=== PATIENT | male | born 1955 | race American Indian/Alaskan Native ===

== ENCOUNTER 2017-05-30 09:15 | Day surgery (SDC) | payer MEDICARE, OTHER ==
[2017-05-25 13:57] VITALS: BMI 27.4
[2017-05-30] MEDS ORDERED: Lactated Ringer's 1,000 ML IV ONE ×2 (11:50)
[2017-05-30] MEDS ORDERED: Bupivacaine HCl 0.25% PF (10 ml) Inj ONE ×2 (12:13→12:35)
[2017-05-30] MEDS ORDERED: ceFAZolin 1 gm FROZEN Premix 1 GM/50 ML ML IVPB ONE (12:13)
[2017-05-30] MEDS ORDERED: Lidocaine 1% Inj (20ml) ONE (12:13)
[2017-05-30] MEDS ORDERED: Midazolam 2 MG/2 ML VIAL ONE (12:15)
[2017-05-30] MEDS ORDERED: Propofol 10 mg/ml Inj (20 ML) ONE (12:15)
[2017-05-30] MEDS ORDERED: Neostigmine Methylsulfate 3mg/3ml Syringe IV ONE (12:51)
[2017-05-30] MEDS ORDERED: HYDROmorphone 0.5 mg/0.5 ml ISec IVP PRN (13:06)
[2017-05-30] MEDS ORDERED: Oxycodone/Acetaminophen 5/325 mg Tab PO PRN (13:17)
[2017-05-30 13:26] VITALS: O2SAT 100
[2017-05-30 15:12] VITALS: BP 126/80; PULSE 80; RESP 18; TEMP 97.3
--- NOTE | 2017-05-30 21:34 | OP ---
PROCEDURE DATE: 05/30/2017 PREOPERATIVE DIAGNOSIS: Incarcerated right inguinal hernia. POSTOPERATIVE DIAGNOSIS: Incarcerated right inguinal hernia. PROCEDURE PERFORMED: 1. Repair of incarcerated right inguinal hernia (94595). 2. Repair of bleeding testicular artery (92872). 3. Excision of pelvic lipoma 3 cm in size (28575). HISTORY OF PRESENT ILLNESS: This is a 61-year-old male with a painful incarcerated right inguinal hernia. Despite receiving chemotherapy, his stomach cancer was felt to alleviate his symptoms, he should undergo an elective repair. GROSS FINDINGS: There was incarcerated indirect inguinal hernia which contained fat omentum. A ProLoop hernia plug repair was performed. There was also a large cord lipoma associated with the hernia and this was removed and sent as a separate specimen. PROCEDURE: The patient was taken to the operating room, placed in the supine position. General anesthesia was administered and the abdomen was prepped and draped. The standard right inguinal incision was made and the external oblique aponeurosis was opened and a Claude drain was used to loop the spermatic cord. The hernia sac was identified within the spermatic cord and carefully dissected free down to its base with the cord structures being meticulously dissected off the sac. Bleeding was noted from the testicular artery. This was repaired with a 7-0 Prolene and flow by Doppler was confirmed within the artery after the repair was performed. A 3-4 size cord lipoma was also meticulously dissected off the cord, dissected free down to the base and removed and sent as a separate specimen. The hernia sac after being completely dissected free was inverted and reduced and an extra-large *------* into the hernia defect. It was sutured in place with interrupted 2-0 Prolene suture. The wound was irrigated with copious amounts of saline solution. The wound was closed in layers with heavy Monocryl, subcuticular Monocryl, and skin clips. The patient tolerated the procedure well. Returned to recovery room in stable condition. Tyler Campos MD
== END 2017-05-30 15:14 | disposition home or self-care (01) ==
LOC: C.SDS 09:15
PROVIDERS: ATTEND Surgery
DX: K40.30 Unilateral inguinal hernia, with obstruction, without gangrene, not specified as recurrent (principal); D17.6 Benign lipomatous neoplasm of spermatic cord; C16.9 Malignant neoplasm of stomach, unspecified; Z92.21 Personal history of antineoplastic chemotherapy
CPT/HCPCS: 49507; 55520; 88304; C1781; J0690; J1170; J2250; J2704; J2710; J3010; J7120

== ENCOUNTER 2017-12-31 23:15 | Inpatient (IN) | payer MEDICARE, OTHER ==
[2017-12-31 23:15] VITALS: BMI 27.4
[2017-12-31] MEDS ORDERED: Sodium Chloride 0.9% 1,000 ML IV ONE (23:57)
--- NOTE | 2018-01-01 00:02 | C.PDOC ---
History Of Present Illness 62 year old male with PMHx of cholangiocarcinoma under Dr. Kramer presents to the ED c/o sudden onset abdominal pain 1 hour [employer]ELF [employer]. Patient reports he is undergoing chemotherapy until recently. Patient states he has 1 episode of vomiting, and noticed increased swelling in his abdomen and lower extremities. Patient denies fever, chills, nausea, diarrhea, back pain. Chief Complaint (Nursing): Abdominal Pain History Per: Patient History/Exam Limitations: no limitations Onset/Duration Of Symptoms: Days Current Symptoms Are (Timing): Still Present Location Of Pain/Discomfort: Diffuse Radiation Of Pain To:: None Quality Of Discomfort: "Pain" Associated Symptoms: Vomiting Exacerbating Factors: None Alleviating Factors: None Recent travel outside of the [place]: No Additional History Per: Patient Past Medical History Reviewed: Historical Data, Nursing Documentation, Vital Signs Vital Signs: Last Vital Signs Temp 98.6 F 01/01/18 03:45 Pulse 109 H 01/01/18 03:45 Resp 20 01/01/18 03:45 BP 133/94 H 01/01/18 03:45 Pulse Ox 97 01/01/18 03:45 - Medical History PMH: Asthma, COPD, HTN, Hyperlipidemia Denies: Chronic Kidney Disease Surgical History: Endoscopy - [facility] Procedures DILATION OF HEPATIC ARTERY, PERCUTANEOUS APPROACH (05/12/16) DRAINAGE OF COMMON BILE DUCT WITH DRAIN DEV, PERC APPROACH (05/12/16) PLAIN RADIOGRAPHY OF HEPATOBIL SYS, ALL USING OTH CONTRAST (05/12/16) Family History: States: Unknown Family Hx - Social History Hx Alcohol Use: No (HAS HX ETOH ABUSE, CLEAN 25 YRS) Hx Substance Use: No - Immunization History Hx Tetanus Toxoid Vaccination: No Hx Influenza Vaccination: No Hx Pneumococcal Vaccination: No Review Of Systems Constitutional: Negative for: Fever, Chills Cardiovascular: Negative for: Chest Pain Respiratory: Negative for: Shortness of Breath Gastrointestinal: Positive for: Vomiting, Abdominal Pain Genitourinary: Negative for: Dysuria Skin: Negative for: Rash Neurological: Negative for: Weakness, Numbness, Headache Physical Exam - Physical Exam Appears: Non-toxic, Chronically Ill Skin: Normal Color, Warm, Dry Head: Atraumatic, Normacephalic Eye(s): bilateral: Other (icteric pupils ) Nose: No Discharge Oral Mucosa: Moist Neck: Normal ROM, Supple Chest: Symmetrical, Other (right sided port ) Cardiovascular: Rhythm Regular, No Murmur Respiratory: Normal Breath Sounds, No Rales, No Rhonchi, No Wheezing Gastrointestinal/Abdominal: Bowel Sounds (active), Soft, Tenderness (Diffuse), Distention, No Guarding, No Rebound, Ascites, Other (Midline vertical laparotomy scar, RUQ surgical scar below costalmargin ) Male Genital: Scrotal Swelling Extremity: Normal ROM, No Tenderness, Swelling (2/3+ pitting edema on b/l knees) Neurological/Psych: Oriented x3 Gait: Unable To Assess ED Course And Treatment - Laboratory Results Result Diagrams: 01/01/18 00:16 01/01/18 00:16 O2 Sat by Pulse Oximetry: 97 (On RA) Pulse Ox Interpretation: Normal Progress Note: CT shows multiple enteroenteric fistulae,liver mets,ascites Medical Decision Making Medical Decision Making: Impression: metastatic gastric cancer Plan: * Labs * Benadryl 25 mg IVP * Dilaudid 1 mg IVP * IV fluids * Zofran 4 mg IVP * UA Disposition - Disposition Disposition: HOSPITALIZED Disposition Time: 07:01 Condition: GOOD - Clinical Impression Clinical Impression: Abdominal pain, Cholangiocarcinoma - Scribe Statement The provider has reviewed the documentation as recorded by the Scribe Sushant Richard All medical record entries made by the Scribe were at my direction and personally dictated by me. I have reviewed the chart and agree that the record accurately reflects my personal performance of the history, physical exam, medical decision making, and the department course for this patient. I have also personally directed, reviewed, and agree with the discharge instructions and disposition.
[2018-01-01 00:20] LABS: BASO # 0.1 K/uL (0.0-0.2); BASO % 0.5 % (0.0-2.0); EOS # 0.1 K/uL (0.0-0.7); EOS % 0.3 % (0.0-4.0); HEMOGLOBIN 9.2 g/dL (12.0-18.0); LYMPH % 4.7 % (20.0-40.0); MEAN CELL VOLUME 92.4 fL (80.0-94.0); MEAN CORPUSCULAR HEMOGLOBIN 31.1 pg (27.0-31.0); MEAN CORPUSCULAR HGB CONC 33.6 g/dL (33.0-37.0); MEAN PLATELET VOLUME 9.8 fL (7.2-11.7); MONO # 2.4 K/uL (0.0-0.8); MONO % 11.8 % (0.0-10.0); NEUT # 16.9 K/uL (1.8-7.0); NEUT % 82.7 % (50.0-75.0); PLATELET COUNT 126 K/uL (130-400); RBC 2.94 Mil/uL (4.40-5.90); RED CELL DISTRIBUTION WIDTH 19.2 % (11.5-14.5); WHITE BLOOD COUNT 20.4 K/uL (4.8-10.8)
[2018-01-01] MEDS ORDERED: HYDROmorphone 1 mg/ml ISec IVP STA ×2 (00:22→02:29)
[2018-01-01] MEDS ORDERED: DiphenhydrAMINE 50 mg/ml Inj IVP STA (00:22)
[2018-01-01] MEDS ORDERED: HYDROmorphone 1 mg/ml ISec ONE ×2 (00:25→02:31)
[2018-01-01] MEDS ORDERED: Sodium Chloride 0.9% 1,000 ML ONE (00:25)
[2018-01-01] MEDS ORDERED: DiphenhydrAMINE 50 mg/ml Inj ONE (00:35)
[2018-01-01 00:38] LABS: ALB/GLOB RATIO 0.5 (1.0-2.1); ALBUMIN 1.9 g/dL (3.5-5.0); ALT/SGPT 79 U/L (21-72); AST/SGOT 44 U/L (17-59); BLOOD UREA NITROGEN 9 mg/dL (9-20); CALCIUM 6.9 mg/dl (8.6-10.4); GFR AFRICAN-AMERICAN > 60; GFR NON-AFRICAN AMERICAN > 60
[2018-01-01 00:44] LABS: LIPASE < 10 U/L (23-300)
[2018-01-01] MEDS ORDERED: Iodixanol 320 MG/ML 100 ML BOTTLE IV ONE (01:26)
[2018-01-01] MEDS ORDERED: Calcium Gluconate 4.65 MEQ in Dextrose 5% In Water 100 ML IV ONE (01:32)
[2018-01-01 01:38] LABS: BANDS 2 % (0-2); LYMPHOCYTE 7 % (20-40); MONOCYTE 13 % (0-10); NEUTROPHIL 78 % (50-75); PLATELET ESTIMATE SLIGHTLY DECREASED (NORMAL); TOTAL CELLS COUNTED 100
[2018-01-01 01:39] LABS: ANISOCYTOSIS MODERATE; HYPOCHROMIC MODERATE; POIKILOCYTOSIS MODERATE; TARGET CELLS SLIGHT
[2018-01-01] MEDS ORDERED: Calcium Gluconate 4.65 mEq/10 ml Inj ONE (01:43)
[2018-01-01] MEDS ORDERED: Piperacillin/Tazobact 3.375 GM in Sodium Chloride 100 ML IVPB STA (01:47)
[2018-01-01] MEDS ORDERED: Piperacill/Tazo 3.375gm in Dex 3.375 GM/50 ML BAG IVPB STA (02:14)
[2018-01-01] MEDS ORDERED: Albuterol-Ipratrop 3 mg / 0.5 (3 ml) UD INH PRN (02:46)
[2018-01-01] MEDS: Dextrose 5%/0.45% NS 1,000 ML IV SCH ×3 (03:04→21:57)
[2018-01-01] MEDS: HYDROmorphone 1 mg/ml ISec IVP PRN ×2 (04:09→19:59)
[2018-01-01] MEDS: metroNIDAZOLE IV 500 mg/100 ml 500 MG/100 ML BAG IVPB SCH ×3 (05:35→22:50)
--- NOTE | 2018-01-01 07:57 | CP.PCM.CON ---
<La Nena Song - Last Filed: 01/01/18 08:00> History of Present Illness - History of Present Illness History of Present Illness: Surgery Consult: Dr. Keith Pt is a 62M with PMHx significant for cholangiocarcinoma s/p resection [place] [address] Hogan at [facility] and now on chemo who presented to [facility] with complaints of abdominal pain, leg pain and pain in his groin 2/2 generalized edema. Pt states he has pain everywhere and has been getting more and more "swollen." Admits to not having much of an appetite and feeling nauseous. Denies F/C, chest pain or SOB. In the ER, pt had a CT abdomen/pelvis which shows small pockets of air around the stomach concerning for microperf. Surgery called to evaluate. Currently, pt is resting comfortably in bed. Admits to generalized pain everywhere most prominent in his lower extremities. Denies vomiting or diarrhea. Review of Systems - Review of Systems All systems: reviewed and no additional remarkable complaints except (as per HPI ) Past Patient History - Infectious Disease Hx of Infectious Diseases: None - Past Medical History & Family History Past Medical History?: Yes - Past Social History Smoking Status: Former Smoker - CARDIAC Hx Hypertension: Yes - PULMONARY Hx Asthma: Yes Hx Chronic Obstructive Pulmonary Disease (COPD): Yes - NEUROLOGICAL Hx Neurological Disorder: No - HEENT Hx HEENT Problems: No - RENAL Hx Chronic Kidney Disease: No - ENDOCRINE/METABOLIC Hx Endocrine Disorders: No - HEMATOLOGICAL/ONCOLOGICAL Hx Blood Disorders: Yes Hx Cancer: Yes (STOMACH) Hx Chemotherapy: Yes (HAD ITCHING AFTER CHEM-"IN RECESSION"/ALSO RADIATION) - INTEGUMENTARY Hx Dermatological Problems: No - MUSCULOSKELETAL/RHEUMATOLOGICAL Hx Musculoskeletal Disorders: Yes Hx Falls: No Other/Comment: HX: RIGHT INGUINAL HERNIA - GASTROINTESTINAL Hx Gastrointestinal Disorders: Yes Hx Bowel Surgery: Yes Other/Comment: HX: CANCER IN STOMACH-2015 - GENITOURINARY/GYNECOLOGICAL Hx Genitourinary Disorders: No - PSYCHIATRIC Hx Substance Use: No - SURGICAL HISTORY Hx Surgeries: Yes Other/Comment: "STOMACH CANCER TUMOR REMOVAL - ANESTHESIA Hx Anesthesia: Yes Hx Anesthesia Reactions: No Hx Malignant Hyperthermia: No Meds Allergies/Adverse Reactions: Allergies Allergy/AdvReac Type Severity Reaction Status Date / Time CHEMO Allergy Severe URTICARIA Uncoded 12/31/17 23:33 seasonal allergies Allergy Uncoded 12/31/17 23:33 - Medications Medications: Current Medications Acetaminophen (Tylenol 325mg Tab) 650 mg PO Q6 PRN PRN Reason: Fever >100.4 F Albuterol/Ipratropium (Duoneb 3 Mg/0.5 Mg (3 Ml) Ud) 3 ml INH QID PRN PRN Reason: sob/wheezing Enoxaparin Sodium (Lovenox) 40 mg SC DAILY [facility] Hydromorphone HCl (Dilaudid) 1 mg IVP Q4H PRN PRN Reason: pain Last Admin: 01/01/18 04:09 Dose: 1 mg Dextrose/Sodium Chloride (Dextrose 5%/0.45% Ns 1000 Ml) 1,000 mls @ 100 mls/hr IV .Q10H [facility] Last Admin: 01/01/18 03:04 Dose: 100 mls/hr Metronidazole (Flagyl) 500 mg in 100 mls @ 100 mls/hr IVPB Q8 [facility] PRN Reason: Protocol Last Admin: 01/01/18 05:35 Dose: 100 mls/hr Piperacillin Sod/Tazobactam (Sod 3.375 gm/ Sodium Chloride) 100 mls @ 200 mls/ hr IVPB Q6H [facility] PRN Reason: Protocol Potassium Chloride (Potassium Chloride 20 Meq/100 Ml) 20 meq in 100 mls @ 50 mls/hr IVPB Q2 [facility] Stop: 01/01/18 09:59 Last Admin: 01/01/18 06:17 Dose: 50 mls/hr Ondansetron HCl (Zofran Inj) 4 mg IVP Q4 PRN PRN Reason: Nausea/Vomiting Physical Exam - Constitutional Appears: No Acute Distress - Head Exam Head Exam: ATRAUMATIC, NORMOCEPHALIC - Eye Exam Eye Exam: Normal appearance - ENT Exam ENT Exam: Mucous Membranes Moist - Respiratory Exam Respiratory Exam: NORMAL BREATHING PATTERN - Cardiovascular Exam Cardiovascular Exam: Tachycardia - GI/Abdominal Exam GI & Abdominal Exam: Distended (2/2 ascites ), Soft, Tenderness (generalized) - Neurological Exam Neurological exam: Alert, Oriented x3 - Skin Skin Exam: Dry, Warm Results - Vital Signs Recent Vital Signs: Last Vital Signs Temp 98.6 F 01/01/18 03:45 Pulse 109 H 01/01/18 03:45 Resp 20 01/01/18 03:45 BP 133/94 H 01/01/18 03:45 Pulse Ox 97 01/01/18 07:03 - Labs Result Diagrams: 01/01/18 00:16 01/01/18 00:16 Labs: Laboratory Results - last 24 hr 01/01/18 01/01/18 01/01/18 00:16 00:16 00:16 WBC 20.4 H D RBC 2.94 L Hgb 9.2 L Hct 27.2 L MCV 92.4 D MCH 31.1 H MCHC 33.6 RDW 19.2 H Plt Count 126 L D MPV 9.8 Neut % (Auto) 82.7 H Lymph % (Auto) 4.7 L [place] % (Auto) 11.8 H Eos % (Auto) 0.3 Baso % (Auto) 0.5 Neut # (Auto) 16.9 H Lymph # (Auto) 1.0 [place] # (Auto) 2.4 H Eos # (Auto) 0.1 Baso # (Auto) 0.1 Neutrophils % (Manual) 78 H Band Neutrophils % 2 Lymphocytes % (Manual) 7 L Monocytes % (Manual) 13 H Platelet Estimate Slightly decreased L Hypochromasia (manual) Moderate Poikilocytosis (manual Moderate Anisocytosis (manual) Moderate Target Cells Slight Sodium 134 Potassium 2.6 L Chloride 106 Carbon Dioxide 19 L Anion Gap 11 BUN 9 Creatinine 0.8 Est GFR ( Amer) > 60 Est GFR (Non-Af Amer) > 60 Random Glucose 71 L Lactic Acid Calcium 6.9 L Total Bilirubin 2.9 H AST 44 ALT 79 H Alkaline Phosphatase 277 H Ammonia 21 Total Protein 5.6 L Albumin 1.9 L D Globulin 3.8 Albumin/Globulin Ratio 0.5 L Lipase < 10 L 01/01/18 00:16 WBC RBC Hgb Hct MCV MCH MCHC RDW Plt Count MPV Neut % (Auto) Lymph % (Auto) [place] % (Auto) Eos % (Auto) Baso % (Auto) Neut # (Auto) Lymph # (Auto) [place] # (Auto) Eos # (Auto) Baso # (Auto) Neutrophils % (Manual) Band Neutrophils % Lymphocytes % (Manual) Monocytes % (Manual) Platelet Estimate Hypochromasia (manual) Poikilocytosis (manual Anisocytosis (manual) Target Cells Sodium Potassium Chloride Carbon Dioxide Anion Gap BUN Creatinine Est GFR ( Amer) Est GFR (Non-Af Amer) Random Glucose Lactic Acid 1.9 Calcium Total Bilirubin AST ALT Alkaline Phosphatase Ammonia Total Protein Albumin Globulin Albumin/Globulin Ratio Lipase - Imaging and Cardiology CT scan - abdomen Status: Image reviewed by me Assessment & Plan - Assessment and Plan (Free Text) Assessment: 62M with hx of cholangiocarcinoma, admitted for abdominal pain & generalized fluid retention Plan: - cont to monitor - serial abdominal exams - keep NPO for now - f/u GI recs - d/w Dr. Sagar Song, PGY-3 <Mike Keith - Last Filed: 01/02/18 21:42> Meds - Medications Medications: Current Medications Acetaminophen (Tylenol 325mg Tab) 650 mg PO Q6 PRN PRN Reason: Fever >100.4 F Albuterol/Ipratropium (Duoneb 3 Mg/0.5 Mg (3 Ml) Ud) 3 ml INH RQID PRN PRN Reason: sob/wheezing Enoxaparin Sodium (Lovenox) 40 mg SC DAILY [facility] Last Admin: 01/02/18 09:40 Dose: 40 mg Hydromorphone HCl (Dilaudid) 1 mg IVP Q4H PRN PRN Reason: pain Last Admin: 01/02/18 19:14 Dose: 1 mg Dextrose/Sodium Chloride (Dextrose 5%/0.45% Ns 1000 Ml) 1,000 mls @ 100 mls/hr IV .Q10H [facility] Last Admin: 01/02/18 19:00 Dose: 100 mls/hr Vancomycin/Sodium Chloride (Vancomycin 1 Gm/Ns 200 Ml) 1 gm in 200 mls @ 166.6 mls/hr IVPB Q12H [facility] PRN Reason: Protocol Stop: 01/07/18 02:01 Last Admin: 01/02/18 13:58 Dose: 166.6 mls/hr Piperacillin Sod/Tazobactam Sod (Zosyn 3.375 Gm Iv Premix) 3.375 gm in 50 mls @ 100 mls/hr IVPB Q8H [facility] PRN Reason: Protocol Last Admin: 01/02/18 18:00 Dose: 100 mls/hr Metronidazole (Flagyl) 500 mg in 100 mls @ 100 mls/hr IVPB Q12H [facility] PRN Reason: Protocol Last Admin: 01/02/18 18:00 Dose: 100 mls/hr Metoclopramide HCl (Reglan) 10 mg IVP Q8H [facility] Last Admin: 01/02/18 20:00 Dose: 10 mg Ondansetron HCl (Zofran Inj) 4 mg IVP Q4 PRN PRN Reason: Nausea/Vomiting Last Admin: 01/01/18 14:25 Dose: 4 mg Results - Vital Signs Recent Vital Signs: Last Vital Signs Temp 98.2 F 01/02/18 08:00 Pulse 103 H 01/02/18 08:00 Resp 20 01/02/18 08:00 BP 109/72 01/02/18 08:00 Pulse Ox 97 01/02/18 08:00 - Labs Result Diagrams: 01/02/18 14:27 01/02/18 14:27 Labs: Laboratory Results - last 24 hr 01/02/18 01/02/18 01/02/18 14:27 14:27 14:27 WBC 24.1 H RBC 2.56 L Hgb 7.8 L Hct 23.7 L MCV 92.6 MCH 30.6 MCHC 33.1 RDW 18.9 H Plt Count 146 MPV 10.0 PT 20.0 H INR 1.7 Sodium 138 Potassium 3.1 L Chloride 109 H Carbon Dioxide 21 L Anion Gap 12 BUN 11 Creatinine 0.9 Est GFR ( Amer) > 60 Est GFR (Non-Af Amer) > 60 Random Glucose 82 Calcium 6.7 L Total Bilirubin 1.9 H AST 34 ALT 52 Alkaline Phosphatase 206 H D Total Protein 5.0 L Albumin 1.6 L Globulin 3.3 Albumin/Globulin Ratio 0.5 L Urine Color Urine Clarity Urine pH Ur Specific [place] Urine Protein Urine Glucose (UA) Urine Ketones Urine Blood Urine Nitrate Urine Bilirubin Urine Urobilinogen Ur Leukocyte Esterase Urine WBC (Auto) Urine RBC (Auto) Ur Squamous Epith Cells Urine Bacteria Urine Yeast (Budding) 01/02/18 20:20 WBC RBC Hgb Hct MCV MCH MCHC RDW Plt Count MPV PT INR Sodium Potassium Chloride Carbon Dioxide Anion Gap BUN Creatinine Est GFR ( Amer) Est GFR (Non-Af Amer) Random Glucose Calcium Total Bilirubin AST ALT Alkaline Phosphatase Total Protein Albumin Globulin Albumin/Globulin Ratio Urine Color Dilia Urine Clarity Hazy Urine pH 5.0 Ur Specific Virgin 1.038 H Urine Protein Negative Urine Glucose (UA) Normal Urine Ketones Negative Urine Blood Negative Urine Nitrate Negative Urine Bilirubin Negative Urine Urobilinogen Normal Ur Leukocyte Esterase Trace Urine WBC (Auto) 4 Urine RBC (Auto) 1 Ur Squamous Epith Cells 1 Urine Bacteria Rare Urine Yeast (Budding) Few H Attending/Attestation - Attestation I have personally seen and examined this patient.: Yes I have fully participated in the care of the patient.: Yes I have reviewed all pertinent clinical information: Yes Notes (Text): Pt was seen and examined at bedside Agree with above note and assessment Pt with abdominal pain and leucocytosis s/p Chemoradiation for Cholangiocarcinoma Epigastric tenderness Labs and radiology reviewed 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
[2018-01-01] MEDS: Piperacillin/Tazobact 3.375 GM in Sodium Chloride 100 ML IVPB SCH ×3 (09:39→21:58)
[2018-01-01] MEDS: Enoxaparin 40 mg Syringe SC SCH (09:40)
--- NOTE | 2018-01-01 11:14 | CT ---
PROCEDURE: CT Abdomen and Pelvis with contrast HISTORY: pain COMPARISON: 05/23/2016 TECHNIQUE: Contrast dose: 100 mL Visipaque 320 Radiation dose: Total exam DLP = 450.10 mGy-cm. This CT exam was performed using one or more of the following dose reduction techniques: Automated exposure control, adjustment of the mA and/or kV according to patient size, and/or use of iterative reconstruction technique. FINDINGS: LOWER THORAX: Patchy lingular opacity. LIVER: Multiple low-density hepatic masses. Possible metastatic disease. New since prior examination. Differential diagnosis would include multiple abscess ease, possibly fungal in immunocompromised patient. Smooth contour. Normal size. No intrahepatic biliary dilatation. Nonspecific periportal edema is noted. GALLBLADDER AND BILE DUCTS: Status post cholecystectomy. PANCREAS: Unremarkable. No gross lesion or ductal dilatation. SPLEEN: Unremarkable. ADRENALS: Unremarkable. No mass. KIDNEYS AND URETERS: Unremarkable. No hydronephrosis. No solid mass. VASCULATURE: Unremarkable. No aortic aneurysm. BOWEL: Circumferential mural thickening of long segments of colon, consistent with nonspecific colitis. This spares the descending and sigmoid colon and questionably involves the rectum. The rectum is collapsed and evaluation is limited. This also spares the cecum and proximal ascending colon. 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 Fistulous connection seen from the gastric antral region to the mid transverse colon. There is also possible fistula between the small bowel loop and the transverse colon, best demonstrated on series 601, image 17 and series 602, image 67. Surgical sutures are seen about the gastric antrum. The patient is status post partial gastrectomy. There is diffuse mural thickening of the remaining stomach consistent with nonspecific gastritis. There is circumferential mural thickening of multiple loops of small bowel, predominantly ileum, consistent with nonspecific enteritis. No evidence of bowel obstruction. APPENDIX: Normal appendix. PERITONEUM: Extensive ascites. Very small amount of air noted in the upper abdomen in the region of the gastrohepatic ligament common not clearly within a bowel lumen. Possible small amount of free air. Followup CT advised. LYMPH NODES: Unremarkable. No enlarged lymph nodes. BLADDER: Unremarkable. REPRODUCTIVE: Unremarkable. BONES: No acute fracture. OTHER FINDINGS: None. IMPRESSION: Extensive ascites. Questionable very small amount of free intraperitoneal air in the region of the gastrohepatic ligament. Followup CT advised. Nonspecific colitis and enteritis. Nonspecific gastritis. 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 Multiple hepatic masses, nonspecific. Consider metastatic disease. In immunocompromised patient, consider fungal abscesses. Nonspecific periportal edema. Preliminary interpretation of this examination was reported by [facility] at 3:09 a.m. on 01/01/2018.. There is concurrence of this report with the preliminary interpretation.
[2018-01-01 14:12] LABS: MEAN CORPUSCULAR HEMOGLOBIN 30.7 pg (27.0-31.0); MEAN CORPUSCULAR HGB CONC 32.7 g/dL (33.0-37.0); MEAN PLATELET VOLUME 9.6 fL (7.2-11.7); RBC 2.91 Mil/uL (4.40-5.90); RED CELL DISTRIBUTION WIDTH 18.7 % (11.5-14.5); WHITE BLOOD COUNT 26.7 K/uL (4.8-10.8)
--- NOTE | 2018-01-01 19:07 | CARD ---
APPROVED REPORT EKG Measurement Heart [id number] CT 104P [id number] <Conclusion> Sinus tachycardia with short CT Low voltage QRS Nonspecific T wave abnormality Abnormal ECG
[2018-01-02] MEDS: Dextrose 5%/0.45% NS 1,000 ML IV SCH ×2 (00:23→19:00)
--- NOTE | 2018-01-02 00:49 | CP.PCM.HP ---
History of Present Illness - History of Present Illness History of Present Illness: Pt is a 62M with PMHx significant for cholangiocarcinoma s/p resection [place] [address] Hogan at [facility] and now on chemo who presented to [facility] with complaints of abdominal pain, leg pain and pain in his groin 2/2 generalized edema. Pt states he has pain everywhere and has been getting more and more "swollen." Admits to not having much of an appetite and feeling nauseous. Denies F/C, chest pain or SOB. In the ER, pt had a CT abdomen/pelvis which shows small pockets of air around the stomach concerning for microperf. Surgery called to evaluate. Currently, pt is resting comfortably in bed. Admits to generalized pain everywhere most prominent in his lower extremities. Denies vomiting or diarrhea. Present on Admission - Present on Admission Any Indicators Present on Admission: Yes Past Patient History - Infectious Disease Hx of Infectious Diseases: None - Past Medical History & Family History Past Medical History?: Yes - Past Social History Smoking Status: Former Smoker - CARDIAC Hx Hypertension: Yes - PULMONARY Hx Asthma: Yes Hx Chronic Obstructive Pulmonary Disease (COPD): Yes - NEUROLOGICAL Hx Neurological Disorder: No - HEENT Hx HEENT Problems: No - RENAL Hx Chronic Kidney Disease: No - ENDOCRINE/METABOLIC Hx Endocrine Disorders: No - HEMATOLOGICAL/ONCOLOGICAL Hx Blood Disorders: Yes Hx Cancer: Yes (STOMACH) Hx Chemotherapy: Yes (HAD ITCHING AFTER CHEM-"IN RECESSION"/ALSO RADIATION) - INTEGUMENTARY Hx Dermatological Problems: No - MUSCULOSKELETAL/RHEUMATOLOGICAL Hx Musculoskeletal Disorders: Yes Hx Falls: No Other/Comment: HX: RIGHT INGUINAL HERNIA - GASTROINTESTINAL Hx Gastrointestinal Disorders: Yes Hx Bowel Surgery: Yes Other/Comment: HX: CANCER IN STOMACH-2014 - GENITOURINARY/GYNECOLOGICAL Hx Genitourinary Disorders: No - PSYCHIATRIC Hx Substance Use: No - SURGICAL HISTORY Hx Surgeries: Yes Other/Comment: "STOMACH CANCER TUMOR REMOVAL - ANESTHESIA Hx Anesthesia: Yes Hx Anesthesia Reactions: No Hx Malignant Hyperthermia: No Meds Allergies/Adverse Reactions: Allergies Allergy/AdvReac Type Severity Reaction Status Date / Time CHEMO Allergy Severe URTICARIA Uncoded 12/31/17 23:33 seasonal allergies Allergy Uncoded 12/31/17 23:33 Results - Vital Signs Recent Vital Signs: Last Vital Signs Temp 97.7 F 01/01/18 16:00 Pulse 121 H 01/01/18 16:00 Resp 20 01/01/18 16:00 BP 125/87 01/01/18 16:00 Pulse Ox 98 01/01/18 16:00 - Labs Result Diagrams: 01/01/18 14:04 01/01/18 00:16 Labs: Laboratory Results - last 24 hr 01/01/18 01/01/18 01/01/18 00:16 14:04 14:04 WBC RBC Hgb Hct MCV MCH MCHC RDW Plt Count MPV Neutrophils % (Manual) 78 H Band Neutrophils % 2 Lymphocytes % (Manual) 7 L Monocytes % (Manual) 13 H Differential Comment Platelet Estimate Slightly decreased L Hypochromasia (manual) Moderate Poikilocytosis (manual Moderate Anisocytosis (manual) Moderate Target Cells Slight Alpha Fetoprotein 4.9 Carcinoembryonic Ag 18.6 H CA 19-9 Antigen > 5000 H 01/01/18 14:04 WBC 26.7 H RBC 2.91 L Hgb 9.0 L Hct 27.4 L MCV 94.0 MCH 30.7 MCHC 32.7 L RDW 18.7 H Plt Count 132 MPV 9.6 Neutrophils % (Manual) Band Neutrophils % Lymphocytes % (Manual) Monocytes % (Manual) Differential Comment Platelet Estimate Hypochromasia (manual) Poikilocytosis (manual Anisocytosis (manual) Target Cells Alpha Fetoprotein Carcinoembryonic Ag CA 19-9 Antigen Assessment & Plan (1) Abdominal pain Status: Acute (2) Cholangiocarcinoma Status: Chronic Priority: High (3) Dehydration Status: Acute Priority: High (4) Hypertension Status: Acute
[2018-01-02] MEDS ORDERED: Vancomycin 1 gm/NS 200 ml 1 GM/200 ML BAG IVPB STA (01:08)
[2018-01-02] MEDS: HYDROmorphone 1 mg/ml ISec IVP PRN ×5 (01:50→19:14)
[2018-01-02] MEDS: Vancomycin 1 gm/NS 200 ml 1 GM/200 ML BAG IVPB SCH ×2 (02:00→13:58)
[2018-01-02] MEDS: Piperacillin/Tazobact 3.375 GM in Sodium Chloride 100 ML IVPB SCH ×3 (03:08→14:01)
[2018-01-02] MEDS: metroNIDAZOLE IV 500 mg/100 ml 500 MG/100 ML BAG IVPB SCH ×2 (05:30→18:00)
[2018-01-02] MEDS: Enoxaparin 40 mg Syringe SC SCH (09:40)
--- NOTE | 2018-01-02 14:08 | CP.PCM.PN ---
<Andrew Hampton - Last Filed: 01/02/18 16:44> Subjective - Date & Time of Evaluation Date of Evaluation: 01/02/18 Time of Evaluation: 07:00 - Subjective Subjective: Surgery progress note. Dr. Keith. Pt seen and examined at bedside. No acute events overnight. Had 2 episodes of vomiting yesterday. Today, states that abdominal pain is improved mildly. States that he would like to have some assistance to move to and from bedside chair/commode. No new complaints. Objective - Vital Signs/Intake and Output Vital Signs (last 24 hours): Temp Pulse Resp BP Pulse Ox 98.2 F 103 H 20 109/72 97 01/02/18 08:00 01/02/18 08:00 01/02/18 08:00 01/02/18 08:00 01/02/18 08:00 Intake and Output: 01/02/18 01/02/18 06:59 18:59 Intake Total 2049 Balance 2049 - Medications Medications: Current Medications Acetaminophen (Tylenol 325mg Tab) 650 mg PO Q6 PRN PRN Reason: Fever >100.4 F Albuterol/Ipratropium (Duoneb 3 Mg/0.5 Mg (3 Ml) Ud) 3 ml INH RQID PRN PRN Reason: sob/wheezing Enoxaparin Sodium (Lovenox) [address] [facility] Last Admin: 01/02/18 09:40 Dose: 40 mg Hydromorphone HCl (Dilaudid) 1 mg IVP Q4H PRN PRN Reason: pain Last Admin: 01/02/18 10:23 Dose: 1 mg Dextrose/Sodium Chloride (Dextrose 5%/0.45% Ns 1000 Ml) 1,000 mls @ 100 mls/hr IV .Q10H [facility] Last Admin: 01/02/18 00:23 Dose: Not Given Piperacillin Sod/Tazobactam (Sod 3.375 gm/ Sodium Chloride) 100 mls @ 200 mls/ hr IVPB Q6H [facility] PRN Reason: Protocol Last Admin: 01/02/18 14:01 Dose: 200 mls/hr Vancomycin/Sodium Chloride (Vancomycin 1 Gm/Ns 200 Ml) 1 gm in 200 mls @ 166.6 mls/hr IVPB Q12H [facility] PRN Reason: Protocol Stop: 01/07/18 02:01 Last Admin: 01/02/18 13:58 Dose: 166.6 mls/hr Metoclopramide HCl (Reglan) 10 mg IVP Q8H [facility] Last Admin: 01/02/18 12:05 Dose: 10 mg Ondansetron HCl (Zofran Inj) 4 mg IVP Q4 PRN PRN Reason: Nausea/Vomiting Last Admin: 01/01/18 14:25 Dose: 4 mg - Labs Labs: 01/01/18 14:04 01/01/18 00:16 - Constitutional Appears: Non-toxic, No Acute Distress - Head Exam Head Exam: ATRAUMATIC, NORMAL INSPECTION, NORMOCEPHALIC - Eye Exam Eye Exam: EOMI, Normal appearance. absent: Scleral icterus - ENT Exam ENT Exam: Mucous Membranes Moist - Respiratory Exam Respiratory Exam: NORMAL BREATHING PATTERN. absent: Accessory Muscle Use, Respiratory Distress - Cardiovascular Exam Cardiovascular Exam: absent: JVD - GI/Abdominal Exam GI & Abdominal Exam: Distended (mild distention), Soft. absent: Firm, Guarding , Rigid, Tenderness, Rebound - Extremities Exam Additional comments: 3+pitting pretibial edema bilaterally lower extremity - Neurological Exam Neurological Exam: Alert, Awake, Oriented x3 - Skin Skin Exam: Dry, Intact, Normal Color, Warm Assessment and Plan - Assessment and Plan (Free Text) Assessment: 62yo M with abdominal pain. - Hx of Cholangiocarcinoma, s/p cholecystectomy, s/p chemo/radiation - Consider metastatic disease Plan: - Consider Repeat CT Abd/Pelvis with PO and IV contrast if patient's clinical exam worsens - We will continue to monitor - f/u labs pending - continue current medical management Further recs as per Dr. Sagar Hampton PGY1 surgery pager: [phone] <Mike Keith - Last Filed: 01/02/18 21:47> Objective - Vital Signs/Intake and Output Vital Signs (last 24 hours): Temp Pulse Resp BP Pulse Ox 98.2 F 103 H 20 109/72 97 01/02/18 08:00 01/02/18 08:00 01/02/18 08:00 01/02/18 08:00 01/02/18 08:00 Intake and Output: 01/02/18 01/03/18 18:59 06:59 Intake Total 900 950 Balance 900 950 - Medications Medications: Current Medications Acetaminophen (Tylenol 325mg Tab) 650 mg PO Q6 PRN PRN Reason: Fever >100.4 F Albuterol/Ipratropium (Duoneb 3 Mg/0.5 Mg (3 Ml) Ud) 3 ml INH RQID PRN PRN Reason: sob/wheezing Enoxaparin Sodium (Lovenox) [address] [facility] Last Admin: 01/02/18 09:40 Dose: 40 mg Hydromorphone HCl (Dilaudid) 1 mg IVP Q4H PRN PRN Reason: pain Last Admin: 01/02/18 19:14 Dose: 1 mg Dextrose/Sodium Chloride (Dextrose 5%/0.45% Ns 1000 Ml) 1,000 mls @ 100 mls/hr IV .Q10H [facility] Last Admin: 01/02/18 19:00 Dose: 100 mls/hr Vancomycin/Sodium Chloride (Vancomycin 1 Gm/Ns 200 Ml) 1 gm in 200 mls @ 166.6 mls/hr IVPB Q12H [facility] PRN Reason: Protocol Stop: 01/07/18 02:01 Last Admin: 01/02/18 13:58 Dose: 166.6 mls/hr Piperacillin Sod/Tazobactam Sod (Zosyn 3.375 Gm Iv Premix) 3.375 gm in 50 mls @ 100 mls/hr IVPB Q8H [facility] PRN Reason: Protocol Last Admin: 01/02/18 18:00 Dose: 100 mls/hr Metronidazole (Flagyl) 500 mg in 100 mls @ 100 mls/hr IVPB Q12H [facility] PRN Reason: Protocol Last Admin: 01/02/18 18:00 Dose: 100 mls/hr Metoclopramide HCl (Reglan) [address] [facility] Last Admin: 01/02/18 20:00 Dose: 10 mg Ondansetron HCl (Zofran Inj) 4 mg IVP Q4 PRN PRN Reason: Nausea/Vomiting Last Admin: 01/01/18 14:25 Dose: 4 mg - Labs Labs: 01/02/18 14:27 01/02/18 14:27 PT 20.0 SECONDS (9.7-12.2) H 01/02/18 14:27 INR 1.7 01/02/18 14:27 Attending/Attestation - Attestation I have personally seen and examined this patient.: Yes I have fully participated in the care of the patient.: Yes I have reviewed all pertinent clinical information, including history, physical exam and plan: Yes Notes (Text): Pt was seen and examined at bedside Agree with above note and assessment Pt is improving clinically Tolerating liquid diet IV antibiotics Repeat CT scan with Po and IV contrast Plan d.w pt in detail Risk and benefit explained in detail.
[2018-01-02 14:31] LABS: HEMOGLOBIN 7.8 g/dL (12.0-18.0); MEAN CELL VOLUME 92.6 fL (80.0-94.0); MEAN CORPUSCULAR HEMOGLOBIN 30.6 pg (27.0-31.0); MEAN CORPUSCULAR HGB CONC 33.1 g/dL (33.0-37.0); RBC 2.56 Mil/uL (4.40-5.90); RED CELL DISTRIBUTION WIDTH 18.9 % (11.5-14.5); WHITE BLOOD COUNT 24.1 K/uL (4.8-10.8)
--- NOTE | 2018-01-02 14:44 | PN ---
DATE: 01/02/2018. LOCATION: [facility], bed A. SUBJECTIVE: This is a 62 years old male seen initially for GI consultation on 01/01/2018 at the request by the admitting medical staff, reexamined again today without complaint of abdominal pain. The entire chart is reviewed including, but not limited to most recent lab and radiology study results, current and previous medication list, current and previous medical events. Case discussed at length with the staff in the floor. The official report of yesterday CAT scan is seen and is extensive with evidence of metastatic disease as well as extensive ascites for which the patient will need IR staff for ultrasound guided abdominal paracentesis. 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 Today's lab results is still pending; however, yesterday lab showed white blood cells of 26.7, hemoglobin 9, hematocrit 27.4, with normal platelet count with CA level of 18.6, CA 19-9 is over 5000 with low albumin 1.9, total protein 5.6, total bilirubin 2.9. Calcium is very low at 6.9. Amylase, lipase level is still pending. PHYSICAL EXAMINATION: GENERAL: A 62 years old male, afebrile, appeared to awake, alert, complaining of abdominal pain. VITAL SIGNS: Pulse of 100, respiratory rate 20 to 22, blood pressure 120/70. HEENT: Show pale, dry oral mucous membrane with bilateral icteric sclerae. HEART: Positive S1 and S2 with increased rate. LUNGS: Scattered crepitation with decreased air entry at bases. ABDOMEN: [id number] distention. Positive for ascites with diffused tenderness. Bowel sounds are hypoactive. No mass or organomegaly. No rebound tenderness or guarding. EXTREMITIES: With lower extremity edematous changes. No clubbing or cyanosis. NEUROLOGIC: No new reported neurological deficits, sensory or motor. IMPRESSION: 1. Reported history of cholangiocarcinoma with metastatic disease to the liver. 2. Status post partial resection in 2016 by record at [facility]. 3. Questionable perforation with free air by CAT scan. 4. Excessive increase of CEA and CA 19-9 most likely secondary to above. 5. Ascites to rule out malignant ascites with possible peritoneal feeding as well as possible spontaneous bacterial peritonitis. 6. Known history of but not limited to hypertension, hyperlipidemia, . 7. Known history of alcoholism, quit about 25 years ago as per record and the patient's statement. 8. Malnutrition with severe hypoalbuminemia, hypoproteinemia, as well as electrolyte imbalance. 9. Abnormal liver function test secondary to above. SUGGESTIONS: 1. Agree with your plan. 2. Serum lipase level, amylase level. 3. Ultrasound guided abdominal paracentesis by IR. 4. Continue current IV antibiotics. 5. No aggressive GI procedures in the meantime and surgical followup is advised. 6. Hematology, Oncology followup. 7. No aggressive GI workup in the meantime until the patient is more stable clinically. Adina Barillas MD
[2018-01-02 14:45] LABS: INR 1.7
[2018-01-02 14:52] LABS: ALB/GLOB RATIO 0.5 (1.0-2.1); ALBUMIN 1.6 g/dL (3.5-5.0); ALT/SGPT 52 U/L (21-72); AST/SGOT 34 U/L (17-59); BLOOD UREA NITROGEN 11 mg/dL (9-20); CALCIUM 6.7 mg/dl (8.6-10.4); GFR AFRICAN-AMERICAN > 60; GFR NON-AFRICAN AMERICAN > 60
[2018-01-02] MEDS ORDERED: Potassium Chloride 20 mEq/15 ml LIQ UD PO ONE (15:20)
--- NOTE | 2018-01-02 16:29 | CP.PCM.CON ---
History of Present Illness - History of Present Illness History of Present Illness: INFECTIOUS DISEASE CONSULT; HPI; 62M with PMHx significant for cholangiocarcinoma s/p resection in [address] Hogan at [facility] [place] and now on chemo about a week ago who presented to [facility] with complaints of abdominal pain, leg pain and pain in his groin 2/2 generalized edema. Pt states he has pain everywhere and has been getting more and more "swollen." Admits to not having much of an appetite and feeling nauseous. Denies F/C, chest pain or SOB. In the ER, pt had a CT abdomen/pelvis which shows small pockets of air around the stomach concerning for microperf. Surgery was called to evaluate. Currently, pt is resting comfortably in bed. Admits to generalized pain everywhere most prominent in his lower extremities. Denies vomiting or diarrhea. Patient had leukocytosis of 26,700.PATIENT ADMITS TO GETTING CHEMOTHERAPY LAST sunday ABOUT A WEEK AGO. He was empirically started on Zosyn 3.375 every 6 hourly IV vancomycin 1 g every 12 hourly. Infectious disease consultation requested by PMD for leukocytosis and sepsis. Patient also has a Port-A-Cath right chest wall placed in 2016 at the time of diagnosis of cholangiocarcinoma. Patient is following up with Dr. Franco HIS ONCOLOGIST. PMH: Asthma, COPD, HTN, Hyperlipidemia Denies: Chronic Kidney Disease Surgical History: Endoscopy,HISTORY OF RESECTION OF CHOLANGIOCARCINOMA IN 2016 AT [facility] [place]. - [facility] Procedures DILATION OF HEPATIC ARTERY, PERCUTANEOUS APPROACH (05/12/16) DRAINAGE OF COMMON BILE DUCT WITH DRAIN DEV, PERC APPROACH (05/12/16) PLAIN RADIOGRAPHY OF HEPATOBIL SYS, ALL USING OTH CONTRAST (05/12/16) Family History: States: Unknown Family Hx - Social History Hx Alcohol Use: No (HAS HX ETOH ABUSE, CLEAN 25 YRS) Hx Substance Use: No - Immunization History Hx Tetanus Toxoid Vaccination: No Hx Influenza Vaccination: No Hx Pneumococcal Vaccination: No ALLERGY; CHEMO, SEASONAL ALLERGIES. Review of Systems - Constitutional Constitutional: Fatigue. absent: Chills, Fever - EENT Eyes: absent: Floaters, Photophobia Nose/Mouth/Throat: Dry Mouth - Cardiovascular Cardiovascular: Leg Edema. absent: Chest Pain - Respiratory Respiratory: Cough. absent: Hemoptysis - Gastrointestinal Gastrointestinal: Abdominal Pain, Nausea, Vomiting - Genitourinary Genitourinary: absent: Dysuria, Hematuria - Musculoskeletal Musculoskeletal: Arthralgias, Myalgias - Neurological Neurological: absent: Headaches - Hematologic/Lymphatic Hematologic: As Per HPI. absent: Easy Bleeding, Easy Bruising, Lymphadenopathy Past Patient History - Infectious Disease Hx of Infectious Diseases: None - Past Medical History & Family History Past Medical History?: Yes - Past Social History Smoking Status: Former Smoker - CARDIAC Hx Hypertension: Yes - PULMONARY Hx Chronic Obstructive Pulmonary Disease (COPD): Yes - NEUROLOGICAL Hx Neurological Disorder: No - HEENT Hx HEENT Problems: No - RENAL Hx Chronic Kidney Disease: No - ENDOCRINE/METABOLIC Hx Endocrine Disorders: No - HEMATOLOGICAL/ONCOLOGICAL Hx Blood Disorders: Yes Hx Cancer: Yes (STOMACH) Hx Chemotherapy: Yes (HAD ITCHING AFTER CHEM-"IN RECESSION"/ALSO RADIATION) - INTEGUMENTARY Hx Dermatological Problems: No - MUSCULOSKELETAL/RHEUMATOLOGICAL Hx Musculoskeletal Disorders: Yes Hx Falls: No Other/Comment: HX: RIGHT INGUINAL HERNIA - GASTROINTESTINAL Hx Gastrointestinal Disorders: Yes Hx Bowel Surgery: Yes Other/Comment: HX: CANCER IN STOMACH-2015 - GENITOURINARY/GYNECOLOGICAL Hx Genitourinary Disorders: No - PSYCHIATRIC Hx Substance Use: No - SURGICAL HISTORY Hx Surgeries: Yes Other/Comment: "STOMACH CANCER TUMOR REMOVAL - ANESTHESIA Hx Anesthesia: Yes Hx Anesthesia Reactions: No Hx Malignant Hyperthermia: No Meds Allergies/Adverse Reactions: Allergies Allergy/AdvReac Type Severity Reaction Status Date / Time CHEMO Allergy Severe URTICARIA Uncoded 12/31/17 23:33 seasonal allergies Allergy Uncoded 12/31/17 23:33 - Medications Medications: Current Medications Acetaminophen (Tylenol 325mg Tab) 650 mg PO Q6 PRN PRN Reason: Fever >100.4 F Albuterol/Ipratropium (Duoneb 3 Mg/0.5 Mg (3 Ml) Ud) 3 ml INH RQID PRN PRN Reason: sob/wheezing Enoxaparin Sodium (Lovenox) 40 mg SC DAILY [facility] Last Admin: 01/02/18 09:40 Dose: 40 mg Hydromorphone HCl (Dilaudid) 1 mg IVP Q4H PRN PRN Reason: pain Last Admin: 01/02/18 15:09 Dose: 1 mg Dextrose/Sodium Chloride (Dextrose 5%/0.45% Ns 1000 Ml) 1,000 mls @ 100 mls/hr IV .Q10H [facility] Last Admin: 01/02/18 00:23 Dose: Not Given Vancomycin/Sodium Chloride (Vancomycin 1 Gm/Ns 200 Ml) 1 gm in 200 mls @ 166.6 mls/hr IVPB Q12H [facility] PRN Reason: Protocol Stop: 01/07/18 02:01 Last Admin: 01/02/18 13:58 Dose: 166.6 mls/hr Piperacillin Sod/Tazobactam Sod (Zosyn 3.375 Gm Iv Premix) 3.375 gm in 50 mls @ 100 mls/hr IVPB Q8H [facility] PRN Reason: Protocol Metronidazole (Flagyl) 500 mg in 100 mls @ 100 mls/hr IVPB Q12H [facility] PRN Reason: Protocol Metoclopramide HCl (Reglan) 10 mg IVP Q8H [facility] Last Admin: 01/02/18 12:05 Dose: 10 mg Ondansetron HCl (Zofran Inj) 4 mg IVP Q4 PRN PRN Reason: Nausea/Vomiting Last Admin: 01/01/18 14:25 Dose: 4 mg Physical Exam - Constitutional Appears: No Acute Distress - Head Exam Head Exam: NORMAL INSPECTION - Eye Exam Eye Exam: EOMI, PERRL - ENT Exam ENT Exam: Mucous Membranes Dry - Neck Exam Neck exam: Positive for: Normal Inspection - Respiratory Exam Respiratory Exam: Clear to Auscultation Bilateral - Cardiovascular Exam Cardiovascular Exam: REGULAR RHYTHM, +S1, +S2 - GI/Abdominal Exam GI & Abdominal Exam: Normal Bowel Sounds, Tenderness (GENERALIZED.). absent: Guarding (POSITIVE ASCITES.), Rebound - Extremities Exam Extremities exam: Positive for: pedal edema, pedal pulses present. Negative for : calf tenderness - Neurological Exam Neurological exam: Alert, CN II-XII Intact, Oriented x3, Reflexes Normal - Psychiatric Exam Psychiatric exam: Normal Mood - Skin Skin Exam: Normal Color, Warm Results - Vital Signs Recent Vital Signs: Last Vital Signs Temp 98.2 F 01/02/18 08:00 Pulse 103 H 01/02/18 08:00 Resp 20 01/02/18 08:00 BP 109/72 01/02/18 08:00 Pulse Ox 97 01/02/18 08:00 - Labs Result Diagrams: 01/03/18 06:18 01/03/18 06:18 Labs: Laboratory Results - last 24 hr 01/01/18 01/02/18 01/02/18 14:04 14:27 14:27 WBC 24.1 H RBC 2.56 L Hgb 7.8 L Hct 23.7 L MCV 92.6 MCH 30.6 MCHC 33.1 RDW 18.9 H Plt Count 146 MPV 10.0 PT INR Sodium 138 Potassium 3.1 L Chloride 109 H Carbon Dioxide 21 L Anion Gap 12 BUN 11 Creatinine 0.9 Est GFR ( Amer) > 60 Est GFR (Non-Af Amer) > 60 Random Glucose 82 Calcium 6.7 L Total Bilirubin 1.9 H AST 34 ALT 52 Alkaline Phosphatase 206 H D Total Protein 5.0 L Albumin 1.6 L Globulin 3.3 Albumin/Globulin Ratio 0.5 L CA 19-9 Antigen > 5000 H 01/02/18 14:27 WBC RBC Hgb Hct MCV MCH MCHC RDW Plt Count MPV PT 20.0 H INR 1.7 Sodium Potassium Chloride Carbon Dioxide Anion Gap BUN Creatinine Est GFR ( Amer) Est GFR (Non-Af Amer) Random Glucose Calcium Total Bilirubin AST ALT Alkaline Phosphatase Total Protein Albumin Globulin Albumin/Globulin Ratio CA 19-9 Antigen - Imaging and Cardiology CT scan - abdomenand pelvis with IV contrast. Status: Report reviewed by me Assessment & Plan (1) Sepsis Status: Acute (2) Abdominal pain Status: Acute (3) Ascites, malignant Status: Acute (4) Cholangiocarcinoma Status: Chronic Priority: High (5) Hypertension Status: Acute - Assessment and Plan (Free Text) Plan: PLAN; PANCULTURES U/A AND URINE CULTURES. CONTINUE iv ZOSYN DECREASE DOSE TO 3.375 EVERY 8 HOURLY IN VIEW OF ELEVATED LIVER FUNCTION TESTS. 01/02/18. CONTINUE iv VANCOMYCIN 1 G EVERY 12 HOURLY. 01/02/18 FOLLOW-UP vANCO TROUGH PRIOR TO THE FOURTH DOSE AND KEEP IT BETWEEN 10 AND 20. ADD fLAGYL 500 iv PIGGYBACK EVERY 12 HOURLY FOR ANAEROBIC COVERAGE. 01/02/18. FOLLOW-UP LFTS/RENAL FUNCTIONS CLOSELY. FOLLOW-UP cbc WITH DIFFERENTIAL IN A.M. SURGERY ON BOARD.
[2018-01-02] MEDS: Piperacill/Tazo 3.375gm in Dex 3.375 GM/50 ML BAG IVPB SCH (18:00)
[2018-01-02] MEDS ORDERED: Potassium Chloride 20 mEq/15 ml LIQ UD PO STA (20:22)
[2018-01-02 20:42] LABS: SQUAMOUS EPITHIAL 1 /hpf (0-5); URINE BACTERIA RARE (<OCC); URINE BILIRUBIN NEGATIVE (NEGATIVE); URINE BLOOD NEGATIVE (NEGATIVE); URINE CLARITY Hazy (Clear); URINE COLOR Amber (YELLOW); URINE GLUCOSE (UA) NORMAL (Normal); URINE LEUKOCYTE ESTERASE TRACE Leu/uL (Negative); URINE PROTEIN NEGATIVE (NEGATIVE); URINE UROBILINOGEN NORMAL mg/dL (0.2-1.0)
--- NOTE | 2018-01-02 22:39 | CP.PCM.PN ---
Subjective - Date & Time of Evaluation Date of Evaluation: 01/02/18 Time of Evaluation: 18:35 Objective - Vital Signs/Intake and Output Vital Signs (last 24 hours): Temp Pulse Resp BP Pulse Ox 98.1 F 68 20 116/83 97 01/02/18 15:00 01/02/18 15:00 01/02/18 15:00 01/02/18 15:00 01/02/18 15:00 Intake and Output: 01/02/18 01/03/18 18:59 06:59 Intake Total 900 950 Balance 900 950 - Medications Medications: Current Medications Acetaminophen (Tylenol 325mg Tab) 650 mg PO Q6 PRN PRN Reason: Fever >100.4 F Albuterol/Ipratropium (Duoneb 3 Mg/0.5 Mg (3 Ml) Ud) 3 ml INH RQID PRN PRN Reason: sob/wheezing Enoxaparin Sodium (Lovenox) 40 mg SC DAILY [facility] Last Admin: 01/02/18 09:40 Dose: 40 mg Hydromorphone HCl (Dilaudid) 1 mg IVP Q4H PRN PRN Reason: pain Last Admin: 01/02/18 19:14 Dose: 1 mg Dextrose/Sodium Chloride (Dextrose 5%/0.45% Ns 1000 Ml) 1,000 mls @ 100 mls/hr IV .Q10H [facility] Last Admin: 01/02/18 19:00 Dose: 100 mls/hr Vancomycin/Sodium Chloride (Vancomycin 1 Gm/Ns 200 Ml) 1 gm in 200 mls @ 166.6 mls/hr IVPB Q12H [facility] PRN Reason: Protocol Stop: 01/07/18 02:01 Last Admin: 01/02/18 13:58 Dose: 166.6 mls/hr Piperacillin Sod/Tazobactam Sod (Zosyn 3.375 Gm Iv Premix) 3.375 gm in 50 mls @ 100 mls/hr IVPB Q8H [facility] PRN Reason: Protocol Last Admin: 01/02/18 18:00 Dose: 100 mls/hr Metronidazole (Flagyl) 500 mg in 100 mls @ 100 mls/hr IVPB Q12H [facility] PRN Reason: Protocol Last Admin: 01/02/18 18:00 Dose: 100 mls/hr Metoclopramide HCl (Reglan) 10 mg IVP Q8H [facility] Last Admin: 01/02/18 20:00 Dose: 10 mg Ondansetron HCl (Zofran Inj) 4 mg IVP Q4 PRN PRN Reason: Nausea/Vomiting Last Admin: 01/01/18 14:25 Dose: 4 mg - Labs Labs: 01/02/18 14:27 01/02/18 14:27 PT 20.0 SECONDS (9.7-12.2) H 01/02/18 14:27 INR 1.7 01/02/18 14:27 Assessment and Plan (1) Abdominal pain Status: Acute (2) Cholangiocarcinoma Status: Chronic (3) Dehydration Status: Acute (4) Hypertension Status: Acute
[2018-01-03] MEDS: Piperacill/Tazo 3.375gm in Dex 3.375 GM/50 ML BAG IVPB SCH ×3 (01:30→17:58)
[2018-01-03] MEDS: HYDROmorphone 1 mg/ml ISec IVP PRN ×4 (02:10→16:09)
[2018-01-03] MEDS: Vancomycin 1 gm/NS 200 ml 1 GM/200 ML BAG IVPB SCH ×2 (02:15→13:44)
[2018-01-03] MEDS: Dextrose 5%/0.45% NS 1,000 ML IV SCH ×3 (05:00→15:00)
[2018-01-03] MEDS: metroNIDAZOLE IV 500 mg/100 ml 500 MG/100 ML BAG IVPB SCH ×2 (05:14→16:53)
[2018-01-03 06:25] LABS: HEMOGLOBIN 7.6 g/dL (12.0-18.0); MEAN CELL VOLUME 93.2 fL (80.0-94.0); MEAN CORPUSCULAR HEMOGLOBIN 30.9 pg (27.0-31.0); MEAN CORPUSCULAR HGB CONC 33.1 g/dL (33.0-37.0); MEAN PLATELET VOLUME 9.7 fL (7.2-11.7); RBC 2.46 Mil/uL (4.40-5.90); WHITE BLOOD COUNT 21.4 K/uL (4.8-10.8)
[2018-01-03 07:41] LABS: ALB/GLOB RATIO 0.5 (1.0-2.1); ALBUMIN 1.5 g/dL (3.5-5.0); ALT/SGPT 47 U/L (21-72); AST/SGOT 22 U/L (17-59); BLOOD UREA NITROGEN 10 mg/dL (9-20); CALCIUM 6.7 mg/dl (8.6-10.4); GFR AFRICAN-AMERICAN > 60; GFR NON-AFRICAN AMERICAN > 60
--- NOTE | 2018-01-03 07:56 | CON ---
DATE: 01/01/2018. This is from Dr. Barillas to Dr. Bo Kramer. I was called for GI consultation by the admitting medical team. The patient was seen and fully examined on 01/01/2018 as requested by the admitting medical staff, as the patient was seen and fully examined by the staff in the floor on 01/01/2018. The entire chart is reviewed including but not limited to, the most recent lab and radiology study results, current and the previous medication list, current and the previous medical events, as well as all the reported old and new medical data. HISTORY OF PRESENT ILLNESS: This is a 62 years old male apparently with a known history of cholangiocarcinoma was admitted to the hospital through the emergency room due to severe sudden sharp abdominal pain few hours prior to his admission with increased abdominal girth post chemotherapy recently. The patient also has episodes of nausea and vomiting of bile contents, but no reported recent active bleeding, chest tightness, palpitation or significant shortness of breath. The patient also complained of lower extremity edematous changes. PAST MEDICAL HISTORY: 1. Reported cholangiocarcinoma. 2. Hypertension. 3. COPD. 4. Hyperlipidemia. 5. Peptic ulcer disease. FAMILY HISTORY: Unknown. SOCIAL HISTORY: Ex alcohol abuser. No reported substance abuse. CURRENT MEDICATIONS: Post admission medication lists were reviewed. ALLERGIES TO MEDICATION: UNCLEAR. After being admitted to the hospital, the patient was found to have thrombocytopenia of 126, low hemoglobin 9.2, hematocrit 27.2, and leukocytosis of 20.4, potassium 2.6, CO2 content 19 indicative of metabolic acidosis with low glucose 71. Official report of abdomen and pelvic CAT scan is seen indicative of multiple enteric fistula formation as well as large amount of ascites with metastatic lesions in the liver vessels, less likely hepatic abscess formation. It has to be mentioned that the patient's initial surgery done in 2016 with status post partial resection at [facility] after which the patient was placed on chemotherapy. PHYSICAL EXAMINATION: GENERAL: A 62 years old male, awake, alert, complaining of abdominal pain with abdominal distention and increased abdominal girth. VITAL SIGNS: Afebrile with pulse of 102, respiratory rate 20 to 22, blood pressure 130/86. HEENT: Showed pale, dry oral mucous membrane. Nonicteric sclerae. LUNGS: Scattered crepitation. Decreased air entry at bases. HEART: Positive S1 and S2 with increased rate. ABDOMEN: With large amount of ascites and generalized tenderness. No masses or organomegaly. No rebound tenderness or guarding. RECTAL: The patient refused. EXTREMITIES: Lower extremity edematous changes. No clubbing or cyanosis. NEUROLOGIC: No reported new neurological deficits, sensory or motor. No reported new focal deficits. Peripheral pulses are present bilaterally but weak. IMPRESSION: 1. Cholangiocarcinoma with metastatic lesion mainly to the liver with evidence of portal hypertension and ascites to the peritoneal seeding with malignant refractory ascites was raised. 2. Known history of, but not limited to hypertension, chronic obstructive pulmonary disease and hyperlipidemia. 3. Malnutrition with hypoalbuminemia with lower extremities edematous changes. 4. Leukocytosis, again the possibility of spontaneous bacterial peritonitis versus, less likely hepatic abscess formation was raised. 5. Anemia secondary to the above with thrombocytopenia. 6. Electrolyte imbalance with hypokalemia, hypocalcemia, with hypoglycemia, at the time of admission. SUGGESTIONS: 1. Agree with your plan. 2. Ultrasound-guided abdominal paracentesis by the IR staff with completer analysis of the ascetic fluid. 3. Surgical reevaluation. 4. MRCP. 5. Repeat cancer markers including alpha-fetoprotein, CA 19-9 and CEA. 6. Proton pump inhibitors. 7. Aldactone p.o. with Lasix, small dose IV. 8. Oncology/Hematology consult. 9. Further recommendations to follow. It has to be mentioned that it is not clear from the history if the patient has before biliary stent insertion or not; however, if there is increase of the liver function test and/or more jaundice then ERCP with biliary stent placement should be kept in mind that to be discussed with the admitting medical team. Thank you for letting me participate in your patient's case management. Adina Barillas MD
--- NOTE | 2018-01-03 09:35 | CP.PCM.PN ---
<MemoAndrew andino - Last Filed: 01/03/18 09:38> Subjective - Date & Time of Evaluation Date of Evaluation: 01/03/18 Time of Evaluation: 07:05 - Subjective Subjective: Surgery Progress note. Dr. Keith Pt seen and examined at bedside. No acute events overnight. No N/V/D. Still reports mild abdominal discomfort. No new complaints. No F/C. Has not had CT scan as of yet. Discussed with Radiology department and study to be performed today. Objective - Vital Signs/Intake and Output Vital Signs (last 24 hours): Temp Pulse Resp BP Pulse Ox 98 F 107 H 20 124/85 96 01/03/18 08:00 01/03/18 08:00 01/03/18 08:00 01/03/18 08:00 01/03/18 08:00 Intake and Output: 01/03/18 01/03/18 06:59 18:59 Intake Total 2049 Balance 2049 - Medications Medications: Current Medications Acetaminophen (Tylenol 325mg Tab) 650 mg PO Q6 PRN PRN Reason: Fever >100.4 F Albuterol/Ipratropium (Duoneb 3 Mg/0.5 Mg (3 Ml) Ud) 3 ml INH RQID PRN PRN Reason: sob/wheezing Enoxaparin Sodium (Lovenox) 40 mg SC DAILY [facility] Last Admin: 01/02/18 09:40 Dose: 40 mg Hydromorphone HCl (Dilaudid) 1 mg IVP Q4H PRN PRN Reason: pain Last Admin: 01/03/18 07:08 Dose: 1 mg Dextrose/Sodium Chloride (Dextrose 5%/0.45% Ns 1000 Ml) 1,000 mls @ 100 mls/hr IV .Q10H [facility] Last Admin: 01/03/18 09:05 Dose: 100 mls/hr Vancomycin/Sodium Chloride (Vancomycin 1 Gm/Ns 200 Ml) 1 gm in 200 mls @ 166.6 mls/hr IVPB Q12H [facility] PRN Reason: Protocol Stop: 01/07/18 02:01 Last Admin: 01/03/18 02:15 Dose: 166.6 mls/hr Piperacillin Sod/Tazobactam Sod (Zosyn 3.375 Gm Iv Premix) 3.375 gm in 50 mls @ 100 mls/hr IVPB Q8H [facility] PRN Reason: Protocol Last Admin: 01/03/18 08:45 Dose: 100 mls/hr Metronidazole (Flagyl) 500 mg in 100 mls @ 100 mls/hr IVPB Q12H [facility] PRN Reason: Protocol Last Admin: 01/03/18 05:14 Dose: 100 mls/hr Metoclopramide HCl (Reglan) 10 mg IVP Q8H [facility] Last Admin: 01/03/18 02:25 Dose: 10 mg Ondansetron HCl (Zofran Inj) 4 mg IVP Q4 PRN PRN Reason: Nausea/Vomiting Last Admin: 01/01/18 14:25 Dose: 4 mg - Labs Labs: 01/03/18 06:18 01/03/18 06:18 PT 20.0 SECONDS (9.7-12.2) H 01/02/18 14:27 INR 1.7 01/02/18 14:27 - Constitutional Appears: Well, Non-toxic, No Acute Distress - Head Exam Head Exam: ATRAUMATIC, NORMAL INSPECTION, NORMOCEPHALIC - Eye Exam Eye Exam: EOMI, Normal appearance - ENT Exam ENT Exam: Mucous Membranes Moist - Respiratory Exam Respiratory Exam: NORMAL BREATHING PATTERN. absent: Accessory Muscle Use, Respiratory Distress - Cardiovascular Exam Cardiovascular Exam: RRR. absent: JVD - GI/Abdominal Exam GI & Abdominal Exam: Soft. absent: Distended, Firm, Guarding, Rigid Additional comments: mild tenderness to palpation RUQ, Epigastric area - Extremities Exam Extremities Exam: Pedal Edema. absent: Calf Tenderness - Neurological Exam Neurological Exam: Alert, Awake, Oriented x3 - Skin Skin Exam: Dry, Intact, Normal Color, Warm Assessment and Plan - Assessment and Plan (Free Text) Assessment: 62yo M with Abd pain. Hx of Cholangiocarcinoma, s/p chemo/radiation, s/p jose. - Consider due metastatic disease Plan: - Repeat CT Abd/Pelvis w/PO and IV contrast pending - f/u labs - continue current management - We will make further recs pending above study Further recs as per Dr. Sagar Hampton PGY1 surgery pager: [phone] <Mike Keith - Last Filed: 01/06/18 15:54> Objective - Vital Signs/Intake and Output Vital Signs (last 24 hours): Temp Pulse Resp BP Pulse Ox 98.3 F 111 H 20 148/101 H 97 01/06/18 09:47 01/06/18 09:47 01/06/18 09:47 01/06/18 09:47 01/06/18 09:47 Intake and Output: 01/06/18 01/06/18 06:59 18:59 Intake Total 1000 1920 Output Total 600 Balance 400 1920 - Medications Medications: Current Medications Acetaminophen (Tylenol 325mg Tab) 650 mg PO Q6 PRN PRN Reason: Fever >100.4 F Benzocaine/Menthol (Cepacol Sore Throat) 1 rosmery MT Q6H PRN PRN Reason: Sore Throat Diphenhydramine HCl (Benadryl) 25 mg IVP Q4H PRN PRN Reason: Itching / Pruritus Last Admin: 01/06/18 09:58 Dose: 25 mg Enoxaparin Sodium (Lovenox) 40 mg SC DAILY [facility] Last Admin: 01/06/18 09:53 Dose: 40 mg Fentanyl (Duragesic) 1 patch TD Q72H [facility] Last Admin: 01/03/18 21:00 Dose: 1 patch Hydromorphone HCl (Dilaudid) 2 mg IVP Q4H PRN PRN Reason: Pain, moderate (4-7) Last Admin: 01/06/18 15:01 Dose: 2 mg Vancomycin/Sodium Chloride (Vancomycin 1 Gm/Ns 200 Ml) 1 gm in 200 mls @ 166.6 mls/hr IVPB Q12H [facility] PRN Reason: Protocol Stop: 01/07/18 02:01 Last Admin: 01/06/18 14:36 Dose: 166.6 mls/hr Micafungin Sodium 100 mg/ (Sodium Chloride) 100 mls @ 100 mls/hr IV Q24H [facility] PRN Reason: Protocol Last Admin: 01/06/18 00:25 Dose: 100 mls/hr Dextrose/Sodium Chloride (Dextrose 5%/0.45% Ns 1000 Ml) 1,000 mls @ 100 mls/hr IV .Q10H [facility] Last Admin: 01/06/18 10:23 Dose: Not Given Meropenem 500 mg/ Sodium (Chloride) 100 mls @ 100 mls/hr IVPB Q8 [facility] PRN Reason: Protocol Last Admin: 01/06/18 14:40 Dose: 100 mls/hr Metoclopramide HCl (Reglan) 10 mg IVP Q8H [facility] Last Admin: 01/06/18 11:52 Dose: 10 mg Metronidazole (Flagyl) 500 mg PO Q8 [facility] PRN Reason: Protocol Last Admin: 01/06/18 14:36 Dose: 500 mg Nystatin (Nystatin Oral Susp) 5 ml PO QID [facility] Last Admin: 01/06/18 14:36 Dose: 5 ml Ondansetron HCl (Zofran Inj) 4 mg IVP Q4 PRN PRN Reason: Nausea/Vomiting Last Admin: 01/04/18 09:28 Dose: 4 mg Potassium Chloride (K-Dur 20 Meq Er Tab) 40 meq PO ONCE [facility] Last Admin: 01/05/18 09:16 Dose: 40 meq - Labs Labs: 01/06/18 08:17 01/06/18 08:17 PT 20.0 SECONDS (9.7-12.2) H 01/02/18 14:27 INR 1.7 01/02/18 14:27 Attending/Attestation - Attestation I have personally seen and examined this patient.: Yes I have fully participated in the care of the patient.: Yes I have reviewed all pertinent clinical information, including history, physical exam and plan: Yes Notes (Text): Pt was seen and examined at bedside Agree with above note and assessment Pt is improving clinically CT scan of A/P reviewed c.w current mx Plan d.w pt in detail
[2018-01-03] MEDS: Enoxaparin 40 mg Syringe SC SCH ×2 (11:09→11:56)
--- NOTE | 2018-01-03 12:59 | PN ---
DATE: 01/03/2018. LOCATION: [facility], bed A. SUBJECTIVE: This is a 62 years old male seen and examined in rounds with generalized weakness and malaise and mild jaundice without reported active bleeding, but intermittent periods of abdominal pain, seen by the surgical aide on the case. The patient denied any reported vomiting, but mild dyspepsia and occasional nausea. The patient is to be scheduled for CAT scan guided abdominal paracentesis; however, the official report of recently done CAT scan is seen with extensive ascites. Today's lab showed white blood cells of 21.4, hemoglobin 7.6, hematocrit 22.9, PT 20, potassium 3.3, CO2 content 21 indicative of metabolic acidosis, calcium 6.7, total bilirubin 1.6, alkaline phosphatase 192, with very low albumin of 1.5 and low total protein of 4.7. PHYSICAL EXAMINATION: GENERAL: A 62 years old male. VITAL SIGNS: Afebrile with pulse of 100, respiratory rate 20 to 22, with blood pressure of 120/78. HEENT: Showed mildly pale, dry oral mucous membrane. Bilateral icteric sclerae. LUNGS: Few scattered crepitation. Decreased air entry at bases. HEART: Positive S1 and S2 with increased rate. ABDOMEN: With mild to moderate distention, positive for ascites, with generalized mild tenderness. No masses or organomegaly. No rebound tenderness or guarding. EXTREMITIES: With lower extremity edematous changes. NEUROLOGIC: No new reported neurological deficits, sensory or motor. IMPRESSION: 1. Known history of cholangiocarcinoma with metastatic disease to the liver. 2. Question perforation with abnormal CAT scan of the abdomen including free air. 3. Excessive increase of CEA and CA 19-9 most likely secondary to above. 4. Portal hypertension with ascites. 5. Malnutrition with severe hypoalbuminemia. 6. Known history of hyperlipidemia with hypertension as well as alcoholism with alcoholic liver disease. 7. Jaundice with abnormal liver function tests secondary to above. SUGGESTIONS: 1. Continue current management. 2. Oncology, Hematology as well as Surgical followup. 3. Ultrasound or CAT scan guided abdominal paracentesis. Adina Barillas MD
[2018-01-03] MEDS ORDERED: Iohexol 240 (50 ml) PO ONE (13:30)
--- NOTE | 2018-01-03 15:42 | CP.PCM.PN ---
Subjective - Date & Time of Evaluation Date of Evaluation: 01/03/18 Time of Evaluation: 15:37 - Subjective Subjective: pt seen and examined by Dr. kramer today, denies any pain, respiration easy and unlabored. NAD. Objective - Vital Signs/Intake and Output Vital Signs (last 24 hours): Temp Pulse Resp BP Pulse Ox 98 F 107 H 20 124/85 96 01/03/18 08:00 01/03/18 08:00 01/03/18 08:00 01/03/18 08:00 01/03/18 08:00 Intake and Output: 01/03/18 01/03/18 06:59 18:59 Intake Total 2049 2279 Balance 2049 2279 - Medications Medications: Current Medications Acetaminophen (Tylenol 325mg Tab) 650 mg PO Q6 PRN PRN Reason: Fever >100.4 F Albuterol/Ipratropium (Duoneb 3 Mg/0.5 Mg (3 Ml) Ud) 3 ml INH RQID PRN PRN Reason: sob/wheezing Enoxaparin Sodium (Lovenox) 40 mg SC DAILY [facility] Last Admin: 01/03/18 11:56 Dose: 40 mg Hydromorphone HCl (Dilaudid) 1 mg IVP Q4H PRN PRN Reason: pain Last Admin: 01/03/18 11:57 Dose: 1 mg Dextrose/Sodium Chloride (Dextrose 5%/0.45% Ns 1000 Ml) 1,000 mls @ 100 mls/hr IV .Q10H [facility] Last Admin: 01/03/18 09:05 Dose: 100 mls/hr Vancomycin/Sodium Chloride (Vancomycin 1 Gm/Ns 200 Ml) 1 gm in 200 mls @ 166.6 mls/hr IVPB Q12H [facility] PRN Reason: Protocol Stop: 01/07/18 02:01 Last Admin: 01/03/18 13:44 Dose: 166.6 mls/hr Piperacillin Sod/Tazobactam Sod (Zosyn 3.375 Gm Iv Premix) 3.375 gm in 50 mls @ 100 mls/hr IVPB Q8H [facility] PRN Reason: Protocol Last Admin: 01/03/18 08:45 Dose: 100 mls/hr Metronidazole (Flagyl) 500 mg in 100 mls @ 100 mls/hr IVPB Q12H [facility] PRN Reason: Protocol Last Admin: 01/03/18 05:14 Dose: 100 mls/hr Metoclopramide HCl (Reglan) 10 mg IVP Q8H [facility] Last Admin: 01/03/18 11:05 Dose: 10 mg Ondansetron HCl (Zofran Inj) 4 mg IVP Q4 PRN PRN Reason: Nausea/Vomiting Last Admin: 01/01/18 14:25 Dose: 4 mg Potassium Chloride (K-Dur 20 Meq Er Tab) 40 meq PO Q4 [facility] Stop: 01/03/18 20:01 - Labs Labs: 01/03/18 06:18 01/03/18 06:18 PT 20.0 SECONDS (9.7-12.2) H 01/02/18 14:27 INR 1.7 01/02/18 14:27 Assessment and Plan - Assessment and Plan (Free Text) Plan: 62 y/o male admitted for abdominal pain, ascites, Hgb- 7.6, K-3.3 , K-Dur 40 mEq x2, 1 unit blood transfusion ordered as per Dr. Kramer, Pt reports he had a blood transfusion in the past without any reaction, Blood transfusion Risk and Benefits explained to Patient, verbalize understanding, consent received, witnessed by Ekaterina SIBLEY. no further ordered.
[2018-01-03] MEDS ORDERED: Potassium Chloride 20 mEq ER Tab PO SCH (16:00)
[2018-01-03] MEDS ORDERED: Iodixanol 320 MG/ML 100 ML BOTTLE IV ONE (16:08)
--- NOTE | 2018-01-03 18:08 | CP.PCM.PN ---
Subjective - Date & Time of Evaluation Date of Evaluation: 01/03/18 Time of Evaluation: 18:08 - Subjective Subjective: CHIEF COMPLAINTS TODAY : afebrile, Tachycardiac c/o odynophagia/sore throat ?fungal ROS. HEENT : N.+ve THRUSH. Resp : No SOB wheezing, cough Cardio : No CP, PND orthopnea GI : No abd. Pain, n/v GAS MANAGER : No headache , focal deficit. Musculoskel : N Ext. : Pedal pulses intact, no edema or calf pain Derm : N Psych : N. PE. Pt. is alert awake in no distress. V.S As noted in the chart Head ,ear nose,throat and eyes : Normal. Neck : Supple with normal carotids. Lungs: Clear air entry. Heart : S1 & S2 normal . . No murmur. S4 + Abd : Soft non tender with normal bowel sounds. Neuro : Moves all ext. with no localized deficit. Ext : No edema with intact pulses. Neg. calf tenderness Derm : No rashes or decubitus ulcer. Radiology/Labs . REVIEWED Asssessment : SEPSIS/ ? INTRAABDOMINAL ABDOMINAL PAIN ? 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 CHOLANGIOCARCINOMA /ASCITES ?MALIGNANT. ?METASTATIC DISEASE. MULTIPLE HEPATIC MASSES ? ABSCESSES ? FUNGAL ODYNOPHAGIA ? R/O GREGORIO ESOPHAGITES HTN. Objective - Vital Signs/Intake and Output Vital Signs (last 24 hours): Temp Pulse Resp BP Pulse Ox 98 F 107 H 20 124/85 96 01/03/18 08:00 01/03/18 08:00 01/03/18 08:00 01/03/18 08:00 01/03/18 08:00 Intake and Output: 01/03/18 01/03/18 06:59 18:59 Intake Total 2049 2279 Balance 2049 2279 - Medications Medications: Current Medications Acetaminophen (Tylenol 325mg Tab) 650 mg PO Q6 PRN PRN Reason: Fever >100.4 F Albuterol/Ipratropium (Duoneb 3 Mg/0.5 Mg (3 Ml) Ud) 3 ml INH RQID PRN PRN Reason: sob/wheezing Enoxaparin Sodium (Lovenox) 40 mg SC DAILY [facility] Last Admin: 01/03/18 11:56 Dose: 40 mg Dextrose/Sodium Chloride (Dextrose 5%/0.45% Ns 1000 Ml) 1,000 mls @ 100 mls/hr IV .Q10H [facility] Last Admin: 01/03/18 15:00 Dose: Not Given Vancomycin/Sodium Chloride (Vancomycin 1 Gm/Ns 200 Ml) 1 gm in 200 mls @ 166.6 mls/hr IVPB Q12H [facility] PRN Reason: Protocol Stop: 01/07/18 02:01 Last Admin: 01/03/18 13:44 Dose: 166.6 mls/hr Piperacillin Sod/Tazobactam Sod (Zosyn 3.375 Gm Iv Premix) 3.375 gm in 50 mls @ 100 mls/hr IVPB Q8H [facility] PRN Reason: Protocol Last Admin: 01/03/18 17:58 Dose: 100 mls/hr Metronidazole (Flagyl) 500 mg in 100 mls @ 100 mls/hr IVPB Q12H [facility] PRN Reason: Protocol Last Admin: 01/03/18 16:53 Dose: 100 mls/hr Metoclopramide HCl (Reglan) [address] [facility] Last Admin: 01/03/18 11:05 Dose: 10 mg Ondansetron HCl (Zofran Inj) 4 mg IVP Q4 PRN PRN Reason: Nausea/Vomiting Last Admin: 01/03/18 17:15 Dose: 4 mg - Labs Labs: 01/03/18 06:18 01/03/18 06:18 PT 20.0 SECONDS (9.7-12.2) H 01/02/18 14:27 INR 1.7 01/02/18 14:27 Assessment and Plan (1) Sepsis Status: Acute (2) Abdominal pain Status: Acute (3) Ascites, malignant Status: Acute (4) Cholangiocarcinoma Status: Chronic (5) Hypertension Status: Acute - Assessment and Plan (Free Text) Plan: BLOOD CULTURE 2: 2SETS FOR FUNGAL SMEAR /AND CULTURE THROAT CULTURE. SPUTUM CULTURE CONTINUE iv ZOSYN DECREASE DOSE TO 3.375 EVERY 8 HOURLY IN VIEW OF ELEVATED LIVER FUNCTION TESTS. 01/02/18. CONTINUE iv VANCOMYCIN 1 G EVERY 12 HOURLY. 01/02/18 FOLLOW-UP vANCO TROUGH PRIOR TO THE FOURTH DOSE AND KEEP IT BETWEEN 10 AND 20. ADD fLAGYL 500 iv PIGGYBACK EVERY 12 HOURLY FOR ANAEROBIC COVERAGE. 01/02/18. ADD IV MYCAFUNGIN 100MG IVPB Q 12 HRLY. 01/03/18 FOLLOW-UP LFTS/RENAL FUNCTIONS CLOSELY. FOLLOW-UP cbc WITH DIFFERENTIAL IN A.M. F/U REPEAT CT SCAN PER SURGERY. SURGERY ON BOARD.
[2018-01-03] MEDS ORDERED: Benzocaine/Menthol (Cepacol) Lozenge MT PRN (18:10)
--- NOTE | 2018-01-03 19:12 | CT ---
PROCEDURE: CT abdomen and pelvis dated 01/03/2018. HISTORY: Hx of Cholangiocarcinoma. r/o perf. Technologist notation indicates status post paracentesis today. COMPARISON: Comparison made with prior CT scan of the abdomen pelvis 01/01/2018 TECHNIQUE: Radiation dose: Total exam DLP = 902.85 mGy-cm. Contiguous helical/transaxial sections of the abdomen pelvis performed following oral and intravenous injection of approximately 100 cc Visipaque 320 contrast material. Additional 2 dimensional sagittal and coronal reformats provided This CT exam was performed using one or more of the following dose reduction techniques: Automated exposure control, adjustment of the mA and/or kV according to patient size, and/or use of iterative reconstruction technique. FINDINGS: LOWER THORAX: Large bilateral effusions and minor bibasilar atelectasis. LIVER: Multiple low-attenuation foci scattered throughout the hepatic parenchyma likely representing a metastatic disease however the possibility of infectious etiology and there is immunocompromised state not excluded. Clinical correlation recommended. Portal and splenic veins are opacified. Moderate amount of abdominal and pelvic ascites. GALLBLADDER AND BILE DUCTS: Postoperative changes of cholecystectomy again noted. PANCREAS: Pancreas is atrophic and fatty replaced. SPLEEN: Spleen exhibits normal size. ADRENALS: No adrenal lesions are identified KIDNEYS AND URETERS: Kidneys demonstrate symmetric nephrograms. No evidence of nephrolithiasis or hydronephrosis. VASCULATURE: Unremarkable. No aortic or iliac artery aneurysms. Mild partially calcified atherosclerotic plaque seen along the abdominal aorta and iliac arteries. BOWEL: Evaluation of the bowel is limited due to incomplete opacification. The stomach is collapsed on however there appears to be some marked gastric wall edema fluid. There is also circumferential on wall thickening of most of the colon which may be secondary to inflammation/ diffuse colitis however a component of hypoproteinemia and ascites fluid may contribute. . Apparent anastomosis-suture material about the proximal on aspect transverse colon ; clinical correlation with history recommended. Visualized loops of small bowel on also exhibit mild wall thickening possibly due to ascites and hypoproteinemia. Clinical correlation recommended. APPENDIX: Normal-appearing appendix. PERITONEUM: No definitive evidence of free intraperitoneal air. LYMPH NODES: Unremarkable. No enlarged lymph nodes. BLADDER: The urinary bladder is collapsed on which presumably in part accounts for thick-walled appearance. Muscular hypertrophy may contribute however intrinsic/ invasive wall lesion not excluded. REPRODUCTIVE: Prostate gland appears mildly enlarged measuring approximately 4.4 cm in transverse dimension. BONES: There are no acute compression fractures of the visualized lower thoracic or lumbar spine. Small sclerotic foci seen within the L4 and T12 unchanged. These foci may represent bone islands or osteomas however possibility of sclerotic metastasis cannot be excluded. Re- demonstrated is a small rounded focus low attenuation right lateral margin of the T12 segment as well which is of uncertain etiology though could represent a lytic lesion. Recommend followup bone scan or MRI. OTHER FINDINGS: Anasarca. Few small bubbles of air in the subcutaneous tissues left lower anterolateral abdominal wall likely related to prior recent paracentesis. IMPRESSION: Moderately large bilateral effusions and minor bibasilar atelectasis. Multiple low-attenuation lesions scattered throughout the hepatic parenchyma which most likely represent metastatic disease however the possibility of infectious etiology not excluded. Postoperative changes of cholecystectomy. Moderate amount of abdominal and pelvic ascites. No evidence of free intraperitoneal air so far as can be seen. Wall thickening of the large bowel and multiple loops of small bowel as well as presumed edematous changes within the wall of the stomach. Findings may in part be due to a gastroenteritis sign colitis however hyperproteinemia and/or ascites fluid may contribute. Clinical correlation recommended. Anasarca. Few small bubbles of air within the subcutaneous tissues left lower anterolateral abdominal wall likely related to recent paracentesis sequela. Two small sclerotic foci again seen in the L4 and T12 segments possibly representing osteomas though tiny sclerotic metastasis not completely excluded. There is also a rounded small lucency within the right parasagittal T12 segment that could conceivably represent a lytic metastasis. Consider followup bone scan or MRI.
[2018-01-03] MEDS: DiphenhydrAMINE 50 mg/ml Inj IVP PRN (20:04)
[2018-01-03] MEDS ORDERED: Micafungin 100 MG in Sodium Chloride 0.9% 100 ML IV SCH (21:00)
[2018-01-03] MEDS: Nystatin 100,000 Units/ml Oral Susp 5 ml UD PO SCH ×2 (22:00→23:00)
--- NOTE | 2018-01-03 22:30 | CP.PCM.PN ---
Subjective - Date & Time of Evaluation Date of Evaluation: 01/03/18 Time of Evaluation: 19:00 - Subjective Subjective: Pt seen and examined, no fever, wbc gradually coming down, Hb dropped and he will tamiko 1 unit of PRBCS Objective - Vital Signs/Intake and Output Vital Signs (last 24 hours): Temp Pulse Resp BP Pulse Ox 98.4 F 123 H 20 104/76 99 01/03/18 21:24 01/03/18 21:24 01/03/18 21:24 01/03/18 21:24 01/03/18 15:15 Intake and Output: 01/03/18 01/04/18 18:59 06:59 Intake Total 2280 380 Balance 2280 380 - Medications Medications: Current Medications Acetaminophen (Tylenol 325mg Tab) 650 mg PO Q6 PRN PRN Reason: Fever >100.4 F Albuterol/Ipratropium (Duoneb 3 Mg/0.5 Mg (3 Ml) Ud) 3 ml INH RQID PRN PRN Reason: sob/wheezing Benzocaine/Menthol (Cepacol Sore Throat) 1 rosmery MT Q6H PRN PRN Reason: Sore Throat Diphenhydramine HCl (Benadryl) 25 mg IVP Q4H PRN PRN Reason: Itching / Pruritus Last Admin: 01/03/18 20:04 Dose: 25 mg Enoxaparin Sodium (Lovenox) 40 mg SC DAILY [facility] Last Admin: 01/03/18 11:56 Dose: 40 mg Fentanyl (Duragesic) 1 patch TD Q72H [facility] Last Admin: 01/03/18 21:00 Dose: 1 patch Hydromorphone HCl (Dilaudid) 2 mg IVP Q4H PRN PRN Reason: Pain, moderate (4-7) Last Admin: 01/03/18 20:15 Dose: 2 mg Dextrose/Sodium Chloride (Dextrose 5%/0.45% Ns 1000 Ml) 1,000 mls @ 100 mls/hr IV .Q10H [facility] Last Admin: 01/03/18 15:00 Dose: Not Given Vancomycin/Sodium Chloride (Vancomycin 1 Gm/Ns 200 Ml) 1 gm in 200 mls @ 166.6 mls/hr IVPB Q12H [facility] PRN Reason: Protocol Stop: 01/07/18 02:01 Last Admin: 01/03/18 13:44 Dose: 166.6 mls/hr Piperacillin Sod/Tazobactam Sod (Zosyn 3.375 Gm Iv Premix) 3.375 gm in 50 mls @ 100 mls/hr IVPB Q8H [facility] PRN Reason: Protocol Last Admin: 01/03/18 17:58 Dose: 100 mls/hr Metronidazole (Flagyl) 500 mg in 100 mls @ 100 mls/hr IVPB Q12H [facility] PRN Reason: Protocol Last Admin: 01/03/18 16:53 Dose: 100 mls/hr Micafungin Sodium 100 mg/ (Sodium Chloride) 100 mls @ 100 mls/hr IV Q24H [facility] PRN Reason: Protocol Metoclopramide HCl (Reglan) 10 mg IVP Q8H [facility] Last Admin: 01/03/18 19:15 Dose: 10 mg Nystatin (Nystatin Oral Susp) 5 ml PO QID [facility] Ondansetron HCl (Zofran Inj) 4 mg IVP Q4 PRN PRN Reason: Nausea/Vomiting Last Admin: 01/03/18 17:15 Dose: 4 mg - Labs Labs: 01/03/18 06:18 01/03/18 06:18 PT 20.0 SECONDS (9.7-12.2) H 01/02/18 14:27 INR 1.7 01/02/18 14:27 - Constitutional Appears: No Acute Distress - Head Exam Head Exam: ATRAUMATIC, NORMAL INSPECTION, NORMOCEPHALIC - Eye Exam Eye Exam: EOMI, Normal appearance, PERRL Pupil Exam: NORMAL ACCOMODATION, PERRL - Respiratory Exam Respiratory Exam: Clear to Ausculation Bilateral, NORMAL BREATHING PATTERN - Cardiovascular Exam Cardiovascular Exam: REGULAR RHYTHM, +S1, +S2. absent: Murmur - GI/Abdominal Exam GI & Abdominal Exam: Distended Additional comments: positive shifting dullness - Extremities Exam Extremities Exam: Pedal Edema - Neurological Exam Neurological Exam: Alert, Awake, CN II-XII Intact, Normal Gait, Oriented x3 Assessment and Plan (1) Abdominal pain Status: Acute (2) Cholangiocarcinoma Assessment & Plan: recurrent Status: Chronic (3) Dehydration Status: Acute (4) Hypertension Status: Acute (5) Septicemia Status: Acute
[2018-01-04] MEDS: Piperacill/Tazo 3.375gm in Dex 3.375 GM/50 ML BAG IVPB SCH ×3 (00:07→17:23)
[2018-01-04] MEDS: DiphenhydrAMINE 50 mg/ml Inj IVP PRN ×5 (00:17→19:09)
[2018-01-04] MEDS: Micafungin 100 MG in Sodium Chloride 0.9% 100 ML IV SCH (01:30)
[2018-01-04] MEDS: Vancomycin 1 gm/NS 200 ml 1 GM/200 ML BAG IVPB SCH ×2 (02:33→16:10)
[2018-01-04] MEDS: Dextrose 5%/0.45% NS 1,000 ML IV SCH ×3 (02:50→18:15)
[2018-01-04] MEDS: metroNIDAZOLE IV 500 mg/100 ml 500 MG/100 ML BAG IVPB SCH ×2 (05:38→18:15)
[2018-01-04 06:42] LABS: BASO # 0.1 K/uL (0.0-0.2); BASO % 0.2 % (0.0-2.0); HEMOGLOBIN 7.8 g/dL (12.0-18.0); LYMPH # 0.6 K/uL (1.0-4.3); MEAN CELL VOLUME 93.9 fL (80.0-94.0); MEAN CORPUSCULAR HEMOGLOBIN 30.8 pg (27.0-31.0); MEAN CORPUSCULAR HGB CONC 32.8 g/dL (33.0-37.0); MEAN PLATELET VOLUME 9.5 fL (7.2-11.7); MONO # 1.6 K/uL (0.0-0.8); MONO % 5.7 % (0.0-10.0); NEUT # 25.9 K/uL (1.8-7.0); NEUT % 92.1 % (50.0-75.0); NRBC % 0.1 % (0.0-2.0); PLATELET COUNT 175 K/uL (130-400); RBC 2.52 Mil/uL (4.40-5.90); RED CELL DISTRIBUTION WIDTH 17.7 % (11.5-14.5); WHITE BLOOD COUNT 28.1 K/uL (4.8-10.8)
--- NOTE | 2018-01-04 06:43 | CP.PCM.PN ---
Subjective - Date & Time of Evaluation Date of Evaluation: 01/04/18 Time of Evaluation: 06:41 - Subjective Subjective: will dictate Objective - Vital Signs/Intake and Output Vital Signs (last 24 hours): Temp Pulse Resp BP Pulse Ox 98 F 122 H 20 122/86 99 01/04/18 00:00 01/04/18 00:00 01/04/18 00:00 01/04/18 00:00 01/04/18 00:00 Intake and Output: 01/03/18 01/04/18 18:59 06:59 Intake Total 2280 755 Balance 2280 755 - Medications Medications: Current Medications Acetaminophen (Tylenol 325mg Tab) 650 mg PO Q6 PRN PRN Reason: Fever >100.4 F Albuterol/Ipratropium (Duoneb 3 Mg/0.5 Mg (3 Ml) Ud) 3 ml INH RQID PRN PRN Reason: sob/wheezing Benzocaine/Menthol (Cepacol Sore Throat) 1 rosmery MT Q6H PRN PRN Reason: Sore Throat Diphenhydramine HCl (Benadryl) 25 mg IVP Q4H PRN PRN Reason: Itching / Pruritus Last Admin: 01/04/18 04:17 Dose: 25 mg Enoxaparin Sodium (Lovenox) 40 mg SC DAILY [facility] Last Admin: 01/03/18 11:56 Dose: 40 mg Fentanyl (Duragesic) 1 patch TD Q72H [facility] Last Admin: 01/03/18 21:00 Dose: 1 patch Hydromorphone HCl (Dilaudid) 2 mg IVP Q4H PRN PRN Reason: Pain, moderate (4-7) Last Admin: 01/04/18 04:18 Dose: 2 mg Vancomycin/Sodium Chloride (Vancomycin 1 Gm/Ns 200 Ml) 1 gm in 200 mls @ 166.6 mls/hr IVPB Q12H [facility] PRN Reason: Protocol Stop: 01/07/18 02:01 Last Admin: 01/04/18 02:33 Dose: 166.6 mls/hr Piperacillin Sod/Tazobactam Sod (Zosyn 3.375 Gm Iv Premix) 3.375 gm in 50 mls @ 100 mls/hr IVPB Q8H [facility] PRN Reason: Protocol Last Admin: 01/04/18 00:07 Dose: 100 mls/hr Metronidazole (Flagyl) 500 mg in 100 mls @ 100 mls/hr IVPB Q12H [facility] PRN Reason: Protocol Last Admin: 01/04/18 05:38 Dose: 100 mls/hr Micafungin Sodium 100 mg/ (Sodium Chloride) 100 mls @ 100 mls/hr IV Q24H [facility] PRN Reason: Protocol Last Admin: 01/04/18 01:30 Dose: 100 mls/hr Metoclopramide HCl (Reglan) 10 mg IVP Q8H [facility] Last Admin: 01/04/18 02:59 Dose: 10 mg Nystatin (Nystatin Oral Susp) 5 ml PO QID [facility] Last Admin: 01/03/18 22:00 Dose: Not Given Ondansetron HCl (Zofran Inj) 4 mg IVP Q4 PRN PRN Reason: Nausea/Vomiting Last Admin: 01/03/18 17:15 Dose: 4 mg - Labs Labs: 01/03/18 06:18 01/03/18 06:18 PT 20.0 SECONDS (9.7-12.2) H 01/02/18 14:27 INR 1.7 01/02/18 14:27
[2018-01-04 08:06] LABS: ALB/GLOB RATIO 0.5 (1.0-2.1); ALBUMIN 1.5 g/dL (3.5-5.0); ALT/SGPT 43 U/L (21-72); AST/SGOT 23 U/L (17-59); BLOOD UREA NITROGEN 11 mg/dL (9-20); CALCIUM 6.9 mg/dl (8.6-10.4); GFR AFRICAN-AMERICAN > 60; GFR NON-AFRICAN AMERICAN 52
[2018-01-04] MEDS: Albuterol-Ipratrop 3 mg / 0.5 (3 ml) UD INH PRN ×2 (08:14→12:42)
[2018-01-04 08:33] LABS: ANISOCYTOSIS SLIGHT; BURR CELLS SLIGHT; HYPOCHROMIC SLIGHT; LYMPHOCYTE 2 % (20-40); MONOCYTE 5 % (0-10); NEUTROPHIL 93 % (50-75); PLATELET ESTIMATE NORMAL (NORMAL); POIKILOCYTOSIS SLIGHT; TARGET CELLS SLIGHT; TOTAL CELLS COUNTED 100
[2018-01-04 08:34] LABS: MICROCYTOSIS SLIGHT; POLYCHROMIC SLIGHT
[2018-01-04 08:35] LABS: GIANT PLATELETS PRESENT; LARGE PLATELETS PRESENT
--- NOTE | 2018-01-04 08:35 | CP.PCM.PN ---
<La Nena Song - Last Filed: 01/04/18 08:30> Subjective - Date & Time of Evaluation Date of Evaluation: 01/04/18 Time of Evaluation: 08:30 - Subjective Subjective: Surgery: Dr. Keith Pt seen and examined. States he feels better today but pain is mostly well controlled with pain meds. Continues to have anasarca. Denies N/V, F/C. Objective - Vital Signs/Intake and Output Vital Signs (last 24 hours): Temp Pulse Resp BP Pulse Ox 98.7 F 112 H 20 100/70 96 01/04/18 07:20 01/04/18 07:20 01/04/18 07:20 01/04/18 07:20 01/04/18 07:20 Intake and Output: 01/04/18 01/04/18 06:59 18:59 Intake Total 755 Balance 755 - Medications Medications: Current Medications Acetaminophen (Tylenol 325mg Tab) 650 mg PO Q6 PRN PRN Reason: Fever >100.4 F Albuterol/Ipratropium (Duoneb 3 Mg/0.5 Mg (3 Ml) Ud) 3 ml INH RQID PRN PRN Reason: sob/wheezing Last Admin: 01/04/18 08:14 Dose: 3 ml Benzocaine/Menthol (Cepacol Sore Throat) 1 rosmery MT Q6H PRN PRN Reason: Sore Throat Diphenhydramine HCl (Benadryl) 25 mg IVP Q4H PRN PRN Reason: Itching / Pruritus Last Admin: 01/04/18 04:17 Dose: 25 mg Enoxaparin Sodium (Lovenox) 40 mg SC DAILY [facility] Last Admin: 01/03/18 11:56 Dose: 40 mg Fentanyl (Duragesic) 1 patch TD Q72H [facility] Last Admin: 01/03/18 21:00 Dose: 1 patch Hydromorphone HCl (Dilaudid) 2 mg IVP Q4H PRN PRN Reason: Pain, moderate (4-7) Last Admin: 01/04/18 04:18 Dose: 2 mg Vancomycin/Sodium Chloride (Vancomycin 1 Gm/Ns 200 Ml) 1 gm in 200 mls @ 166.6 mls/hr IVPB Q12H [facility] PRN Reason: Protocol Stop: 01/07/18 02:01 Last Admin: 01/04/18 02:33 Dose: 166.6 mls/hr Piperacillin Sod/Tazobactam Sod (Zosyn 3.375 Gm Iv Premix) 3.375 gm in 50 mls @ 100 mls/hr IVPB Q8H [facility] PRN Reason: Protocol Last Admin: 01/04/18 00:07 Dose: 100 mls/hr Metronidazole (Flagyl) 500 mg in 100 mls @ 100 mls/hr IVPB Q12H [facility] PRN Reason: Protocol Last Admin: 01/04/18 05:38 Dose: 100 mls/hr Micafungin Sodium 100 mg/ (Sodium Chloride) 100 mls @ 100 mls/hr IV Q24H [facility] PRN Reason: Protocol Last Admin: 01/04/18 01:30 Dose: 100 mls/hr Metoclopramide HCl (Reglan) 10 mg IVP Q8H [facility] Last Admin: 01/04/18 02:59 Dose: 10 mg Nystatin (Nystatin Oral Susp) 5 ml PO QID [facility] Last Admin: 01/03/18 22:00 Dose: Not Given Ondansetron HCl (Zofran Inj) 4 mg IVP Q4 PRN PRN Reason: Nausea/Vomiting Last Admin: 01/03/18 17:15 Dose: 4 mg - Labs Labs: 01/04/18 06:29 01/04/18 06:29 PT 20.0 SECONDS (9.7-12.2) H 01/02/18 14:27 INR 1.7 01/02/18 14:27 - Constitutional Appears: No Acute Distress - Head Exam Head Exam: ATRAUMATIC, NORMOCEPHALIC - ENT Exam ENT Exam: Mucous Membranes Moist - Respiratory Exam Respiratory Exam: NORMAL BREATHING PATTERN - Cardiovascular Exam Cardiovascular Exam: Tachycardia - GI/Abdominal Exam GI & Abdominal Exam: Distended, Soft. absent: Tenderness - Neurological Exam Neurological Exam: Alert, Awake - Skin Skin Exam: Dry, Warm Assessment and Plan - Assessment and Plan (Free Text) Assessment: 62M with hx of cholangiocarcinoma s/p resection; presenting with ascites; r/o SBP Plan: - pt with continued elevated WBC - needs diagnostic paracentesis to r/o SBP - no surgical intervention at this time - ID and GI on board - d/w Dr. Sagar Song, PGY-3 <Mike Keith B - Last Filed: 01/06/18 16:04> Objective - Vital Signs/Intake and Output Vital Signs (last 24 hours): Temp Pulse Resp BP Pulse Ox 98.3 F 111 H 20 148/101 H 97 01/06/18 09:47 01/06/18 09:47 01/06/18 09:47 01/06/18 09:47 01/06/18 09:47 Intake and Output: 01/06/18 01/06/18 06:59 18:59 Intake Total 1000 1920 Output Total 600 Balance 400 1920 - Medications Medications: Current Medications Acetaminophen (Tylenol 325mg Tab) 650 mg PO Q6 PRN PRN Reason: Fever >100.4 F Benzocaine/Menthol (Cepacol Sore Throat) 1 rosmery MT Q6H PRN PRN Reason: Sore Throat Diphenhydramine HCl (Benadryl) 25 mg IVP Q4H PRN PRN Reason: Itching / Pruritus Last Admin: 01/06/18 09:58 Dose: 25 mg Enoxaparin Sodium (Lovenox) 40 mg SC DAILY [facility] Last Admin: 01/06/18 09:53 Dose: 40 mg Fentanyl (Duragesic) 1 patch TD Q72H [facility] Last Admin: 01/03/18 21:00 Dose: 1 patch Hydromorphone HCl (Dilaudid) 2 mg IVP Q4H PRN PRN Reason: Pain, moderate (4-7) Last Admin: 01/06/18 15:01 Dose: 2 mg Vancomycin/Sodium Chloride (Vancomycin 1 Gm/Ns 200 Ml) 1 gm in 200 mls @ 166.6 mls/hr IVPB Q12H [facility] PRN Reason: Protocol Stop: 01/07/18 02:01 Last Admin: 01/06/18 14:36 Dose: 166.6 mls/hr Micafungin Sodium 100 mg/ (Sodium Chloride) 100 mls @ 100 mls/hr IV Q24H [facility] PRN Reason: Protocol Last Admin: 01/06/18 00:25 Dose: 100 mls/hr Dextrose/Sodium Chloride (Dextrose 5%/0.45% Ns 1000 Ml) 1,000 mls @ 100 mls/hr IV .Q10H [facility] Last Admin: 01/06/18 10:23 Dose: Not Given Meropenem 500 mg/ Sodium (Chloride) 100 mls @ 100 mls/hr IVPB Q8 [facility] PRN Reason: Protocol Last Admin: 01/06/18 14:40 Dose: 100 mls/hr Metoclopramide HCl (Reglan) 10 mg IVP Q8H [facility] Last Admin: 01/06/18 11:52 Dose: 10 mg Metronidazole (Flagyl) 500 mg PO Q8 [facility] PRN Reason: Protocol Last Admin: 01/06/18 14:36 Dose: 500 mg Nystatin (Nystatin Oral Susp) 5 ml PO QID [facility] Last Admin: 01/06/18 14:36 Dose: 5 ml Ondansetron HCl (Zofran Inj) 4 mg IVP Q4 PRN PRN Reason: Nausea/Vomiting Last Admin: 01/04/18 09:28 Dose: 4 mg Potassium Chloride (K-Dur 20 Meq Er Tab) 40 meq PO ONCE [facility] Last Admin: 01/05/18 09:16 Dose: 40 meq - Labs Labs: 01/06/18 08:17 01/06/18 08:17 PT 20.0 SECONDS (9.7-12.2) H 01/02/18 14:27 INR 1.7 01/02/18 14:27 Attending/Attestation - Attestation I have personally seen and examined this patient.: Yes I have fully participated in the care of the patient.: Yes I have reviewed all pertinent clinical information, including history, physical exam and plan: Yes Notes (Text): Pt was seen and examined at bedside Agree with above note and assessment Pt is improving clinically WBC is trending up could be related to chemotherapy or underlying Colitis/ enteritis No surgical intervention required at present c.w current mx Plan d.w pt in detail Risk and benefit explained in detail.
[2018-01-04] MEDS: Nystatin 100,000 Units/ml Oral Susp 5 ml UD PO SCH ×4 (09:28→21:45)
--- NOTE | 2018-01-04 14:43 | PN ---
DATE: 01/04/2018. LOCATION: [facility], bed A. SUBJECTIVE: This is a 62 years old male post blood transfusion seen and examined in rounds with still increased abdominal girth and intermittent period of shortness of breath, but with less abdominal pain. No reported active bleeding, actual chest pain, palpation or shortness of breath. No reported nausea or vomiting. No chills or fever reported. The entire chart is reviewed including, but not limited to the most recent lab and radiology study results, current and the previous medication list, current and previous medical events. Case discussed with the staff at length. Today's lab showed leukocytosis of 28.1, hemoglobin 7.8, hematocrit 23.6 post transfusion with normal platelet count. PT reported to be elevated 20.0 with CO2 content of 21 indicative of metabolic acidosis. Calcium 6.9, total bilirubin 2.1, alkaline phosphatase 162, albumin 1.5, total protein 4.4 with reported excessive increase of CEA and CA 19-9. PHYSICAL EXAMINATION: GENERAL: A 62 years old male. VITAL SIGNS: Afebrile, with pulse of 86, respiratory rate of 20 to 22, blood pressure 110/72. HEENT: Showed pale dry mucosal membrane with bilateral icteric sclerae. LUNGS: Scattered crepitation, decreased air entry at bases. HEART: Positive S1 and S2. ABDOMEN: Soft with mild distention with large amount of ascites. No mass or organomegaly. No rebound tenderness or guarding. Bowel sounds are hypoactive. EXTREMITIES: With lower extremities edematous changes. NEURO: No reported neurological deficits, sensory or motor. IMPRESSION: 1. Cholangiocarcinoma by history. 2. Evidence of portal hypertension with ascites, the patient needs abdominal paracentesis by IR staff. 3. Questionable perforation with abnormal CAT scan of the abdomen. 4. Excessive increase of CEA as well as CA 19-9 with possible metastatic lesion from the cholangiocarcinoma. 5. Malnutrition with severe hypoalbuminemia, high proteinemia. 6. Known history of hypertension, hyperlipidemia, alcoholism with alcoholic liver disease. 7. Abnormal liver function tests with jaundice secondary to above. SUGGESTIONS: 1. Continue current management. 2. Abdominal paracentesis guided by ultrasound when he is more stable clinically. 3. Oncology/Hematology consult. 4. The patient has and poor outcome due to his primary diseases. Adina Barillas MD [facility] # [id number]
--- NOTE | 2018-01-04 23:10 | CP.PCM.PN ---
Subjective - Date & Time of Evaluation Date of Evaluation: 01/04/18 Time of Evaluation: 23:10 - Subjective Subjective: CHIEF COMPLAINTS TODAY : afebrile, Tachycardiac c/o LESS odynophagia ?fungal PT GETTING BLOOD TRAMSFUSION. SEEN BY HIS ONCOLOGIST HEENT : N.+ve THRUSH. Resp : No SOB wheezing, cough Cardio : No CP, PND orthopnea GI : No abd. 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 Musculoskel : N Ext. : Pedal pulses intact, +VE EDEMA, NO calf pain Derm : N Psych : N. PE. Pt. is alert awake in no distress. V.S As noted in the chart Head ,ear nose,throat and eyes : Normal. Neck : Supple with normal carotids. Lungs: Clear air entry. Heart : S1 & S2 normal . . No murmur. S4 + Abd : SOFT, SLIGHTLY DISTENDED, +VE ASCITES, with normal bowel sounds. Neuro : Moves all ext. with no localized deficit. Ext : B/L EDEMA 2+, with intact pulses. Neg. calf tenderness Derm : No rashes or decubitus ulcer. GENITALIA .; SWOLLEN Radiology/Labs . REVIEWED wbc 28.1 H/H 7.8/23.6 PLATELETS 175 cREATININE 1.4/bun 11 LFTS BILI 2.1, TRANSAMINASES NORMAL. ALKALINE PHOSPHATASE 162. CT ABDOMEN AND PELVIS WITH BY MOUTH AND iv CONTRAST 01/02/18 Multiple hepatic low-attenuation lesions ? metastatic diseasevs infectious etiology. Postoperative cholecystectomy Colitis small large bowel. Generalized anasarca. ? Lytic lesion T12. Asssessment : SEPSIS/ ? INTRAABDOMINAL R/O SBP VS MALIGNANT ASCITES ABDOMINAL PAIN ? 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 CHOLANGIOCARCINOMA /ASCITES ?MALIGNANT. ?METASTATIC DISEASE. MULTIPLE HEPATIC MASSES ? ABSCESSES ? FUNGAL ODYNOPHAGIA ? R/O GREGORIO ESOPHAGITES HTN. Objective - Vital Signs/Intake and Output Vital Signs (last 24 hours): Temp Pulse Resp BP Pulse Ox 98.3 F 102 H 16 131/96 H 100 01/04/18 17:29 01/04/18 17:10 01/04/18 17:10 01/04/18 17:10 01/04/18 17:04 Intake and Output: 01/04/18 01/05/18 18:59 06:59 Intake Total 1805 950 Balance 1805 950 - Medications Medications: Current Medications Acetaminophen (Tylenol 325mg Tab) 650 mg PO Q6 PRN PRN Reason: Fever >100.4 F Albuterol/Ipratropium (Duoneb 3 Mg/0.5 Mg (3 Ml) Ud) 3 ml INH RQID PRN PRN Reason: sob/wheezing Last Admin: 01/04/18 12:42 Dose: 3 ml Benzocaine/Menthol (Cepacol Sore Throat) 1 rosmery MT Q6H PRN PRN Reason: Sore Throat Diphenhydramine HCl (Benadryl) 25 mg IVP Q4H PRN PRN Reason: Itching / Pruritus Last Admin: 01/04/18 19:09 Dose: 25 mg Enoxaparin Sodium (Lovenox) 40 mg SC DAILY [facility] Last Admin: 01/03/18 11:56 Dose: 40 mg Fentanyl (Duragesic) 1 patch TD Q72H [facility] Last Admin: 01/03/18 21:00 Dose: 1 patch Hydromorphone HCl (Dilaudid) 2 mg IVP Q4H PRN PRN Reason: Pain, moderate (4-7) Last Admin: 01/04/18 19:10 Dose: 2 mg Vancomycin/Sodium Chloride (Vancomycin 1 Gm/Ns 200 Ml) 1 gm in 200 mls @ 166.6 mls/hr IVPB Q12H [facility] PRN Reason: Protocol Stop: 01/07/18 02:01 Last Admin: 01/04/18 16:10 Dose: 166.6 mls/hr Piperacillin Sod/Tazobactam Sod (Zosyn 3.375 Gm Iv Premix) 3.375 gm in 50 mls @ 100 mls/hr IVPB Q8H [facility] PRN Reason: Protocol Last Admin: 01/04/18 17:23 Dose: 100 mls/hr Micafungin Sodium 100 mg/ (Sodium Chloride) 100 mls @ 100 mls/hr IV Q24H [facility] PRN Reason: Protocol Last Admin: 01/04/18 01:30 Dose: 100 mls/hr Dextrose/Sodium Chloride (Dextrose 5%/0.45% Ns 1000 Ml) 1,000 mls @ 100 mls/hr IV .Q10H [facility] Last Admin: 01/04/18 18:15 Dose: 100 mls/hr Metoclopramide HCl (Reglan) 10 mg IVP Q8H [facility] Last Admin: 01/04/18 20:02 Dose: 10 mg Metronidazole (Flagyl) 500 mg PO Q8 [facility] PRN Reason: Protocol Last Admin: 01/04/18 21:45 Dose: 500 mg Nystatin (Nystatin Oral Susp) 5 ml PO QID [facility] Last Admin: 01/04/18 21:45 Dose: 5 ml Ondansetron HCl (Zofran Inj) 4 mg IVP Q4 PRN PRN Reason: Nausea/Vomiting Last Admin: 01/04/18 09:28 Dose: 4 mg - Labs Labs: 01/04/18 06:29 01/04/18 06:29 PT 20.0 SECONDS (9.7-12.2) H 01/02/18 14:27 INR 1.7 01/02/18 14:27 Assessment and Plan (1) Sepsis Status: Acute (2) Abdominal pain Status: Acute (3) Ascites, malignant Status: Acute (4) Cholangiocarcinoma Status: Chronic (5) Hypertension Status: Acute - Assessment and Plan (Free Text) Plan: CONTINUE iv ZOSYN DECREASE DOSE TO 3.375 EVERY 8 HOURLY IN VIEW OF ELEVATED LIVER FUNCTION TESTS. 01/02/18. CONTINUE iv VANCOMYCIN 1 G EVERY 12 HOURLY. 01/02/18 FOLLOW-UP vANCO TROUGH PRIOR TO THE FOURTH DOSE AND KEEP IT BETWEEN 10 AND 20. CONTINUE fLAGYL 500 iv PIGGYBACK EVERY 12 HOURLY FOR ANAEROBIC COVERAGE. . CONTINUE IV MYCAFUNGIN 100MG IVPB Q 12 [facility]. 01/03/18. Surgery on board ? DIAGNOSTIC PARACENTESIS AND APPROPRIATE CULTURES-BACTERIAL, FUNGAL, AFB, CYTOLOGY. As per CONSULTANTS.
--- NOTE | 2018-01-04 23:30 | CP.PCM.PN ---
Subjective - Date & Time of Evaluation Date of Evaluation: 01/04/18 Time of Evaluation: 18:35 - Subjective Subjective: Pt seen and evaluated today Objective - Vital Signs/Intake and Output Vital Signs (last 24 hours): Temp Pulse Resp BP Pulse Ox 98.3 F 102 H 16 131/96 H 100 01/04/18 17:29 01/04/18 17:10 01/04/18 17:10 01/04/18 17:10 01/04/18 17:04 Intake and Output: 01/04/18 01/05/18 18:59 06:59 Intake Total 1805 950 Balance 1805 950 - Medications Medications: Current Medications Acetaminophen (Tylenol 325mg Tab) 650 mg PO Q6 PRN PRN Reason: Fever >100.4 F Albuterol/Ipratropium (Duoneb 3 Mg/0.5 Mg (3 Ml) Ud) 3 ml INH RQID PRN PRN Reason: sob/wheezing Last Admin: 01/04/18 12:42 Dose: 3 ml Benzocaine/Menthol (Cepacol Sore Throat) 1 rosmery MT Q6H PRN PRN Reason: Sore Throat Diphenhydramine HCl (Benadryl) 25 mg IVP Q4H PRN PRN Reason: Itching / Pruritus Last Admin: 01/04/18 19:09 Dose: 25 mg Enoxaparin Sodium (Lovenox) 40 mg SC DAILY [facility] Last Admin: 01/03/18 11:56 Dose: 40 mg Fentanyl (Duragesic) 1 patch TD Q72H [facility] Last Admin: 01/03/18 21:00 Dose: 1 patch Hydromorphone HCl (Dilaudid) 2 mg IVP Q4H PRN PRN Reason: Pain, moderate (4-7) Last Admin: 01/04/18 19:10 Dose: 2 mg Vancomycin/Sodium Chloride (Vancomycin 1 Gm/Ns 200 Ml) 1 gm in 200 mls @ 166.6 mls/hr IVPB Q12H [facility] PRN Reason: Protocol Stop: 01/07/18 02:01 Last Admin: 01/04/18 16:10 Dose: 166.6 mls/hr Piperacillin Sod/Tazobactam Sod (Zosyn 3.375 Gm Iv Premix) 3.375 gm in 50 mls @ 100 mls/hr IVPB Q8H [facility] PRN Reason: Protocol Last Admin: 01/04/18 17:23 Dose: 100 mls/hr Micafungin Sodium 100 mg/ (Sodium Chloride) 100 mls @ 100 mls/hr IV Q24H [facility] PRN Reason: Protocol Last Admin: 01/04/18 01:30 Dose: 100 mls/hr Dextrose/Sodium Chloride (Dextrose 5%/0.45% Ns 1000 Ml) 1,000 mls @ 100 mls/hr IV .Q10H [facility] Last Admin: 01/04/18 18:15 Dose: 100 mls/hr Metoclopramide HCl (Reglan) 10 mg IVP Q8H [facility] Last Admin: 01/04/18 20:02 Dose: 10 mg Metronidazole (Flagyl) 500 mg PO Q8 [facility] PRN Reason: Protocol Last Admin: 01/04/18 21:45 Dose: 500 mg Nystatin (Nystatin Oral Susp) 5 ml PO QID [facility] Last Admin: 01/04/18 21:45 Dose: 5 ml Ondansetron HCl (Zofran Inj) 4 mg IVP Q4 PRN PRN Reason: Nausea/Vomiting Last Admin: 01/04/18 09:28 Dose: 4 mg - Labs Labs: 01/04/18 06:29 01/04/18 06:29 PT 20.0 SECONDS (9.7-12.2) H 01/02/18 14:27 INR 1.7 01/02/18 14:27 Assessment and Plan (1) Abdominal pain Status: Acute (2) Cholangiocarcinoma Status: Chronic (3) Dehydration Status: Acute (4) Hypertension Status: Acute (5) Septicemia Status: Acute
[2018-01-05] MEDS: DiphenhydrAMINE 50 mg/ml Inj IVP PRN ×5 (00:28→21:44)
[2018-01-05] MEDS: Micafungin 100 MG in Sodium Chloride 0.9% 100 ML IV SCH (00:30)
[2018-01-05] MEDS: Piperacill/Tazo 3.375gm in Dex 3.375 GM/50 ML BAG IVPB SCH ×3 (00:30→17:39)
[2018-01-05] MEDS: Vancomycin 1 gm/NS 200 ml 1 GM/200 ML BAG IVPB SCH ×2 (01:21→13:25)
[2018-01-05] MEDS: Dextrose 5%/0.45% NS 1,000 ML IV SCH ×3 (06:21→21:44)
[2018-01-05 06:56] LABS: HEMOGLOBIN 9.5 g/dL (12.0-18.0); MEAN CELL VOLUME 91.2 fL (80.0-94.0); MEAN CORPUSCULAR HEMOGLOBIN 30.1 pg (27.0-31.0); MEAN PLATELET VOLUME 8.8 fL (7.2-11.7); RBC 3.16 Mil/uL (4.40-5.90); RED CELL DISTRIBUTION WIDTH 18.8 % (11.5-14.5); WHITE BLOOD COUNT 36.9 K/uL (4.8-10.8)
[2018-01-05 07:11] LABS: ALB/GLOB RATIO 0.5 (1.0-2.1); ALBUMIN 1.7 g/dL (3.5-5.0); CALCIUM 7.1 mg/dl (8.6-10.4)
[2018-01-05] MEDS: Nystatin 100,000 Units/ml Oral Susp 5 ml UD PO SCH ×4 (09:16→21:45)
[2018-01-05] MEDS: Enoxaparin 40 mg Syringe SC SCH (09:16)
[2018-01-05] MEDS ORDERED: Potassium Chloride 20 mEq ER Tab PO SCH (10:00)
--- NOTE | 2018-01-05 12:01 | PN ---
DATE: LOCATION: [facility], bed A. SUBJECTIVE: This 62-year-old male seen and examined in rounds post blood transfusion, still complaining of some abdominal pain with abdominal distention, awaiting for abdominal paracentesis by the IR Team. Official report of repeated CAT scan is seen with again large bilateral pleural effusion with abdominal and pelvic ascites, please see the official CAT scan report. No reported hematemesis or active bleeding. The entire chart is reviewed including, but not limited to most recent lab and radiology study results, current and previous medication list, current and previous medical events. Case discussed with the staff at length and the most recent lab results showed white blood cells of 28.1, low hemoglobin 7.8, hematocrit 23.6, but normal platelet count, with increased PT to 20, CO2 content 21 indicative of metabolic acidosis, calcium 6.9, total bilirubin 2.1, with increased alkaline phosphatase, but very low albumin 1.5 and low total protein 4.4. PHYSICAL EXAMINATION: GENERAL: A 62-year-old male complaining of abdominal pain. VITAL SIGNS: Afebrile with heart rate of 112, respiratory rate 20 to 22, blood pressure 124/86. HEENT: Showed pale, dry oral mucous membrane, bilateral icteric sclerae. LUNGS: Few scattered crepitations, decreased air entry at bases. HEART: Positive S1 and S2 with increased rate. ABDOMEN: With moderate amount of ascites and generalized tenderness. No mass or organomegaly. No rebound tenderness or guarding. EXTREMITIES: With lower extremity edematous changes. No clubbing or cyanosis. NEUROLOGIC: No reported new neurological deficits, sensory or motor. No new reported focal deficits. IMPRESSION: 1. Known history of cholangiocarcinoma with metastatic lesion mainly to the liver. 2. Evidence of portal hypertension with ascites. 3. Malnutrition with severe hypoalbuminemia. 4. Abnormal liver function test with jaundice secondary to above. 5. Known history of, but not limited to alcoholism with alcoholic liver disease, hypertension, hyperlipidemia. 6. Anemia secondary to above. 7. Excessive elevation of CA 19-9 and CEA most likely secondary to metastatic lesion to the cholangiocarcinoma and/or possible other primary gastrointestinal carcinoma. SUGGESTIONS: 1. Continue current management. 2. Abdominal paracentesis. 3. Surgical reevaluation. 4. No aggressive GI workup in the meantime. Adina Barilals MD [facility] # [id number]
--- NOTE | 2018-01-05 19:56 | CP.PCM.PN ---
Subjective - Date & Time of Evaluation Date of Evaluation: 01/05/18 Time of Evaluation: 19:52 - Subjective Subjective: CHIEF COMPLAINTS TODAY : afebrile, Tachycardiac, weak. c/o abdominal pain ROS. HEENT : N.+ve THRUSH. Resp : No SOB wheezing, cough Cardio : No CP, PND orthopnea GI : +VE ABDOMINAL PAIN, NO n/v [employer] : No headache , focal deficit. Musculoskel : N Ext. : Pedal pulses intact, +VE EDEMA, NO calf pain Derm : N Psych : N. PE. Pt. is alert awake in no distress. V.S As noted in the chart Head ,ear nose,throat and eyes : Normal. Neck : Supple with normal carotids. Lungs: Clear air entry. Heart : S1 & S2 normal . . No murmur. S4 + Abd : SOFT, SLIGHTLY DISTENDED, +VE ASCITES,+VE GENERALIZED TENDERNESS with normal bowel sounds. Neuro : Moves all ext. with no localized deficit. Ext : B/L EDEMA 2+, with intact pulses. Neg. calf tenderness Derm : No rashes or decubitus ulcer. GENITALIA .; [facility] Radiology/Labs . REVIEWED wbc 36.9 H/H 9.5/28.8 PLATELETS 213 cREATININE 1.9/BUN 16 LFTS BILI 2.7, TRANSAMINASES NORMAL. ALKALINE PHOSPHATASE 177. CT ABDOMEN AND PELVIS WITH BY MOUTH AND iv CONTRAST 01/02/18 Multiple hepatic low-attenuation lesions ? metastatic diseasevs infectious etiology. Postoperative cholecystectomy Colitis small large bowel. Generalized anasarca. ? Lytic lesion T12. Asssessment : SEPSIS/ ? INTRAABDOMINAL R/O SBP VS MALIGNANT ASCITES ABDOMINAL PAIN ? ENTEROCOLIC FISTULAE ?MICROPERFORATION ? PMC CHOLANGIOCARCINOMA /ASCITES ?MALIGNANT. ?METASTATIC DISEASE. MULTIPLE HEPATIC MASSES ? ABSCESSES ? FUNGAL ODYNOPHAGIA ? R/O GREGORIO ESOPHAGITES HTN. Objective - Vital Signs/Intake and Output Vital Signs (last 24 hours): Temp Pulse Resp BP Pulse Ox 98.5 F 106 H 18 122/84 95 01/05/18 15:00 01/05/18 15:00 01/05/18 15:00 01/05/18 15:00 01/05/18 15:00 - Medications Medications: Current Medications Acetaminophen (Tylenol 325mg Tab) 650 mg PO Q6 PRN PRN Reason: Fever >100.4 F Albuterol/Ipratropium (Duoneb 3 Mg/0.5 Mg (3 Ml) Ud) 3 ml INH RQID PRN PRN Reason: sob/wheezing Last Admin: 01/04/18 12:42 Dose: 3 ml Benzocaine/Menthol (Cepacol Sore Throat) 1 rosmery MT Q6H PRN PRN Reason: Sore Throat Diphenhydramine HCl (Benadryl) 25 mg IVP Q4H PRN PRN Reason: Itching / Pruritus Last Admin: 01/05/18 17:43 Dose: 25 mg Enoxaparin Sodium (Lovenox) 40 mg SC DAILY [facility] Last Admin: 01/05/18 09:16 Dose: 40 mg Fentanyl (Duragesic) 1 patch TD Q72H [facility] Last Admin: 01/03/18 21:00 Dose: 1 patch Hydromorphone HCl (Dilaudid) 2 mg IVP Q4H PRN PRN Reason: Pain, moderate (4-7) Last Admin: 01/05/18 17:35 Dose: 2 mg Vancomycin/Sodium Chloride (Vancomycin 1 Gm/Ns 200 Ml) 1 gm in 200 mls @ 166.6 mls/hr IVPB Q12H [facility] PRN Reason: Protocol Stop: 01/07/18 02:01 Last Admin: 01/05/18 13:25 Dose: 166.6 mls/hr Piperacillin Sod/Tazobactam Sod (Zosyn 3.375 Gm Iv Premix) 3.375 gm in 50 mls @ 100 mls/hr IVPB Q8H [facility] PRN Reason: Protocol Last Admin: 01/05/18 17:39 Dose: 100 mls/hr Micafungin Sodium 100 mg/ (Sodium Chloride) 100 mls @ 100 mls/hr IV Q24H [facility] PRN Reason: Protocol Last Admin: 01/05/18 00:30 Dose: 100 mls/hr Dextrose/Sodium Chloride (Dextrose 5%/0.45% Ns 1000 Ml) 1,000 mls @ 100 mls/hr IV .Q10H [facility] Last Admin: 01/05/18 13:22 Dose: Not Given Metoclopramide HCl (Reglan) 10 mg IVP Q8H [facility] Last Admin: 01/05/18 12:15 Dose: 10 mg Metronidazole (Flagyl) 500 mg PO Q8 [facility] PRN Reason: Protocol Last Admin: 01/05/18 13:25 Dose: 500 mg Nystatin (Nystatin Oral Susp) 5 ml PO QID [facility] Last Admin: 01/05/18 17:39 Dose: 5 ml Ondansetron HCl (Zofran Inj) 4 mg IVP Q4 PRN PRN Reason: Nausea/Vomiting Last Admin: 01/04/18 09:28 Dose: 4 mg Potassium Chloride (K-Dur 20 Meq Er Tab) 40 meq PO ONCE [facility] Last Admin: 01/05/18 09:16 Dose: 40 meq - Labs Labs: 01/05/18 06:30 01/05/18 06:30 PT 20.0 SECONDS (9.7-12.2) H 01/02/18 14:27 INR 1.7 01/02/18 14:27 Assessment and Plan (1) Sepsis Status: Acute (2) Abdominal pain Status: Acute (3) Ascites, malignant Status: Acute (4) Cholangiocarcinoma Status: Chronic (5) Hypertension Status: Acute - Assessment and Plan (Free Text) Plan: D/C iv ZOSYN 01/05/18 START IV MERREM 500MG IVPB Q 8HRLY 01/05/18 FOR PRABABLE COVERAGE FOR +VE ESBLKLEBSIELLA PN. VS E.COLI 01/05/18 CONTINUE iv VANCOMYCIN 1 G EVERY 12 HOURLY. 01/02/18 FOLLOW-UP vANCO TROUGH PRIOR TO THE FOURTH DOSE AND KEEP IT BETWEEN 10 AND 20. CONTINUE fLAGYL 500 iv PIGGYBACK EVERY 12 HOURLY FOR ANAEROBIC COVERAGE. . CONTINUE IV MYCAFUNGIN 100MG IVPB Q 24HRLY H[facility]. 01/03/18. Surgery on board ? DIAGNOSTIC PARACENTESIS AND APPROPRIATE CULTURES-BACTERIAL, FUNGAL, AFB, CYTOLOGY. STOOLS FOR C. DIFFICILE TOXIN.
[2018-01-05] MEDS: Meropenem 500 MG in Sodium Chloride 0.9% 100 ML IVPB SCH (22:43)
[2018-01-06] MEDS: Dextrose 5%/0.45% NS 1,000 ML IV SCH ×3 (00:15→20:15)
[2018-01-06] MEDS: Micafungin 100 MG in Sodium Chloride 0.9% 100 ML IV SCH (00:25)
[2018-01-06] MEDS: Vancomycin 1 gm/NS 200 ml 1 GM/200 ML BAG IVPB SCH ×2 (02:00→14:36)
[2018-01-06] MEDS: Meropenem 500 MG in Sodium Chloride 0.9% 100 ML IVPB SCH ×3 (06:20→21:30)
[2018-01-06] MEDS: Albuterol-Ipratrop 3 mg / 0.5 (3 ml) UD INH PRN (08:01)
[2018-01-06 08:47] LABS: BASO % 0.1 % (0.0-2.0); EOS % 0.1 % (0.0-4.0); HEMOGLOBIN 9.1 g/dL (12.0-18.0); LYMPH # 0.4 K/uL (1.0-4.3); LYMPH % 1.1 % (20.0-40.0); MEAN CELL VOLUME 92.7 fL (80.0-94.0); MEAN CORPUSCULAR HEMOGLOBIN 30.3 pg (27.0-31.0); MEAN CORPUSCULAR HGB CONC 32.7 g/dL (33.0-37.0); MEAN PLATELET VOLUME 8.7 fL (7.2-11.7); MONO # 1.6 K/uL (0.0-0.8); MONO % 4.7 % (0.0-10.0); NEUT # 31.8 K/uL (1.8-7.0); NRBC % 0.4 % (0.0-2.0); PLATELET COUNT 206 K/uL (130-400); RED CELL DISTRIBUTION WIDTH 18.7 % (11.5-14.5); WHITE BLOOD COUNT 33.9 K/uL (4.8-10.8)
[2018-01-06 08:51] LABS: ALB/GLOB RATIO 0.5 (1.0-2.1); ALBUMIN 1.6 g/dL (3.5-5.0); CALCIUM 7.1 mg/dl (8.6-10.4)
[2018-01-06] MEDS: Enoxaparin 40 mg Syringe SC SCH (09:53)
[2018-01-06] MEDS: Nystatin 100,000 Units/ml Oral Susp 5 ml UD PO SCH ×4 (09:53→22:13)
[2018-01-06] MEDS: DiphenhydrAMINE 50 mg/ml Inj IVP PRN ×2 (09:58→18:53)
[2018-01-06 10:56] LABS: BANDS 2 % (0-2); EOSINOPHIL 1 % (0-4); LYMPHOCYTE 1 % (20-40); MONOCYTE 4 % (0-10); NEUTROPHIL 91 % (50-75); NUCLEATED RED BLOOD CELL 1 % (0-0); PLATELET ESTIMATE NORMAL (NORMAL); REACTIVE LYMPHOCYTES 1 % (0-0); TOTAL CELLS COUNTED 100
[2018-01-06 10:57] LABS: ANISOCYTOSIS MODERATE; HYPOCHROMIC SLIGHT; POLYCHROMIC SLIGHT
[2018-01-06 10:58] LABS: BURR CELLS SLIGHT; POIKILOCYTOSIS SLIGHT
[2018-01-06 10:59] LABS: TOXIC GRANULATION PRESENT
--- NOTE | 2018-01-06 11:43 | PN ---
DATE: LOCATION: [facility], bed A. SUBJECTIVE: This is a 62-year-old male seen and examined in rounds, without significant clinical changes, most recent blood transfusion, without any reported actual chest pain, palpitation, or active bleeding. Most recent lab results showed leukocytosis of 36, hemoglobin 9.6, hematocrit 28.8 post blood transfusion with normal platelet count. Potassium 3.2, CO2 content 20, calcium 7.1, increased total bilirubin of 2.7 with very low albumin of 1.7. PHYSICAL EXAMINATION: GENERAL: A 62-year-old male. VITAL SIGNS: Afebrile with heart rate of 102, respiratory rate of 20 to 22, blood pressure 136/92. HEENT: Showed pale, dry oral mucous membrane. Bilateral icteric sclerae. LUNGS: Few scattered crepitation. Decreased air entry at bases. HEART: Positive S1 and S2. ABDOMEN: Soft. Bowel sounds are present. No masses or organomegaly. No rebound tenderness or guarding. EXTREMITIES: Without significant clubbing, cyanosis but edematous changes. NEUROLOGIC: No reported new neurological deficits, sensory or motor. It has to be mentioned that the patient still has distended abdomen with ascites. IMPRESSION: 1. Cholangiocarcinoma by history with metastatic lesions most likely in the liver. 2. Evidence of portal hypertension with ascites. 3. Severe malnutrition with hypoalbuminemia. 4. Anemia. 5. Known history of alcoholism with alcoholic liver disease. 6. History of hyperlipidemia, hypertension. 7. Excessive increase of CA 19-9 highly suggestive of pancreatic involvement with possible pancreatic cancer, primary versus secondary. SUGGESTIONS: 1. Continue supportive treatment. 2. Oncology/Hematology workup and evaluation. 3. No aggressive GI workup to be scheduled in the meantime until the patient is more clinically stable. Adina Barillas MD
--- NOTE | 2018-01-06 14:38 | CP.PCM.PN ---
Subjective - Date & Time of Evaluation Date of Evaluation: 01/05/18 Time of Evaluation: 17:40 - Subjective Subjective: PT SEEN AND EXAMINED, appears sick, he wants to be intubated and CPR was done, i discussed with patient and he was sure about it Objective - Vital Signs/Intake and Output Vital Signs (last 24 hours): Temp Pulse Resp BP Pulse Ox 98.3 F 111 H 20 148/101 H 97 01/06/18 09:47 01/06/18 09:47 01/06/18 09:47 01/06/18 09:47 01/06/18 09:47 Intake and Output: 01/06/18 01/06/18 06:59 18:59 Intake Total 1000 920 Output Total 600 Balance 400 920 - Medications Medications: Current Medications Acetaminophen (Tylenol 325mg Tab) 650 mg PO Q6 PRN PRN Reason: Fever >100.4 F Benzocaine/Menthol (Cepacol Sore Throat) 1 rosmery MT Q6H PRN PRN Reason: Sore Throat Diphenhydramine HCl (Benadryl) 25 mg IVP Q4H PRN PRN Reason: Itching / Pruritus Last Admin: 01/06/18 09:58 Dose: 25 mg Enoxaparin Sodium (Lovenox) 40 mg SC DAILY [facility] Last Admin: 01/06/18 09:53 Dose: 40 mg Fentanyl (Duragesic) 1 patch TD Q72H [facility] Last Admin: 01/03/18 21:00 Dose: 1 patch Hydromorphone HCl (Dilaudid) 2 mg IVP Q4H PRN PRN Reason: Pain, moderate (4-7) Last Admin: 01/06/18 10:02 Dose: 2 mg Vancomycin/Sodium Chloride (Vancomycin 1 Gm/Ns 200 Ml) 1 gm in 200 mls @ 166.6 mls/hr IVPB Q12H [facility] PRN Reason: Protocol Stop: 01/07/18 02:01 Last Admin: 01/06/18 14:36 Dose: 166.6 mls/hr Micafungin Sodium 100 mg/ (Sodium Chloride) 100 mls @ 100 mls/hr IV Q24H [facility] PRN Reason: Protocol Last Admin: 01/06/18 00:25 Dose: 100 mls/hr Dextrose/Sodium Chloride (Dextrose 5%/0.45% Ns 1000 Ml) 1,000 mls @ 100 mls/hr IV .Q10H [facility] Last Admin: 01/06/18 10:23 Dose: Not Given Meropenem 500 mg/ Sodium (Chloride) 100 mls @ 100 mls/hr IVPB Q8 [facility] PRN Reason: Protocol Last Admin: 01/06/18 06:20 Dose: 100 mls/hr Metoclopramide HCl (Reglan) 10 mg IVP Q8H [facility] Last Admin: 01/06/18 11:52 Dose: 10 mg Metronidazole (Flagyl) 500 mg PO Q8 [facility] PRN Reason: Protocol Last Admin: 01/06/18 14:36 Dose: 500 mg Nystatin (Nystatin Oral Susp) 5 ml PO QID [facility] Last Admin: 01/06/18 14:36 Dose: 5 ml Ondansetron HCl (Zofran Inj) 4 mg IVP Q4 PRN PRN Reason: Nausea/Vomiting Last Admin: 01/04/18 09:28 Dose: 4 mg Potassium Chloride (K-Dur 20 Meq Er Tab) 40 meq PO ONCE [facility] Last Admin: 01/05/18 09:16 Dose: 40 meq - Labs Labs: 01/06/18 08:17 01/06/18 08:17 PT 20.0 SECONDS (9.7-12.2) H 01/02/18 14:27 INR 1.7 01/02/18 14:27 - Constitutional Appears: No Acute Distress, Chronically Ill - Head Exam Head Exam: ATRAUMATIC, NORMAL INSPECTION, NORMOCEPHALIC - Eye Exam Eye Exam: EOMI, Normal appearance, PERRL Pupil Exam: NORMAL ACCOMODATION, PERRL - Respiratory Exam Respiratory Exam: Decreased Breath Sounds, Rales, Rhonchi - Cardiovascular Exam Cardiovascular Exam: REGULAR RHYTHM, +S1, +S2. absent: Murmur - GI/Abdominal Exam GI & Abdominal Exam: Soft, Normal Bowel Sounds. absent: Tenderness Assessment and Plan (1) Abdominal pain Status: Acute (2) Cholangiocarcinoma Status: Chronic (3) Dehydration Status: Acute (4) Hypertension Status: Acute (5) Septicemia Status: Acute
--- NOTE | 2018-01-06 18:42 | CP.PCM.PN ---
Subjective - Date & Time of Evaluation Date of Evaluation: 01/06/18 Time of Evaluation: 19:30 - Subjective Subjective: Pt was seen and examined today Objective - Vital Signs/Intake and Output Vital Signs (last 24 hours): Temp Pulse Resp BP Pulse Ox 98.2 F 109 H 20 120/87 100 01/06/18 15:00 01/06/18 15:00 01/06/18 15:00 01/06/18 15:00 01/06/18 15:00 Intake and Output: 01/06/18 01/06/18 06:59 18:59 Intake Total 1000 1920 Output Total 600 Balance 400 1920 - Medications Medications: Current Medications Acetaminophen (Tylenol 325mg Tab) 650 mg PO Q6 PRN PRN Reason: Fever >100.4 F Benzocaine/Menthol (Cepacol Sore Throat) 1 rosmery MT Q6H PRN PRN Reason: Sore Throat Diphenhydramine HCl (Benadryl) 25 mg IVP Q4H PRN PRN Reason: Itching / Pruritus Last Admin: 01/06/18 09:58 Dose: 25 mg Enoxaparin Sodium (Lovenox) 40 mg SC DAILY [facility] Last Admin: 01/06/18 09:53 Dose: 40 mg Fentanyl (Duragesic) 1 patch TD Q72H [facility] Last Admin: 01/03/18 21:00 Dose: 1 patch Hydromorphone HCl (Dilaudid) 2 mg IVP Q4H PRN PRN Reason: Pain, moderate (4-7) Last Admin: 01/06/18 15:01 Dose: 2 mg Vancomycin/Sodium Chloride (Vancomycin 1 Gm/Ns 200 Ml) 1 gm in 200 mls @ 166.6 mls/hr IVPB Q12H [facility] PRN Reason: Protocol Stop: 01/07/18 02:01 Last Admin: 01/06/18 14:36 Dose: 166.6 mls/hr Micafungin Sodium 100 mg/ (Sodium Chloride) 100 mls @ 100 mls/hr IV Q24H [facility] PRN Reason: Protocol Last Admin: 01/06/18 00:25 Dose: 100 mls/hr Dextrose/Sodium Chloride (Dextrose 5%/0.45% Ns 1000 Ml) 1,000 mls @ 100 mls/hr IV .Q10H [facility] Last Admin: 01/06/18 10:23 Dose: Not Given Meropenem 500 mg/ Sodium (Chloride) 100 mls @ 100 mls/hr IVPB Q8 [facility] PRN Reason: Protocol Last Admin: 01/06/18 14:40 Dose: 100 mls/hr Potassium Chloride (Potassium Chloride 20 Meq/100 Ml) 20 meq in 100 mls @ 50 mls/hr IVPB Q2 [facility] Stop: 01/07/18 01:59 Last Admin: 01/06/18 17:13 Dose: 50 mls/hr Metoclopramide HCl (Reglan) 10 mg IVP Q8H [facility] Last Admin: 01/06/18 11:52 Dose: 10 mg Metronidazole (Flagyl) 500 mg PO Q8 [facility] PRN Reason: Protocol Last Admin: 01/06/18 14:36 Dose: 500 mg Nystatin (Nystatin Oral Susp) 5 ml PO QID [facility] Last Admin: 01/06/18 14:36 Dose: 5 ml Ondansetron HCl (Zofran Inj) 4 mg IVP Q4 PRN PRN Reason: Nausea/Vomiting Last Admin: 01/04/18 09:28 Dose: 4 mg Potassium Chloride (K-Dur 20 Meq Er Tab) 40 meq PO ONCE [facility] Last Admin: 01/05/18 09:16 Dose: 40 meq - Labs Labs: 01/06/18 08:17 01/06/18 08:17 PT 20.0 SECONDS (9.7-12.2) H 01/02/18 14:27 INR 1.7 01/02/18 14:27 Assessment and Plan (1) Abdominal pain Status: Acute (2) Cholangiocarcinoma Status: Chronic (3) Dehydration Status: Acute (4) Hypertension Status: Acute (5) Septicemia Status: Acute
[2018-01-07] MEDS: Micafungin 100 MG in Sodium Chloride 0.9% 100 ML IV SCH (00:15)
[2018-01-07] MEDS: DiphenhydrAMINE 50 mg/ml Inj IVP PRN ×2 (00:41→18:02)
--- NOTE | 2018-01-07 02:33 | CP.PCM.PN ---
Subjective - Date & Time of Evaluation Date of Evaluation: 01/06/18 Time of Evaluation: 21:00 - Subjective Subjective: Patient complained of shortness of breath. Patient was seen and examined at bedside. Patient was placed on 3L NC with O2 95-96% saturation and patient was then switched to a non-airway breather and O2 was 100%. Blood pressure was not able to be obtained due to patient being edematous on upper and lower extremities. Patient's fluids were placed on hold. X-ray was ordered. Dr. Kramer was notified. Patient stated he was feeling better. Objective - Vital Signs/Intake and Output Vital Signs (last 24 hours): Temp Pulse Resp BP Pulse Ox 98.1 F 109 H 20 120/87 100 01/07/18 00:00 01/06/18 15:00 01/06/18 15:00 01/06/18 15:00 01/06/18 15:00 Intake and Output: 01/06/18 01/07/18 18:59 06:59 Intake Total 1920 500 Balance 1920 500 - Medications Medications: Current Medications Acetaminophen (Tylenol 325mg Tab) 650 mg PO Q6 PRN PRN Reason: Fever >100.4 F Benzocaine/Menthol (Cepacol Sore Throat) 1 rosmery MT Q6H PRN PRN Reason: Sore Throat Diphenhydramine HCl (Benadryl) 25 mg IVP Q4H PRN PRN Reason: Itching / Pruritus Last Admin: 01/07/18 00:41 Dose: 25 mg Enoxaparin Sodium (Lovenox) 40 mg SC DAILY [facility] Last Admin: 01/06/18 09:53 Dose: 40 mg Fentanyl (Duragesic) 1 patch TD Q72H [facility] Last Admin: 01/06/18 20:50 Dose: 1 patch Hydromorphone HCl (Dilaudid) 2 mg IVP Q4H PRN PRN Reason: Pain, moderate (4-7) Last Admin: 01/07/18 00:40 Dose: 2 mg Micafungin Sodium 100 mg/ (Sodium Chloride) 100 mls @ 100 mls/hr IV Q24H [facility] PRN Reason: Protocol Last Admin: 01/07/18 00:15 Dose: 100 mls/hr Dextrose/Sodium Chloride (Dextrose 5%/0.45% Ns 1000 Ml) 1,000 mls @ 100 mls/hr IV .Q10H [facility] Last Admin: 01/06/18 20:15 Dose: Not Given Meropenem 500 mg/ Sodium (Chloride) 100 mls @ 100 mls/hr IVPB Q8 [facility] PRN Reason: Protocol Last Admin: 01/06/18 21:30 Dose: 100 mls/hr Metoclopramide HCl (Reglan) 10 mg IVP Q8H [facility] Last Admin: 01/06/18 18:46 Dose: 10 mg Metronidazole (Flagyl) 500 mg PO Q8 [facility] PRN Reason: Protocol Last Admin: 01/06/18 21:45 Dose: Not Given Nystatin (Nystatin Oral Susp) 5 ml PO QID [facility] Last Admin: 01/06/18 22:13 Dose: Not Given Ondansetron HCl (Zofran Inj) 4 mg IVP Q4 PRN PRN Reason: Nausea/Vomiting Last Admin: 01/04/18 09:28 Dose: 4 mg Potassium Chloride (K-Dur 20 Meq Er Tab) 40 meq PO ONCE [facility] Last Admin: 01/05/18 09:16 Dose: 40 meq - Labs Labs: 01/06/18 08:17 01/06/18 08:17 PT 20.0 SECONDS (9.7-12.2) H 01/02/18 14:27 INR 1.7 01/02/18 14:27 - Head Exam Head Exam: ATRAUMATIC, NORMAL INSPECTION - Eye Exam Eye Exam: EOMI, Normal appearance - Respiratory Exam Respiratory Exam: Rhonchi, NORMAL BREATHING PATTERN. absent: Clear to Ausculation Bilateral (decreased breath sounds on bilateral lower lobes ), Wheezes - Cardiovascular Exam Cardiovascular Exam: REGULAR RHYTHM, +S1, +S2 - Extremities Exam Extremities Exam: Pedal Edema. absent: Tenderness Additional comments: upper and lower extremity swelling - Neurological Exam Neurological Exam: Alert, Awake. absent: Oriented x3 (oriented to person, patient knew he was in a hospital but stated the wrong hospital, patient was not oriented to time) - Psychiatric Exam Psychiatric exam: Normal Affect, Normal Mood
[2018-01-07] MEDS: Meropenem 500 MG in Sodium Chloride 0.9% 100 ML IVPB SCH ×3 (05:00→21:37)
[2018-01-07] MEDS ORDERED: Dextrose 50% SYRINGE Inj (50 ml) ONE ×4 (06:01→18:59)
[2018-01-07] MEDS ORDERED: Naloxone 0.4 mg/ml Inj (Adult) ONE (06:08)
[2018-01-07] MEDS ORDERED: Pantoprazole 80 MG in Sodium Chloride 0.9% 100 ML IVP ONE (06:30)
[2018-01-07] MEDS ORDERED: Pantoprazole 80 MG in Sodium Chloride 0.9% 100 ML IVP SCH (06:30)
[2018-01-07] MEDS ORDERED: Albumin Human 5% (12.5 gm/250 ml) IV ONE (06:42)
--- NOTE | 2018-01-07 07:17 | CP.PCM.CON ---
History of Present Illness - History of Present Illness History of Present Illness: Attending: Bo Kramer MD Surgery: Dr Keith ID: Dr gordillo Heme/Onc: Dr Carson Reason for Consult: Critical care management Chief complaint: s/p Code Blue The patient was seen and examined In the ICU HPI: The Hx was obtained from discussion with the Hospitalist and after review of the medical records. This is a 62 years old male with admitted to the hospital on 01/01/18 with Abdominal pain and generalized edema. 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 This AM the patient had an episode of SOB where he had to be placed on a NRBM where he later felt better. Rapid Response Team was called after he became unresponsive using the Commode. This was changed to Code Blue after pulse was not obtained and the patient appeared not to be breathing. CPR started and patient intubated. Pulse was regained immediately. Blood sugar was 20mg/dl. D50 given, OG tube inserted and drained coffee ground fluid, IV protonix given and Protonix drip started. Patient was transferred to ICU. PMH: Asthma, COPD; HTN; HLD; Pancreatitis; Cholangiocarcinoma, Malignant Ascites , stomach cancer 2014; Right Inguinal hernia PSH: Percutaneous Billary drainage, Bowel surgery SH: Former Smoker; Former ETOH abuser Quit 26 years ago; No illegal drug use FH; No Known Family hx Allergy; Seasonal Allergies allergy to Unknown Chemo Medication Medication: Reviewed Review of Systems - Review of Systems Systems not reviewed;Unavailable: Intubated Review of Systems: Review of system limited because the patient is intubated. Past Patient History - Infectious Disease Hx of Infectious Diseases: None - Past Medical History & Family History Past Medical History?: Yes - Past Social History Smoking Status: Former Smoker Chewing Tobacco Use: No Cigar Use: No Alcohol: Other Drugs: Denies - CARDIAC Hx Hypertension: Yes - PULMONARY Hx Chronic Obstructive Pulmonary Disease (COPD): Yes - NEUROLOGICAL Hx Neurological Disorder: No - HEENT Hx HEENT Problems: No - RENAL Hx Chronic Kidney Disease: No - ENDOCRINE/METABOLIC Hx Endocrine Disorders: No - HEMATOLOGICAL/ONCOLOGICAL Hx Blood Disorders: Yes Hx Cancer: Yes (STOMACH) Hx Chemotherapy: Yes (HAD ITCHING AFTER CHEM-"IN RECESSION"/ALSO RADIATION) - INTEGUMENTARY Hx Dermatological Problems: No - MUSCULOSKELETAL/RHEUMATOLOGICAL Hx Musculoskeletal Disorders: Yes Hx Falls: No Other/Comment: HX: RIGHT INGUINAL HERNIA - GASTROINTESTINAL Hx Gastrointestinal Disorders: Yes Hx Bowel Surgery: Yes Other/Comment: HX: CANCER IN STOMACH-2015 - GENITOURINARY/GYNECOLOGICAL Hx Genitourinary Disorders: No - PSYCHIATRIC Hx Substance Use: No - SURGICAL HISTORY Hx Surgeries: Yes Other/Comment: "STOMACH CANCER TUMOR REMOVAL - ANESTHESIA Hx Anesthesia: Yes Hx Anesthesia Reactions: No Hx Malignant Hyperthermia: No Meds Allergies/Adverse Reactions: Allergies Allergy/AdvReac Type Severity Reaction Status Date / Time CHEMO Allergy Severe URTICARIA Uncoded 12/31/17 23:33 seasonal allergies Allergy Uncoded 12/31/17 23:33 - Medications Medications: Current Medications Acetaminophen (Tylenol 325mg Tab) 650 mg PO Q6 PRN PRN Reason: Fever >100.4 F Albumin Human (Albumin Human 5% (12.5 Gm/250 Ml)) 50 gm IV ONCE ONE Stop: 01/07/18 06:43 Benzocaine/Menthol (Cepacol Sore Throat) 1 rosmery MT Q6H PRN PRN Reason: Sore Throat Diphenhydramine HCl (Benadryl) 25 mg IVP Q4H PRN PRN Reason: Itching / Pruritus Last Admin: 01/07/18 00:41 Dose: 25 mg Enoxaparin Sodium (Lovenox) 40 mg SC DAILY [facility] Last Admin: 01/06/18 09:53 Dose: 40 mg Fentanyl (Duragesic) 1 patch TD Q72H [facility] Last Admin: 01/06/18 20:50 Dose: 1 patch Hydromorphone HCl (Dilaudid) 2 mg IVP Q4H PRN PRN Reason: Pain, moderate (4-7) Last Admin: 01/07/18 00:40 Dose: 2 mg Micafungin Sodium 100 mg/ (Sodium Chloride) 100 mls @ 100 mls/hr IV Q24H [facility] PRN Reason: Protocol Last Admin: 01/07/18 00:15 Dose: 100 mls/hr Dextrose/Sodium Chloride (Dextrose 5%/0.45% Ns 1000 Ml) 1,000 mls @ 100 mls/hr IV .Q10H [facility] Last Admin: 01/06/18 20:15 Dose: Not Given Meropenem 500 mg/ Sodium (Chloride) 100 mls @ 100 mls/hr IVPB Q8 [facility] PRN Reason: Protocol Last Admin: 01/06/18 21:30 Dose: 100 mls/hr Pantoprazole Sodium 80 mg/ (Sodium Chloride) 100 mls @ 10 mls/hr IVP .Q10H [facility] PRN Reason: 8 MG/HR Metoclopramide HCl (Reglan) 10 mg IVP Q8H [facility] Last Admin: 01/06/18 18:46 Dose: 10 mg Metronidazole (Flagyl) 500 mg PO Q8 [facility] PRN Reason: Protocol Last Admin: 01/06/18 21:45 Dose: Not Given Nystatin (Nystatin Oral Susp) 5 ml PO QID [facility] Last Admin: 01/06/18 22:13 Dose: Not Given Ondansetron HCl (Zofran Inj) 4 mg IVP Q4 PRN PRN Reason: Nausea/Vomiting Last Admin: 01/04/18 09:28 Dose: 4 mg Potassium Chloride (K-Dur 20 Meq Er Tab) 40 meq PO ONCE [facility] Last Admin: 01/05/18 09:16 Dose: 40 meq Physical Exam - Constitutional Additional comments: Awake and alert on the mechanical ventilator - Head Exam Head Exam: ATRAUMATIC, NORMAL INSPECTION, NORMOCEPHALIC - Eye Exam Eye Exam: EOMI, Normal appearance Pupil Exam: NORMAL ACCOMODATION, PERRL - ENT Exam ENT Exam: Mucous Membranes Dry, Normal External Ear Exam - Neck Exam Neck exam: Positive for: Full Rom, Normal Inspection. Negative for: Lymphadenopathy, Tenderness - Respiratory Exam Respiratory Exam: Rhonchi. absent: Rales, Wheezes - Cardiovascular Exam Cardiovascular Exam: REGULAR RHYTHM, RRR, +S1, +S2 - GI/Abdominal Exam Additional comments: Full, Firm , liquid thrills. - Rectal Exam Rectal Exam: Deferred - Extremities Exam Additional comments: Both lower extremities with 2+ pitting edema Both upper extremities with 3+ pitting edema Weeping abrasion at the right6 anticube - Back Exam Back exam: NORMAL INSPECTION - Neurological Exam Neurological exam: Alert, CN II-XII Intact, Reflexes Normal Additional comments: Intubated, non-focal neurological findings - Psychiatric Exam Psychiatric exam: Normal Affect, Normal Mood - Skin Skin Exam: Dry, Normal Color, Warm Results - Vital Signs Recent Vital Signs: Last Vital Signs Temp 98.1 F 01/07/18 00:00 Pulse 109 H 01/06/18 15:00 Resp 20 01/06/18 15:00 BP 120/87 01/06/18 15:00 Pulse Ox 100 01/06/18 15:00 - Labs Result Diagrams: 01/07/18 07:13 01/07/18 07:16 Labs: Laboratory Results - last 24 hr 01/06/18 01/06/18 01/06/18 00:55 08:17 08:17 WBC 33.9 H RBC 3.00 L Hgb 9.1 L Hct 27.8 L MCV 92.7 MCH 30.3 MCHC 32.7 L RDW 18.7 H Plt Count 206 MPV 8.7 Neut % (Auto) 94.0 H Lymph % (Auto) 1.1 L Wood % (Auto) 4.7 Eos % (Auto) 0.1 Baso % (Auto) 0.1 Neut # (Auto) 31.8 H Lymph # (Auto) 0.4 L Wood # (Auto) 1.6 H Eos # (Auto) 0.0 Baso # (Auto) 0.0 Neutrophils % (Manual) 91 H Band Neutrophils % 2 Lymphocytes % (Manual) 1 L Reactive Lymphs % 1 H Monocytes % (Manual) 4 Eosinophils % (Manual) 1 Nucleated RBC % 1 H Toxic Granulation Present Platelet Estimate Normal Polychromasia Slight Hypochromasia (manual) Slight Poikilocytosis (manual Slight Anisocytosis (manual) Moderate Macrocytosis (manual) Slight Ethel Cells Slight Sodium 141 Potassium 3.2 L Chloride 111 H Carbon Dioxide 19 L Anion Gap 14 BUN 19 Creatinine 2.1 H Est GFR ( Amer) 39 Est GFR (Non-Af Amer) 32 POC Glucose (mg/dL) Random Glucose 69 L Calcium 7.1 L Total Bilirubin 1.9 H AST 20 ALT 38 Alkaline Phosphatase 185 H Total Protein 4.7 L Albumin 1.6 L Globulin 3.1 Albumin/Globulin Ratio 0.5 L Random Vancomycin C. difficile Ag & Toxin Negative 01/06/18 01/07/18 01/07/18 16:53 05:56 06:15 WBC RBC Hgb Hct MCV MCH MCHC RDW Plt Count MPV Neut % (Auto) Lymph % (Auto) Wood % (Auto) Eos % (Auto) Baso % (Auto) Neut # (Auto) Lymph # (Auto) Wood # (Auto) Eos # (Auto) Baso # (Auto) Neutrophils % (Manual) Band Neutrophils % Lymphocytes % (Manual) Reactive Lymphs % Monocytes % (Manual) Eosinophils % (Manual) Nucleated RBC % Toxic Granulation Platelet Estimate Polychromasia Hypochromasia (manual) Poikilocytosis (manual Anisocytosis (manual) Macrocytosis (manual) Ethel Cells Sodium Potassium Chloride Carbon Dioxide Anion Gap BUN Creatinine Est GFR ( Amer) Est GFR (Non-Af Amer) POC Glucose (mg/dL) 20 L* 42 L Random Glucose Calcium Total Bilirubin AST ALT Alkaline Phosphatase Total Protein Albumin Globulin Albumin/Globulin Ratio Random Vancomycin 58.01 C. difficile Ag & Toxin 01/07/18 07:09 WBC RBC Hgb Hct MCV MCH MCHC RDW Plt Count MPV Neut % (Auto) Lymph % (Auto) Wood % (Auto) Eos % (Auto) Baso % (Auto) Neut # (Auto) Lymph # (Auto) Wood # (Auto) Eos # (Auto) Baso # (Auto) Neutrophils % (Manual) Band Neutrophils % Lymphocytes % (Manual) Reactive Lymphs % Monocytes % (Manual) Eosinophils % (Manual) Nucleated RBC % Toxic Granulation Platelet Estimate Polychromasia Hypochromasia (manual) Poikilocytosis (manual Anisocytosis (manual) Macrocytosis (manual) Chani Cells Sodium Potassium Chloride Carbon Dioxide Anion Gap BUN Creatinine Est GFR ( Amer) Est GFR (Non-Af Amer) POC Glucose (mg/dL) 188 H Random Glucose Calcium Total Bilirubin AST ALT Alkaline Phosphatase Total Protein Albumin Globulin Albumin/Globulin Ratio Random Vancomycin C. difficile Ag & Toxin Assessment & Plan - Assessment and Plan (Free Text) Assessment: #. s/p Code Blue #. Hypoglycemia #. Cholangiocarcenoma #. Sepsis #. Malignant Ascites #. Anemia #. Renal failure Plan: 62 years old male with admitted to the hospital on 01/01/18 with Abdominal pain and anasarca, has hx of COPD and Cholangiocarcinoma on chemotherapy. He is been treated for Sepsis, thrush and abdominal pain. SHIPYARD PAINTER HELPER called and changed to Code Blue after he was found on the commode unresponsive and later without pulse. CPR and Intubation, Blood sugar found to be 20mg/dl, D50 given, patient wakes up and transferred to ICU. #. s/p Code Blue , patient intubated and transferred to ICU - Monitor mechanical Ventilator - Extubate as soon as possible #. Hypoglycemia Probably due to poor intake and Medication that could cause Hypoglycemia - Review Medication causing hypoglycemia - Accuchecks Q 6h #. Cholangiocarcenoma with malignant Ascites - Dr Carson Oncology on Consult #. Sepsis. Blood cultures negative to date - Dr Jhonatan GIBSON on consult - continue meropenem/ Flagyl - Follow Blood Cultures #. Thrush - Mycofungin - Nystatin #. Anasarca with Hypoalbumenia - Patient receiving intermittent Albumin #. Anemia secondary to the malignancy and now to GI bleed with the Coffee Ground gastric fluid - Transfuse PRBC - D/C Anticoagulant - Follow HB #. Renal failure - consult Nephrology - follow Renal labs #. DVT prophylaxis with SCD - No Anticoagulant at present #. Full Code Total Critical care time 50mins Adi Turner MD - Date & Time Date: 01/07/18 Time: 07:17
--- NOTE | 2018-01-07 07:28 | PCM.RRT ---
<Salome Walsh - Last Filed: 01/07/18 07:29> S[employer]IOR [employer] SERVER DBA Nurses Assessment - Situation Date: 01/07/18 Time SENIOR SQL SERVER DBA was called: 05:49 SENIOR SQL SERVER DBA Responder Arrival Time:: 05:52 SENIOR SQL SERVER DBA Location:: Med/Oncology Room Number: 351A [employer]IOR [employer] Reason for Call: Hypotension, Not Responding to Urgent Treatment, Change in Mental Status, Looks Sicker SENIOR SQL SERVER DBA Called By: RN - IV IV Inserted during SENIOR SQL SERVER DBA?: No - Respiratory Received Nebulizer Treatments: No Was the Patient Ventilated with Bag/Mask 100% O2?: Yes Secretions Suctioned?: Yes Was the Patient Intubated?: No Was the Patient Placed on a Ventilator?: No - Ventilator Settings Mode: PRVC Ventilator Respiratory Rate Settin Ventilator Tidal Volume Settin PEEP/CPAP (cm H2O): 5 SAO2 %: 100 FIO2 (% Oxygen): 100 - Medication Medications Administered During SENIOR SQL SERVER DBA: Narcan, x2 D50 - Diagnostic Test Ordered EKG: No Chest X-Ray: No CT Scan: No CPR started during SENIOR SQL SERVER DBA?: Yes - Sepsis Screen Part 1 Sepsis Screen Part 1: Hypotensive - Time SENIOR SQL SERVER DBA Ended Time SENIOR SQL SERVER DBA Ended: 06:22 - Vital Signs at end of SENIOR SQL SERVER DBA Vital Signs at end of SENIOR SQL SERVER DBA: Rapid Response End Vital Sign Blood Pressure 64/49 Pulse Rate 107 O2 Sat by Pulse Oximetry 100 - Constitutional Appears: In Acute Distress - Head Head Exam: ATRAUMATIC, NORMAL INSPECTION - Respiratory Exam Respiratory Exam: Respiratory Distress - Neurological Exam Neurological Exam: Alert, Awake - Extremities Exam Extremities Exam: Pedal Edema Plan - Assessment of Findings&Treatment Plan Rapid Response was called by the nurse because patient was found unresponsive. Rapid response was transferred to a [facility]. Patient was using the commode when he became unresponsive. CPR was started and patient was intubated. Patient's accucheck was less than 40. Patient was given D50 and became alert. Patient was also found to have hematemesis. Patient was transferred to ICU. ABG, CBC with differential, PTT, PT, and chest xray was ordered. Ativan 1mg IV was given because patient was trying to remove the intubation tube. Protonix drip was started. NS bolus was given. Fentanyl patch was removed. Albumin 50gm IV once was ordered. Dr. Kramer was notified. <Manolo Brewster - Last Filed: 01/08/18 06:20> SENIOR SQL SERVER DBA Nurses Assessment - Vital Signs at end of SENIOR SQL SERVER DBA Vital Signs at end of SENIOR SQL SERVER DBA: Rapid Response End Vital Sign Blood Pressure 64/49 Pulse Rate 107 O2 Sat by Pulse Oximetry 100 Attending/Attestation - Attestation I have personally seen and examined this patient.: Yes I have fully participated in the care of the patient.: Yes I have reviewed all pertinent clinical information, including history, physical exam and plan: Yes Notes (Text): 01/08/18 06:19 See procedure note by me on the same day
[2018-01-07 07:30] LABS: BASO # 0.1 K/uL (0.0-0.2); BASO % 0.5 % (0.0-2.0); EOS % 0.1 % (0.0-4.0); HEMOGLOBIN 7.8 g/dL (12.0-18.0); LYMPH # 0.3 K/uL (1.0-4.3); LYMPH % 1.1 % (20.0-40.0); MEAN CORPUSCULAR HEMOGLOBIN 30.4 pg (27.0-31.0); MEAN CORPUSCULAR HGB CONC 31.7 g/dL (33.0-37.0); MEAN PLATELET VOLUME 8.9 fL (7.2-11.7); MONO # 0.9 K/uL (0.0-0.8); MONO % 3.7 % (0.0-10.0); NEUT # 23.3 K/uL (1.8-7.0); NEUT % 94.6 % (50.0-75.0); NRBC % 2.9 % (0.0-2.0); PLATELET COUNT 159 K/uL (130-400); RBC 2.56 Mil/uL (4.40-5.90); RED CELL DISTRIBUTION WIDTH 19.8 % (11.5-14.5); WHITE BLOOD COUNT 24.6 K/uL (4.8-10.8)
[2018-01-07 07:48] LABS: INR 3.9; PROTHROMBIN TIME 46.5 SECONDS (9.7-12.2)
[2018-01-07 07:49] LABS: MEAN CELL VOLUME 95.9 fL (80.0-94.0)
[2018-01-07 07:58] LABS: ALB/GLOB RATIO 0.5 (1.0-2.1); ALBUMIN 1.4 g/dL (3.5-5.0)
--- NOTE | 2018-01-07 08:11 | PCM.PROC ---
Procedures Attestation:: I certify that I have explained the specified Operation(s) or Procedure(s), risks, benefits and reasonable alternatives to the Patient and/or other person responsible. The opportunity was given to ask questions and all questions answered - Intubation Time Out Performed: Yes Sedative: None Laryngoscope: Beronica (3) ET Tube Size: 7.5 ET Tube Uncuffed: No ET Tube Secured at Depth: 23 ET Tube Secured Locarion: Teeth ET Tube Placement Confirmation: Visualized Passing Through Cords, Breath Sounds Equal Bilaterally, No Breath Sounds Over Epigastrum, Confirmation w/Capnometry Patient Tolerated Procedure: Well Additional comments: Patient was seen when AGENCY DIRECTOR called, converted to code blue, as per the information , was on commode and when cp called nurse to help him back to the bed was found unresponsive, when put on bed, no pulse noticed and he was breathing, confirmed by me, while being put on the monitor, intubated by me during code. glucose < 20mg/dl, given 2 amps of d50, patient started to be awake in about 7min post d50 , also notice, shaila black fluid form mouth and per rectal Patient has h/o ?colangiocarcinoma with hepatic mets, anasarca with low albumin. Plan Patient transferred to ICU IV albumin 50g as alb 1.6 Stat Labs PRBC Vent orders PPI bolus and drip CXR PMD informed, sign out given to icu team.
[2018-01-07 08:19] LABS: ANISOCYTOSIS MODERATE; BANDS 3 % (0-2); LYMPHOCYTE 1 % (20-40); MONOCYTE 3 % (0-10); NEUTROPHIL 93 % (50-75); NUCLEATED RED BLOOD CELL 2 % (0-0); PLATELET ESTIMATE NORMAL (NORMAL); TOTAL CELLS COUNTED 100
[2018-01-07 08:22] LABS: HYPOCHROMIC SLIGHT
[2018-01-07 08:23] LABS: POLYCHROMIC SLIGHT
[2018-01-07 09:01] LABS: ARTERIAL BLOOD GAS HCO3 16.3 mmol/L (21-28); ARTERIAL BLOOD GAS O2 SAT 97.7 % (95-98); ARTERIAL BLOOD GAS PCO2 18 mm/Hg (35-45); ARTERIAL BLOOD GAS PO2 432 mm/Hg (80-100); ARTERIAL BLOOD GAS TCO2 11.7 mmol/L (22-28)
--- NOTE | 2018-01-07 09:04 | RAD ---
HISTORY: SOB COMPARISON: 05/25/2017 FINDINGS: LUNGS: Linear scar/ atelectasis at right base. No pulmonary infiltrate. PLEURA: No significant pleural effusion identified, no pneumothorax apparent. CARDIOVASCULAR: Right central venous infusion port. Normal heart size. No congestive change. OSSEOUS STRUCTURES: No significant abnormalities. VISUALIZED UPPER ABDOMEN: Normal. OTHER FINDINGS: None. IMPRESSION: No active disease.
--- NOTE | 2018-01-07 09:52 | RAD ---
HISTORY: post intubation COMPARISON: 01/06/2018 FINDINGS: LUNGS: No active pulmonary disease. PLEURA: Bilateral small pleural effusion. No pneumothorax. CARDIOVASCULAR: Endotracheal tube and nasogastric tube appropriately positioned. These are new since prior examination. Right central venous infusion port unchanged. Normal heart size. No congestive change. OSSEOUS STRUCTURES: No significant abnormalities. VISUALIZED UPPER ABDOMEN: Normal. OTHER FINDINGS: None. IMPRESSION: New ET tube and NG tube appropriately positioned. Right central venous infusion port. Small bilateral pleural effusion.
[2018-01-07] MEDS: Nystatin 100,000 Units/ml Oral Susp 5 ml UD PO SCH ×4 (10:00→21:36)
[2018-01-07] MEDS: Dextrose 5%/0.9% NS 1,000 ML IV SCH ×2 (10:21)
[2018-01-07] MEDS ORDERED: Phytonadione 10 mg/ml Inj (Adult) SC ONE (10:45)
--- NOTE | 2018-01-07 11:14 | CP.PCM.CON ---
History of Present Illness - History of Present Illness History of Present Illness: Palliative consult requested by Chino BEGUM for goals of care discussion due to poor prognosis Patient is a 62yo male admitted for sudden abdominal pain fallowed by vomiting X 1 , distended abdomen and swelling of LEs. The CT abdomen on admission was significant for large ascites and and possible metastatic disease. WBC 33.9 on admission, down to 24.6 today. Hb 9.1, down to 7.8. [employer] was called on 01/07/18 when patient found unresponsive on the tolet. BP 64/49. Intubated and transfered to ICU. At that time patient had some rectal bleeding and bleeding by the mouth.The BP improved in ICU . Palliative care was calld to discuss goals of care for this very sick patient. PMH: Cholangiocarcinoma with resection 2015, on chemo, last chemo 1 week ag, asthma, COPD Soc. Hx: single, unemployed, Lily Sy, significant other, [phone] Fam. Hx: Unobtainable for the patient. Review of Systems - Review of Systems All systems: reviewed and no additional remarkable complaints except Review of Systems: ROS unobtainable for the patient due to condition. Per nursing, patient continues to have upper GI bleed seen when suctioned, but no melena. Past Patient History - Infectious Disease Hx of Infectious Diseases: None - Past Medical History & Family History Past Medical History?: Yes - Past Social History Smoking Status: Former Smoker Chewing Tobacco Use: No Cigar Use: No Alcohol: Other Drugs: Denies - CARDIAC Hx Hypertension: Yes - PULMONARY Hx Chronic Obstructive Pulmonary Disease (COPD): Yes - NEUROLOGICAL Hx Neurological Disorder: No - HEENT Hx HEENT Problems: No - RENAL Hx Chronic Kidney Disease: No - ENDOCRINE/METABOLIC Hx Endocrine Disorders: No - HEMATOLOGICAL/ONCOLOGICAL Hx Blood Disorders: Yes Hx Cancer: Yes (STOMACH) Hx Chemotherapy: Yes (HAD ITCHING AFTER CHEM-"IN RECESSION"/ALSO RADIATION) - INTEGUMENTARY Hx Dermatological Problems: No - MUSCULOSKELETAL/RHEUMATOLOGICAL Hx Musculoskeletal Disorders: Yes Hx Falls: No Other/Comment: HX: RIGHT INGUINAL HERNIA - GASTROINTESTINAL Hx Gastrointestinal Disorders: Yes Hx Bowel Surgery: Yes Other/Comment: HX: CANCER IN STOMACH-2014 - GENITOURINARY/GYNECOLOGICAL Hx Genitourinary Disorders: No - PSYCHIATRIC Hx Substance Use: No - SURGICAL HISTORY Hx Surgeries: Yes Other/Comment: "STOMACH CANCER TUMOR REMOVAL - ANESTHESIA Hx Anesthesia: Yes Hx Anesthesia Reactions: No Hx Malignant Hyperthermia: No Meds Allergies/Adverse Reactions: Allergies Allergy/AdvReac Type Severity Reaction Status Date / Time CHEMO Allergy Severe URTICARIA Uncoded 12/31/17 23:33 seasonal allergies Allergy Uncoded 12/31/17 23:33 - Medications Medications: Current Medications Acetaminophen (Tylenol 325mg Tab) 650 mg PO Q6 PRN PRN Reason: Fever >100.4 F Albumin Human (Albumin Human 5% (12.5 Gm/250 Ml)) 50 gm IV ONCE ONE Stop: 01/07/18 06:43 Benzocaine/Menthol (Cepacol Sore Throat) 1 rosmery MT Q6H PRN PRN Reason: Sore Throat Diphenhydramine HCl (Benadryl) 25 mg IVP Q4H PRN PRN Reason: Itching / Pruritus Last Admin: 01/07/18 00:41 Dose: 25 mg Fentanyl (Duragesic) 1 patch TD Q72H [facility] Last Admin: 01/06/18 20:50 Dose: 1 patch Hydromorphone HCl (Dilaudid) 2 mg IVP Q4H PRN PRN Reason: Pain, moderate (4-7) Last Admin: 01/07/18 00:40 Dose: 2 mg Micafungin Sodium 100 mg/ (Sodium Chloride) 100 mls @ 100 mls/hr IV Q24H [facility] PRN Reason: Protocol Last Admin: 01/07/18 00:15 Dose: 100 mls/hr Dextrose/Sodium Chloride (Dextrose 5%/0.45% Ns 1000 Ml) 1,000 mls @ 100 mls/hr IV .Q10H [facility] Last Admin: 01/06/18 20:15 Dose: Not Given Meropenem 500 mg/ Sodium (Chloride) 100 mls @ 100 mls/hr IVPB Q8 [facility] PRN Reason: Protocol Last Admin: 01/07/18 05:00 Dose: 100 mls/hr Pantoprazole Sodium 80 mg/ (Sodium Chloride) 100 mls @ 10 mls/hr IVP .Q10H [facility] PRN Reason: 8 MG/HR Dextrose/Sodium Chloride (Dextrose 5%/0.9% Ns 1000 Ml) 1,000 mls @ 100 mls/hr IV .Q10H [facility] Metoclopramide HCl (Reglan) 10 mg IVP Q8H [facility] Last Admin: 01/07/18 03:20 Dose: 10 mg Metronidazole (Flagyl) 500 mg PO Q8 [facility] PRN Reason: Protocol Last Admin: 01/07/18 06:00 Dose: Not Given Nystatin (Nystatin Oral Susp) 5 ml PO QID [facility] Last Admin: 01/07/18 10:00 Dose: Not Given Ondansetron HCl (Zofran Inj) 4 mg IVP Q4 PRN PRN Reason: Nausea/Vomiting Last Admin: 01/04/18 09:28 Dose: 4 mg Potassium Chloride (K-Dur 20 Meq Er Tab) 40 meq PO ONCE [facility] Last Admin: 01/05/18 09:16 Dose: 40 meq Physical Exam - Constitutional Appears: In Acute Distress - Head Exam Head Exam: ATRAUMATIC, NORMAL INSPECTION, NORMOCEPHALIC - Eye Exam Eye Exam: EOMI, Normal appearance, PERRL Pupil Exam: NORMAL ACCOMODATION, PERRL - ENT Exam Additional comments: ET tube - Neck Exam Neck exam: Positive for: Normal Inspection - Respiratory Exam Additional comments: On MV support - Cardiovascular Exam Cardiovascular Exam: Tachycardia - GI/Abdominal Exam GI & Abdominal Exam: Diminished Bowel Sounds Additional comments: Upper GI bleed - Rectal Exam Rectal Exam: Deferred - Extremities Exam Additional comments: severe pitting edema to upper and lower extremities - Back Exam Back exam: NORMAL INSPECTION - Neurological Exam Neurological exam: Alert - Psychiatric Exam Psychiatric exam: Flat Affect - Skin Skin Exam: Pallor Results - Vital Signs Recent Vital Signs: Last Vital Signs Temp 98.1 F 01/07/18 00:00 Pulse 109 H 01/06/18 15:00 Resp 20 01/06/18 15:00 BP 120/87 01/06/18 15:00 Pulse Ox 100 01/06/18 15:00 - Labs Result Diagrams: 01/07/18 07:13 01/07/18 07:16 Labs: Laboratory Results - last 24 hr 01/06/18 01/07/18 01/07/18 16:53 05:56 06:15 WBC RBC Hgb Hct MCV MCH MCHC RDW Plt Count MPV Neut % (Auto) Lymph % (Auto) Coffey % (Auto) Eos % (Auto) Baso % (Auto) Neut # (Auto) Lymph # (Auto) Coffey # (Auto) Eos # (Auto) Baso # (Auto) Neutrophils % (Manual) Band Neutrophils % Lymphocytes % (Manual) Monocytes % (Manual) Nucleated RBC % Platelet Estimate Polychromasia Hypochromasia (manual) Anisocytosis (manual) PT INR APTT Puncture Site pCO2 pO2 HCO3 ABG pH ABG Total CO2 ABG O2 Saturation ABG Base Excess Rashid Test ABG Potassium A-a O2 Difference Respiratory Index Glucose Lactate Mechanical Rate FiO2 Tidal Volume PEEP Crit Value Called To Crit Value Called By Crit Value Read Back Blood Gas Notified Time Sodium Potassium Chloride Carbon Dioxide Anion Gap BUN Creatinine Est GFR ( Amer) Est GFR (Non-Af Amer) POC Glucose (mg/dL) 20 L* 42 L Random Glucose Lactic Acid Calcium Phosphorus Magnesium Total Bilirubin AST ALT Alkaline Phosphatase Total Protein Albumin Globulin Albumin/Globulin Ratio Arterial Blood Potassium Random Vancomycin 58.01 01/07/18 01/07/18 01/07/18 07:09 07:13 07:13 WBC 24.6 H RBC 2.56 L Hgb 7.8 L Hct 24.6 L MCV 95.9 H D MCH 30.4 MCHC 31.7 L RDW 19.8 H Plt Count 159 MPV 8.9 Neut % (Auto) 94.6 H Lymph % (Auto) 1.1 L Coffey % (Auto) 3.7 Eos % (Auto) 0.1 Baso % (Auto) 0.5 Neut # (Auto) 23.3 H Lymph # (Auto) 0.3 L Coffey # (Auto) 0.9 H Eos # (Auto) 0.0 Baso # (Auto) 0.1 Neutrophils % (Manual) 93 H Band Neutrophils % 3 H Lymphocytes % (Manual) 1 L Monocytes % (Manual) 3 Nucleated RBC % 2 H Platelet Estimate Normal Polychromasia Slight Hypochromasia (manual) Slight Anisocytosis (manual) Moderate PT 46.5 H* INR 3.9 APTT 41 H Puncture Site pCO2 pO2 HCO3 ABG pH ABG Total CO2 ABG O2 Saturation ABG Base Excess Rashid Test ABG Potassium A-a O2 Difference Respiratory Index Glucose Lactate Mechanical Rate FiO2 Tidal Volume PEEP Crit Value Called To Crit Value Called By Crit Value Read Back Blood Gas Notified Time Sodium Potassium Chloride Carbon Dioxide Anion Gap BUN Creatinine Est GFR ( Amer) Est GFR (Non-Af Amer) POC Glucose (mg/dL) 188 H Random Glucose Lactic Acid Calcium Phosphorus Magnesium Total Bilirubin AST ALT Alkaline Phosphatase Total Protein Albumin Globulin Albumin/Globulin Ratio Arterial Blood Potassium Random Vancomycin 01/07/18 01/07/18 01/07/18 07:13 07:16 08:53 WBC RBC Hgb Hct MCV MCH MCHC RDW Plt Count MPV Neut % (Auto) Lymph % (Auto) Coffey % (Auto) Eos % (Auto) Baso % (Auto) Neut # (Auto) Lymph # (Auto) Coffey # (Auto) Eos # (Auto) Baso # (Auto) Neutrophils % (Manual) Band Neutrophils % Lymphocytes % (Manual) Monocytes % (Manual) Nucleated RBC % Platelet Estimate Polychromasia Hypochromasia (manual) Anisocytosis (manual) PT INR APTT Puncture Site Lf pCO2 18 L* pO2 432 H HCO3 16.3 L ABG pH 7.40 ABG Total CO2 11.7 L ABG O2 Saturation 97.7 ABG Base Excess -11.1 L Rashid Test Na ABG Potassium 4.0 A-a O2 Difference 259.0 Respiratory Index 0.6 Glucose 117 H Lactate 6.9 H* Mechanical Rate 14 FiO2 100.0 Tidal Volume 450 PEEP 5 Crit Value Called To Dr maravilla Crit Value Called By Evans ricci cleaning technician Crit Value Read Back Y Blood Gas Notified Time 900 Sodium 140 138.0 Potassium 4.0 Chloride 113 H 116.0 H Carbon Dioxide 14 L Anion Gap 17 BUN 21 H Creatinine 2.5 H Est GFR ( Amer) 32 Est GFR (Non-Af Amer) 26 POC Glucose (mg/dL) Random Glucose 170 H Lactic Acid 5.6 H* Calcium 7.0 L Phosphorus 4.6 H Magnesium 1.6 Total Bilirubin 2.3 H AST 281 H D ALT 93 H D Alkaline Phosphatase 180 H Total Protein 4.2 L Albumin 1.4 L Globulin 2.8 Albumin/Globulin Ratio 0.5 L Arterial Blood Potassium 4.0 Random Vancomycin 01/07/18 10:29 WBC RBC Hgb Hct MCV MCH MCHC RDW Plt Count MPV Neut % (Auto) Lymph % (Auto) Coffey % (Auto) Eos % (Auto) Baso % (Auto) Neut # (Auto) Lymph # (Auto) Coffey # (Auto) Eos # (Auto) Baso # (Auto) Neutrophils % (Manual) Band Neutrophils % Lymphocytes % (Manual) Monocytes % (Manual) Nucleated RBC % Platelet Estimate Polychromasia Hypochromasia (manual) Anisocytosis (manual) PT INR APTT Puncture Site pCO2 pO2 HCO3 ABG pH ABG Total CO2 ABG O2 Saturation ABG Base Excess Rashid Test ABG Potassium A-a O2 Difference Respiratory Index Glucose Lactate Mechanical Rate FiO2 Tidal Volume PEEP Crit Value Called To Crit Value Called By Crit Value Read Back Blood Gas Notified Time Sodium Potassium Chloride Carbon Dioxide Anion Gap BUN Creatinine Est GFR ( Amer) Est GFR (Non-Af Amer) POC Glucose (mg/dL) 43 L Random Glucose Lactic Acid Calcium Phosphorus Magnesium Total Bilirubin AST ALT Alkaline Phosphatase Total Protein Albumin Globulin Albumin/Globulin Ratio Arterial Blood Potassium Random Vancomycin Assessment & Plan - Assessment and Plan (Free Text) Assessment: Palliative consult Code status Full Code, there is no Advance directive on chart, PPS 10 % I reviewed medical records, all diagnostic studies and examined patient in the bed. Interview was limited due to ET tube and MV support Patient is intubated, no sedated, alert, makes eyes contact and blinks for " yes ' answer. Patient looks severly ill. Significant whipping edema to upper and lower extremities. There is gastric tube in place and to suction, draining maroon color drainage. per nursing, there was no recent melena. Abdomen is softly distended. BP 120/80, hr 126, AFEBRILE. T Kirk elevated at 2.3 and albumin low at 1.4. Albumin IV on board. IV antibiotics on board as well..Hydration via IVF. In presence of Luis Enrique SIBLEY I briefly reviewed patient's condition with patient. he acknowledged understanding. I suggested that his condition was quite severe . I asked how much would he want us to be agressive in supporting his life. Patient blinked " Yes" to all aggressive treatment. Patient further agreed , that Kim, his significant other could be contacted and to advocate for him. I spoke to Kim on the phone and she asked me to call her back at 1 pm today. Impression * Very sick man whose condition at present looks very complex * Severe edema of upper and lower extremities * GI bleed * Anemia, Acute blood loss * Unable to fully advocate for himself; agreed to surrogate decision maker ( Kim, mentioned above) Suggestion * Continue MV support * Monitor Hb; may need blood transfusion * Elevate upper and lower extremities , replace Albumin * Further goals of care to be discussed today with patient's significant other.
[2018-01-07] MEDS ORDERED: Dextrose 50% SYRINGE Inj (50 ml) IV STA ×2 (11:27→18:59)
--- NOTE | 2018-01-07 13:27 | CP.PCM.PN ---
Subjective - Date & Time of Evaluation Date of Evaluation: 01/07/18 Time of Evaluation: 20:00 - Subjective Subjective: Patient is intubated,he is very sick, CPR and MV was done, he understands his condition , he also attempted to pull out his ventilator, no sedated, alert, makes eyes contact and blinks for " yes' answer. Patient looks severly ill. Significant whipping edema to upper and lower extremities. There is gastric tube in place and to suction, draining maroon color drainage. per nursing, there was no recent melena. Abdomen is softly distended. Objective - Vital Signs/Intake and Output Vital Signs (last 24 hours): Temp Pulse Resp BP Pulse Ox 98.1 F 130 H 20 120/87 100 01/07/18 00:00 01/07/18 12:55 01/06/18 15:00 01/06/18 15:00 01/06/18 15:00 Intake and Output: 01/07/18 01/07/18 06:59 18:59 Intake Total 500 450 Output Total 300 0 Balance 200 450 - Medications Medications: Current Medications Acetaminophen (Tylenol 325mg Tab) 650 mg PO Q6 PRN PRN Reason: Fever >100.4 F Benzocaine/Menthol (Cepacol Sore Throat) 1 rosmery MT Q6H PRN PRN Reason: Sore Throat Diphenhydramine HCl (Benadryl) 25 mg IVP Q4H PRN PRN Reason: Itching / Pruritus Last Admin: 01/07/18 00:41 Dose: 25 mg Fentanyl (Duragesic) 1 patch TD Q72H [facility] Last Admin: 01/06/18 20:50 Dose: 1 patch Hydromorphone HCl (Dilaudid) 2 mg IVP Q4H PRN PRN Reason: Pain, moderate (4-7) Last Admin: 01/07/18 00:40 Dose: 2 mg Micafungin Sodium 100 mg/ (Sodium Chloride) 100 mls @ 100 mls/hr IV Q24H [facility] PRN Reason: Protocol Last Admin: 01/07/18 00:15 Dose: 100 mls/hr Dextrose/Sodium Chloride (Dextrose 5%/0.45% Ns 1000 Ml) 1,000 mls @ 100 mls/hr IV .Q10H [facility] Last Admin: 01/06/18 20:15 Dose: Not Given Meropenem 500 mg/ Sodium (Chloride) 100 mls @ 100 mls/hr IVPB Q8 [facility] PRN Reason: Protocol Last Admin: 01/07/18 13:23 Dose: 100 mls/hr Pantoprazole Sodium 80 mg/ (Sodium Chloride) 100 mls @ 10 mls/hr IVP .Q10H [facility] PRN Reason: 8 MG/HR Dextrose/Sodium Chloride (Dextrose 5%/0.9% Ns 1000 Ml) 1,000 mls @ 100 mls/hr IV .Q10H [facility] Last Admin: 01/07/18 10:21 Dose: 100 mls/hr Metoclopramide HCl (Reglan) 10 mg IVP Q8H [facility] Last Admin: 01/07/18 13:00 Dose: 10 mg Metronidazole (Flagyl) 500 mg PO Q8 [facility] PRN Reason: Protocol Last Admin: 01/07/18 06:00 Dose: Not Given Nystatin (Nystatin Oral Susp) 5 ml PO QID [facility] Last Admin: 01/07/18 10:00 Dose: Not Given Ondansetron HCl (Zofran Inj) 4 mg IVP Q4 PRN PRN Reason: Nausea/Vomiting Last Admin: 01/04/18 09:28 Dose: 4 mg Potassium Chloride (K-Dur 20 Meq Er Tab) 40 meq PO ONCE [facility] Last Admin: 01/05/18 09:16 Dose: 40 meq - Labs Labs: 01/07/18 07:13 01/07/18 07:16 PT 46.5 SECONDS (9.7-12.2) H* 01/07/18 07:13 INR 3.9 01/07/18 07:13 APTT 41 SECONDS (21-34) H 01/07/18 07:13 - Constitutional Appears: No Acute Distress, Chronically Ill - Head Exam Head Exam: ATRAUMATIC, NORMAL INSPECTION, NORMOCEPHALIC - Eye Exam Eye Exam: EOMI, Normal appearance, PERRL Pupil Exam: NORMAL ACCOMODATION, PERRL - Respiratory Exam Respiratory Exam: Decreased Breath Sounds, Rales, Rhonchi - Cardiovascular Exam Cardiovascular Exam: REGULAR RHYTHM, +S1, +S2. absent: Murmur - GI/Abdominal Exam GI & Abdominal Exam: Soft, Normal Bowel Sounds. absent: Tenderness - Extremities Exam Extremities Exam: Pedal Edema Assessment and Plan (1) Abdominal pain Status: Acute (2) Cholangiocarcinoma Status: Chronic (3) Dehydration Status: Acute (4) Hypertension Status: Acute (5) Septicemia Status: Acute
[2018-01-07 13:42] LABS: BASO # 0.1 K/uL (0.0-0.2); BASO % 0.3 % (0.0-2.0); EOS % 0.1 % (0.0-4.0); HEMOGLOBIN 7.1 g/dL (12.0-18.0); LYMPH # 0.4 K/uL (1.0-4.3); LYMPH % 1.3 % (20.0-40.0); MEAN CELL VOLUME 95.3 fL (80.0-94.0); MEAN CORPUSCULAR HEMOGLOBIN 30.2 pg (27.0-31.0); MEAN CORPUSCULAR HGB CONC 31.7 g/dL (33.0-37.0); MEAN PLATELET VOLUME 9.2 fL (7.2-11.7); MONO % 3.7 % (0.0-10.0); NEUT # 26.2 K/uL (1.8-7.0); NEUT % 94.6 % (50.0-75.0); NRBC % 2.8 % (0.0-2.0); PLATELET COUNT 153 K/uL (130-400); RBC 2.37 Mil/uL (4.40-5.90); RED CELL DISTRIBUTION WIDTH 19.9 % (11.5-14.5); WHITE BLOOD COUNT 27.7 K/uL (4.8-10.8)
[2018-01-07 13:52] LABS: CALCIUM 6.4 mg/dl (8.6-10.4)
[2018-01-07 14:31] LABS: ANISOCYTOSIS SLIGHT; BANDS 2 % (0-2); LYMPHOCYTE 2 % (20-40); MONOCYTE 2 % (0-10); NEUTROPHIL 94 % (50-75); NUCLEATED RED BLOOD CELL 3 % (0-0); PLATELET ESTIMATE NORMAL (NORMAL); TOTAL CELLS COUNTED 100
[2018-01-07 14:33] LABS: BURR CELLS SLIGHT; HYPOCHROMIC SLIGHT
--- NOTE | 2018-01-07 18:39 | PN ---
DATE: LOCATION: ICU 11. SUBJECTIVE: This is a 62-year-old male seen and examined today after being transferred to the intensive care unit, post intubation, but appears to be somewhat awake and responsive. The entire chart is reviewed including, but not limited to the most recent lab and radiology study results, current and the previous medication list, current and the previous medical records, case discussed with the staff as the patient had rapid response, after which he was transferred to ICU. Most recent lab results show leukocytosis of 24.6, hemoglobin 7.8, hematocrit 24.6, with normal platelet count. PT is 46.5, PTT of 41, with abnormal ABGs, post intubation blood glucose level 149, lactic acid 5.6, calcium 7, phosphorus 4.6, total bilirubin 2.3, AST 281, ALT 93, albumin very low at 1.4, total protein 4.2. PHYSICAL EXAMINATION: GENERAL: A 62-year-old male, intubated, . VITAL SIGNS: Afebrile, with pulse rate of 122, blood pressure of 68/52. HEENT: Showed pale, dry oral mucous membrane. Nonicteric sclerae. LUNGS: Few scattered crepitations. Decreased air entry at bases. HEART: Positive S1 and S2. ABDOMEN: Vaax-og-[id number] distention.. No masses or organomegaly. No rebound tenderness or guarding. EXTREMITIES: With edematous changes. No clubbing, or cyanosis. NEUROLOGIC: No reported new neurological deficits, sensory or motor. IMPRESSION: 1. Change of mental status. 2. Sudden onset of hypotension with leukocytosis, most likely secondary to septic shock. 3. Anemia, the possibility of gastrointestinal blood loss was raised. 4. Electrolyte imbalance. 5. Known history of cholangiocarcinoma with metastatic lesion to the liver. 6. Malnutrition with severe hypoalbuminemia. 7. Known history of alcoholism with alcoholic liver disease with abnormal liver function tests, associated with jaundice. 8. Known history of hypertension, hyperlipidemia. SUGGESTIONS: 1. Continue current management. 2. Only conservative treatment at this point and no aggressive GI workup to be scheduled in the meantime. Adina Barillas MD [facility] # [id number]
[2018-01-07 19:59] LABS: URINE AMORPHOUS SEDIMENT RARE /ul (<OCC); URINE BACTERIA OCC (<OCC); URINE BILIRUBIN 1+ (NEGATIVE); URINE BLOOD 1+ (NEGATIVE); URINE CLARITY Turbid (Clear); URINE COLOR Amber (YELLOW); URINE GLUCOSE (UA) 1+ mg/dL (Normal); URINE LEUKOCYTE ESTERASE NEG Leu/uL (Negative); URINE PROTEIN 2+ mg/dL (NEGATIVE); URINE UROBILINOGEN NORMAL mg/dL (0.2-1.0); WBC CLUMPS FEW /hpf
--- NOTE | 2018-01-07 20:29 | CP.PCM.PN ---
Subjective - Date & Time of Evaluation Date of Evaluation: 01/07/18 Time of Evaluation: 20:29 - Subjective Subjective: CHIEF COMPLAINTS TODAY : EVENTS NOTED. Patient in ICU bed 11 transferred yesterday s/p RR, code blue HYPOTENSIVE patient presently getting blood transfusion Intubated, awake and responsive. s/p UGI-/RECTAL BLEEDING. ROS. HEENT : INTUBATED Resp : No SOB wheezing, cough Cardio : No CP, PND orthopnea GI : +VE ABDOMINAL PAIN, NO n/v MANAGER CRISIS : No headache , focal deficit. Musculoskel : N Ext. : Pedal pulses intact, +VE EDEMA, NO calf pain Derm : N Psych : N. PE. PATIENT INTUBATED Pt. is alert awake in no distress. V.S As noted in the chart Head ,ear nose,throat and eyes : Normal. Neck : Supple with normal carotids. Lungs: BILATERAL RHONCHI/RALES Heart : S1 & S2 normal . . No murmur. S4 + Abd : SOFT, SLIGHTLY DISTENDED, +VE ASCITES,+VE GENERALIZED TENDERNESS with normal bowel sounds. Neuro : Moves all ext. with no localized deficit. Ext : B/L EDEMA 2+, with intact pulses. Neg. calf tenderness Derm : No rashes or decubitus ulcer. GENITALIA .; SWOLLEN Radiology/Labs . REVIEWED wbc 27.7,H/H 7.1/22.6 PLT. 153 cREATININE 2.4/bun 21 S. LACTATE 6.9 PT/PTT PROLONGED RANDOM VANCO 36.2-high ( Vanco DC'd 01/06/[address] ) [address] ABDOMEN AND PELVIS WITH BY MOUTH AND iv CONTRAST 01/02/18 Multiple hepatic low-attenuation lesions ? metastatic diseasevs infectious etiology. Postoperative cholecystectomy Colitis small large bowel. Generalized anasarca. ? Lytic lesion T12. Asssessment : RESPIRATORY FAILURE, ? POSSIBLE ASPIRATION PNEUMONIA. S/P code blue 01/06/18. SEPSIS/ ? INTRAABDOMINAL R/O SBP VS MALIGNANT ASCITES ABDOMINAL PAIN ? ENTEROCOLIC FISTULAE ?MICROPERFORATION ? PMC CHOLANGIOCARCINOMA /ASCITES ?MALIGNANT. ?METASTATIC DISEASE. SHOCK LIVER MULTIPLE HEPATIC MASSES ? ABSCESSES ? FUNGAL ODYNOPHAGIA ? R/O GREGORIO ESOPHAGITES HTN ELLYN -secondary to hypotension. Objective - Vital Signs/Intake and Output Vital Signs (last 24 hours): Temp Pulse Resp BP Pulse Ox 96.7 F L 118 H 16 99/54 L 100 03/26/18 16:12 01/07/18 20:00 01/07/18 20:00 01/07/18 20:10 01/07/18 20:00 Intake and Output: 01/07/18 01/08/18 18:59 06:59 Intake Total 450 435 Output Total 0 10 Balance 450 425 - Medications Medications: Current Medications Acetaminophen (Tylenol 325mg Tab) 650 mg PO Q6 PRN PRN Reason: Fever >100.4 F Benzocaine/Menthol (Cepacol Sore Throat) 1 rosmery MT Q6H PRN PRN Reason: Sore Throat Diphenhydramine HCl (Benadryl) 25 mg IVP Q4H PRN PRN Reason: Itching / Pruritus Last Admin: 01/07/18 18:02 Dose: 25 mg Fentanyl (Duragesic) 1 patch TD Q72H [facility] Last Admin: 01/06/18 20:50 Dose: 1 patch Hydromorphone HCl (Dilaudid) 2 mg IVP Q4H PRN PRN Reason: Pain, moderate (4-7) Last Admin: 01/07/18 18:03 Dose: 2 mg Micafungin Sodium 100 mg/ (Sodium Chloride) 100 mls @ 100 mls/hr IV Q24H [facility] PRN Reason: Protocol Last Admin: 01/07/18 00:15 Dose: 100 mls/hr Dextrose/Sodium Chloride (Dextrose 5%/0.45% Ns 1000 Ml) 1,000 mls @ 100 mls/hr IV .Q10H [facility] Last Admin: 01/06/18 20:15 Dose: Not Given Meropenem 500 mg/ Sodium (Chloride) 100 mls @ 100 mls/hr IVPB Q8 [facility] PRN Reason: Protocol Last Admin: 01/07/18 13:23 Dose: 100 mls/hr Dextrose/Sodium Chloride (Dextrose 5%/0.9% Ns 1000 Ml) 1,000 mls @ 100 mls/hr IV .Q10H [facility] Last Admin: 01/07/18 10:21 Dose: 100 mls/hr Metoclopramide HCl (Reglan) 5 mg IVP Q6H [facility] Last Admin: 01/07/18 15:45 Dose: Not Given Metronidazole (Flagyl) 500 mg PO Q8 [facility] PRN Reason: Protocol Last Admin: 01/07/18 06:00 Dose: Not Given Nystatin (Nystatin Oral Susp) 5 ml PO QID [facility] Last Admin: 01/07/18 18:00 Dose: Not Given Potassium Chloride (K-Dur 20 Meq Er Tab) 40 meq PO ONCE [facility] Last Admin: 01/05/18 09:16 Dose: 40 meq - Labs Labs: 01/07/18 13:33 01/07/18 13:33 PT 46.5 SECONDS (9.7-12.2) H* 01/07/18 07:13 INR 3.9 01/07/18 07:13 APTT 41 SECONDS (21-34) H 01/07/18 07:13 Assessment and Plan (1) Sepsis Status: Acute (2) Abdominal pain Status: Acute (3) Ascites, malignant Status: Acute (4) Cholangiocarcinoma Status: Chronic (5) Hypertension Status: Acute - Assessment and Plan (Free Text) Plan: on IV MERREM 500MG IVPB Q 8HRLY 01/05/18 FOR PRABABLE COVERAGE FOR +VE ESBLKLEBSIELLA PN. VS E.COLI 01/05/18 DC iv VANCOMYCIN 1 G EVERY 12 HOURLY. 01/02/18-01/06/18 CONTINUE fLAGYL 500 iv PIGGYBACK EVERY 12 HOURLY FOR ANAEROBIC COVERAGE. . CONTINUE IV MYCAFUNGIN 100MG IVPB Q 24HRLY HRLY. 01/03/18. Surgery on board ? DIAGNOSTIC PARACENTESIS AND APPROPRIATE CULTURES-BACTERIAL, FUNGAL, AFB, CYTOLOGY. CASE DISCUSSED WITH HEMATOLOGY/ONCOLOGY. PROGNOSIS GUARDED PATIENT WITH METASTATIC DISEASE AND NOT RESPONDING TO CHEMOTHERAPY ANYMORE. CASE DISCUSSED WITH THE STAFF. pATIENT SEEN BY PALLIATIVE CARE AND APPRECIATED.FAMILY DISCUSSIONS IN PROGRESS.
[2018-01-07] MEDS: metroNIDAZOLE IV 250mg/50 ml 250 MG/50 ML BAG IVPB SCH (21:51)
[2018-01-07 22:52] LABS: HEMOGLOBIN 10.8 g/dL (12.0-18.0)
[2018-01-07 23:07] LABS: CALCIUM 7.5 mg/dl (8.6-10.4)
[2018-01-08] MEDS: Micafungin 100 MG in Sodium Chloride 0.9% 100 ML IV SCH (00:17)
[2018-01-08] MEDS: Albumin Human 25% (12.5 gm/50 ml) IV SCH ×4 (01:18→17:34)
[2018-01-08] MEDS: Meropenem 500 MG in Sodium Chloride 0.9% 100 ML IVPB SCH ×3 (05:38→22:06)
[2018-01-08] MEDS: metroNIDAZOLE IV 250mg/50 ml 250 MG/50 ML BAG IVPB SCH ×3 (05:38→22:04)
[2018-01-08] MEDS: Dextrose 5%/0.9% NS 1,000 ML IV SCH ×2 (05:41→18:46)
[2018-01-08 06:24] LABS: BASO # 0.2 K/uL (0.0-0.2); BASO % 0.6 % (0.0-2.0); EOS # 0.1 K/uL (0.0-0.7); EOS % 0.2 % (0.0-4.0); HEMOGLOBIN 10.2 g/dL (12.0-18.0); LYMPH # 0.6 K/uL (1.0-4.3); LYMPH % 2.2 % (20.0-40.0); MEAN CELL VOLUME 90.2 fL (80.0-94.0); MEAN CORPUSCULAR HEMOGLOBIN 31.2 pg (27.0-31.0); MEAN CORPUSCULAR HGB CONC 34.6 g/dL (33.0-37.0); MEAN PLATELET VOLUME 8.7 fL (7.2-11.7); MONO % 3.4 % (0.0-10.0); NEUT # 27.2 K/uL (1.8-7.0); NEUT % 93.6 % (50.0-75.0); NRBC % 1.5 % (0.0-2.0); PLATELET COUNT 115 K/uL (130-400); RBC 3.25 Mil/uL (4.40-5.90); WHITE BLOOD COUNT 29.1 K/uL (4.8-10.8)
[2018-01-08 07:01] LABS: PROTHROMBIN TIME 23.2 SECONDS (9.7-12.2)
[2018-01-08 07:09] LABS: ALB/GLOB RATIO 0.7 (1.0-2.1); ALBUMIN 2.1 g/dL (3.5-5.0); BILIRUBIN,DIRECT 3.7 mg/dL (0.0-0.4); CALCIUM 7.6 mg/dl (8.6-10.4)
[2018-01-08 08:14] LABS: ANISOCYTOSIS SLIGHT; BANDS 3 % (0-2); LYMPHOCYTE 2 % (20-40); MONOCYTE 3 % (0-10); NEUTROPHIL 92 % (50-75); NUCLEATED RED BLOOD CELL 3 % (0-0); PLATELET ESTIMATE SLIGHTLY DECREASED (NORMAL); POIKILOCYTOSIS SLIGHT; TARGET CELLS MODERATE; TOTAL CELLS COUNTED 100
[2018-01-08 08:15] LABS: POLYCHROMIC SLIGHT
[2018-01-08] MEDS ORDERED: Sodium Chloride 0.9% 500 ML IV ONE (09:52)
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
--- NOTE | 2018-01-08 11:04 | CP.CCUPN ---
<Valerie Montemayor - Last Filed: 01/08/18 15:20> CCU Subjective - Physician Review Subjective (Free Text): 01/08/18 11:03 Patient seen and examined at bedside. Patient hypotensive last night and started on levophed drip. BPs currently stable. Complains of mild pain to lower back, upper and lower extremities. Palliative care held a family meeting today, Patient wishes to remain full-code and have all aggressive interventions if needed. CCU Objective - Vital Signs / Intake & Output Vital Signs (Last 4 hours): Vital Signs Temp Pulse Resp BP Pulse Ox 01/08/18 09:00 97 H 12 120/85 01/08/18 08:00 98.1 F 102 H 9 L 100 01/08/18 07:59 100 H 11 L 119/84 100 Intake and Output (Last 8hrs): Intake & Output 01/07/18 01/08/18 01/08/18 22:59 06:59 14:59 Intake Total 2200 1111.5 337.6 Output Total 940 1060 510 Balance 1260 51.5 -172.4 Intake: IV 104 Intake, IV Amount 1865 1007.5 337.6 Right Port-A-Cath 1850 750 300 Right Subclavian 100 right port 15 157.5 37.6 Oral 0 Blood Product 325 Red Blood Cells Cpd As1 325 Lr Unit [id number] Red Blood Cells Cpd As1 0 Lr Unit [id number] Other 10 Red Blood Cells Cpd As1 10 Lr Unit [id number] Output: Gastric Amount 700 1000 500 Stomach 700 1000 500 Urine 240 60 10 Urethral ([place]) 240 60 10 Urine, Voided 0 Stool 0 0 Other: # Voids Urine, Voided 0 # Bowel Movements 0 - Physical Exam Other physical findings (Free Text): - Constitutional Appears: No Acute Distress, Chronically Ill - Head Exam Head Exam: ATRAUMATIC, NORMAL INSPECTION, NORMOCEPHALIC - Eye Exam Eye Exam: EOMI, Normal appearance, PERRL Pupil Exam: NORMAL ACCOMODATION, PERRL - ENT Exam Additional comments: NGT to suction, drainage maroon color - Neck Exam Neck Exam: Full ROM, Normal Inspection - Respiratory Exam Respiratory Exam: Decreased Breath Sounds - Cardiovascular Exam Cardiovascular Exam: Tachycardia - GI/Abdominal Exam GI & Abdominal Exam: Diminished Bowel Sounds - Rectal Exam Rectal Exam: Deferred - Extremities Exam Extremities Exam: Pedal Edema Additional comments: weeping edema to right upper arm. - Neurological Exam Neurological Exam: Alert, Oriented x3 Neuro motor strength exam: Left Upper Extremity: 2/1, Right Upper Extremity: 2/1 , Left Lower Extremity: 2/1, Right Lower Extremity: 2/1 - Psychiatric Exam Psychiatric exam: Normal Affect, Normal Mood - Skin Skin Exam: Mottled, Normal Color - Medications Active Medications: Active Medications Generic Name Dose Route Start Last Admin Trade Name Freq PRN Reason Stop Dose Admin Acetaminophen 650 mg 01/01/18 02:46 Tylenol 325mg Tab PO Q6 PRN Fever >100.4 F Albumin Human 12.5 gm 01/08/18 00:30 01/08/18 05:42 Albumin Human 25% (12.5 Gm/50 Ml) IV 01/10/18 00:30 12.5 gm Q6H HOLLY Administration Benzocaine/Menthol 1 rosmery 01/03/18 18:10 Cepacol Sore Throat MT Q6H PRN Sore Throat Diphenhydramine HCl 25 mg 01/03/18 18:08 01/07/18 18:02 Benadryl IVP 25 mg Q4H PRN Administration Itching / Pruritus Fentanyl 1 patch 01/03/18 20:00 01/06/18 20:50 Duragesic TD 1 patch Q72H HOLLY Administration Hydromorphone HCl 2 mg 01/03/18 18:07 01/08/18 09:03 Dilaudid IVP 2 mg Q4H PRN Administration Pain, moderate (4-7) Dextrose/Sodium Chloride 1,000 mls @ 100 mls/hr 01/04/18 18:15 01/06/18 20:15 Dextrose 5%/0.45% Ns 1000 Ml IV Not Given .Q10H HOLLY Meropenem 500 mg/ Sodium 100 mls @ 100 mls/hr 01/05/18 22:00 01/08/18 05:38 Chloride IVPB 100 mls/hr Q8 HOLLY Administration Protocol Dextrose/Sodium Chloride 1,000 mls @ 100 mls/hr 01/07/18 10:00 01/08/18 05:41 Dextrose 5%/0.9% Ns 1000 Ml IV 100 mls/hr .Q10H HOLLY Administration Metronidazole 250 mg in 50 mls @ 100 mls/hr 01/07/18 22:00 01/08/18 05:38 Flagyl IVPB 01/12/18 22:01 100 mls/hr Q8 HOLLY Administration Protocol Norepinephrine Bitartrate 4 mg 254 mls @ 15.24 mls/hr 01/07/18 21:17 04:00 / Dextrose IV 4 mcg/min .[id number] PRN 15.24 mls/hr TITRATE PER MD ORDER Titration Protocol 4 MCG/MIN Potassium Chloride 20 meq in 100 mls @ 50 mls/hr 01/08/18 09:53 01/08/18 10: 56 Potassium Chloride 20 Meq/100 Ml IVPB 01/08/18 11:52 50 mls/hr ONCE ONE Administration Metoclopramide HCl 5 mg 01/07/18 15:45 01/08/18 09:02 Reglan IVP 5 mg Q6H HOLLY Administration Potassium Chloride 40 meq 01/05/18 10:00 01/05/18 09:16 K-Dur 20 Meq Er Tab PO 40 meq ONCE HOLLY Administration - Patient Studies Lab Studies: Microbiology Studies 01/07/18 09:12 MRSA Culture (Admit) - Final Nose MRSA NOT DETECTED 01/03/18 06:00 Blood Culture - Preliminary Blood-Thru Central Line NO GROWTH AFTER 4 DAYS 01/04/18 06:29 Blood Culture - Preliminary Blood-Thru Central Line NO GROWTH AFTER 4 DAYS 01/02/18 14:00 Blood Culture - Final Blood-Thru Central Line NO GROWTH AFTER 5 DAYS Gram Stain - Final TEST NOT PERFORMED 01/02/18 14:30 Blood Culture - Final Blood-Thru Central Line NO GROWTH AFTER 5 DAYS Lab Studies 01/08/18 01/08/18 01/08/18 Range/Units 06:26 06:21 06:21 WBC (4.8-10.8) K/uL RBC (4.40-5.90) Mil/uL Hgb (12.0-18.0) g/dL Hct (35.0-51.0) % MCV (80.0-94.0) fL MCH (27.0-31.0) pg MCHC (33.0-37.0) g/dL RDW (11.5-14.5) % Plt Count (130-400) K/uL MPV (7.2-11.7) fL Neut % (Auto) (50.0-75.0) % Lymph % (Auto) (20.0-40.0) % [place] % (Auto) (0.0-10.0) % Eos % (Auto) (0.0-4.0) % Baso % (Auto) (0.0-2.0) % Neut # (Auto) (1.8-7.0) K/uL Lymph # (Auto) (1.0-4.3) K/uL [place] # (Auto) (0.0-0.8) K/uL Eos # (Auto) (0.0-0.7) K/uL Baso # (Auto) (0.0-0.2) K/uL Neutrophils % (Manual) (50-75) % Band Neutrophils % (0-2) % Lymphocytes % (Manual) (20-40) % Monocytes % (Manual) (0-10) % Nucleated RBC % (0-0) % Platelet Estimate (NORMAL) Polychromasia Hypochromasia (manual) Poikilocytosis (manual Basophilic Stippling Anisocytosis (manual) Target Cells Chani Cells PT 23.2 H D (9.7-12.2) SECONDS INR 2.0 D APTT 34 D (21-34) SECONDS Sodium (132-148) mmol/L Potassium (3.6-5.2) mmol/L Chloride (98-107) mmol/L Carbon Dioxide (22-30) mmol/L Anion Gap (10-20) BUN (9-20) mg/dL Creatinine (0.8-1.5) mg/dL Est GFR ( Amer) Est GFR (Non-Af Amer) POC Glucose (mg/dL) 96 (65-110) mg/dL Random Glucose (75-110) mg/dL Calcium (8.6-10.4) mg/dl Phosphorus (2.5-4.5) mg/dL Magnesium (1.6-2.3) mg/dL Total Bilirubin (0.2-1.3) mg/dL Direct Bilirubin (0.0-0.4) mg/dL AST (17-59) U/L ALT (21-72) U/L Alkaline Phosphatase (38-126) U/L Total Protein (6.3-8.3) g/dL Albumin (3.5-5.0) g/dL Globulin (2.2-3.9) gm/dL Albumin/Globulin Ratio (1.0-2.1) Urine Color (YELLOW) Urine Clarity (Clear) Urine pH (5.0-8.0) Ur Specific [place] (1.003-1.030) Urine Protein (NEGATIVE) mg/dL Urine Glucose (UA) (Normal) mg/dL Urine Ketones (NEGATIVE) mg/dL Urine Blood (NEGATIVE) Urine Nitrate (NEGATIVE) Urine Bilirubin (NEGATIVE) Urine Urobilinogen (0.2-1.0) mg/dL Ur Leukocyte Esterase (Negative) [place]/uL Urine WBC (Auto) (0-5) /hpf Urine RBC (Auto) (0-3) /hpf Urine WBC Clumps (Auto) (NONE) /hpf Amorphous Sediment (<OCC) /ul Urine Bacteria (<OCC) Random Vancomycin 43.61 ug/mL Blood Type Antibody Screen 01/08/18 01/08/18 01/07/18 Range/Units 06:21 06:21 23:48 WBC 29.1 H (4.8-10.8) K/uL RBC 3.25 L (4.40-5.90) Mil/uL Hgb 10.2 L (12.0-18.0) g/dL Hct 29.4 L (35.0-51.0) % MCV 90.2 D (80.0-94.0) fL MCH 31.2 H (27.0-31.0) pg MCHC 34.6 (33.0-37.0) g/dL RDW 16.0 H (11.5-14.5) % Plt Count 115 L D (130-400) K/uL MPV 8.7 (7.2-11.7) fL Neut % (Auto) 93.6 H (50.0-75.0) % Lymph % (Auto) 2.2 L (20.0-40.0) % [place] % (Auto) 3.4 (0.0-10.0) % Eos % (Auto) 0.2 (0.0-4.0) % Baso % (Auto) 0.6 (0.0-2.0) % Neut # (Auto) 27.2 H (1.8-7.0) K/uL Lymph # (Auto) 0.6 L (1.0-4.3) K/uL [place] # (Auto) 1.0 H (0.0-0.8) K/uL Eos # (Auto) 0.1 (0.0-0.7) K/uL Baso # (Auto) 0.2 (0.0-0.2) K/uL Neutrophils % (Manual) 92 H (50-75) % Band Neutrophils % 3 H (0-2) % Lymphocytes % (Manual) 2 L (20-40) % Monocytes % (Manual) 3 (0-10) % Nucleated RBC % 3 H (0-0) % Platelet Estimate Slightly decreased L (NORMAL) Polychromasia Slight Hypochromasia (manual) Poikilocytosis (manual Slight Basophilic Stippling Anisocytosis (manual) Slight Target Cells Moderate Chani Cells PT (9.7-12.2) SECONDS INR APTT (21-34) SECONDS Sodium 148 (132-148) mmol/L Potassium 3.5 L (3.6-5.2) mmol/L Chloride 111 H (98-107) mmol/L Carbon Dioxide 24 (22-30) mmol/L Anion Gap 17 (10-20) BUN 26 H (9-20) mg/dL Creatinine 2.9 H (0.8-1.5) mg/dL Est GFR ( Amer) 27 Est GFR (Non-Af Amer) 22 POC Glucose (mg/dL) 90 (65-110) mg/dL Random Glucose 103 (75-110) mg/dL Calcium 7.6 L (8.6-10.4) mg/dl Phosphorus 3.7 (2.5-4.5) mg/dL Magnesium 1.7 (1.6-2.3) mg/dL Total Bilirubin 4.8 H (0.2-1.3) mg/dL Direct Bilirubin 3.7 H (0.0-0.4) mg/dL AST 361 H D (17-59) U/L ALT 155 H D (21-72) U/L Alkaline Phosphatase 179 H (38-126) U/L Total Protein 5.1 L (6.3-8.3) g/dL Albumin 2.1 L D (3.5-5.0) g/dL Globulin 3.0 (2.2-3.9) gm/dL Albumin/Globulin Ratio 0.7 L (1.0-2.1) Urine Color (YELLOW) Urine Clarity (Clear) Urine pH (5.0-8.0) Ur Specific [place] (1.003-1.030) Urine Protein (NEGATIVE) mg/dL Urine Glucose (UA) (Normal) mg/dL Urine Ketones (NEGATIVE) mg/dL Urine Blood (NEGATIVE) Urine Nitrate (NEGATIVE) Urine Bilirubin (NEGATIVE) Urine Urobilinogen (0.2-1.0) mg/dL Ur Leukocyte Esterase (Negative) [place]/uL Urine WBC (Auto) (0-5) /hpf Urine RBC (Auto) (0-3) /hpf Urine WBC Clumps (Auto) (NONE) /hpf Amorphous Sediment (<OCC) /ul Urine Bacteria (<OCC) Random Vancomycin ug/mL Blood Type Antibody Screen 01/07/18 01/07/18 01/07/18 Range/Units 22:45 22:45 19:40 WBC (4.8-10.8) K/uL RBC (4.40-5.90) Mil/uL Hgb 10.8 L D (12.0-18.0) g/dL Hct 32.7 L (35.0-51.0) % MCV (80.0-94.0) fL MCH (27.0-31.0) pg MCHC (33.0-37.0) g/dL RDW (11.5-14.5) % Plt Count (130-400) K/uL MPV (7.2-11.7) fL Neut % (Auto) (50.0-75.0) % Lymph % (Auto) (20.0-40.0) % [place] % (Auto) (0.0-10.0) % Eos % (Auto) (0.0-4.0) % Baso % (Auto) (0.0-2.0) % Neut # (Auto) (1.8-7.0) K/uL Lymph # (Auto) (1.0-4.3) K/uL [place] # (Auto) (0.0-0.8) K/uL Eos # (Auto) (0.0-0.7) K/uL Baso # (Auto) (0.0-0.2) K/uL Neutrophils % (Manual) (50-75) % Band Neutrophils % (0-2) % Lymphocytes % (Manual) (20-40) % Monocytes % (Manual) (0-10) % Nucleated RBC % (0-0) % Platelet Estimate (NORMAL) Polychromasia Hypochromasia (manual) Poikilocytosis (manual Basophilic Stippling Anisocytosis (manual) Target Cells Chani Cells PT (9.7-12.2) SECONDS INR APTT (21-34) SECONDS Sodium 143 (132-148) mmol/L Potassium 3.5 L (3.6-5.2) mmol/L Chloride 113 H (98-107) mmol/L Carbon Dioxide 19 L (22-30) mmol/L Anion Gap 15 (10-20) BUN 24 H (9-20) mg/dL Creatinine 2.8 H (0.8-1.5) mg/dL Est GFR ( Amer) 28 Est GFR (Non-Af Amer) 23 POC Glucose (mg/dL) (65-110) mg/dL Random Glucose 104 (75-110) mg/dL Calcium 7.5 L (8.6-10.4) mg/dl Phosphorus (2.5-4.5) mg/dL Magnesium (1.6-2.3) mg/dL Total Bilirubin (0.2-1.3) mg/dL Direct Bilirubin (0.0-0.4) mg/dL AST (17-59) U/L ALT (21-72) U/L Alkaline Phosphatase (38-126) U/L Total Protein (6.3-8.3) g/dL Albumin (3.5-5.0) g/dL Globulin (2.2-3.9) gm/dL Albumin/Globulin Ratio (1.0-2.1) Urine Color [place] (YELLOW) Urine Clarity Turbid (Clear) Urine pH 5.0 (5.0-8.0) Ur Specific [place] 1.033 H (1.003-1.030) Urine Protein 2+ H (NEGATIVE) mg/dL Urine Glucose (UA) 1+ H (Normal) mg/dL Urine Ketones Negative (NEGATIVE) mg/dL Urine Blood 1+ H (NEGATIVE) Urine Nitrate Negative (NEGATIVE) Urine Bilirubin 1+ H (NEGATIVE) Urine Urobilinogen Normal (0.2-1.0) mg/dL Ur Leukocyte Esterase Neg (Negative) [place]/uL Urine WBC (Auto) 21 H (0-5) /hpf Urine RBC (Auto) 13 H (0-3) /hpf Urine WBC Clumps (Auto) Few H (NONE) /hpf Amorphous Sediment Rare H (<OCC) /ul Urine Bacteria Occ H (<OCC) Random Vancomycin ug/mL Blood Type Antibody Screen 01/07/18 01/07/18 01/07/18 Range/Units 18:48 17:58 17:57 WBC (4.8-10.8) K/uL RBC (4.40-5.90) Mil/uL Hgb (12.0-18.0) g/dL Hct (35.0-51.0) % MCV (80.0-94.0) fL MCH (27.0-31.0) pg MCHC (33.0-37.0) g/dL RDW (11.5-14.5) % Plt Count (130-400) K/uL MPV (7.2-11.7) fL Neut % (Auto) (50.0-75.0) % Lymph % (Auto) (20.0-40.0) % [place] % (Auto) (0.0-10.0) % Eos % (Auto) (0.0-4.0) % Baso % (Auto) (0.0-2.0) % Neut # (Auto) (1.8-7.0) K/uL Lymph # (Auto) (1.0-4.3) K/uL [place] # (Auto) (0.0-0.8) K/uL Eos # (Auto) (0.0-0.7) K/uL Baso # (Auto) (0.0-0.2) K/uL Neutrophils % (Manual) (50-75) % Band Neutrophils % (0-2) % Lymphocytes % (Manual) (20-40) % Monocytes % (Manual) (0-10) % Nucleated RBC % (0-0) % Platelet Estimate (NORMAL) Polychromasia Hypochromasia (manual) Poikilocytosis (manual Basophilic Stippling Anisocytosis (manual) Target Cells [place] Cells PT (9.7-12.2) SECONDS INR APTT (21-34) SECONDS Sodium (132-148) mmol/L Potassium (3.6-5.2) mmol/L Chloride (98-107) mmol/L Carbon Dioxide (22-30) mmol/L Anion Gap (10-20) BUN (9-20) mg/dL Creatinine (0.8-1.5) mg/dL Est GFR ( Amer) Est GFR (Non-Af Amer) POC Glucose (mg/dL) 65 57 L 51 L (65-110) mg/dL Random Glucose (75-110) mg/dL Calcium (8.6-10.4) mg/dl Phosphorus (2.5-4.5) mg/dL Magnesium (1.6-2.3) mg/dL Total Bilirubin (0.2-1.3) mg/dL Direct Bilirubin (0.0-0.4) mg/dL AST (17-59) U/L ALT (21-72) U/L Alkaline Phosphatase (38-126) U/L Total Protein (6.3-8.3) g/dL Albumin (3.5-5.0) g/dL Globulin (2.2-3.9) gm/dL Albumin/Globulin Ratio (1.0-2.1) Urine Color (YELLOW) Urine Clarity (Clear) Urine pH (5.0-8.0) Ur Specific [place] (1.003-1.030) Urine Protein (NEGATIVE) mg/dL Urine Glucose (UA) (Normal) mg/dL Urine Ketones (NEGATIVE) mg/dL Urine Blood (NEGATIVE) Urine Nitrate (NEGATIVE) Urine Bilirubin (NEGATIVE) Urine Urobilinogen (0.2-1.0) mg/dL Ur Leukocyte Esterase (Negative) [place]/uL Urine WBC (Auto) (0-5) /hpf Urine RBC (Auto) (0-3) /hpf Urine WBC Clumps (Auto) (NONE) /hpf Amorphous Sediment (<OCC) /ul Urine Bacteria (<OCC) Random Vancomycin ug/mL Blood Type Antibody Screen 01/07/18 01/07/18 01/07/18 Range/Units 13:33 13:33 13:20 WBC 27.7 H (4.8-10.8) K/uL RBC 2.37 L (4.40-5.90) Mil/uL Hgb 7.1 L (12.0-18.0) g/dL Hct 22.6 L (35.0-51.0) % MCV 95.3 H (80.0-94.0) fL MCH 30.2 (27.0-31.0) pg MCHC 31.7 L (33.0-37.0) g/dL RDW 19.9 H (11.5-14.5) % Plt Count 153 (130-400) K/uL MPV 9.2 (7.2-11.7) fL Neut % (Auto) 94.6 H (50.0-75.0) % Lymph % (Auto) 1.3 L (20.0-40.0) % [place] % (Auto) 3.7 (0.0-10.0) % Eos % (Auto) 0.1 (0.0-4.0) % Baso % (Auto) 0.3 (0.0-2.0) % Neut # (Auto) 26.2 H (1.8-7.0) K/uL Lymph # (Auto) 0.4 L (1.0-4.3) K/uL [place] # (Auto) 1.0 H (0.0-0.8) K/uL Eos # (Auto) 0.0 (0.0-0.7) K/uL Baso # (Auto) 0.1 (0.0-0.2) K/uL Neutrophils % (Manual) 94 H (50-75) % Band Neutrophils % 2 (0-2) % Lymphocytes % (Manual) 2 L (20-40) % Monocytes % (Manual) 2 (0-10) % Nucleated RBC % 3 H (0-0) % Platelet Estimate Normal (NORMAL) Polychromasia Hypochromasia (manual) Slight Poikilocytosis (manual Basophilic Stippling Slight Anisocytosis (manual) Slight Target Cells [place] Cells Slight PT (9.7-12.2) SECONDS INR APTT (21-34) SECONDS Sodium 143 (132-148) mmol/L Potassium 3.4 L (3.6-5.2) mmol/L Chloride 115 H (98-107) mmol/L Carbon Dioxide 15 L (22-30) mmol/L Anion Gap 17 (10-20) BUN 21 H (9-20) mg/dL Creatinine 2.4 H (0.8-1.5) mg/dL Est GFR ( Amer) 34 Est GFR (Non-Af Amer) 28 POC Glucose (mg/dL) 149 H (65-110) mg/dL Random Glucose 124 H (75-110) mg/dL Calcium 6.4 L (8.6-10.4) mg/dl Phosphorus (2.5-4.5) mg/dL Magnesium (1.6-2.3) mg/dL Total Bilirubin (0.2-1.3) mg/dL Direct Bilirubin (0.0-0.4) mg/dL AST (17-59) U/L ALT (21-72) U/L Alkaline Phosphatase (38-126) U/L Total Protein (6.3-8.3) g/dL Albumin (3.5-5.0) g/dL Globulin (2.2-3.9) gm/dL Albumin/Globulin Ratio (1.0-2.1) Urine Color (YELLOW) Urine Clarity (Clear) Urine pH (5.0-8.0) Ur Specific [place] (1.003-1.030) Urine Protein (NEGATIVE) mg/dL Urine Glucose (UA) (Normal) mg/dL Urine Ketones (NEGATIVE) mg/dL Urine Blood (NEGATIVE) Urine Nitrate (NEGATIVE) Urine Bilirubin (NEGATIVE) Urine Urobilinogen (0.2-1.0) mg/dL Ur Leukocyte Esterase (Negative) [place]/uL Urine WBC (Auto) (0-5) /hpf Urine RBC (Auto) (0-3) /hpf Urine WBC Clumps (Auto) (NONE) /hpf Amorphous Sediment (<OCC) /ul Urine Bacteria (<OCC) Random Vancomycin ug/mL Blood Type Antibody Screen 01/07/18 01/07/18 01/07/18 Range/Units 11:49 11:49 11:32 WBC (4.8-10.8) K/uL RBC (4.40-5.90) Mil/uL Hgb (12.0-18.0) g/dL Hct (35.0-51.0) % MCV (80.0-94.0) fL MCH (27.0-31.0) pg MCHC (33.0-37.0) g/dL RDW (11.5-14.5) % Plt Count (130-400) K/uL MPV (7.2-11.7) fL Neut % (Auto) (50.0-75.0) % Lymph % (Auto) (20.0-40.0) % [place] % (Auto) (0.0-10.0) % Eos % (Auto) (0.0-4.0) % Baso % (Auto) (0.0-2.0) % Neut # (Auto) (1.8-7.0) K/uL Lymph # (Auto) (1.0-4.3) K/uL [place] # (Auto) (0.0-0.8) K/uL Eos # (Auto) (0.0-0.7) K/uL Baso # (Auto) (0.0-0.2) K/uL Neutrophils % (Manual) (50-75) % Band Neutrophils % (0-2) % Lymphocytes % (Manual) (20-40) % Monocytes % (Manual) (0-10) % Nucleated RBC % (0-0) % Platelet Estimate (NORMAL) Polychromasia Hypochromasia (manual) Poikilocytosis (manual Basophilic Stippling Anisocytosis (manual) Target Cells [place] Cells PT (9.7-12.2) SECONDS INR APTT (21-34) SECONDS Sodium (132-148) mmol/L Potassium (3.6-5.2) mmol/L Chloride (98-107) mmol/L Carbon Dioxide (22-30) mmol/L Anion Gap (10-20) BUN (9-20) mg/dL Creatinine (0.8-1.5) mg/dL Est GFR ( Amer) Est GFR (Non-Af Amer) POC Glucose (mg/dL) 97 (65-110) mg/dL Random Glucose (75-110) mg/dL Calcium (8.6-10.4) mg/dl Phosphorus (2.5-4.5) mg/dL Magnesium (1.6-2.3) mg/dL Total Bilirubin (0.2-1.3) mg/dL Direct Bilirubin (0.0-0.4) mg/dL AST (17-59) U/L ALT (21-72) U/L Alkaline Phosphatase (38-126) U/L Total Protein (6.3-8.3) g/dL Albumin (3.5-5.0) g/dL Globulin (2.2-3.9) gm/dL Albumin/Globulin Ratio (1.0-2.1) Urine Color (YELLOW) Urine Clarity (Clear) Urine pH (5.0-8.0) Ur Specific [place] (1.003-1.030) Urine Protein (NEGATIVE) mg/dL Urine Glucose (UA) (Normal) mg/dL Urine Ketones (NEGATIVE) mg/dL Urine Blood (NEGATIVE) Urine Nitrate (NEGATIVE) Urine Bilirubin (NEGATIVE) Urine Urobilinogen (0.2-1.0) mg/dL Ur Leukocyte Esterase (Negative) [place]/uL Urine WBC (Auto) (0-5) /hpf Urine RBC (Auto) (0-3) /hpf Urine WBC Clumps (Auto) (NONE) /hpf Amorphous Sediment (<OCC) /ul Urine Bacteria (<OCC) Random Vancomycin 36.22 ug/mL Blood Type O NEGATIVE Antibody Screen Negative 01/07/18 Range/Units 11:20 WBC (4.8-10.8) K/uL RBC (4.40-5.90) Mil/uL Hgb (12.0-18.0) g/dL Hct (35.0-51.0) % MCV (80.0-94.0) fL MCH (27.0-31.0) pg MCHC (33.0-37.0) g/dL RDW (11.5-14.5) % Plt Count (130-400) K/uL MPV (7.2-11.7) fL Neut % (Auto) (50.0-75.0) % Lymph % (Auto) (20.0-40.0) % [place] % (Auto) (0.0-10.0) % Eos % (Auto) (0.0-4.0) % Baso % (Auto) (0.0-2.0) % Neut # (Auto) (1.8-7.0) K/uL Lymph # (Auto) (1.0-4.3) K/uL [place] # (Auto) (0.0-0.8) K/uL Eos # (Auto) (0.0-0.7) K/uL Baso # (Auto) (0.0-0.2) K/uL Neutrophils % (Manual) (50-75) % Band Neutrophils % (0-2) % Lymphocytes % (Manual) (20-40) % Monocytes % (Manual) (0-10) % Nucleated RBC % (0-0) % Platelet Estimate (NORMAL) Polychromasia Hypochromasia (manual) Poikilocytosis (manual Basophilic Stippling Anisocytosis (manual) Target Cells [place] Cells PT (9.7-12.2) SECONDS INR APTT (21-34) SECONDS Sodium (132-148) mmol/L Potassium (3.6-5.2) mmol/L Chloride (98-107) mmol/L Carbon Dioxide (22-30) mmol/L Anion Gap (10-20) BUN (9-20) mg/dL Creatinine (0.8-1.5) mg/dL Est GFR ( Amer) Est GFR (Non-Af Amer) POC Glucose (mg/dL) 42 L (65-110) mg/dL Random Glucose (75-110) mg/dL Calcium (8.6-10.4) mg/dl Phosphorus (2.5-4.5) mg/dL Magnesium (1.6-2.3) mg/dL Total Bilirubin (0.2-1.3) mg/dL Direct Bilirubin (0.0-0.4) mg/dL AST (17-59) U/L ALT (21-72) U/L Alkaline Phosphatase (38-126) U/L Total Protein (6.3-8.3) g/dL Albumin (3.5-5.0) g/dL Globulin (2.2-3.9) gm/dL Albumin/Globulin Ratio (1.0-2.1) Urine Color (YELLOW) Urine Clarity (Clear) Urine pH (5.0-8.0) Ur Specific [place] (1.003-1.030) Urine Protein (NEGATIVE) mg/dL Urine Glucose (UA) (Normal) mg/dL Urine Ketones (NEGATIVE) mg/dL Urine Blood (NEGATIVE) Urine Nitrate (NEGATIVE) Urine Bilirubin (NEGATIVE) Urine Urobilinogen (0.2-1.0) mg/dL Ur Leukocyte Esterase (Negative) [place]/uL Urine WBC (Auto) (0-5) /hpf Urine RBC (Auto) (0-3) /hpf Urine WBC Clumps (Auto) (NONE) /hpf Amorphous Sediment (<OCC) /ul Urine Bacteria (<OCC) Random Vancomycin ug/mL Blood Type Antibody Screen Laboratory Results - last 24 hr 01/07/18 01/07/18 01/07/18 11:20 11:32 11:49 WBC RBC Hgb Hct MCV MCH MCHC RDW Plt Count MPV Neut % (Auto) Lymph % (Auto) [place] % (Auto) Eos % (Auto) Baso % (Auto) Neut # (Auto) Lymph # (Auto) [place] # (Auto) Eos # (Auto) Baso # (Auto) Neutrophils % (Manual) Band Neutrophils % Lymphocytes % (Manual) Monocytes % (Manual) Nucleated RBC % Platelet Estimate Polychromasia Hypochromasia (manual) Poikilocytosis (manual Basophilic Stippling Anisocytosis (manual) Target Cells Chani Cells PT INR APTT Sodium Potassium Chloride Carbon Dioxide Anion Gap BUN Creatinine Est GFR ( Amer) Est GFR (Non-Af Amer) POC Glucose (mg/dL) 42 L 97 Random Glucose Calcium Phosphorus Magnesium Total Bilirubin Direct Bilirubin AST ALT Alkaline Phosphatase Total Protein Albumin Globulin Albumin/Globulin Ratio Urine Color Urine Clarity Urine pH Ur Specific [place] Urine Protein Urine Glucose (UA) Urine Ketones Urine Blood Urine Nitrate Urine Bilirubin Urine Urobilinogen Ur Leukocyte Esterase Urine WBC (Auto) Urine RBC (Auto) Urine WBC Clumps (Auto) Amorphous Sediment Urine Bacteria Random Vancomycin 36.22 Blood Type Antibody Screen 01/07/18 01/07/18 01/07/18 11:49 13:20 13:33 WBC RBC Hgb Hct MCV MCH MCHC RDW Plt Count MPV Neut % (Auto) Lymph % (Auto) [place] % (Auto) Eos % (Auto) Baso % (Auto) Neut # (Auto) Lymph # (Auto) [place] # (Auto) Eos # (Auto) Baso # (Auto) Neutrophils % (Manual) Band Neutrophils % Lymphocytes % (Manual) Monocytes % (Manual) Nucleated RBC % Platelet Estimate Polychromasia Hypochromasia (manual) Poikilocytosis (manual Basophilic Stippling Anisocytosis (manual) Target Cells Chani Cells PT INR APTT Sodium 143 Potassium 3.4 L Chloride 115 H Carbon Dioxide 15 L Anion Gap 17 BUN 21 H Creatinine 2.4 H Est GFR ( Amer) 34 Est GFR (Non-Af Amer) 28 POC Glucose (mg/dL) 149 H Random Glucose 124 H Calcium 6.4 L Phosphorus Magnesium Total Bilirubin Direct Bilirubin AST ALT Alkaline Phosphatase Total Protein Albumin Globulin Albumin/Globulin Ratio Urine Color Urine Clarity Urine pH Ur Specific [place] Urine Protein Urine Glucose (UA) Urine Ketones Urine Blood Urine Nitrate Urine Bilirubin Urine Urobilinogen Ur Leukocyte Esterase Urine WBC (Auto) Urine RBC (Auto) Urine WBC Clumps (Auto) Amorphous Sediment Urine Bacteria Random Vancomycin Blood Type O NEGATIVE Antibody Screen Negative 01/07/18 01/07/18 01/07/18 13:33 17:57 17:58 WBC 27.7 H RBC 2.37 L Hgb 7.1 L Hct 22.6 L MCV 95.3 H MCH 30.2 MCHC 31.7 L RDW 19.9 H Plt Count 153 MPV 9.2 Neut % (Auto) 94.6 H Lymph % (Auto) 1.3 L [place] % (Auto) 3.7 Eos % (Auto) 0.1 Baso % (Auto) 0.3 Neut # (Auto) 26.2 H Lymph # (Auto) 0.4 L [place] # (Auto) 1.0 H Eos # (Auto) 0.0 Baso # (Auto) 0.1 Neutrophils % (Manual) 94 H Band Neutrophils % 2 Lymphocytes % (Manual) 2 L Monocytes % (Manual) 2 Nucleated RBC % 3 H Platelet Estimate Normal Polychromasia Hypochromasia (manual) Slight Poikilocytosis (manual Basophilic Stippling Slight Anisocytosis (manual) Slight Target Cells Chani Cells Slight PT INR APTT Sodium Potassium Chloride Carbon Dioxide Anion Gap BUN Creatinine Est GFR ( Amer) Est GFR (Non-Af Amer) POC Glucose (mg/dL) 51 L 57 L Random Glucose Calcium Phosphorus Magnesium Total Bilirubin Direct Bilirubin AST ALT Alkaline Phosphatase Total Protein Albumin Globulin Albumin/Globulin Ratio Urine Color Urine Clarity Urine pH Ur Specific [place] Urine Protein Urine Glucose (UA) Urine Ketones Urine Blood Urine Nitrate Urine Bilirubin Urine Urobilinogen Ur Leukocyte Esterase Urine WBC (Auto) Urine RBC (Auto) Urine WBC Clumps (Auto) Amorphous Sediment Urine Bacteria Random Vancomycin Blood Type Antibody Screen 01/07/18 01/07/18 01/07/18 18:48 19:40 22:45 WBC RBC Hgb Hct MCV MCH MCHC RDW Plt Count MPV Neut % (Auto) Lymph % (Auto) [place] % (Auto) Eos % (Auto) Baso % (Auto) Neut # (Auto) Lymph # (Auto) [place] # (Auto) Eos # (Auto) Baso # (Auto) Neutrophils % (Manual) Band Neutrophils % Lymphocytes % (Manual) Monocytes % (Manual) Nucleated RBC % Platelet Estimate Polychromasia Hypochromasia (manual) Poikilocytosis (manual Basophilic Stippling Anisocytosis (manual) Target Cells Chani Cells PT INR APTT Sodium 143 Potassium 3.5 L Chloride 113 H Carbon Dioxide 19 L Anion Gap 15 BUN 24 H Creatinine 2.8 H Est GFR ( Amer) 28 Est GFR (Non-Af Amer) 23 POC Glucose (mg/dL) 65 Random Glucose 104 Calcium 7.5 L Phosphorus Magnesium Total Bilirubin Direct Bilirubin AST ALT Alkaline Phosphatase Total Protein Albumin Globulin Albumin/Globulin Ratio Urine Color [place] Urine Clarity Turbid Urine pH 5.0 Ur Specific [place] 1.033 H Urine Protein 2+ H Urine Glucose (UA) 1+ H Urine Ketones Negative Urine Blood 1+ H Urine Nitrate Negative Urine Bilirubin 1+ H Urine Urobilinogen Normal Ur Leukocyte Esterase Neg Urine WBC (Auto) 21 H Urine RBC (Auto) 13 H Urine WBC Clumps (Auto) Few H Amorphous Sediment Rare H Urine Bacteria Occ H Random Vancomycin Blood Type Antibody Screen 01/07/18 01/07/18 01/08/18 22:45 23:48 06:21 WBC 29.1 H RBC 3.25 L Hgb 10.8 L D 10.2 L Hct 32.7 L 29.4 L MCV 90.2 D MCH 31.2 H MCHC 34.6 RDW 16.0 H Plt Count 115 L D MPV 8.7 Neut % (Auto) 93.6 H Lymph % (Auto) 2.2 L [place] % (Auto) 3.4 Eos % (Auto) 0.2 Baso % (Auto) 0.6 Neut # (Auto) 27.2 H Lymph # (Auto) 0.6 L [place] # (Auto) 1.0 H Eos # (Auto) 0.1 Baso # (Auto) 0.2 Neutrophils % (Manual) 92 H Band Neutrophils % 3 H Lymphocytes % (Manual) 2 L Monocytes % (Manual) 3 Nucleated RBC % 3 H Platelet Estimate Slightly decreased L Polychromasia Slight Hypochromasia (manual) Poikilocytosis (manual Slight Basophilic Stippling Anisocytosis (manual) Slight Target Cells Moderate [place] Cells PT INR APTT Sodium Potassium Chloride Carbon Dioxide Anion Gap BUN Creatinine Est GFR ( Amer) Est GFR (Non-Af Amer) POC Glucose (mg/dL) 90 Random Glucose Calcium Phosphorus Magnesium Total Bilirubin Direct Bilirubin AST ALT Alkaline Phosphatase Total Protein Albumin Globulin Albumin/Globulin Ratio Urine Color Urine Clarity Urine pH Ur Specific [place] Urine Protein Urine Glucose (UA) Urine Ketones Urine Blood Urine Nitrate Urine Bilirubin Urine Urobilinogen Ur Leukocyte Esterase Urine WBC (Auto) Urine RBC (Auto) Urine WBC Clumps (Auto) Amorphous Sediment Urine Bacteria Random Vancomycin Blood Type Antibody Screen 01/08/18 01/08/18 01/08/18 06:21 06:21 06:21 WBC RBC Hgb Hct MCV MCH MCHC RDW Plt Count MPV Neut % (Auto) Lymph % (Auto) [place] % (Auto) Eos % (Auto) Baso % (Auto) Neut # (Auto) Lymph # (Auto) [place] # (Auto) Eos # (Auto) Baso # (Auto) Neutrophils % (Manual) Band Neutrophils % Lymphocytes % (Manual) Monocytes % (Manual) Nucleated RBC % Platelet Estimate Polychromasia Hypochromasia (manual) Poikilocytosis (manual Basophilic Stippling Anisocytosis (manual) Target Cells [place] Cells PT 23.2 H D INR 2.0 D APTT 34 D Sodium 148 Potassium 3.5 L Chloride 111 H Carbon Dioxide 24 Anion Gap 17 BUN 26 H Creatinine 2.9 H Est GFR ( Amer) 27 Est GFR (Non-Af Amer) 22 POC Glucose (mg/dL) Random Glucose 103 Calcium 7.6 L Phosphorus 3.7 Magnesium 1.7 Total Bilirubin 4.8 H Direct Bilirubin 3.7 H AST 361 H D ALT 155 H D Alkaline Phosphatase 179 H Total Protein 5.1 L Albumin 2.1 L D Globulin 3.0 Albumin/Globulin Ratio 0.7 L Urine Color Urine Clarity Urine pH Ur Specific [place] Urine Protein Urine Glucose (UA) Urine Ketones Urine Blood Urine Nitrate Urine Bilirubin Urine Urobilinogen Ur Leukocyte Esterase Urine WBC (Auto) Urine RBC (Auto) Urine WBC Clumps (Auto) Amorphous Sediment Urine Bacteria Random Vancomycin 43.61 Blood Type Antibody Screen 01/08/18 06:26 WBC RBC Hgb Hct MCV MCH MCHC RDW Plt Count MPV Neut % (Auto) Lymph % (Auto) [place] % (Auto) Eos % (Auto) Baso % (Auto) Neut # (Auto) Lymph # (Auto) [place] # (Auto) Eos # (Auto) Baso # (Auto) Neutrophils % (Manual) Band Neutrophils % Lymphocytes % (Manual) Monocytes % (Manual) Nucleated RBC % Platelet Estimate Polychromasia Hypochromasia (manual) Poikilocytosis (manual Basophilic Stippling Anisocytosis (manual) Target Cells [place] Cells PT INR APTT Sodium Potassium Chloride Carbon Dioxide Anion Gap BUN Creatinine Est GFR ( Amer) Est GFR (Non-Af Amer) POC Glucose (mg/dL) 96 Random Glucose Calcium Phosphorus Magnesium Total Bilirubin Direct Bilirubin AST ALT Alkaline Phosphatase Total Protein Albumin Globulin Albumin/Globulin Ratio Urine Color Urine Clarity Urine pH Ur Specific [place] Urine Protein Urine Glucose (UA) Urine Ketones Urine Blood Urine Nitrate Urine Bilirubin Urine Urobilinogen Ur Leukocyte Esterase Urine WBC (Auto) Urine RBC (Auto) Urine WBC Clumps (Auto) Amorphous Sediment Urine Bacteria Random Vancomycin Blood Type Antibody Screen Fingerstick Blood Sugar Results: 96 Critical Care Progress Note - Nutrition Nutrition: Nutrition Category Date Time Status NPO Diet [DIET] Diets 01/07/18 Dinner Active Assessment/Plan - Assessment and Plan (Free Text) Assessment: Patient is a 62 year old male with 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 When on the floors patient was unresponsive, CPR was initiated with ROSC. Blood sugar was found to be 20. Patient was intubated and brought to the ICU. Patient is currently AAOx3, extubated himself yesterday. Multifocal Pneumonia -Leukocytosis increasing 27.7 -> 29.1 -Procalcitonin 7.25 -Antibiotics: Merrem 500mg Q8H IV, Flagyl 250mg Q8H IV -CT chest: Bilateral pleural effusions resulting in compressive atelectasis both lower lobes. Mulitfocal subsegmental infiltrates affecting both upper lobes and the superior segment of the lower lobe -Continue supplemental O2 -ID on consult, help appreciated Hypotension -Currently normatensive, will attempt to titrate levophed off -Dilaudid discontinued GI bleed/Anasarca/Elevated LFTs -Patient with coffee ground emesis, NGT to suction -Hgb appears stable at 10.1, s/p 2 units PRBCs, 2 units FFP -Will repeat CBC this afternoon -Diet: NPO -Patient may need EGD, Will discuss with Dr Newby -AST/ALT worsening, Micoafungin discontinued -Continue albumin 12.5mg IV Q6H GI/DVT ppx -Protonix 40mg IVP daily -SCDs -Palliative care on consult to discuss goals of care -Patient and family wish to continue present management and desire aggressive intervention if needed -Will continue to monitor <Candido Welch S - Last Filed: 01/08/18 18:41> CCU Objective - Vital Signs / Intake & Output Vital Signs (Last 4 hours): Vital Signs Temp Pulse Resp BP Pulse Ox 01/08/18 17:00 125/83 01/08/18 16:59 109 H 12 100 01/08/18 16:00 97.6 F 97 H 14 113/73 100 01/08/18 15:00 105 H 15 100 01/08/18 14:59 100 H 12 92/65 L 100 01/08/18 14:55 93 H 10 L 104/68 100 Intake and Output (Last 8hrs): Intake & Output 01/08/18 01/08/18 01/08/18 06:59 14:59 22:59 Intake Total 1111.5 1308.9 300 Output Total 1060 1010 225 Balance 51.5 298.9 75 Intake: IV 104 145 Intake, IV Amount 1007.5 1163.9 300 Right Port-A-Cath 750 1100 300 Right Subclavian 100 right port 157.5 63.9 Output: Gastric Amount 1000 900 200 Stomach 1000 900 200 Urine 60 110 25 Urethral ([place]) 60 110 25 Stool 0 Other: # Bowel Movements 0 - Medications Active Medications: Active Medications Generic Name Dose Route Start Last Admin Trade Name Freq PRN Reason Stop Dose Admin Acetaminophen 650 mg 01/01/18 02:46 Tylenol 325mg Tab PO Q6 PRN Fever >100.4 F Albumin Human 12.5 gm 01/08/18 00:30 01/08/18 17:34 Albumin Human 25% (12.5 Gm/50 Ml) IV 01/10/18 00:30 12.5 gm Q6H HOLLY Administration Benzocaine/Menthol 1 rosmery 01/03/18 18:10 Cepacol Sore Throat MT Q6H PRN Sore Throat Diphenhydramine HCl 25 mg 01/03/18 18:08 01/08/18 17:09 Benadryl IVP 25 mg Q4H PRN Administration Itching / Pruritus Fentanyl 1 patch 01/03/18 20:00 01/06/18 20:50 Duragesic TD 1 patch Q72H HOLLY Administration Hydromorphone HCl 1 mg 01/08/18 16:54 01/08/18 17:04 Dilaudid IVP 1 mg Q4H PRN Administration pain Meropenem 500 mg/ Sodium 100 mls @ 100 mls/hr 01/05/18 22:00 01/08/18 13:18 Chloride IVPB 100 mls/hr Q8 HOLLY Administration Protocol Dextrose/Sodium Chloride 1,000 mls @ 100 mls/hr 01/07/18 10:00 01/08/18 05:41 Dextrose 5%/0.9% Ns 1000 Ml IV 100 mls/hr .Q10H HOLLY Administration Metronidazole 250 mg in 50 mls @ 100 mls/hr 01/07/18 22:00 01/08/18 13:17 Flagyl IVPB 01/12/18 22:01 100 mls/hr Q8 HOLLY Administration Protocol Norepinephrine Bitartrate 4 mg 254 mls @ 15.24 mls/hr 01/07/18 21:17 13:14 / Dextrose IV 0 mcg/min .[id number] PRN 0 mls/hr TITRATE PER MD ORDER Titration Protocol 4 MCG/MIN Metoclopramide HCl 5 mg 01/07/18 15:45 01/08/18 15:05 Reglan IVP 5 mg Q6H HOLLY Administration Pantoprazole Sodium 40 mg 01/08/18 15:30 01/08/18 17:05 Protonix Inj IVP 40 mg DAILY HOLLY Administration Potassium Chloride 40 meq 01/05/18 10:00 01/05/18 09:16 K-Dur 20 Meq Er Tab PO 40 meq ONCE HOLLY Administration - Patient Studies Lab Studies: Microbiology Studies 01/07/18 09:12 MRSA Culture (Admit) - Final Nose MRSA NOT DETECTED 01/03/18 06:00 Blood Culture - Preliminary Blood-Thru Central Line NO GROWTH AFTER 4 DAYS 01/04/18 06:29 Blood Culture - Preliminary Blood-Thru Central Line NO GROWTH AFTER 4 DAYS 01/02/18 14:00 Blood Culture - Final Blood-Thru Central Line NO GROWTH AFTER 5 DAYS Gram Stain - Final TEST NOT PERFORMED 01/02/18 14:30 Blood Culture - Final Blood-Thru Central Line NO GROWTH AFTER 5 DAYS Lab Studies 01/08/18 01/08/18 01/08/18 Range/Units 17:42 15:15 11:17 WBC (4.8-10.8) K/uL RBC (4.40-5.90) Mil/uL Hgb 9.1 L (12.0-18.0) g/dL Hct 26.2 L (35.0-51.0) % MCV (80.0-94.0) fL MCH (27.0-31.0) pg MCHC (33.0-37.0) g/dL RDW (11.5-14.5) % Plt Count (130-400) K/uL MPV (7.2-11.7) fL Neut % (Auto) (50.0-75.0) % Lymph % (Auto) (20.0-40.0) % [place] % (Auto) (0.0-10.0) % Eos % (Auto) (0.0-4.0) % Baso % (Auto) (0.0-2.0) % Neut # (Auto) (1.8-7.0) K/uL Lymph # (Auto) (1.0-4.3) K/uL [place] # (Auto) (0.0-0.8) K/uL Eos # (Auto) (0.0-0.7) K/uL Baso # (Auto) (0.0-0.2) K/uL Neutrophils % (Manual) (50-75) % Band Neutrophils % (0-2) % Lymphocytes % (Manual) (20-40) % Monocytes % (Manual) (0-10) % Nucleated RBC % (0-0) % Platelet Estimate (NORMAL) Polychromasia Poikilocytosis (manual Anisocytosis (manual) Target Cells PT (9.7-12.2) SECONDS INR APTT (21-34) SECONDS Sodium (132-148) mmol/L Potassium (3.6-5.2) mmol/L Chloride (98-107) mmol/L Carbon Dioxide (22-30) mmol/L Anion Gap (10-20) BUN (9-20) mg/dL Creatinine (0.8-1.5) mg/dL Est GFR ( Amer) Est GFR (Non-Af Amer) POC Glucose (mg/dL) 71 94 (65-110) mg/dL Random Glucose (75-110) mg/dL Calcium (8.6-10.4) mg/dl Phosphorus (2.5-4.5) mg/dL Magnesium (1.6-2.3) mg/dL Total Bilirubin (0.2-1.3) mg/dL Direct Bilirubin (0.0-0.4) mg/dL AST (17-59) U/L ALT (21-72) U/L Alkaline Phosphatase (38-126) U/L Total Protein (6.3-8.3) g/dL Albumin (3.5-5.0) g/dL Globulin (2.2-3.9) gm/dL Albumin/Globulin Ratio (1.0-2.1) Procalcitonin (0.19-0.49) NG/ML Urine Color (YELLOW) Urine Clarity (Clear) Urine pH (5.0-8.0) Ur Specific [place] (1.003-1.030) Urine Protein (NEGATIVE) mg/dL Urine Glucose (UA) (Normal) mg/dL Urine Ketones (NEGATIVE) mg/dL Urine Blood (NEGATIVE) Urine Nitrate (NEGATIVE) Urine Bilirubin (NEGATIVE) Urine Urobilinogen (0.2-1.0) mg/dL Ur Leukocyte Esterase (Negative) [place]/uL Urine WBC (Auto) (0-5) /hpf Urine RBC (Auto) (0-3) /hpf Urine WBC Clumps (Auto) (NONE) /hpf Amorphous Sediment (<OCC) /ul Urine Bacteria (<OCC) Random Vancomycin ug/mL 01/08/18 01/08/18 01/08/18 Range/Units 11:16 06:26 06:21 WBC (4.8-10.8) K/uL RBC (4.40-5.90) Mil/uL Hgb (12.0-18.0) g/dL Hct (35.0-51.0) % MCV (80.0-94.0) fL MCH (27.0-31.0) pg MCHC (33.0-37.0) g/dL RDW (11.5-14.5) % Plt Count (130-400) K/uL MPV (7.2-11.7) fL Neut % (Auto) (50.0-75.0) % Lymph % (Auto) (20.0-40.0) % [place] % (Auto) (0.0-10.0) % Eos % (Auto) (0.0-4.0) % Baso % (Auto) (0.0-2.0) % Neut # (Auto) (1.8-7.0) K/uL Lymph # (Auto) (1.0-4.3) K/uL [place] # (Auto) (0.0-0.8) K/uL Eos # (Auto) (0.0-0.7) K/uL Baso # (Auto) (0.0-0.2) K/uL Neutrophils % (Manual) (50-75) % Band Neutrophils % (0-2) % Lymphocytes % (Manual) (20-40) % Monocytes % (Manual) (0-10) % Nucleated RBC % (0-0) % Platelet Estimate (NORMAL) Polychromasia Poikilocytosis (manual Anisocytosis (manual) Target Cells PT (9.7-12.2) SECONDS INR APTT (21-34) SECONDS Sodium (132-148) mmol/L Potassium (3.6-5.2) mmol/L Chloride (98-107) mmol/L Carbon Dioxide (22-30) mmol/L Anion Gap (10-20) BUN (9-20) mg/dL Creatinine (0.8-1.5) mg/dL Est GFR ( Amer) Est GFR (Non-Af Amer) POC Glucose (mg/dL) 96 (65-110) mg/dL Random Glucose (75-110) mg/dL Calcium (8.6-10.4) mg/dl Phosphorus (2.5-4.5) mg/dL Magnesium (1.6-2.3) mg/dL Total Bilirubin (0.2-1.3) mg/dL Direct Bilirubin (0.0-0.4) mg/dL AST (17-59) U/L ALT (21-72) U/L Alkaline Phosphatase (38-126) U/L Total Protein (6.3-8.3) g/dL Albumin (3.5-5.0) g/dL Globulin (2.2-3.9) gm/dL Albumin/Globulin Ratio (1.0-2.1) Procalcitonin 7.25 H (0.19-0.49) NG/ML Urine Color (YELLOW) Urine Clarity (Clear) Urine pH (5.0-8.0) Ur Specific [place] (1.003-1.030) Urine Protein (NEGATIVE) mg/dL Urine Glucose (UA) (Normal) mg/dL Urine Ketones (NEGATIVE) mg/dL Urine Blood (NEGATIVE) Urine Nitrate (NEGATIVE) Urine Bilirubin (NEGATIVE) Urine Urobilinogen (0.2-1.0) mg/dL Ur Leukocyte Esterase (Negative) [place]/uL Urine WBC (Auto) (0-5) /hpf Urine RBC (Auto) (0-3) /hpf Urine WBC Clumps (Auto) (NONE) /hpf Amorphous Sediment (<OCC) /ul Urine Bacteria (<OCC) Random Vancomycin 43.61 ug/mL 01/08/18 01/08/18 01/08/18 Range/Units 06:21 06:21 06:21 WBC 29.1 H (4.8-10.8) K/uL RBC 3.25 L (4.40-5.90) Mil/uL Hgb 10.2 L (12.0-18.0) g/dL Hct 29.4 L (35.0-51.0) % MCV 90.2 D (80.0-94.0) fL MCH 31.2 H (27.0-31.0) pg MCHC 34.6 (33.0-37.0) g/dL RDW 16.0 H (11.5-14.5) % Plt Count 115 L D (130-400) K/uL MPV 8.7 (7.2-11.7) fL Neut % (Auto) 93.6 H (50.0-75.0) % Lymph % (Auto) 2.2 L (20.0-40.0) % [place] % (Auto) 3.4 (0.0-10.0) % Eos % (Auto) 0.2 (0.0-4.0) % Baso % (Auto) 0.6 (0.0-2.0) % Neut # (Auto) 27.2 H (1.8-7.0) K/uL Lymph # (Auto) 0.6 L (1.0-4.3) K/uL [place] # (Auto) 1.0 H (0.0-0.8) K/uL Eos # (Auto) 0.1 (0.0-0.7) K/uL Baso # (Auto) 0.2 (0.0-0.2) K/uL Neutrophils % (Manual) 92 H (50-75) % Band Neutrophils % 3 H (0-2) % Lymphocytes % (Manual) 2 L (20-40) % Monocytes % (Manual) 3 (0-10) % Nucleated RBC % 3 H (0-0) % Platelet Estimate Slightly decreased L (NORMAL) Polychromasia Slight Poikilocytosis (manual Slight Anisocytosis (manual) Slight Target Cells Moderate PT 23.2 H D (9.7-12.2) SECONDS INR 2.0 D APTT 34 D (21-34) SECONDS Sodium 148 (132-148) mmol/L Potassium 3.5 L (3.6-5.2) mmol/L Chloride 111 H (98-107) mmol/L Carbon Dioxide 24 (22-30) mmol/L Anion Gap 17 (10-20) BUN 26 H (9-20) mg/dL Creatinine 2.9 H (0.8-1.5) mg/dL Est GFR ( Amer) 27 Est GFR (Non-Af Amer) 22 POC Glucose (mg/dL) (65-110) mg/dL Random Glucose 103 (75-110) mg/dL Calcium 7.6 L (8.6-10.4) mg/dl Phosphorus 3.7 (2.5-4.5) mg/dL Magnesium 1.7 (1.6-2.3) mg/dL Total Bilirubin 4.8 H (0.2-1.3) mg/dL Direct Bilirubin 3.7 H (0.0-0.4) mg/dL AST 361 H D (17-59) U/L ALT 155 H D (21-72) U/L Alkaline Phosphatase 179 H (38-126) U/L Total Protein 5.1 L (6.3-8.3) g/dL Albumin 2.1 L D (3.5-5.0) g/dL Globulin 3.0 (2.2-3.9) gm/dL Albumin/Globulin Ratio 0.7 L (1.0-2.1) Procalcitonin (0.19-0.49) NG/ML Urine Color (YELLOW) Urine Clarity (Clear) Urine pH (5.0-8.0) Ur Specific [place] (1.003-1.030) Urine Protein (NEGATIVE) mg/dL Urine Glucose (UA) (Normal) mg/dL Urine Ketones (NEGATIVE) mg/dL Urine Blood (NEGATIVE) Urine Nitrate (NEGATIVE) Urine Bilirubin (NEGATIVE) Urine Urobilinogen (0.2-1.0) mg/dL Ur Leukocyte Esterase (Negative) [place]/uL Urine WBC (Auto) (0-5) /hpf Urine RBC (Auto) (0-3) /hpf Urine WBC Clumps (Auto) (NONE) /hpf Amorphous Sediment (<OCC) /ul Urine Bacteria (<OCC) Random Vancomycin ug/mL 01/07/18 01/07/18 01/07/18 Range/Units 23:48 22:45 22:45 WBC (4.8-10.8) K/uL RBC (4.40-5.90) Mil/uL Hgb 10.8 L D (12.0-18.0) g/dL Hct 32.7 L (35.0-51.0) % MCV (80.0-94.0) fL MCH (27.0-31.0) pg MCHC (33.0-37.0) g/dL RDW (11.5-14.5) % Plt Count (130-400) K/uL MPV (7.2-11.7) fL Neut % (Auto) (50.0-75.0) % Lymph % (Auto) (20.0-40.0) % [place] % (Auto) (0.0-10.0) % Eos % (Auto) (0.0-4.0) % Baso % (Auto) (0.0-2.0) % Neut # (Auto) (1.8-7.0) K/uL Lymph # (Auto) (1.0-4.3) K/uL [place] # (Auto) (0.0-0.8) K/uL Eos # (Auto) (0.0-0.7) K/uL Baso # (Auto) (0.0-0.2) K/uL Neutrophils % (Manual) (50-75) % Band Neutrophils % (0-2) % Lymphocytes % (Manual) (20-40) % Monocytes % (Manual) (0-10) % Nucleated RBC % (0-0) % Platelet Estimate (NORMAL) Polychromasia Poikilocytosis (manual Anisocytosis (manual) Target Cells PT (9.7-12.2) SECONDS INR APTT (21-34) SECONDS Sodium 143 (132-148) mmol/L Potassium 3.5 L (3.6-5.2) mmol/L Chloride 113 H (98-107) mmol/L Carbon Dioxide 19 L (22-30) mmol/L Anion Gap 15 (10-20) BUN 24 H (9-20) mg/dL Creatinine 2.8 H (0.8-1.5) mg/dL Est GFR ( Amer) 28 Est GFR (Non-Af Amer) 23 POC Glucose (mg/dL) 90 (65-110) mg/dL Random Glucose 104 (75-110) mg/dL Calcium 7.5 L (8.6-10.4) mg/dl Phosphorus (2.5-4.5) mg/dL Magnesium (1.6-2.3) mg/dL Total Bilirubin (0.2-1.3) mg/dL Direct Bilirubin (0.0-0.4) mg/dL AST (17-59) U/L ALT (21-72) U/L Alkaline Phosphatase (38-126) U/L Total Protein (6.3-8.3) g/dL Albumin (3.5-5.0) g/dL Globulin (2.2-3.9) gm/dL Albumin/Globulin Ratio (1.0-2.1) Procalcitonin (0.19-0.49) NG/ML Urine Color (YELLOW) Urine Clarity (Clear) Urine pH (5.0-8.0) Ur Specific [place] (1.003-1.030) Urine Protein (NEGATIVE) mg/dL Urine Glucose (UA) (Normal) mg/dL Urine Ketones (NEGATIVE) mg/dL Urine Blood (NEGATIVE) Urine Nitrate (NEGATIVE) Urine Bilirubin (NEGATIVE) Urine Urobilinogen (0.2-1.0) mg/dL Ur Leukocyte Esterase (Negative) [place]/uL Urine WBC (Auto) (0-5) /hpf Urine RBC (Auto) (0-3) /hpf Urine WBC Clumps (Auto) (NONE) /hpf Amorphous Sediment (<OCC) /ul Urine Bacteria (<OCC) Random Vancomycin ug/mL 01/07/18 01/07/18 Range/Units 19:40 18:48 WBC (4.8-10.8) K/uL RBC (4.40-5.90) Mil/uL Hgb (12.0-18.0) g/dL Hct (35.0-51.0) % MCV (80.0-94.0) fL MCH (27.0-31.0) pg MCHC (33.0-37.0) g/dL RDW (11.5-14.5) % Plt Count (130-400) K/uL MPV (7.2-11.7) fL Neut % (Auto) (50.0-75.0) % Lymph % (Auto) (20.0-40.0) % [place] % (Auto) (0.0-10.0) % Eos % (Auto) (0.0-4.0) % Baso % (Auto) (0.0-2.0) % Neut # (Auto) (1.8-7.0) K/uL Lymph # (Auto) (1.0-4.3) K/uL [place] # (Auto) (0.0-0.8) K/uL Eos # (Auto) (0.0-0.7) K/uL Baso # (Auto) (0.0-0.2) K/uL Neutrophils % (Manual) (50-75) % Band Neutrophils % (0-2) % Lymphocytes % (Manual) (20-40) % Monocytes % (Manual) (0-10) % Nucleated RBC % (0-0) % Platelet Estimate (NORMAL) Polychromasia Poikilocytosis (manual Anisocytosis (manual) Target Cells PT (9.7-12.2) SECONDS INR APTT (21-34) SECONDS Sodium (132-148) mmol/L Potassium (3.6-5.2) mmol/L Chloride (98-107) mmol/L Carbon Dioxide (22-30) mmol/L Anion Gap (10-20) BUN (9-20) mg/dL Creatinine (0.8-1.5) mg/dL Est GFR ( Amer) Est GFR (Non-Af Amer) POC Glucose (mg/dL) 65 (65-110) mg/dL Random Glucose (75-110) mg/dL Calcium (8.6-10.4) mg/dl Phosphorus (2.5-4.5) mg/dL Magnesium (1.6-2.3) mg/dL Total Bilirubin (0.2-1.3) mg/dL Direct Bilirubin (0.0-0.4) mg/dL AST (17-59) U/L ALT (21-72) U/L Alkaline Phosphatase (38-126) U/L Total Protein (6.3-8.3) g/dL Albumin (3.5-5.0) g/dL Globulin (2.2-3.9) gm/dL Albumin/Globulin Ratio (1.0-2.1) Procalcitonin (0.19-0.49) NG/ML Urine Color [place] (YELLOW) Urine Clarity Turbid (Clear) Urine pH 5.0 (5.0-8.0) Ur Specific [place] 1.033 H (1.003-1.030) Urine Protein 2+ H (NEGATIVE) mg/dL Urine Glucose (UA) 1+ H (Normal) mg/dL Urine Ketones Negative (NEGATIVE) mg/dL Urine Blood 1+ H (NEGATIVE) Urine Nitrate Negative (NEGATIVE) Urine Bilirubin 1+ H (NEGATIVE) Urine Urobilinogen Normal (0.2-1.0) mg/dL Ur Leukocyte Esterase Neg (Negative) [place]/uL Urine WBC (Auto) 21 H (0-5) /hpf Urine RBC (Auto) 13 H (0-3) /hpf Urine WBC Clumps (Auto) Few H (NONE) /hpf Amorphous Sediment Rare H (<OCC) /ul Urine Bacteria Occ H (<OCC) Random Vancomycin ug/mL Laboratory Results - last 24 hr 01/07/18 01/07/18 01/07/18 18:48 19:40 22:45 WBC RBC Hgb Hct MCV MCH MCHC RDW Plt Count MPV Neut % (Auto) Lymph % (Auto) [place] % (Auto) Eos % (Auto) Baso % (Auto) Neut # (Auto) Lymph # (Auto) [place] # (Auto) Eos # (Auto) Baso # (Auto) Neutrophils % (Manual) Band Neutrophils % Lymphocytes % (Manual) Monocytes % (Manual) Nucleated RBC % Platelet Estimate Polychromasia Poikilocytosis (manual Anisocytosis (manual) Target Cells PT INR APTT Sodium 143 Potassium 3.5 L Chloride 113 H Carbon Dioxide 19 L Anion Gap 15 BUN 24 H Creatinine 2.8 H Est GFR ( Amer) 28 Est GFR (Non-Af Amer) 23 POC Glucose (mg/dL) 65 Random Glucose 104 Calcium 7.5 L Phosphorus Magnesium Total Bilirubin Direct Bilirubin AST ALT Alkaline Phosphatase Total Protein Albumin Globulin Albumin/Globulin Ratio Procalcitonin Urine Color Dilia Urine Clarity Turbid Urine pH 5.0 Ur Specific [place] 1.033 H Urine Protein 2+ H Urine Glucose (UA) 1+ H Urine Ketones Negative Urine Blood 1+ H Urine Nitrate Negative Urine Bilirubin 1+ H Urine Urobilinogen Normal Ur Leukocyte Esterase Neg Urine WBC (Auto) 21 H Urine RBC (Auto) 13 H Urine WBC Clumps (Auto) Few H Amorphous Sediment Rare H Urine Bacteria Occ H Random Vancomycin 01/07/18 01/07/18 01/08/18 22:45 23:48 06:21 WBC 29.1 H RBC 3.25 L Hgb 10.8 L D 10.2 L Hct 32.7 L 29.4 L MCV 90.2 D MCH 31.2 H MCHC 34.6 RDW 16.0 H Plt Count 115 L D MPV 8.7 Neut % (Auto) 93.6 H Lymph % (Auto) 2.2 L [place] % (Auto) 3.4 Eos % (Auto) 0.2 Baso % (Auto) 0.6 Neut # (Auto) 27.2 H Lymph # (Auto) 0.6 L [place] # (Auto) 1.0 H Eos # (Auto) 0.1 Baso # (Auto) 0.2 Neutrophils % (Manual) 92 H Band Neutrophils % 3 H Lymphocytes % (Manual) 2 L Monocytes % (Manual) 3 Nucleated RBC % 3 H Platelet Estimate Slightly decreased L Polychromasia Slight Poikilocytosis (manual Slight Anisocytosis (manual) Slight Target Cells Moderate PT INR APTT Sodium Potassium Chloride Carbon Dioxide Anion Gap BUN Creatinine Est GFR ( Amer) Est GFR (Non-Af Amer) POC Glucose (mg/dL) 90 Random Glucose Calcium Phosphorus Magnesium Total Bilirubin Direct Bilirubin AST ALT Alkaline Phosphatase Total Protein Albumin Globulin Albumin/Globulin Ratio Procalcitonin Urine Color Urine Clarity Urine pH Ur Specific [place] Urine Protein Urine Glucose (UA) Urine Ketones Urine Blood Urine Nitrate Urine Bilirubin Urine Urobilinogen Ur Leukocyte Esterase Urine WBC (Auto) Urine RBC (Auto) Urine WBC Clumps (Auto) Amorphous Sediment Urine Bacteria Random Vancomycin 01/08/18 01/08/18 01/08/18 06:21 06:21 06:21 WBC RBC Hgb Hct MCV MCH MCHC RDW Plt Count MPV Neut % (Auto) Lymph % (Auto) [place] % (Auto) Eos % (Auto) Baso % (Auto) Neut # (Auto) Lymph # (Auto) [place] # (Auto) Eos # (Auto) Baso # (Auto) Neutrophils % (Manual) Band Neutrophils % Lymphocytes % (Manual) Monocytes % (Manual) Nucleated RBC % Platelet Estimate Polychromasia Poikilocytosis (manual Anisocytosis (manual) Target Cells PT 23.2 H D INR 2.0 D APTT 34 D Sodium 148 Potassium 3.5 L Chloride 111 H Carbon Dioxide 24 Anion Gap 17 BUN 26 H Creatinine 2.9 H Est GFR ( Amer) 27 Est GFR (Non-Af Amer) 22 POC Glucose (mg/dL) Random Glucose 103 Calcium 7.6 L Phosphorus 3.7 Magnesium 1.7 Total Bilirubin 4.8 H Direct Bilirubin 3.7 H AST 361 H D ALT 155 H D Alkaline Phosphatase 179 H Total Protein 5.1 L Albumin 2.1 L D Globulin 3.0 Albumin/Globulin Ratio 0.7 L Procalcitonin Urine Color Urine Clarity Urine pH Ur Specific [place] Urine Protein Urine Glucose (UA) Urine Ketones Urine Blood Urine Nitrate Urine Bilirubin Urine Urobilinogen Ur Leukocyte Esterase Urine WBC (Auto) Urine RBC (Auto) Urine WBC Clumps (Auto) Amorphous Sediment Urine Bacteria Random Vancomycin 43.61 01/08/18 01/08/18 01/08/18 06:26 11:16 11:17 WBC RBC Hgb Hct MCV MCH MCHC RDW Plt Count MPV Neut % (Auto) Lymph % (Auto) [place] % (Auto) Eos % (Auto) Baso % (Auto) Neut # (Auto) Lymph # (Auto) [place] # (Auto) Eos # (Auto) Baso # (Auto) Neutrophils % (Manual) Band Neutrophils % Lymphocytes % (Manual) Monocytes % (Manual) Nucleated RBC % Platelet Estimate Polychromasia Poikilocytosis (manual Anisocytosis (manual) Target Cells PT INR APTT Sodium Potassium Chloride Carbon Dioxide Anion Gap BUN Creatinine Est GFR ( Amer) Est GFR (Non-Af Amer) POC Glucose (mg/dL) 96 94 Random Glucose Calcium Phosphorus Magnesium Total Bilirubin Direct Bilirubin AST ALT Alkaline Phosphatase Total Protein Albumin Globulin Albumin/Globulin Ratio Procalcitonin 7.25 H Urine Color Urine Clarity Urine pH Ur Specific [place] Urine Protein Urine Glucose (UA) Urine Ketones Urine Blood Urine Nitrate Urine Bilirubin Urine Urobilinogen Ur Leukocyte Esterase Urine WBC (Auto) Urine RBC (Auto) Urine WBC Clumps (Auto) Amorphous Sediment Urine Bacteria Random Vancomycin 01/08/18 01/08/18 15:15 17:42 WBC RBC Hgb 9.1 L Hct 26.2 L MCV MCH MCHC RDW Plt Count MPV Neut % (Auto) Lymph % (Auto) [place] % (Auto) Eos % (Auto) Baso % (Auto) Neut # (Auto) Lymph # (Auto) [place] # (Auto) Eos # (Auto) Baso # (Auto) Neutrophils % (Manual) Band Neutrophils % Lymphocytes % (Manual) Monocytes % (Manual) Nucleated RBC % Platelet Estimate Polychromasia Poikilocytosis (manual Anisocytosis (manual) Target Cells PT INR APTT Sodium Potassium Chloride Carbon Dioxide Anion Gap BUN Creatinine Est GFR ( Amer) Est GFR (Non-Af Amer) POC Glucose (mg/dL) 71 Random Glucose Calcium Phosphorus Magnesium Total Bilirubin Direct Bilirubin AST ALT Alkaline Phosphatase Total Protein Albumin Globulin Albumin/Globulin Ratio Procalcitonin Urine Color Urine Clarity Urine pH Ur Specific [place] Urine Protein Urine Glucose (UA) Urine Ketones Urine Blood Urine Nitrate Urine Bilirubin Urine Urobilinogen Ur Leukocyte Esterase Urine WBC (Auto) Urine RBC (Auto) Urine WBC Clumps (Auto) Amorphous Sediment Urine Bacteria Random Vancomycin Critical Care Progress Note - Nutrition Nutrition: Nutrition Category Date Time Status NPO Diet [DIET] Diets 01/07/18 Dinner Active Attending/Attestation - Attestation I have personally seen and examined this patient.: Yes I have fully participated in the care of the patient.: Yes I have reviewed all pertinent clinical information: Yes Notes (Text): 01/08/18 18:38 Patient seen and examined in the intensive care unit. Case discussed with house staff in the morning rounds. Being treated for multifocal pneumonia Follow-up H&H and transfuse if necessary Continue ICU observation Patient is full code
--- NOTE | 2018-01-08 12:48 | US ---
HISTORY: ASCITES. COMPARISON: None. TECHNIQUE: limited sonographic evaluation of the abdomen is performed for purposes of paracentesis. FINDINGS: Limited abdominal ultrasound and was performed. There insufficient fluid for paracentesis. IMPRESSION: Abdominal ultrasound showed no significant ascites for paracentesis.
--- NOTE | 2018-01-08 13:54 | CT ---
PROCEDURE: CT Chest without contrast HISTORY: pneumonia COMPARISON: None. TECHNIQUE: Contiguous axial images were obtained through the chest without intravenous contrast enhancement. Sagittal and coronal reconstructions were performed. Radiation dose (DLP): 784.51 mGy-cm. This CT exam was performed using one or more of the following dose reduction techniques: Automated exposure control, adjustment of the mA and/or kV according to patient size, and/or use of iterative reconstruction technique. FINDINGS: LUNGS: Compressive atelectasis related to bilateral pleural effusions. Multifocal bilateral infiltrates primarily affecting both upper lobes, superior segment of left lower lobe. No discrete pulmonary nodules or masses. MEDIASTINUM: Unremarkable thoracic aorta. No aneurysm. Normal sized heart. Main pulmonary artery unremarkable. No vascular congestion. No lymphadenopathy. PLEURA: No pleural fluid. No pneumothorax. BONES: No fracture. No destructive lesion. UPPER ABDOMEN: Hepatic metastatic disease previously identified 01/03/2018 CT scan. Nasogastric tube courses through the esophagus in satisfactory position in the stomach. Incompletely visualized intra-abdominal ascites. OTHER FINDINGS: None. IMPRESSION: Bilateral pleural effusions resulting in compressive atelectasis both lower lobes. Multifocal subsegmental infiltrates particularly affecting both upper lobes and the superior segment of the left lower lobe. Additional intra-abdominal findings better characterized on recent CT scan of the abdomen and pelvis 01/03/2018.
[2018-01-08 15:20] LABS: HEMOGLOBIN 9.1 g/dL (12.0-18.0)
--- NOTE | 2018-01-08 16:20 | CP.PCM.PN ---
Subjective - Date & Time of Evaluation Date of Evaluation: 01/08/18 Time of Evaluation: 16:20 - Subjective Subjective: CHIEF COMPLAINTS TODAY : EVENTS NOTED. Patient in ICU bed 11 transferred 01/07/18 s/p RR, code blue HYPOTENSIVE on vasopressors EXTUBATED NOW. AAO. C/O GEN.ABDOMINAL PAIN. ROS. HEENT : EXTUBATED Resp : No SOB wheezing, cough Cardio : No CP, PND orthopnea GI : +VE ABDOMINAL PAIN, NO n/v ACCOUNT SOLUTIONS ANALYST : No headache , focal deficit. Musculoskel : N Ext. : Pedal pulses intact, +VE EDEMA, NO calf pain Derm : N Psych : N. PE. PATIENT EXTUBATED Pt. is alert awake in no distress. V.S As noted in the chart Head ,ear nose,throat and eyes : Normal. Neck : Supple with normal carotids. Lungs: BILATERAL RHONCHI/RALES Heart : S1 & S2 normal .SINUS TACHYCARDIA, . No murmur. S4 + Abd : SOFT, SLIGHTLY DISTENDED, +VE ASCITES,+VE GENERALIZED TENDERNESS with normal bowel sounds. Neuro : Moves all ext. with no localized deficit. Ext : B/L EDEMA 2+, with intact pulses. Neg. calf tenderness Derm : No rashes or decubitus ulcer. GENITALIA .; SWOLLEN Radiology/Labs . REVIEWED CT CHEST WITHOUT CONTRAST 01/08/18 NOTED. Bilateral pleural effusions with compressive atelectasis both lower lobes. Multifocal subsegmental infiltrates affecting both upper lobes. RANDOM VANCO STILL-high ( Vanco DC'd 01/06/[address] ) [address] ABDOMEN AND PELVIS WITH BY MOUTH AND iv CONTRAST 01/02/18 Multiple hepatic low-attenuation lesions ? metastatic diseasevs infectious etiology. Postoperative cholecystectomy Colitis small large bowel. Generalized anasarca. ? Lytic lesion T12. Asssessment : S/P RESPIRATORY FAILURE, ASPIRATION PNEUMONIA. S/P code blue 01/06/18. SEPSIS/ ? INTRAABDOMINAL R/O SBP VS MALIGNANT ASCITES ABDOMINAL PAIN ? 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 GI BLEEDING CHOLANGIOCARCINOMA /ASCITES ?MALIGNANT. ?METASTATIC DISEASE. SHOCK LIVER MULTIPLE HEPATIC MASSES ? ABSCESSES ? FUNGAL ODYNOPHAGIA ? R/O GREGORIO ESOPHAGITES HTN ELLYN -secondary to hypotension. Objective - Vital Signs/Intake and Output Vital Signs (last 24 hours): Temp Pulse Resp BP Pulse Ox 97.6 F 97 H 14 113/73 100 01/08/18 16:00 01/08/18 16:00 01/08/18 16:00 01/08/18 16:00 01/08/18 16:00 Intake and Output: 01/08/18 01/08/18 06:59 18:59 Intake Total 2061.5 1508.9 Output Total 1260 815 Balance 801.5 693.9 - Medications Medications: Current Medications Acetaminophen (Tylenol 325mg Tab) 650 mg PO Q6 PRN PRN Reason: Fever >100.4 F Albumin Human (Albumin Human 25% (12.5 Gm/50 Ml)) 12.5 gm IV Q6H HOLLY Stop: 01/10/18 00:30 Last Admin: 01/08/18 13:12 Dose: 12.5 gm Benzocaine/Menthol (Cepacol Sore Throat) 1 rosmery MT Q6H PRN PRN Reason: Sore Throat Diphenhydramine HCl (Benadryl) 25 mg IVP Q4H PRN PRN Reason: Itching / Pruritus Last Admin: 01/07/18 18:02 Dose: 25 mg Fentanyl (Duragesic) 1 patch TD Q72H HOLLY Last Admin: 01/06/18 20:50 Dose: 1 patch Meropenem 500 mg/ Sodium (Chloride) 100 mls @ 100 mls/hr IVPB Q8 HOLLY PRN Reason: Protocol Last Admin: 01/08/18 13:18 Dose: 100 mls/hr Dextrose/Sodium Chloride (Dextrose 5%/0.9% Ns 1000 Ml) 1,000 mls @ 100 mls/hr IV .Q10H HOLLY Last Admin: 01/08/18 05:41 Dose: 100 mls/hr Metronidazole (Flagyl) 250 mg in 50 mls @ 100 mls/hr IVPB Q8 HOLLY PRN Reason: Protocol Stop: 01/12/18 22:01 Last Admin: 01/08/18 13:17 Dose: 100 mls/hr Norepinephrine Bitartrate 4 mg (/ Dextrose) 254 mls @ 15.24 mls/hr IV .[id number] PRN; Protocol; 4 MCG/MIN PRN Reason: TITRATE PER MD ORDER Last Titration: 01/08/18 13:14 Dose: 0 mcg/min, 0 mls/hr Metoclopramide HCl (Reglan) 5 mg IVP Q6H HOLLY Last Admin: 01/08/18 15:05 Dose: 5 mg Pantoprazole Sodium (Protonix Inj) 40 mg IVP DAILY [facility] Potassium Chloride (K-Dur 20 Meq Er Tab) 40 meq PO ONCE HOLLY Last Admin: 01/05/18 09:16 Dose: 40 meq - Labs Labs: 01/08/18 15:15 01/08/18 06:21 PT 23.2 SECONDS (9.7-12.2) H D 01/08/18 06:21 INR 2.0 D 01/08/18 06:21 APTT 34 SECONDS (21-34) D 01/08/18 06:21 Assessment and Plan (1) Sepsis Status: Acute (2) Abdominal pain Status: Acute (3) Ascites, malignant Status: Acute (4) Cholangiocarcinoma Status: Chronic (5) Hypertension Status: Acute - Assessment and Plan (Free Text) Plan: on IV MERREM 500MG IVPB Q 8HRLY 01/05/18 FOR PRABABLE COVERAGE FOR +VE ESBLKLEBSIELLA PN. VS E.COLI 01/05/18 OFF iv VANCOMYCIN 1 G EVERY 12 HOURLY. 01/02/18-01/06/18 CONTINUE fLAGYL 500 iv PIGGYBACK EVERY 12 HOURLY FOR ANAEROBIC COVERAGE. . CONTINUE IV MYCAFUNGIN 100MG IVPB Q 24HRLY HRLY. 01/03/18. PATIENT PRESENTLY ON VASOPRESSORS.. NOTED PATIENT FULL CODE AFTER DISCUSSIONS WITH FAMILY PER PALLIATIVE CARE. wATCH h&h. REPEAT vANCO RANDOM LEVEL IN A.M. MRSA SCREEN.
[2018-01-08] MEDS: HYDROmorphone 1 mg/ml ISec IVP PRN ×2 (17:04→21:29)
[2018-01-08] MEDS: DiphenhydrAMINE 50 mg/ml Inj IVP PRN ×2 (17:09→21:31)
--- NOTE | 2018-01-08 17:18 | CP.PCM.PN ---
Subjective - Date & Time of Evaluation Date of Evaluation: 01/08/18 Time of Evaluation: 08:45 - Subjective Subjective: Patient is intubated,he is very sick, CPR and MV was done, he understands his condition , he also attempted to pull out his ventilator, no sedated, alert, makes eyes contact and blinks for " yes' answer. Patient looks severly ill. Significant whipping edema to upper and lower extremities. There is gastric tube in place and to suction, draining maroon color drainage. per nursing, there was no recent melena. Abdomen is softly distended. Objective - Vital Signs/Intake and Output Vital Signs (last 24 hours): Temp Pulse Resp BP Pulse Ox 97.6 F 109 H 12 125/83 100 01/08/18 16:00 01/08/18 16:59 01/08/18 16:59 01/08/18 17:00 01/08/18 16:59 Intake and Output: 01/08/18 01/08/18 06:59 18:59 Intake Total 2061.5 1608.9 Output Total 1260 1235 Balance 801.5 373.9 - Medications Medications: Current Medications Acetaminophen (Tylenol 325mg Tab) 650 mg PO Q6 PRN PRN Reason: Fever >100.4 F Albumin Human (Albumin Human 25% (12.5 Gm/50 Ml)) 12.5 gm IV Q6H HOLLY Stop: 01/10/18 00:30 Last Admin: 01/08/18 13:12 Dose: 12.5 gm Benzocaine/Menthol (Cepacol Sore Throat) 1 rosmery MT Q6H PRN PRN Reason: Sore Throat Diphenhydramine HCl (Benadryl) 25 mg IVP Q4H PRN PRN Reason: Itching / Pruritus Last Admin: 01/08/18 17:09 Dose: 25 mg Fentanyl (Duragesic) 1 patch TD Q72H HOLLY Last Admin: 01/06/18 20:50 Dose: 1 patch Hydromorphone HCl (Dilaudid) 1 mg IVP Q4H PRN PRN Reason: pain Last Admin: 01/08/18 17:04 Dose: 1 mg Meropenem 500 mg/ Sodium (Chloride) 100 mls @ 100 mls/hr IVPB Q8 HOLLY PRN Reason: Protocol Last Admin: 01/08/18 13:18 Dose: 100 mls/hr Dextrose/Sodium Chloride (Dextrose 5%/0.9% Ns 1000 Ml) 1,000 mls @ 100 mls/hr IV .Q10H HOLLY Last Admin: 01/08/18 05:41 Dose: 100 mls/hr Metronidazole (Flagyl) 250 mg in 50 mls @ 100 mls/hr IVPB Q8 HOLLY PRN Reason: Protocol Stop: 01/12/18 22:01 Last Admin: 01/08/18 13:17 Dose: 100 mls/hr Norepinephrine Bitartrate 4 mg (/ Dextrose) 254 mls @ 15.24 mls/hr IV .[id number] PRN; Protocol; 4 MCG/MIN PRN Reason: TITRATE PER MD ORDER Last Titration: 01/08/18 13:14 Dose: 0 mcg/min, 0 mls/hr Metoclopramide HCl (Reglan) 5 mg IVP Q6H HOLLY Last Admin: 01/08/18 15:05 Dose: 5 mg Pantoprazole Sodium (Protonix Inj) 40 mg IVP DAILY [facility] Last Admin: 01/08/18 17:05 Dose: 40 mg Potassium Chloride (K-Dur 20 Meq Er Tab) 40 meq PO ONCE HOLLY Last Admin: 01/05/18 09:16 Dose: 40 meq - Labs Labs: 01/08/18 15:15 01/08/18 06:21 PT 23.2 SECONDS (9.7-12.2) H D 01/08/18 06:21 INR 2.0 D 01/08/18 06:21 APTT 34 SECONDS (21-34) D 01/08/18 06:21 Assessment and Plan (1) Abdominal pain Status: Acute (2) Cholangiocarcinoma Status: Chronic (3) Dehydration Status: Acute (4) Hypertension Status: Acute (5) Septicemia Status: Acute
[2018-01-08 20:16] LABS: HEMOGLOBIN 9.4 g/dL (12.0-18.0)
[2018-01-09] MEDS: Albumin Human 25% (12.5 gm/50 ml) IV SCH ×4 (00:19→18:00)
[2018-01-09] MEDS: DiphenhydrAMINE 50 mg/ml Inj IVP PRN ×6 (01:20→22:45)
[2018-01-09] MEDS: HYDROmorphone 1 mg/ml ISec IVP PRN ×6 (01:22→22:45)
[2018-01-09] MEDS: Dextrose 5%/0.9% NS 1,000 ML IV SCH (01:51)
[2018-01-09] MEDS: metroNIDAZOLE IV 250mg/50 ml 250 MG/50 ML BAG IVPB SCH ×3 (05:52→21:01)
[2018-01-09] MEDS: Meropenem 500 MG in Sodium Chloride 0.9% 100 ML IVPB SCH ×3 (05:55→21:02)
[2018-01-09 06:31] LABS: BASO # 0.1 K/uL (0.0-0.2); BASO % 0.4 % (0.0-2.0); EOS # 0.1 K/uL (0.0-0.7); EOS % 0.6 % (0.0-4.0); HEMOGLOBIN 8.8 g/dL (12.0-18.0); LYMPH # 0.4 K/uL (1.0-4.3); LYMPH % 1.9 % (20.0-40.0); MEAN CELL VOLUME 91.9 fL (80.0-94.0); MEAN CORPUSCULAR HEMOGLOBIN 31.4 pg (27.0-31.0); MEAN CORPUSCULAR HGB CONC 34.2 g/dL (33.0-37.0); MEAN PLATELET VOLUME 8.5 fL (7.2-11.7); MONO % 4.3 % (0.0-10.0); NEUT # 20.6 K/uL (1.8-7.0); NEUT % 92.8 % (50.0-75.0); NRBC % 0.5 % (0.0-2.0); PLATELET COUNT 63 K/uL (130-400); RBC 2.81 Mil/uL (4.40-5.90); RED CELL DISTRIBUTION WIDTH 17.4 % (11.5-14.5); WHITE BLOOD COUNT 22.2 K/uL (4.8-10.8)
[2018-01-09 06:37] LABS: INR 2.1; PROTHROMBIN TIME 23.9 SECONDS (9.7-12.2)
[2018-01-09 06:38] LABS: ALB/GLOB RATIO 0.8 (1.0-2.1); BILIRUBIN,DIRECT 3.9 mg/dL (0.0-0.4); CALCIUM 7.6 mg/dl (8.6-10.4)
[2018-01-09 08:19] LABS: BANDS 4 % (0-2); EOSINOPHIL 1 % (0-4); LYMPHOCYTE 2 % (20-40); MONOCYTE 3 % (0-10); NEUTROPHIL 90 % (50-75); PLATELET ESTIMATE DECREASED (NORMAL); TOTAL CELLS COUNTED 100
[2018-01-09 08:20] LABS: ANISOCYTOSIS SLIGHT; MICROCYTOSIS SLIGHT; POIKILOCYTOSIS SLIGHT; POLYCHROMIC SLIGHT; TARGET CELLS SLIGHT
[2018-01-09 08:21] LABS: HYPOCHROMIC MODERATE; OVALOCYTES SLIGHT
[2018-01-09] MEDS ORDERED: Dextrose 5%/0.45% NS 1,000 ML IV SCH (09:30)
--- NOTE | 2018-01-09 09:53 | CP.CCUPN ---
<Valerie Montemayor - Last Filed: 01/09/18 14:01> CCU Subjective - Physician Review Subjective (Free Text): 01/09/18 09:52 Patient seen and examined at bedside. Per nursing no acute events overnight. Levophed titrated off, BPs have been stable. Patient states having some abdominal discomfort. Denies headaches, dizziness, cp, palpitations, sob, urinary symptoms. CCU Objective - Vital Signs / Intake & Output Vital Signs (Last 4 hours): Vital Signs Temp Pulse Resp BP Pulse Ox 01/09/18 09:03 96 H 11 L 133/87 100 01/09/18 08:16 94 H 16 137/89 100 01/09/18 08:00 98.9 F 100 01/09/18 07:00 93 H 10 L 100 01/09/18 06:59 120/75 01/09/18 06:00 100 H 11 L 100 01/09/18 05:59 107/82 Intake and Output (Last 8hrs): Intake & Output 01/08/18 01/09/18 01/09/18 22:59 06:59 14:59 Intake Total 750 900 300 Output Total 740 660 65 Balance 10 240 235 Intake: Intake, IV Amount 750 900 300 Right Port-A-Cath 750 800 300 Right Subclavian 100 Output: Gastric Amount 600 500 Stomach 600 500 Urine 140 160 65 Urethral (Woods) 140 160 65 Other: # Bowel Movements 0 0 0 - Physical Exam Other physical findings (Free Text): - Physical Exam Other physical findings (Free Text): - Constitutional Appears: No Acute Distress, Chronically Ill - Head Exam Head Exam: ATRAUMATIC, NORMAL INSPECTION, NORMOCEPHALIC - Eye Exam Eye Exam: EOMI, Normal appearance, PERRL Pupil Exam: NORMAL ACCOMODATION, PERRL - ENT Exam Additional comments: NGT with greenish drainage - Neck Exam Neck Exam: Full ROM, Normal Inspection - Respiratory Exam Respiratory Exam: Decreased Breath Sounds - Cardiovascular Exam Cardiovascular Exam: Tachycardia - GI/Abdominal Exam GI & Abdominal Exam: Diminished Bowel Sounds - Rectal Exam Rectal Exam: Deferred - Extremities Exam Extremities Exam: Pedal Edema Additional comments: weeping edema to right upper arm. - Neurological Exam Neurological Exam: Alert, Oriented x3 - Psychiatric Exam Psychiatric exam: Normal Affect, Normal Mood - Skin Skin Exam: Mottled, Normal Color - Medications Active Medications: Active Medications Generic Name Dose Route Start Last Admin Trade Name Freq PRN Reason Stop Dose Admin Acetaminophen 650 mg 01/01/18 02:46 Tylenol 325mg Tab PO Q6 PRN Fever >100.4 F Albumin Human 12.5 gm 01/08/18 00:30 01/09/18 05:55 Albumin Human 25% (12.5 Gm/50 Ml) IV 01/10/18 00:30 12.5 gm Q6H HOLLY Administration Benzocaine/Menthol 1 rosmery 01/03/18 18:10 Cepacol Sore Throat MT Q6H PRN Sore Throat Diphenhydramine HCl 25 mg 01/03/18 18:08 01/09/18 05:54 Benadryl IVP 25 mg Q4H PRN Administration Itching / Pruritus Famotidine 20 mg 01/09/18 10:00 01/09/18 09:06 Pepcid IVP 20 mg DAILY HOLLY Administration Fentanyl 1 patch 01/03/18 20:00 01/06/18 20:50 Duragesic TD 1 patch Q72H HOLLY Administration Hydromorphone HCl 1 mg 01/09/18 09:28 Dilaudid IVP Q3H PRN pain Meropenem 500 mg/ Sodium 100 mls @ 100 mls/hr 01/05/18 22:00 01/09/18 05:55 Chloride IVPB 100 mls/hr Q8 HOLLY Administration Protocol Metronidazole 250 mg in 50 mls @ 100 mls/hr 01/07/18 22:00 01/09/18 05:52 Flagyl IVPB 01/12/18 22:01 100 mls/hr Q8 HOLLY Administration Protocol Norepinephrine Bitartrate 4 mg 254 mls @ 15.24 mls/hr 01/07/18 21:17 13:14 / Dextrose IV 0 mcg/min .[id number] PRN 0 mls/hr TITRATE PER MD ORDER Titration Protocol 4 MCG/MIN Potassium Chloride 20 meq in 100 mls @ 50 mls/hr 01/09/18 07:30 01/09/18 09: 03 Potassium Chloride 20 Meq/100 Ml IVPB 01/09/18 13:29 50 mls/hr Q2H HOLLY Administration Dextrose/Sodium Chloride 1,000 mls @ 100 mls/hr 01/09/18 09:30 Dextrose 5%/0.45% Ns 1000 Ml IV .Q10H HOLLY Multivitamins/Vitamin C 10 ml/ 1,011.1 mls @ 42 mls/hr 01/09/18 18:00 Chromium/Copper/Manganese/ IV 01/10/18 17:59 Zinc 1 ml/ Insulin Human .Q24H ONE Regular 10 unit/ Amino Acids/ Electrolytes/Dextrose Metoclopramide HCl 5 mg 01/07/18 15:45 01/09/18 09:06 Reglan IVP 5 mg Q6H HOLLY Administration Potassium Chloride 40 meq 01/05/18 10:00 01/05/18 09:16 K-Dur 20 Meq Er Tab PO 40 meq ONCE HOLLY Administration - Patient Studies Lab Studies: Microbiology Studies 01/03/18 06:00 Blood Culture - Final Blood-Thru Central Line NO GROWTH AFTER 5 DAYS 01/04/18 06:29 Blood Culture - Final Blood-Thru Central Line NO GROWTH AFTER 5 DAYS Gram Stain - Final TEST NOT PERFORMED 01/07/18 09:12 MRSA Culture (Admit) - Final Nose MRSA NOT DETECTED Lab Studies 01/09/18 01/09/18 01/09/18 Range/Units 06:19 06:19 06:19 WBC 22.2 H (4.8-10.8) K/uL RBC 2.81 L (4.40-5.90) Mil/uL Hgb 8.8 L (12.0-18.0) g/dL Hct 25.8 L (35.0-51.0) % MCV 91.9 (80.0-94.0) fL MCH 31.4 H (27.0-31.0) pg MCHC 34.2 (33.0-37.0) g/dL RDW 17.4 H (11.5-14.5) % Plt Count 63 L D (130-400) K/uL MPV 8.5 (7.2-11.7) fL Neut % (Auto) 92.8 H (50.0-75.0) % Lymph % (Auto) 1.9 L (20.0-40.0) % [place] % (Auto) 4.3 (0.0-10.0) % Eos % (Auto) 0.6 (0.0-4.0) % Baso % (Auto) 0.4 (0.0-2.0) % Neut # (Auto) 20.6 H (1.8-7.0) K/uL Lymph # (Auto) 0.4 L (1.0-4.3) K/uL [place] # (Auto) 1.0 H (0.0-0.8) K/uL Eos # (Auto) 0.1 (0.0-0.7) K/uL Baso # (Auto) 0.1 (0.0-0.2) K/uL Neutrophils % (Manual) 90 H (50-75) % Band Neutrophils % 4 H (0-2) % Lymphocytes % (Manual) 2 L (20-40) % Monocytes % (Manual) 3 (0-10) % Eosinophils % (Manual) 1 (0-4) % Platelet Estimate Decreased L (NORMAL) Polychromasia Slight Hypochromasia (manual) Moderate Poikilocytosis (manual Slight Basophilic Stippling Slight Anisocytosis (manual) Slight Microcytosis (manual) Slight Macrocytosis (manual) Slight Target Cells Slight Ovalocytes Slight PT 23.9 H (9.7-12.2) SECONDS INR 2.1 APTT 43 H D (21-34) SECONDS Sodium 152 H (132-148) mmol/L Potassium 2.8 L (3.6-5.2) mmol/L Chloride 113 H (98-107) mmol/L Carbon Dioxide 29 (22-30) mmol/L Anion Gap 13 (10-20) BUN 26 H (9-20) mg/dL Creatinine 2.8 H (0.8-1.5) mg/dL Est GFR ( Amer) 28 Est GFR (Non-Af Amer) 23 POC Glucose (mg/dL) (65-110) mg/dL Random Glucose 95 (75-110) mg/dL Calcium 7.6 L (8.6-10.4) mg/dl Phosphorus 3.3 (2.5-4.5) mg/dL Magnesium 1.6 (1.6-2.3) mg/dL Total Bilirubin 5.2 H (0.2-1.3) mg/dL Direct Bilirubin 3.9 H (0.0-0.4) mg/dL AST 113 H D (17-59) U/L ALT 102 H D (21-72) U/L Alkaline Phosphatase 165 H (38-126) U/L Total Protein 4.5 L (6.3-8.3) g/dL Albumin 2.0 L (3.5-5.0) g/dL Globulin 2.5 (2.2-3.9) gm/dL Albumin/Globulin Ratio 0.8 L (1.0-2.1) Procalcitonin (0.19-0.49) NG/ML 01/09/18 01/08/18 01/08/18 Range/Units 05:04 23:39 20:13 WBC (4.8-10.8) K/uL RBC (4.40-5.90) Mil/uL Hgb 9.4 L (12.0-18.0) g/dL Hct 27.6 L (35.0-51.0) % MCV (80.0-94.0) fL MCH (27.0-31.0) pg MCHC (33.0-37.0) g/dL RDW (11.5-14.5) % Plt Count (130-400) K/uL MPV (7.2-11.7) fL Neut % (Auto) (50.0-75.0) % Lymph % (Auto) (20.0-40.0) % [place] % (Auto) (0.0-10.0) % Eos % (Auto) (0.0-4.0) % Baso % (Auto) (0.0-2.0) % Neut # (Auto) (1.8-7.0) K/uL Lymph # (Auto) (1.0-4.3) K/uL [place] # (Auto) (0.0-0.8) K/uL Eos # (Auto) (0.0-0.7) K/uL Baso # (Auto) (0.0-0.2) K/uL Neutrophils % (Manual) (50-75) % Band Neutrophils % (0-2) % Lymphocytes % (Manual) (20-40) % Monocytes % (Manual) (0-10) % Eosinophils % (Manual) (0-4) % Platelet Estimate (NORMAL) Polychromasia Hypochromasia (manual) Poikilocytosis (manual Basophilic Stippling Anisocytosis (manual) Microcytosis (manual) Macrocytosis (manual) Target Cells Ovalocytes PT (9.7-12.2) SECONDS INR APTT (21-34) SECONDS Sodium (132-148) mmol/L Potassium (3.6-5.2) mmol/L Chloride (98-107) mmol/L Carbon Dioxide (22-30) mmol/L Anion Gap (10-20) BUN (9-20) mg/dL Creatinine (0.8-1.5) mg/dL Est GFR ( Amer) Est GFR (Non-Af Amer) POC Glucose (mg/dL) 103 75 (65-110) mg/dL Random Glucose (75-110) mg/dL Calcium (8.6-10.4) mg/dl Phosphorus (2.5-4.5) mg/dL Magnesium (1.6-2.3) mg/dL Total Bilirubin (0.2-1.3) mg/dL Direct Bilirubin (0.0-0.4) mg/dL AST (17-59) U/L ALT (21-72) U/L Alkaline Phosphatase (38-126) U/L Total Protein (6.3-8.3) g/dL Albumin (3.5-5.0) g/dL Globulin (2.2-3.9) gm/dL Albumin/Globulin Ratio (1.0-2.1) Procalcitonin (0.19-0.49) NG/ML 01/08/18 01/08/18 01/08/18 Range/Units 17:42 15:15 11:17 WBC (4.8-10.8) K/uL RBC (4.40-5.90) Mil/uL Hgb 9.1 L (12.0-18.0) g/dL Hct 26.2 L (35.0-51.0) % MCV (80.0-94.0) fL MCH (27.0-31.0) pg MCHC (33.0-37.0) g/dL RDW (11.5-14.5) % Plt Count (130-400) K/uL MPV (7.2-11.7) fL Neut % (Auto) (50.0-75.0) % Lymph % (Auto) (20.0-40.0) % [place] % (Auto) (0.0-10.0) % Eos % (Auto) (0.0-4.0) % Baso % (Auto) (0.0-2.0) % Neut # (Auto) (1.8-7.0) K/uL Lymph # (Auto) (1.0-4.3) K/uL [place] # (Auto) (0.0-0.8) K/uL Eos # (Auto) (0.0-0.7) K/uL Baso # (Auto) (0.0-0.2) K/uL Neutrophils % (Manual) (50-75) % Band Neutrophils % (0-2) % Lymphocytes % (Manual) (20-40) % Monocytes % (Manual) (0-10) % Eosinophils % (Manual) (0-4) % Platelet Estimate (NORMAL) Polychromasia Hypochromasia (manual) Poikilocytosis (manual Basophilic Stippling Anisocytosis (manual) Microcytosis (manual) Macrocytosis (manual) Target Cells Ovalocytes PT (9.7-12.2) SECONDS INR APTT (21-34) SECONDS Sodium (132-148) mmol/L Potassium (3.6-5.2) mmol/L Chloride (98-107) mmol/L Carbon Dioxide (22-30) mmol/L Anion Gap (10-20) BUN (9-20) mg/dL Creatinine (0.8-1.5) mg/dL Est GFR ( Amer) Est GFR (Non-Af Amer) POC Glucose (mg/dL) 71 94 (65-110) mg/dL Random Glucose (75-110) mg/dL Calcium (8.6-10.4) mg/dl Phosphorus (2.5-4.5) mg/dL Magnesium (1.6-2.3) mg/dL Total Bilirubin (0.2-1.3) mg/dL Direct Bilirubin (0.0-0.4) mg/dL AST (17-59) U/L ALT (21-72) U/L Alkaline Phosphatase (38-126) U/L Total Protein (6.3-8.3) g/dL Albumin (3.5-5.0) g/dL Globulin (2.2-3.9) gm/dL Albumin/Globulin Ratio (1.0-2.1) Procalcitonin (0.19-0.49) NG/ML 01/08/18 Range/Units 11:16 WBC (4.8-10.8) K/uL RBC (4.40-5.90) Mil/uL Hgb (12.0-18.0) g/dL Hct (35.0-51.0) % MCV (80.0-94.0) fL MCH (27.0-31.0) pg MCHC (33.0-37.0) g/dL RDW (11.5-14.5) % Plt Count (130-400) K/uL MPV (7.2-11.7) fL Neut % (Auto) (50.0-75.0) % Lymph % (Auto) (20.0-40.0) % [place] % (Auto) (0.0-10.0) % Eos % (Auto) (0.0-4.0) % Baso % (Auto) (0.0-2.0) % Neut # (Auto) (1.8-7.0) K/uL Lymph # (Auto) (1.0-4.3) K/uL [place] # (Auto) (0.0-0.8) K/uL Eos # (Auto) (0.0-0.7) K/uL Baso # (Auto) (0.0-0.2) K/uL Neutrophils % (Manual) (50-75) % Band Neutrophils % (0-2) % Lymphocytes % (Manual) (20-40) % Monocytes % (Manual) (0-10) % Eosinophils % (Manual) (0-4) % Platelet Estimate (NORMAL) Polychromasia Hypochromasia (manual) Poikilocytosis (manual Basophilic Stippling Anisocytosis (manual) Microcytosis (manual) Macrocytosis (manual) Target Cells Ovalocytes PT (9.7-12.2) SECONDS INR APTT (21-34) SECONDS Sodium (132-148) mmol/L Potassium (3.6-5.2) mmol/L Chloride (98-107) mmol/L Carbon Dioxide (22-30) mmol/L Anion Gap (10-20) BUN (9-20) mg/dL Creatinine (0.8-1.5) mg/dL Est GFR ( Amer) Est GFR (Non-Af Amer) POC Glucose (mg/dL) (65-110) mg/dL Random Glucose (75-110) mg/dL Calcium (8.6-10.4) mg/dl Phosphorus (2.5-4.5) mg/dL Magnesium (1.6-2.3) mg/dL Total Bilirubin (0.2-1.3) mg/dL Direct Bilirubin (0.0-0.4) mg/dL AST (17-59) U/L ALT (21-72) U/L Alkaline Phosphatase (38-126) U/L Total Protein (6.3-8.3) g/dL Albumin (3.5-5.0) g/dL Globulin (2.2-3.9) gm/dL Albumin/Globulin Ratio (1.0-2.1) Procalcitonin 7.25 H (0.19-0.49) NG/ML Laboratory Results - last 24 hr 01/08/18 01/08/18 01/08/18 11:16 11:17 15:15 WBC RBC Hgb 9.1 L Hct 26.2 L MCV MCH MCHC RDW Plt Count MPV Neut % (Auto) Lymph % (Auto) [place] % (Auto) Eos % (Auto) Baso % (Auto) Neut # (Auto) Lymph # (Auto) [place] # (Auto) Eos # (Auto) Baso # (Auto) Neutrophils % (Manual) Band Neutrophils % Lymphocytes % (Manual) Monocytes % (Manual) Eosinophils % (Manual) Platelet Estimate Polychromasia Hypochromasia (manual) Poikilocytosis (manual Basophilic Stippling Anisocytosis (manual) Microcytosis (manual) Macrocytosis (manual) Target Cells Ovalocytes PT INR APTT Sodium Potassium Chloride Carbon Dioxide Anion Gap BUN Creatinine Est GFR ( Amer) Est GFR (Non-Af Amer) POC Glucose (mg/dL) 94 Random Glucose Calcium Phosphorus Magnesium Total Bilirubin Direct Bilirubin AST ALT Alkaline Phosphatase Total Protein Albumin Globulin Albumin/Globulin Ratio Procalcitonin 7.25 H 01/08/18 01/08/18 01/08/18 17:42 20:13 23:39 WBC RBC Hgb 9.4 L Hct 27.6 L MCV MCH MCHC RDW Plt Count MPV Neut % (Auto) Lymph % (Auto) [place] % (Auto) Eos % (Auto) Baso % (Auto) Neut # (Auto) Lymph # (Auto) [place] # (Auto) Eos # (Auto) Baso # (Auto) Neutrophils % (Manual) Band Neutrophils % Lymphocytes % (Manual) Monocytes % (Manual) Eosinophils % (Manual) Platelet Estimate Polychromasia Hypochromasia (manual) Poikilocytosis (manual Basophilic Stippling Anisocytosis (manual) Microcytosis (manual) Macrocytosis (manual) Target Cells Ovalocytes PT INR APTT Sodium Potassium Chloride Carbon Dioxide Anion Gap BUN Creatinine Est GFR ( Amer) Est GFR (Non-Af Amer) POC Glucose (mg/dL) 71 75 Random Glucose Calcium Phosphorus Magnesium Total Bilirubin Direct Bilirubin AST ALT Alkaline Phosphatase Total Protein Albumin Globulin Albumin/Globulin Ratio Procalcitonin 01/09/18 01/09/18 01/09/18 05:04 06:19 06:19 WBC 22.2 H RBC 2.81 L Hgb 8.8 L Hct 25.8 L MCV 91.9 MCH 31.4 H MCHC 34.2 RDW 17.4 H Plt Count 63 L D MPV 8.5 Neut % (Auto) 92.8 H Lymph % (Auto) 1.9 L [place] % (Auto) 4.3 Eos % (Auto) 0.6 Baso % (Auto) 0.4 Neut # (Auto) 20.6 H Lymph # (Auto) 0.4 L [place] # (Auto) 1.0 H Eos # (Auto) 0.1 Baso # (Auto) 0.1 Neutrophils % (Manual) 90 H Band Neutrophils % 4 H Lymphocytes % (Manual) 2 L Monocytes % (Manual) 3 Eosinophils % (Manual) 1 Platelet Estimate Decreased L Polychromasia Slight Hypochromasia (manual) Moderate Poikilocytosis (manual Slight Basophilic Stippling Slight Anisocytosis (manual) Slight Microcytosis (manual) Slight Macrocytosis (manual) Slight Target Cells Slight Ovalocytes Slight PT 23.9 H INR 2.1 APTT 43 H D Sodium Potassium Chloride Carbon Dioxide Anion Gap BUN Creatinine Est GFR ( Amer) Est GFR (Non-Af Amer) POC Glucose (mg/dL) 103 Random Glucose Calcium Phosphorus Magnesium Total Bilirubin Direct Bilirubin AST ALT Alkaline Phosphatase Total Protein Albumin Globulin Albumin/Globulin Ratio Procalcitonin 01/09/18 06:19 WBC RBC Hgb Hct MCV MCH MCHC RDW Plt Count MPV Neut % (Auto) Lymph % (Auto) [place] % (Auto) Eos % (Auto) Baso % (Auto) Neut # (Auto) Lymph # (Auto) [place] # (Auto) Eos # (Auto) Baso # (Auto) Neutrophils % (Manual) Band Neutrophils % Lymphocytes % (Manual) Monocytes % (Manual) Eosinophils % (Manual) Platelet Estimate Polychromasia Hypochromasia (manual) Poikilocytosis (manual Basophilic Stippling Anisocytosis (manual) Microcytosis (manual) Macrocytosis (manual) Target Cells Ovalocytes PT INR APTT Sodium 152 H Potassium 2.8 L Chloride 113 H Carbon Dioxide 29 Anion Gap 13 BUN 26 H Creatinine 2.8 H Est GFR ( Amer) 28 Est GFR (Non-Af Amer) 23 POC Glucose (mg/dL) Random Glucose 95 Calcium 7.6 L Phosphorus 3.3 Magnesium 1.6 Total Bilirubin 5.2 H Direct Bilirubin 3.9 H AST 113 H D ALT 102 H D Alkaline Phosphatase 165 H Total Protein 4.5 L Albumin 2.0 L Globulin 2.5 Albumin/Globulin Ratio 0.8 L Procalcitonin Fingerstick Blood Sugar Results: 103 Critical Care Progress Note - Nutrition Nutrition: Nutrition Category Date Time Status NPO Diet [DIET] Diets 01/07/18 Dinner Active Assessment/Plan - Assessment and Plan (Free Text) Assessment: Patient is a 62 year old male with 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 When on the floors patient was unresponsive, CPR was initiated with ROSC. Blood sugar was found to be 20. Patient was intubated and brought to the ICU. Patient is currently AAOx3, extubated himself yesterday. Multifocal Pneumonia -Leukocytosis inmproving 29.1 -> 22.2 -Procalcitonin 7.25 -Antibiotics: Merrem 500mg Q8H IV, Flagyl 250mg Q8H IV -CT chest: Bilateral pleural effusions resulting in compressive atelectasis both lower lobes. Mulitfocal subsegmental infiltrates affecting both upper lobes and the superior segment of the lower lobe -Continue supplemental O2 -ID on consult, help appreciated Hypotension -Levophed titrated off -Currently normatensive History of Cholangiocarcinoma on chemotherapy -Patient with moderate amount of ascites on CT abd/pelvis -Abdominal US on 01/03 showing trace fluid -Patient with generalized pain -Dilaudid 1mg Q3H prn -Fentanyl patch Q72H GI bleed/Anasarca/Elevated LFTs -Hgb 8.8, s/p 2 units PRBCs, 2 units FFP -Will start TPN today -Patient may need EGD, Will discuss with Dr Newby -AST/ALT improving today -Continue albumin 12.5mg IV Q6H Thrombocytopenia -Platelets dropped to 63 today -Discontined Protonix --> Pepcid 20mg IVP daily Hypokalemia -Potassium 2.8 today -Kcl 20 meq q2H x 3 doses GI/DVT ppx -Protonix 40mg IVP daily discontinued -Started on Pepcid 20mg IVP daily -SCDs -Palliative care on consult to discuss goals of care -Patient and family wish to continue present management and desire aggressive intervention if needed -Will continue to monitor <Candido Welch S - Last Filed: 01/09/18 17:32> CCU Objective - Vital Signs / Intake & Output Vital Signs (Last 4 hours): Vital Signs Pulse Resp BP Pulse Ox 01/09/18 16:03 102 H 13 126/88 100 01/09/18 15:03 107 H 15 136/95 H 01/09/18 14:03 93 H 9 L 134/89 100 Intake and Output (Last 8hrs): Intake & Output 01/09/18 01/09/18 01/09/18 06:59 14:59 22:59 Intake Total 900 800 100 Output Total 660 200 15 Balance 240 600 85 Weight 158 lb 4.67 oz Intake: Intake, IV Amount 900 800 100 Right Port-A-Cath 800 800 100 Right Subclavian 100 Output: Gastric Amount 500 Stomach 500 Urine 160 200 15 Urethral (Woods) 160 200 15 Other: # Bowel Movements 0 0 - Medications Active Medications: Active Medications Generic Name Dose Route Start Last Admin Trade Name Freq PRN Reason Stop Dose Admin Acetaminophen 650 mg 01/01/18 02:46 Tylenol 325mg Tab PO Q6 PRN Fever >100.4 F Albumin Human 12.5 gm 01/08/18 00:30 01/09/18 11:30 Albumin Human 25% (12.5 Gm/50 Ml) IV 01/10/18 00:30 12.5 gm Q6H HOLLY Administration Benzocaine/Menthol 1 rosmery 01/03/18 18:10 Cepacol Sore Throat MT Q6H PRN Sore Throat Diphenhydramine HCl 25 mg 01/09/18 10:18 01/09/18 15:29 Benadryl IVP 25 mg Q3H PRN Administration Itching / Pruritus Famotidine 20 mg 01/09/18 10:00 01/09/18 09:06 Pepcid IVP 20 mg DAILY HOLLY Administration Fentanyl 1 patch 01/03/18 20:00 01/06/18 20:50 Duragesic TD 1 patch Q72H HOLLY Administration Hydromorphone HCl 1 mg 01/09/18 09:28 01/09/18 15:29 Dilaudid IVP 1 mg Q3H PRN Administration pain Meropenem 500 mg/ Sodium 100 mls @ 100 mls/hr 01/05/18 22:00 01/09/18 13:23 Chloride IVPB 100 mls/hr Q8 HOLLY Administration Protocol Metronidazole 250 mg in 50 mls @ 100 mls/hr 01/07/18 22:00 01/09/18 13:21 Flagyl IVPB 01/12/18 22:01 100 mls/hr Q8 HOLLY Administration Protocol Norepinephrine Bitartrate 4 mg 254 mls @ 15.24 mls/hr 01/07/18 21:17 13:14 / Dextrose IV 0 mcg/min .[id number] PRN 0 mls/hr TITRATE PER MD ORDER Titration Protocol 4 MCG/MIN Dextrose/Sodium Chloride 1,000 mls @ 100 mls/hr 01/09/18 09:30 01/09/18 09:59 Dextrose 5%/0.45% Ns 1000 Ml IV 100 mls/hr .Q10H HOLLY Administration Multivitamins/Vitamin C 10 ml/ 1,011.1 mls @ 42 mls/hr 01/09/18 18:00 Chromium/Copper/Manganese/ IV 01/10/18 17:59 Zinc 1 ml/ Insulin Human .Q24H ONE Regular 10 unit/ Amino Acids/ Electrolytes/Dextrose Metoclopramide HCl 5 mg 01/07/18 15:45 01/09/18 15:28 Reglan IVP 5 mg Q6H HOLLY Administration Potassium Chloride 40 meq 01/05/18 10:00 01/05/18 09:16 K-Dur 20 Meq Er Tab PO 40 meq ONCE HOLLY Administration - Patient Studies Lab Studies: Microbiology Studies 01/03/18 06:00 Blood Culture - Final Blood-Thru Central Line NO GROWTH AFTER 5 DAYS 01/04/18 06:29 Blood Culture - Final Blood-Thru Central Line NO GROWTH AFTER 5 DAYS Gram Stain - Final TEST NOT PERFORMED Lab Studies 01/09/18 01/09/18 01/09/18 Range/Units 11:26 11:11 11:09 WBC (4.8-10.8) K/uL RBC (4.40-5.90) Mil/uL Hgb (12.0-18.0) g/dL Hct (35.0-51.0) % MCV (80.0-94.0) fL MCH (27.0-31.0) pg MCHC (33.0-37.0) g/dL RDW (11.5-14.5) % Plt Count (130-400) K/uL MPV (7.2-11.7) fL Neut % (Auto) (50.0-75.0) % Lymph % (Auto) (20.0-40.0) % [place] % (Auto) (0.0-10.0) % Eos % (Auto) (0.0-4.0) % Baso % (Auto) (0.0-2.0) % Neut # (Auto) (1.8-7.0) K/uL Lymph # (Auto) (1.0-4.3) K/uL [place] # (Auto) (0.0-0.8) K/uL Eos # (Auto) (0.0-0.7) K/uL Baso # (Auto) (0.0-0.2) K/uL Neutrophils % (Manual) (50-75) % Band Neutrophils % (0-2) % Lymphocytes % (Manual) (20-40) % Monocytes % (Manual) (0-10) % Eosinophils % (Manual) (0-4) % Platelet Estimate (NORMAL) Polychromasia Hypochromasia (manual) Poikilocytosis (manual Basophilic Stippling Anisocytosis (manual) Microcytosis (manual) Macrocytosis (manual) Target Cells Ovalocytes PT (9.7-12.2) SECONDS INR APTT (21-34) SECONDS Sodium (132-148) mmol/L Potassium (3.6-5.2) mmol/L Chloride (98-107) mmol/L Carbon Dioxide (22-30) mmol/L Anion Gap (10-20) BUN (9-20) mg/dL Creatinine (0.8-1.5) mg/dL Est GFR ( Amer) Est GFR (Non-Af Amer) POC Glucose (mg/dL) 103 55 L 49 L (65-110) mg/dL Random Glucose (75-110) mg/dL Calcium (8.6-10.4) mg/dl Phosphorus (2.5-4.5) mg/dL Magnesium (1.6-2.3) mg/dL Total Bilirubin (0.2-1.3) mg/dL Direct Bilirubin (0.0-0.4) mg/dL AST (17-59) U/L ALT (21-72) U/L Alkaline Phosphatase (38-126) U/L Total Protein (6.3-8.3) g/dL Albumin (3.5-5.0) g/dL Globulin (2.2-3.9) gm/dL Albumin/Globulin Ratio (1.0-2.1) 01/09/18 01/09/18 01/09/18 Range/Units 06:19 06:19 06:19 WBC 22.2 H (4.8-10.8) K/uL RBC 2.81 L (4.40-5.90) Mil/uL Hgb 8.8 L (12.0-18.0) g/dL Hct 25.8 L (35.0-51.0) % MCV 91.9 (80.0-94.0) fL MCH 31.4 H (27.0-31.0) pg MCHC 34.2 (33.0-37.0) g/dL RDW 17.4 H (11.5-14.5) % Plt Count 63 L D (130-400) K/uL MPV 8.5 (7.2-11.7) fL Neut % (Auto) 92.8 H (50.0-75.0) % Lymph % (Auto) 1.9 L (20.0-40.0) % [place] % (Auto) 4.3 (0.0-10.0) % Eos % (Auto) 0.6 (0.0-4.0) % Baso % (Auto) 0.4 (0.0-2.0) % Neut # (Auto) 20.6 H (1.8-7.0) K/uL Lymph # (Auto) 0.4 L (1.0-4.3) K/uL [place] # (Auto) 1.0 H (0.0-0.8) K/uL Eos # (Auto) 0.1 (0.0-0.7) K/uL Baso # (Auto) 0.1 (0.0-0.2) K/uL Neutrophils % (Manual) 90 H (50-75) % Band Neutrophils % 4 H (0-2) % Lymphocytes % (Manual) 2 L (20-40) % Monocytes % (Manual) 3 (0-10) % Eosinophils % (Manual) 1 (0-4) % Platelet Estimate Decreased L (NORMAL) Polychromasia Slight Hypochromasia (manual) Moderate Poikilocytosis (manual Slight Basophilic Stippling Slight Anisocytosis (manual) Slight Microcytosis (manual) Slight Macrocytosis (manual) Slight Target Cells Slight Ovalocytes Slight PT 23.9 H (9.7-12.2) SECONDS INR 2.1 APTT 43 H D (21-34) SECONDS Sodium 152 H (132-148) mmol/L Potassium 2.8 L (3.6-5.2) mmol/L Chloride 113 H (98-107) mmol/L Carbon Dioxide 29 (22-30) mmol/L Anion Gap 13 (10-20) BUN 26 H (9-20) mg/dL Creatinine 2.8 H (0.8-1.5) mg/dL Est GFR ( Amer) 28 Est GFR (Non-Af Amer) 23 POC Glucose (mg/dL) (65-110) mg/dL Random Glucose 95 (75-110) mg/dL Calcium 7.6 L (8.6-10.4) mg/dl Phosphorus 3.3 (2.5-4.5) mg/dL Magnesium 1.6 (1.6-2.3) mg/dL Total Bilirubin 5.2 H (0.2-1.3) mg/dL Direct Bilirubin 3.9 H (0.0-0.4) mg/dL AST 113 H D (17-59) U/L ALT 102 H D (21-72) U/L Alkaline Phosphatase 165 H (38-126) U/L Total Protein 4.5 L (6.3-8.3) g/dL Albumin 2.0 L (3.5-5.0) g/dL Globulin 2.5 (2.2-3.9) gm/dL Albumin/Globulin Ratio 0.8 L (1.0-2.1) 01/09/18 01/08/18 01/08/18 Range/Units 05:04 23:39 20:13 WBC (4.8-10.8) K/uL RBC (4.40-5.90) Mil/uL Hgb 9.4 L (12.0-18.0) g/dL Hct 27.6 L (35.0-51.0) % MCV (80.0-94.0) fL MCH (27.0-31.0) pg MCHC (33.0-37.0) g/dL RDW (11.5-14.5) % Plt Count (130-400) K/uL MPV (7.2-11.7) fL Neut % (Auto) (50.0-75.0) % Lymph % (Auto) (20.0-40.0) % [place] % (Auto) (0.0-10.0) % Eos % (Auto) (0.0-4.0) % Baso % (Auto) (0.0-2.0) % Neut # (Auto) (1.8-7.0) K/uL Lymph # (Auto) (1.0-4.3) K/uL [place] # (Auto) (0.0-0.8) K/uL Eos # (Auto) (0.0-0.7) K/uL Baso # (Auto) (0.0-0.2) K/uL Neutrophils % (Manual) (50-75) % Band Neutrophils % (0-2) % Lymphocytes % (Manual) (20-40) % Monocytes % (Manual) (0-10) % Eosinophils % (Manual) (0-4) % Platelet Estimate (NORMAL) Polychromasia Hypochromasia (manual) Poikilocytosis (manual Basophilic Stippling Anisocytosis (manual) Microcytosis (manual) Macrocytosis (manual) Target Cells Ovalocytes PT (9.7-12.2) SECONDS INR APTT (21-34) SECONDS Sodium (132-148) mmol/L Potassium (3.6-5.2) mmol/L Chloride (98-107) mmol/L Carbon Dioxide (22-30) mmol/L Anion Gap (10-20) BUN (9-20) mg/dL Creatinine (0.8-1.5) mg/dL Est GFR ( Amer) Est GFR (Non-Af Amer) POC Glucose (mg/dL) 103 75 (65-110) mg/dL Random Glucose (75-110) mg/dL Calcium (8.6-10.4) mg/dl Phosphorus (2.5-4.5) mg/dL Magnesium (1.6-2.3) mg/dL Total Bilirubin (0.2-1.3) mg/dL Direct Bilirubin (0.0-0.4) mg/dL AST (17-59) U/L ALT (21-72) U/L Alkaline Phosphatase (38-126) U/L Total Protein (6.3-8.3) g/dL Albumin (3.5-5.0) g/dL Globulin (2.2-3.9) gm/dL Albumin/Globulin Ratio (1.0-2.1) 01/08/18 Range/Units 17:42 WBC (4.8-10.8) K/uL RBC (4.40-5.90) Mil/uL Hgb (12.0-18.0) g/dL Hct (35.0-51.0) % MCV (80.0-94.0) fL MCH (27.0-31.0) pg MCHC (33.0-37.0) g/dL RDW (11.5-14.5) % Plt Count (130-400) K/uL MPV (7.2-11.7) fL Neut % (Auto) (50.0-75.0) % Lymph % (Auto) (20.0-40.0) % [place] % (Auto) (0.0-10.0) % Eos % (Auto) (0.0-4.0) % Baso % (Auto) (0.0-2.0) % Neut # (Auto) (1.8-7.0) K/uL Lymph # (Auto) (1.0-4.3) K/uL [place] # (Auto) (0.0-0.8) K/uL Eos # (Auto) (0.0-0.7) K/uL Baso # (Auto) (0.0-0.2) K/uL Neutrophils % (Manual) (50-75) % Band Neutrophils % (0-2) % Lymphocytes % (Manual) (20-40) % Monocytes % (Manual) (0-10) % Eosinophils % (Manual) (0-4) % Platelet Estimate (NORMAL) Polychromasia Hypochromasia (manual) Poikilocytosis (manual Basophilic Stippling Anisocytosis (manual) Microcytosis (manual) Macrocytosis (manual) Target Cells Ovalocytes PT (9.7-12.2) SECONDS INR APTT (21-34) SECONDS Sodium (132-148) mmol/L Potassium (3.6-5.2) mmol/L Chloride (98-107) mmol/L Carbon Dioxide (22-30) mmol/L Anion Gap (10-20) BUN (9-20) mg/dL Creatinine (0.8-1.5) mg/dL Est GFR ( Amer) Est GFR (Non-Af Amer) POC Glucose (mg/dL) 71 (65-110) mg/dL Random Glucose (75-110) mg/dL Calcium (8.6-10.4) mg/dl Phosphorus (2.5-4.5) mg/dL Magnesium (1.6-2.3) mg/dL Total Bilirubin (0.2-1.3) mg/dL Direct Bilirubin (0.0-0.4) mg/dL AST (17-59) U/L ALT (21-72) U/L Alkaline Phosphatase (38-126) U/L Total Protein (6.3-8.3) g/dL Albumin (3.5-5.0) g/dL Globulin (2.2-3.9) gm/dL Albumin/Globulin Ratio (1.0-2.1) Laboratory Results - last 24 hr 01/08/18 01/08/18 01/08/18 17:42 20:13 23:39 WBC RBC Hgb 9.4 L Hct 27.6 L MCV MCH MCHC RDW Plt Count MPV Neut % (Auto) Lymph % (Auto) [place] % (Auto) Eos % (Auto) Baso % (Auto) Neut # (Auto) Lymph # (Auto) [place] # (Auto) Eos # (Auto) Baso # (Auto) Neutrophils % (Manual) Band Neutrophils % Lymphocytes % (Manual) Monocytes % (Manual) Eosinophils % (Manual) Platelet Estimate Polychromasia Hypochromasia (manual) Poikilocytosis (manual Basophilic Stippling Anisocytosis (manual) Microcytosis (manual) Macrocytosis (manual) Target Cells Ovalocytes PT INR APTT Sodium Potassium Chloride Carbon Dioxide Anion Gap BUN Creatinine Est GFR ( Amer) Est GFR (Non-Af Amer) POC Glucose (mg/dL) 71 75 Random Glucose Calcium Phosphorus Magnesium Total Bilirubin Direct Bilirubin AST ALT Alkaline Phosphatase Total Protein Albumin Globulin Albumin/Globulin Ratio 01/09/18 01/09/18 01/09/18 05:04 06:19 06:19 WBC 22.2 H RBC 2.81 L Hgb 8.8 L Hct 25.8 L MCV 91.9 MCH 31.4 H MCHC 34.2 RDW 17.4 H Plt Count 63 L D MPV 8.5 Neut % (Auto) 92.8 H Lymph % (Auto) 1.9 L [place] % (Auto) 4.3 Eos % (Auto) 0.6 Baso % (Auto) 0.4 Neut # (Auto) 20.6 H Lymph # (Auto) 0.4 L [place] # (Auto) 1.0 H Eos # (Auto) 0.1 Baso # (Auto) 0.1 Neutrophils % (Manual) 90 H Band Neutrophils % 4 H Lymphocytes % (Manual) 2 L Monocytes % (Manual) 3 Eosinophils % (Manual) 1 Platelet Estimate Decreased L Polychromasia Slight Hypochromasia (manual) Moderate Poikilocytosis (manual Slight Basophilic Stippling Slight Anisocytosis (manual) Slight Microcytosis (manual) Slight Macrocytosis (manual) Slight Target Cells Slight Ovalocytes Slight PT 23.9 H INR 2.1 APTT 43 H D Sodium Potassium Chloride Carbon Dioxide Anion Gap BUN Creatinine Est GFR ( Amer) Est GFR (Non-Af Amer) POC Glucose (mg/dL) 103 Random Glucose Calcium Phosphorus Magnesium Total Bilirubin Direct Bilirubin AST ALT Alkaline Phosphatase Total Protein Albumin Globulin Albumin/Globulin Ratio 01/09/18 01/09/18 01/09/18 06:19 11:09 11:11 WBC RBC Hgb Hct MCV MCH MCHC RDW Plt Count MPV Neut % (Auto) Lymph % (Auto) [place] % (Auto) Eos % (Auto) Baso % (Auto) Neut # (Auto) Lymph # (Auto) [place] # (Auto) Eos # (Auto) Baso # (Auto) Neutrophils % (Manual) Band Neutrophils % Lymphocytes % (Manual) Monocytes % (Manual) Eosinophils % (Manual) Platelet Estimate Polychromasia Hypochromasia (manual) Poikilocytosis (manual Basophilic Stippling Anisocytosis (manual) Microcytosis (manual) Macrocytosis (manual) Target Cells Ovalocytes PT INR APTT Sodium 152 H Potassium 2.8 L Chloride 113 H Carbon Dioxide 29 Anion Gap 13 BUN 26 H Creatinine 2.8 H Est GFR ( Amer) 28 Est GFR (Non-Af Amer) 23 POC Glucose (mg/dL) 49 L 55 L Random Glucose 95 Calcium 7.6 L Phosphorus 3.3 Magnesium 1.6 Total Bilirubin 5.2 H Direct Bilirubin 3.9 H AST 113 H D ALT 102 H D Alkaline Phosphatase 165 H Total Protein 4.5 L Albumin 2.0 L Globulin 2.5 Albumin/Globulin Ratio 0.8 L 01/09/18 11:26 WBC RBC Hgb Hct MCV MCH MCHC RDW Plt Count MPV Neut % (Auto) Lymph % (Auto) [place] % (Auto) Eos % (Auto) Baso % (Auto) Neut # (Auto) Lymph # (Auto) [place] # (Auto) Eos # (Auto) Baso # (Auto) Neutrophils % (Manual) Band Neutrophils % Lymphocytes % (Manual) Monocytes % (Manual) Eosinophils % (Manual) Platelet Estimate Polychromasia Hypochromasia (manual) Poikilocytosis (manual Basophilic Stippling Anisocytosis (manual) Microcytosis (manual) Macrocytosis (manual) Target Cells Ovalocytes PT INR APTT Sodium Potassium Chloride Carbon Dioxide Anion Gap BUN Creatinine Est GFR ( Amer) Est GFR (Non-Af Amer) POC Glucose (mg/dL) 103 Random Glucose Calcium Phosphorus Magnesium Total Bilirubin Direct Bilirubin AST ALT Alkaline Phosphatase Total Protein Albumin Globulin Albumin/Globulin Ratio Critical Care Progress Note - Nutrition Nutrition: Nutrition Category Date Time Status NPO Diet [DIET] Diets 01/07/18 Dinner Active Attending/Attestation - Attestation I have personally seen and examined this patient.: Yes I have fully participated in the care of the patient.: Yes I have reviewed all pertinent clinical information: Yes Notes (Text): 01/09/18 17:30 patient seen and examined in the intensive care unit. Case discussed with house staff in the morning rounds. Continue IV antibiotics for pneumonia Anemia and thrombocytopenia noted Status posttransfusion of packed RBCs and FFP Monitor platelet count, Protonix discontinued Start TPN GI workup
[2018-01-09] MEDS ORDERED: Dextrose 50% SYRINGE Inj (50 ml) ONE (11:16)
--- NOTE | 2018-01-09 12:41 | PN ---
DATE: LOCATION: ICU 11. SUBJECTIVE: This is a 62-year-old male seen and examined in rounds with NG-tube still in place, appears to be somewhat awake, alert, without any reported active bleeding, chest pain, or significant palpation, or shortness of breath. The entire chart is reviewed including, but not limited to the most recent lab and radiology study results, current and the previous medication list, current and the previous medical events. Case was discussed with the staff at length. Today's lab showed white blood cells of 22.2, hemoglobin 8.8, hematocrit 25.8, with platelet count of 63. PT 23.9, PTT is 43. Sodium 152, potassium 2.5, BUN 26, creatinine 2.8, glucose low at 55, calcium 7.9, with total bilirubin 3.9, with increased AST 130, ALT 102, alkaline phosphatase 165, albumin 2, total protein 4.5. Most recent chest x-ray done yesterday, official report seen, indicative of bilateral pleural effusion with pneumonia bilaterally. PHYSICAL EXAMINATION: GENERAL: A 62-year-old male. VITAL SIGNS: Afebrile, with pulse of 92, blood pressure of 136/82, respiratory rate 18 to 20. HEENT: Showed pale, dry oral mucous membrane. Nonicteric sclerae. LUNGS: Few scattered crepitations. Decreased air entry at bases. HEART: Positive S1 and S2. ABDOMEN: Soft with mild distention, mild generalized tenderness. No masses or organomegaly. No rebound tenderness or guarding. EXTREMITIES: With mild edematous changes. No clubbing or cyanosis. NEUROLOGIC: No reported new neurological deficits, sensory or motor. IMPRESSION: 1. Known history of cholangiocarcinoma, had been on chemotherapy. 2. The patient most likely has metastatic disease from his cholangiocarcinoma. 3. Pneumonia, multifocal. 4. Ascites, most likely secondary to portal hypertension with hepatic involvement. 5. Abnormal liver function tests secondary to above. 6. Anemia due to chronic disease, no evidence of active disease so far. 7. Known history of alcoholism with alcoholic liver disease. 8. Known history of hyperlipidemia, hypertension, peptic ulcer disease. SUGGESTIONS: 1. Continue conservative treatment. 2. Stool for C. diff. 3. No need for any aggressive further GI workup in the mean time. 4. Further recommendations to follow. Adina Barillas MD [facility] # [id number]
[2018-01-09] MEDS ORDERED: TPN IV ONE (18:00)
--- NOTE | 2018-01-09 19:38 | CP.PCM.PN ---
Subjective - Date & Time of Evaluation Date of Evaluation: 01/09/18 Time of Evaluation: 19:38 - Subjective Subjective: CHIEF COMPLAINTS TODAY : EXTUBATED NOW. AAO.AFEBRILE TITRATED OFF VASOPRESSORS. NGT- DRAINING -GREENISH DRAINAGE C/O GEN.ABDOMINAL PAIN. seen by GI AND NOTED ROS. 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 Musculoskel : N Ext. : Pedal pulses intact, +VE EDEMA, NO calf pain Derm : N Psych : N. PE. PATIENT EXTUBATED Pt. is alert awake in no distress. V.S As noted in the chart Head ,ear nose,throat and eyes : Normal. Neck : Supple with normal carotids. Lungs: BILATERAL RHONCHI/RALES Heart : S1 & S2 normal .SINUS TACHYCARDIA, . No murmur. Abd : SOFT, SLIGHTLY DISTENDED, +VE ASCITES,+VE GENERALIZED TENDERNESS with normal bowel sounds. Neuro : Moves all ext. with no localized deficit. Ext : B/L EDEMA 2+, with intact pulses. Neg. calf tenderness Derm : No rashes or decubitus ulcer. GENITALIA .; SWOLLEN Radiology/Labs . REVIEWED CT CHEST WITHOUT CONTRAST 01/08/18 NOTED. Bilateral pleural effusions with compressive atelectasis both lower lobes. Multifocal subsegmental infiltrates affecting both upper lobes. RANDOM VANCO STILL-high ( Vanco DC'd 01/06/18 ) Objective - Vital Signs/Intake and Output Vital Signs (last 24 hours): Temp Pulse Resp BP Pulse Ox 97.9 F 102 H 13 126/88 100 01/09/18 12:00 01/09/18 16:03 01/09/18 16:03 01/09/18 16:03 01/09/18 16:03 Intake and Output: 01/09/18 01/10/18 18:59 06:59 Intake Total 900 Output Total 215 Balance 685 - Medications Medications: Current Medications Acetaminophen (Tylenol 325mg Tab) 650 mg PO Q6 PRN PRN Reason: Fever >100.4 F Albumin Human (Albumin Human 25% (12.5 Gm/50 Ml)) 12.5 gm IV Q6H [facility] Stop: 01/10/18 00:30 Last Admin: 01/09/18 18:00 Dose: 12.5 gm Benzocaine/Menthol (Cepacol Sore Throat) 1 rosmery MT Q6H PRN PRN Reason: Sore Throat Diphenhydramine HCl (Benadryl) 25 mg IVP Q3H PRN PRN Reason: Itching / Pruritus Last Admin: 01/09/18 15:29 Dose: 25 mg Famotidine (Pepcid) 20 mg IVP DAILY [facility] Last Admin: 01/09/18 09:06 Dose: 20 mg Fentanyl (Duragesic) 1 patch TD Q72H [facility] Last Admin: 01/06/18 20:50 Dose: 1 patch Hydromorphone HCl (Dilaudid) 1 mg IVP Q3H PRN PRN Reason: pain Last Admin: 01/09/18 15:29 Dose: 1 mg Meropenem 500 mg/ Sodium (Chloride) 100 mls @ 100 mls/hr IVPB Q8 [facility] PRN Reason: Protocol Last Admin: 01/09/18 13:23 Dose: 100 mls/hr Metronidazole (Flagyl) 250 mg in 50 mls @ 100 mls/hr IVPB Q8 [facility] PRN Reason: Protocol Stop: 01/12/18 22:01 Last Admin: 01/09/18 13:21 Dose: 100 mls/hr Norepinephrine Bitartrate 4 mg (/ Dextrose) 254 mls @ 15.24 mls/hr IV .[id number] PRN; Protocol; 4 MCG/MIN PRN Reason: TITRATE PER MD ORDER Last Titration: 01/08/18 13:14 Dose: 0 mcg/min, 0 mls/hr Multivitamins/Vitamin C 10 ml/Chromium/Copper/Manganese/Zinc 1 ml/ Insulin Human Regular 10 unit/ Amino Acids/Electrolytes/Dextrose 1,011.1 mls @ 42 mls/ hr IV .Q24H ONE Stop: 01/10/18 17:59 Last Admin: 01/09/18 18:02 Dose: 42 mls/hr Metoclopramide HCl (Reglan) 5 mg IVP Q6H [facility] Last Admin: 01/09/18 15:28 Dose: 5 mg Potassium Chloride (K-Dur 20 Meq Er Tab) 40 meq PO ONCE [facility] Last Admin: 01/05/18 09:16 Dose: 40 meq - Labs Labs: 01/09/18 06:19 01/09/18 06:19 PT 23.9 SECONDS (9.7-12.2) H 01/09/18 06:19 INR 2.1 01/09/18 06:19 APTT 43 SECONDS (21-34) H D 01/09/18 06:19 Assessment and Plan (1) Sepsis Status: Acute (2) Abdominal pain Status: Acute (3) Ascites, malignant Status: Acute (4) Cholangiocarcinoma Status: Chronic (5) Hypertension Status: Acute - Assessment and Plan (Free Text) Assessment: Asssessment : S/P RESPIRATORY FAILURE, ASPIRATION PNEUMONIA. S/P code blue 01/06/18. SEPSIS/ ? INTRAABDOMINAL R/O SBP VS MALIGNANT ASCITES ABDOMINAL PAIN ? 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 GI BLEEDING CHOLANGIOCARCINOMA /ASCITES ?MALIGNANT. ?METASTATIC DISEASE. SHOCK LIVER MULTIPLE HEPATIC MASSES ? ABSCESSES ? FUNGAL ODYNOPHAGIA ? R/O GREGORIO ESOPHAGITES HTN ELLYN -secondary to hypotension. Plan: on IV MERREM 500MG IVPB Q 8HRLY 01/05/18 FOR PRABABLE COVERAGE FOR +VE ESBLKLEBSIELLA PN. VS E.COLI 01/05/18 OFF iv VANCOMYCIN 1 G EVERY 12 HOURLY. 01/02/18-01/06/18 CONTINUE fLAGYL 500 iv PIGGYBACK EVERY 12 HOURLY FOR ANAEROBIC COVERAGE. . CONTINUE IV MYCAFUNGIN 100MG IVPB Q 24HRLY HRLY. 01/03/18. PATIENT PRESENTLY TITRATED OFF VASOPRESSORS.
--- NOTE | 2018-01-09 23:25 | CP.PCM.PN ---
Subjective - Date & Time of Evaluation Date of Evaluation: 01/09/18 Time of Evaluation: 19:40 - Subjective Subjective: Pt seen and evaluated at bedside, NG tube in place, blood stained fluid seen in NG tube, pt c/o abdominal pain, pt is develpping multiorgan failure, and has poor prognosis Objective - Vital Signs/Intake and Output Vital Signs (last 24 hours): Temp Pulse Resp BP Pulse Ox 97.7 F 117 H 14 100/80 100 01/09/18 20:00 01/09/18 23:00 01/09/18 23:00 01/09/18 23:03 01/09/18 23:00 Intake and Output: 01/09/18 01/10/18 18:59 06:59 Intake Total 1192 360 Output Total 585 140 Balance 607 220 - Medications Medications: Current Medications Acetaminophen (Tylenol 325mg Tab) 650 mg PO Q6 PRN PRN Reason: Fever >100.4 F Albumin Human (Albumin Human 25% (12.5 Gm/50 Ml)) 12.5 gm IV Q6H [facility] Stop: 01/10/18 00:30 Last Admin: 01/09/18 18:00 Dose: 12.5 gm Benzocaine/Menthol (Cepacol Sore Throat) 1 rosmery MT Q6H PRN PRN Reason: Sore Throat Diphenhydramine HCl (Benadryl) 25 mg IVP Q3H PRN PRN Reason: Itching / Pruritus Last Admin: 01/09/18 22:45 Dose: 25 mg Famotidine (Pepcid) 20 mg IVP DAILY [facility] Last Admin: 01/09/18 09:06 Dose: 20 mg Fentanyl (Duragesic) 1 patch TD Q72H [facility] Last Admin: 01/09/18 21:03 Dose: 1 patch Hydromorphone HCl (Dilaudid) 1 mg IVP Q3H PRN PRN Reason: pain Last Admin: 01/09/18 22:45 Dose: 1 mg Meropenem 500 mg/ Sodium (Chloride) 100 mls @ 100 mls/hr IVPB Q8 [facility] PRN Reason: Protocol Last Admin: 01/09/18 21:02 Dose: 100 mls/hr Metronidazole (Flagyl) 250 mg in 50 mls @ 100 mls/hr IVPB Q8 [facility] PRN Reason: Protocol Stop: 01/12/18 22:01 Last Admin: 01/09/18 21:01 Dose: 100 mls/hr Norepinephrine Bitartrate 4 mg (/ Dextrose) 254 mls @ 15.24 mls/hr IV .[id number] PRN; Protocol; 4 MCG/MIN PRN Reason: TITRATE PER MD ORDER Last Titration: 01/08/18 13:14 Dose: 0 mcg/min, 0 mls/hr Multivitamins/Vitamin C 10 ml/Chromium/Copper/Manganese/Zinc 1 ml/ Insulin Human Regular 10 unit/ Amino Acids/Electrolytes/Dextrose 1,011.1 mls @ 42 mls/ hr IV .Q24H ONE Stop: 01/10/18 17:59 Last Admin: 01/09/18 18:02 Dose: 42 mls/hr Metoclopramide HCl (Reglan) 5 mg IVP Q6H [facility] Last Admin: 01/09/18 21:03 Dose: 5 mg Potassium Chloride (K-Dur 20 Meq Er Tab) 40 meq PO ONCE [facility] Last Admin: 01/05/18 09:16 Dose: 40 meq - Labs Labs: 01/09/18 06:19 01/09/18 06:19 PT 23.9 SECONDS (9.7-12.2) H 01/09/18 06:19 INR 2.1 01/09/18 06:19 APTT 43 SECONDS (21-34) H D 01/09/18 06:19 - Constitutional Appears: In Acute Distress, Confused, Chronically Ill - Head Exam Head Exam: ATRAUMATIC, NORMAL INSPECTION, NORMOCEPHALIC - Eye Exam Eye Exam: EOMI, Normal appearance, PERRL Pupil Exam: NORMAL ACCOMODATION, PERRL - Respiratory Exam Respiratory Exam: Decreased Breath Sounds, Rales, Rhonchi - Cardiovascular Exam Cardiovascular Exam: REGULAR RHYTHM, +S1, +S2. absent: Murmur - GI/Abdominal Exam GI & Abdominal Exam: Tenderness - Rectal Exam Rectal Exam: Deferred Assessment and Plan (1) Abdominal pain Status: Acute (2) Cholangiocarcinoma Status: Chronic (3) Dehydration Status: Acute (4) Hypertension Status: Acute (5) Septicemia Status: Acute
[2018-01-10] MEDS: Albumin Human 25% (12.5 gm/50 ml) IV SCH (00:47)
[2018-01-10] MEDS: DiphenhydrAMINE 50 mg/ml Inj IVP PRN ×4 (03:12→16:59)
[2018-01-10] MEDS: HYDROmorphone 1 mg/ml ISec IVP PRN ×4 (03:12→16:58)
[2018-01-10] MEDS: Meropenem 500 MG in Sodium Chloride 0.9% 100 ML IVPB SCH ×3 (05:06→21:34)
[2018-01-10] MEDS: metroNIDAZOLE IV 250mg/50 ml 250 MG/50 ML BAG IVPB SCH ×3 (05:06→21:29)
[2018-01-10 06:30] LABS: BASO % 0.1 % (0.0-2.0); EOS # 0.2 K/uL (0.0-0.7); EOS % 1.4 % (0.0-4.0); HEMOGLOBIN 8.4 g/dL (12.0-18.0); LYMPH # 0.5 K/uL (1.0-4.3); LYMPH % 2.8 % (20.0-40.0); MEAN CELL VOLUME 94.7 fL (80.0-94.0); MEAN CORPUSCULAR HEMOGLOBIN 30.9 pg (27.0-31.0); MEAN CORPUSCULAR HGB CONC 32.6 g/dL (33.0-37.0); MEAN PLATELET VOLUME 8.7 fL (7.2-11.7); MONO % 5.6 % (0.0-10.0); NEUT # 15.9 K/uL (1.8-7.0); NEUT % 90.1 % (50.0-75.0); RBC 2.72 Mil/uL (4.40-5.90); RED CELL DISTRIBUTION WIDTH 22.2 % (11.5-14.5); WHITE BLOOD COUNT 17.6 K/uL (4.8-10.8)
[2018-01-10 06:38] LABS: INR 1.9; PROTHROMBIN TIME 21.6 SECONDS (9.7-12.2)
[2018-01-10 06:39] LABS: PLATELET COUNT 29 K/uL (130-400)
[2018-01-10 06:48] LABS: ALB/GLOB RATIO 0.8 (1.0-2.1); ALBUMIN 2.1 g/dL (3.5-5.0); CALCIUM 7.4 mg/dl (8.6-10.4)
[2018-01-10 08:30] LABS: BANDS 1 % (0-2); LYMPHOCYTE 1 % (20-40); MONOCYTE 4 % (0-10); MYELOCYTE 1 % (0-0); NEUTROPHIL 93 % (50-75); NUCLEATED RED BLOOD CELL 2 % (0-0); PLATELET ESTIMATE MARKEDLY DECREASED (NORMAL); TOTAL CELLS COUNTED 100
[2018-01-10 08:31] LABS: ANISOCYTOSIS SLIGHT; HYPOCHROMIC MODERATE; POIKILOCYTOSIS SLIGHT; TARGET CELLS SLIGHT; TEARDROP CELLS SLIGHT
--- NOTE | 2018-01-10 09:06 | CP.PCM.PN ---
Subjective - Date & Time of Evaluation Date of Evaluation: 01/10/18 Time of Evaluation: 08:47 - Subjective Subjective: Ordered Ddimer, fibrinogen, and fdp, for dd of thrombocytopenia, also if continues to increased output from NG will need abdominal CT, DD of hematoma, spelenic sequestration. Objective - Vital Signs/Intake and Output Vital Signs (last 24 hours): Temp Pulse Resp BP Pulse Ox 97.8 F 108 H 12 112/85 94 L 01/10/18 08:00 01/10/18 08:03 01/10/18 08:03 01/10/18 08:03 01/10/18 08:03 Intake and Output: 01/10/18 01/10/18 06:59 18:59 Intake Total 796 42 Output Total 595 40 Balance 201 2 - Medications Medications: Current Medications Acetaminophen (Tylenol 325mg Tab) 650 mg PO Q6 PRN PRN Reason: Fever >100.4 F Benzocaine/Menthol (Cepacol Sore Throat) 1 rosmery MT Q6H PRN PRN Reason: Sore Throat Diphenhydramine HCl (Benadryl) 25 mg IVP Q3H PRN PRN Reason: Itching / Pruritus Last Admin: 01/10/18 06:22 Dose: 25 mg Fentanyl (Duragesic) 1 patch TD Q72H [facility] Last Admin: 01/09/18 21:03 Dose: 1 patch Hydromorphone HCl (Dilaudid) 1 mg IVP Q3H PRN PRN Reason: pain Last Admin: 01/10/18 06:22 Dose: 1 mg Meropenem 500 mg/ Sodium (Chloride) 100 mls @ 100 mls/hr IVPB Q8 [facility] PRN Reason: Protocol Last Admin: 01/10/18 05:06 Dose: 100 mls/hr Metronidazole (Flagyl) 250 mg in 50 mls @ 100 mls/hr IVPB Q8 [facility] PRN Reason: Protocol Stop: 01/12/18 22:01 Last Admin: 01/10/18 05:06 Dose: 100 mls/hr Norepinephrine Bitartrate 4 mg (/ Dextrose) 254 mls @ 15.24 mls/hr IV .[id number] PRN; Protocol; 4 MCG/MIN PRN Reason: TITRATE PER MD ORDER Last Titration: 01/08/18 13:14 Dose: 0 mcg/min, 0 mls/hr Multivitamins/Vitamin C 10 ml/Chromium/Copper/Manganese/Zinc 1 ml/ Insulin Human Regular 10 unit/ Amino Acids/Electrolytes/Dextrose 1,011.1 mls @ 42 mls/ hr IV .Q24H ONE Stop: 01/10/18 17:59 Last Admin: 01/09/18 18:02 Dose: 42 mls/hr Potassium Chloride (Potassium Chloride 20 Meq/100 Ml) 20 meq in 100 mls @ 50 mls/hr IVPB Q2H [facility] Stop: 01/10/18 14:29 Last Admin: 01/10/18 08:32 Dose: 50 mls/hr Potassium Chloride (K-Dur 20 Meq Er Tab) 40 meq PO ONCE [facility] Last Admin: 01/05/18 09:16 Dose: 40 meq Sucralfate (Carafate Oral Susp) 1 gm PO DAILY [facility] - Labs Labs: 01/10/18 06:24 01/10/18 06:24 PT 21.6 SECONDS (9.7-12.2) H 01/10/18 06:24 INR 1.9 01/10/18 06:24 APTT 46 SECONDS (21-34) H 01/10/18 06:24
[2018-01-10 09:43] LABS: D DIMER 4107 ng/mlDDU (0-243); FDP INTERPRETATION POSITIVE (NEGATIVE); FDP QUANTITY >40 ug/mL (<10); FIBRINOGEN 158 mg/dL (200-400)
[2018-01-10] MEDS ORDERED: Sucralfate 1 gm/10 ml Oral Susp UD PO SCH (10:00)
[2018-01-10] MEDS ORDERED: Metoprolol 1 mg/ml Inj IVP ONE (10:02)
[2018-01-10] MEDS ORDERED: Phytonadione 10 mg/ml Inj (Adult) SC STA (10:34)
[2018-01-10] MEDS: Magnesium Sulfate 1 gm in D5W 1 GM/100 ML BAG IVPB SCH ×2 (10:57→11:31)
[2018-01-10] MEDS ORDERED: Phenylephrine 30 MG in Dextrose 5% In Water 250 ML IV PRN (11:10)
[2018-01-10] MEDS ORDERED: Sodium Chloride 0.9% 250 ML IV SCH (11:15)
[2018-01-10] MEDS: Sodium Chloride 0.9% 250 ML IV SCH ×2 (11:15→11:40)
[2018-01-10] MEDS ORDERED: Metoprolol 1 mg/ml Inj IVP PRN (12:04)
[2018-01-10 12:47] LABS: ARTERIAL BLOOD GAS HCO3 25.2 mmol/L (21-28); ARTERIAL BLOOD GAS O2 SAT 98.3 % (95-98); ARTERIAL BLOOD GAS PCO2 31 mm/Hg (35-45); ARTERIAL BLOOD GAS PH 7.48 (7.35-7.45); ARTERIAL BLOOD GAS PO2 78 mm/Hg (80-100); ARTERIAL BLOOD GAS TCO2 24.1 mmol/L (22-28)
--- NOTE | 2018-01-10 14:24 | RAD ---
Chest x-ray single frontal view History: Shortness of breath. Comparison: 01/07/2018 Findings: Interval removal of an endotracheal tube. NG tube extending into the stomach. Right-sided venous catheter extending into the right atrium. Moderate to severe venous congestion with bibasilar airspace opacities and small bilateral pleural effusions. Bilateral hilar prominence. Calcification at aortic knob. Degenerative changes in the spine and shoulders. Surgical clips in the upper abdomen. Impression: Interval removal of an endotracheal tube. NG tube extending into the stomach. Right-sided venous catheter extending into the right atrium. Moderate to severe venous congestion with bibasilar airspace opacities and small bilateral pleural effusions. Bilateral hilar prominence. Calcification at aortic knob. Degenerative changes in the spine and shoulders. Surgical clips in the upper abdomen.
--- NOTE | 2018-01-10 16:49 | CP.PCM.PN ---
Subjective - Date & Time of Evaluation Date of Evaluation: 01/10/18 Time of Evaluation: 16:49 - Subjective Subjective: CHIEF COMPLAINTS TODAY : EVENTS NOTED THIS AM. AAO.ON TPN TITRATED OFF VASOPRESSORS. NGT- DRAINING -GREENISH DRAINAGE C/O GEN.ABDOMINAL PAIN. [place] DVT ! ROS. HEENT : REMAINS EXTUBATED +VE NGT GREENISH DRAINAGE. 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 Musculoskel : N Ext. : Pedal pulses intact, +VE EDEMA, NO calf pain Derm : N Psych : N. PE. PATIENT EXTUBATED Pt. is alert awake in no distress. V.S As noted in the chart Head ,ear nose,throat and eyes : Normal. Neck : Supple with normal carotids. Lungs: BILATERAL RHONCHI/RALES Heart : S1 & S2 normal .SINUS TACHYCARDIA, . No murmur. Abd : SOFT, SLIGHTLY DISTENDED, +VE ASCITES,+VE GENERALIZED TENDERNESS with normal bowel sounds. Neuro : Moves all ext. with no localized deficit. Ext : B/L EDEMA 2+, with intact pulses. Neg. calf tenderness Derm : No rashes or decubitus ulcer. GENITALIA .; SWO[facility]EN Radiology/Labs . WBC 17.6 H/H 8.4 PLT 29 LOW +VEFDP>40 D,DIMER >4107 CREAT 2.5/BUN26 NA 154 T.BILI 6.4 TRANS -IMPROVING CT CHEST WITHOUT CONTRAST 01/08/18 NOTED. Bilateral pleural effusions with compressive atelectasis both lower lobes. Multifocal subsegmental infiltrates affecting both upper lobes. RANDOM VANCO STILL-high ( Vanco DC'd 01/06/18 ) Objective - Vital Signs/Intake and Output Vital Signs (last 24 hours): Temp Pulse Resp BP Pulse Ox 98.0 F 98 H 11 L 134/85 98 01/10/18 16:00 01/10/18 16:00 01/10/18 16:00 01/10/18 15:24 01/10/18 16:00 Intake and Output: 01/10/18 01/10/18 06:59 18:59 Intake Total 796 1173.3 Output Total 595 320 Balance 201 853.3 - Medications Medications: Current Medications Acetaminophen (Tylenol 325mg Tab) 650 mg PO Q6 PRN PRN Reason: Fever >100.4 F Benzocaine/Menthol (Cepacol Sore Throat) 1 rosmery MT Q6H PRN PRN Reason: Sore Throat Diphenhydramine HCl (Benadryl) 25 mg IVP Q3H PRN PRN Reason: Itching / Pruritus Last Admin: 01/10/18 12:55 Dose: 25 mg Famotidine (Pepcid) 20 mg IVP DAILY [facility] Last Admin: 01/10/18 10:08 Dose: 20 mg Fentanyl (Duragesic) 1 patch TD Q72H HOLLY Last Admin: 01/09/18 21:03 Dose: 1 patch Hydromorphone HCl (Dilaudid) 1 mg IVP Q3H PRN PRN Reason: pain Last Admin: 01/10/18 12:55 Dose: 1 mg Meropenem 500 mg/ Sodium (Chloride) 100 mls @ 100 mls/hr IVPB Q8 HOLLY PRN Reason: Protocol Last Admin: 01/10/18 14:06 Dose: 100 mls/hr Metronidazole (Flagyl) 250 mg in 50 mls @ 100 mls/hr IVPB Q8 HOLLY PRN Reason: Protocol Stop: 01/12/18 22:01 Last Admin: 01/10/18 13:25 Dose: 100 mls/hr Norepinephrine Bitartrate 4 mg (/ Dextrose) 254 mls @ 15.24 mls/hr IV .[id number] PRN; Protocol; 4 MCG/MIN PRN Reason: TITRATE PER MD ORDER Last Titration: 01/08/18 13:14 Dose: 0 mcg/min, 0 mls/hr Multivitamins/Vitamin C 10 ml/Chromium/Copper/Manganese/Zinc 1 ml/ Insulin Human Regular 10 unit/ Amino Acids/Electrolytes/Dextrose 1,011.1 mls @ 42 mls/ hr IV .Q24H ONE Stop: 01/10/18 17:59 Last Admin: 01/09/18 18:02 Dose: 42 mls/hr Phenylephrine HCl 30 mg/ (Dextrose) 253 mls @ 10.12 mls/hr IV .Q24H PRN; Protocol; 20 MCG/MIN PRN Reason: TITRATE PER MD ORDER Last Titration: 01/10/18 12:00 Dose: 0 mcg/min, 0 mls/hr Potassium Chloride 60 meq/Potassium Phosphate 15 mmole/Magnesium Sulfate 8 meq/ Calcium Gluconate 4.65 meq/Multivitamins/Vitamin C 10 ml/Chromium/Copper/ Manganese/Seleni/Zn 1 ml/ Insulin Human Regular 10 unit/ Amino Acids 1, 058.0704 mls @ 42 mls/hr IV .Q24H ONE Stop: 01/11/18 17:59 Fat Emulsion Intravenous (Intralipid 20%) 500 mls @ 42 mls/hr IV QOD ONE Stop: 01/11/18 05:54 Metoprolol Tartrate (Lopressor) 5 mg IVP Q6 HOLLY Potassium Chloride (K-Dur 20 Meq Er Tab) 40 meq PO ONCE HOLLY Last Admin: 01/05/18 09:16 Dose: 40 meq - Labs Labs: 01/10/18 06:24 01/10/18 06:24 PT 21.6 SECONDS (9.7-12.2) H 01/10/18 06:24 INR 1.9 01/10/18 06:24 APTT 46 SECONDS (21-34) H 01/10/18 06:24 Assessment and Plan (1) Sepsis Status: Acute (2) Abdominal pain Status: Acute (3) Ascites, malignant Status: Acute (4) Cholangiocarcinoma Status: Chronic (5) Hypertension Status: Acute (6) Thrombocytopenia Status: Acute - Assessment and Plan (Free Text) Assessment: Asssessment : S/P RESPIRATORY FAILURE, ASPIRATION PNEUMONIA. S/P code blue 01/06/18. SEPSIS/ ? INTRAABDOMINAL R/O SBP VS MALIGNANT ASCITES ABDOMINAL PAIN ? 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 GI BLEEDING CHOLANGIOCARCINOMA /ASCITES ?MALIGNANT. ?METASTATIC DISEASE. SHOCK LIVER MULTIPLE HEPATIC MASSES ? ABSCESSES ? FUNGAL HTN ELLYN -secondary to hypotension. THROMBOCYTOPENIA/COAGULOPATHY/?DIC Plan: on IV MERREM 500MG IVPB Q 8HRLY 01/05/18 FOR PRABABLE COVERAGE FOR +VE ESBL KLEBSIELLA PN. VS E.COLI 01/05/18 CONTINUE fLAGYL 250 iv PIGGYBACK EVERY 8 HOURLY FOR ANAEROBIC COVERAGE. . F/U CBC/PLATELETS. ON TPN. F/U SPUTUM CULTURE/FUNGAL CULTURE. PROGNOSIS GUARDED. PALLIATIVE CARE DISCUSSED WITH PT. IN DENIAL.
--- NOTE | 2018-01-10 17:21 | CP.CCUPN ---
<Valerie Montemayor - Last Filed: 01/10/18 17:30> CCU Subjective - Physician Review Subjective (Free Text): 01/10/18 9:00 Patient seen and examined at bedside. Per nursing no acute events overnight. Patient was resting comfortably. Potassium and magnesium were low, and were repleted. Later in the morning patient developed tachycardia in the 170-180s, asymptomatic. Patient BPs initially were low, he was given 250cc bolus of NS x 2. Patient appeared short of breath, 02 sats were unobtainable. STAT CXR and ABG ordered. Patient was placed on non-rebreather. BPs improved, Lopressor 5mg IVP STAT was given. CCU Objective - Vital Signs / Intake & Output Vital Signs (Last 4 hours): Vital Signs Temp Pulse Resp BP Pulse Ox 01/10/18 16:00 98.0 F 98 H 11 L 98 01/10/18 15:24 101 H 12 134/85 01/10/18 15:00 100 H 12 01/10/18 14:17 101 H 11 L 141/88 01/10/18 14:00 101 H 11 L 01/10/18 13:57 102 H 10 L 135/79 01/10/18 13:37 102 H 11 L 137/84 Intake and Output (Last 8hrs): Intake & Output 01/10/18 01/10/18 01/10/18 06:59 14:59 22:59 Intake Total 578 1089.3 84 Output Total 480 240 80 Balance 98 849.3 4 Weight 65.363 kg 65.363 kg Intake: IV 5.3 Intake, IV Amount 578 1084 84 Right Port-A-Cath 378 1084 84 right port 200 Oral 0 0 Output: Gastric Amount 200 Stomach 200 Urine 280 240 80 Urethral (Woods) 280 240 80 - Medications Active Medications: Active Medications Generic Name Dose Route Start Last Admin Trade Name Freq PRN Reason Stop Dose Admin Acetaminophen 650 mg 01/01/18 02:46 Tylenol 325mg Tab PO Q6 PRN Fever >100.4 F Benzocaine/Menthol 1 rosmery 01/03/18 18:10 Cepacol Sore Throat MT Q6H PRN Sore Throat Diphenhydramine HCl 25 mg 01/09/18 10:18 01/10/18 16:59 Benadryl IVP 25 mg Q3H PRN Administration Itching / Pruritus Famotidine 20 mg 01/10/18 10:00 01/10/18 10:08 Pepcid IVP 20 mg DAILY HOLLY Administration Fentanyl 1 patch 01/03/18 20:00 01/09/18 21:03 Duragesic TD 1 patch Q72H HOLLY Administration Hydromorphone HCl 1 mg 01/09/18 09:28 01/10/18 16:58 Dilaudid IVP 1 mg Q3H PRN Administration pain Meropenem 500 mg/ Sodium 100 mls @ 100 mls/hr 01/05/18 22:00 01/10/18 14:06 Chloride IVPB 100 mls/hr Q8 HOLLY Administration Protocol Metronidazole 250 mg in 50 mls @ 100 mls/hr 01/07/18 22:00 01/10/18 13:25 Flagyl IVPB 01/12/18 22:01 100 mls/hr Q8 HOLYL Administration Protocol Norepinephrine Bitartrate 4 mg 254 mls @ 15.24 mls/hr 01/07/18 21:17 13:14 / Dextrose IV 0 mcg/min .[id number] PRN 0 mls/hr TITRATE PER MD ORDER Titration Protocol 4 MCG/MIN Multivitamins/Vitamin C 10 ml/ 1,011.1 mls @ 42 mls/hr 01/09/18 18:00 18:02 Chromium/Copper/Manganese/ IV 01/10/18 17:59 42 mls/hr Zinc 1 ml/ Insulin Human .Q24H ONE Administration Regular 10 unit/ Amino Acids/ Electrolytes/Dextrose Phenylephrine HCl 30 mg/ 253 mls @ 10.12 mls/hr 01/10/18 11:10 01/10/18 12:00 Dextrose IV 0 mcg/min .Q24H PRN 0 mls/hr TITRATE PER MD ORDER Titration Protocol 20 MCG/MIN Potassium Chloride 60 meq/ 1,058.0704 mls @ 42 mls/hr 01/10/18 18:00 Potassium Phosphate 15 mmole/ IV 01/11/18 17:59 Magnesium Sulfate 8 meq/ .Q24H ONE Calcium Gluconate 4.65 meq/ Multivitamins/Vitamin C 10 ml/ Chromium/Copper/Manganese/ Seleni/Zn 1 ml/ Insulin Human Regular 10 unit/ Amino Acids Fat Emulsion Intravenous 500 mls @ 42 mls/hr 01/10/18 18:00 Intralipid 20% IV 01/11/18 05:54 QOD ONE Metoprolol Tartrate 5 mg 01/10/18 18:00 Lopressor IVP Q6 HOLLY Potassium Chloride 40 meq 01/05/18 10:00 01/05/18 09:16 K-Dur 20 Meq Er Tab PO 40 meq ONCE HOLLY Administration - Patient Studies Lab Studies: Lab Studies 01/10/18 01/10/18 01/10/18 Range/Units 17:13 12:35 11:42 WBC (4.8-10.8) K/uL RBC (4.40-5.90) Mil/uL Hgb (12.0-18.0) g/dL Hct (35.0-51.0) % MCV (80.0-94.0) fL MCH (27.0-31.0) pg MCHC (33.0-37.0) g/dL RDW (11.5-14.5) % Plt Count (130-400) K/uL MPV (7.2-11.7) fL Neut % (Auto) (50.0-75.0) % Lymph % (Auto) (20.0-40.0) % Childress % (Auto) (0.0-10.0) % Eos % (Auto) (0.0-4.0) % Baso % (Auto) (0.0-2.0) % Neut # (Auto) (1.8-7.0) K/uL Lymph # (Auto) (1.0-4.3) K/uL Childress # (Auto) (0.0-0.8) K/uL Eos # (Auto) (0.0-0.7) K/uL Baso # (Auto) (0.0-0.2) K/uL Neutrophils % (Manual) (50-75) % Band Neutrophils % (0-2) % Lymphocytes % (Manual) (20-40) % Monocytes % (Manual) (0-10) % Myelocytes % (0-0) % Nucleated RBC % (0-0) % Platelet Estimate (NORMAL) Hypochromasia (manual) Poikilocytosis (manual Anisocytosis (manual) Target Cells Tear Drop Cells PT (9.7-12.2) SECONDS INR APTT (21-34) SECONDS Fibrinogen (200-400) mg/dL Fibrin Degrad Products (NEGATIVE) Fibrin Degrad Prod, Qt (<10) ug/mL D-Dimer, Quantitative (0-243) ng/mlDDU Puncture Site Lf pCO2 31 L (35-45) mm/Hg pO2 78 L (80-100) mm/Hg HCO3 25.2 (21-28) mmol/L ABG pH 7.48 H (7.35-7.45) ABG Total CO2 24.1 (22-28) mmol/L ABG O2 Saturation 98.3 H (95-98) % ABG Base Excess 0.4 (-2.0-3.0) mmol/L Rashid Test Na ABG Potassium 4.1 (3.6-5.2) mmol/L A-a O2 Difference 240.0 mm/Hg Respiratory Index 3.1 Glucose 83 (75-110) mg/dl Lactate 3.0 H (0.7-2.1) mmol/L FiO2 50.0 % Crit Value Called To Dr martínez Crit Value Called By Evans ricci [facility] Crit Value Read Back Y Blood Gas Notified Time 1250 Sodium 152.0 H (132-148) mmol/L Potassium (3.6-5.2) mmol/L Chloride 122.0 H (98-107) mmol/L Carbon Dioxide (22-30) mmol/L Anion Gap (10-20) BUN (9-20) mg/dL Creatinine (0.8-1.5) mg/dL Est GFR ( Amer) Est GFR (Non-Af Amer) POC Glucose (mg/dL) 66 77 (65-110) mg/dL Random Glucose (75-110) mg/dL Calcium (8.6-10.4) mg/dl Phosphorus (2.5-4.5) mg/dL Magnesium (1.6-2.3) mg/dL Total Bilirubin (0.2-1.3) mg/dL AST (17-59) U/L ALT (21-72) U/L Alkaline Phosphatase (38-126) U/L Total Protein (6.3-8.3) g/dL Albumin (3.5-5.0) g/dL Globulin (2.2-3.9) gm/dL Albumin/Globulin Ratio (1.0-2.1) Arterial Blood Potassium 4.1 (3.6-5.2) mmol/L 01/10/18 01/10/18 01/10/18 Range/Units 09:03 06:24 06:24 WBC (4.8-10.8) K/uL RBC (4.40-5.90) Mil/uL Hgb (12.0-18.0) g/dL Hct (35.0-51.0) % MCV (80.0-94.0) fL MCH (27.0-31.0) pg MCHC (33.0-37.0) g/dL RDW (11.5-14.5) % Plt Count (130-400) K/uL MPV (7.2-11.7) fL Neut % (Auto) (50.0-75.0) % Lymph % (Auto) (20.0-40.0) % Childress % (Auto) (0.0-10.0) % Eos % (Auto) (0.0-4.0) % Baso % (Auto) (0.0-2.0) % Neut # (Auto) (1.8-7.0) K/uL Lymph # (Auto) (1.0-4.3) K/uL Childress # (Auto) (0.0-0.8) K/uL Eos # (Auto) (0.0-0.7) K/uL Baso # (Auto) (0.0-0.2) K/uL Neutrophils % (Manual) (50-75) % Band Neutrophils % (0-2) % Lymphocytes % (Manual) (20-40) % Monocytes % (Manual) (0-10) % Myelocytes % (0-0) % Nucleated RBC % (0-0) % Platelet Estimate (NORMAL) Hypochromasia (manual) Poikilocytosis (manual Anisocytosis (manual) Target Cells Tear Drop Cells PT 21.6 H (9.7-12.2) SECONDS INR 1.9 APTT 46 H (21-34) SECONDS Fibrinogen 158 L (200-400) mg/dL Fibrin Degrad Products Positive H (NEGATIVE) Fibrin Degrad Prod, Qt >40 H (<10) ug/mL D-Dimer, Quantitative 4107 H (0-243) ng/mlDDU Puncture Site pCO2 (35-45) mm/Hg pO2 (80-100) mm/Hg HCO3 (21-28) mmol/L ABG pH (7.35-7.45) ABG Total CO2 (22-28) mmol/L ABG O2 Saturation (95-98) % ABG Base Excess (-2.0-3.0) mmol/L Rashid Test ABG Potassium (3.6-5.2) mmol/L A-a O2 Difference mm/Hg Respiratory Index Glucose (75-110) mg/dl Lactate (0.7-2.1) mmol/L FiO2 % Crit Value Called To Crit Value Called By Crit Value Read Back Blood Gas Notified Time Sodium 154 H (132-148) mmol/L Potassium 3.2 L (3.6-5.2) mmol/L Chloride 114 H (98-107) mmol/L Carbon Dioxide 28 (22-30) mmol/L Anion Gap 16 (10-20) BUN 26 H (9-20) mg/dL Creatinine 2.5 H (0.8-1.5) mg/dL Est GFR ( Amer) 32 Est GFR (Non-Af Amer) 26 POC Glucose (mg/dL) (65-110) mg/dL Random Glucose 108 (75-110) mg/dL Calcium 7.4 L (8.6-10.4) mg/dl Phosphorus 3.2 (2.5-4.5) mg/dL Magnesium 1.7 (1.6-2.3) mg/dL Total Bilirubin 6.4 H (0.2-1.3) mg/dL AST 47 (17-59) U/L ALT 63 (21-72) U/L Alkaline Phosphatase 132 H (38-126) U/L Total Protein 4.5 L (6.3-8.3) g/dL Albumin 2.1 L (3.5-5.0) g/dL Globulin 2.5 (2.2-3.9) gm/dL Albumin/Globulin Ratio 0.8 L (1.0-2.1) Arterial Blood Potassium (3.6-5.2) mmol/L 01/10/18 01/10/18 01/10/18 Range/Units 06:24 05:41 00:01 WBC 17.6 H (4.8-10.8) K/uL RBC 2.72 L (4.40-5.90) Mil/uL Hgb 8.4 L (12.0-18.0) g/dL Hct 25.7 L (35.0-51.0) % MCV 94.7 H D (80.0-94.0) fL MCH 30.9 (27.0-31.0) pg MCHC 32.6 L (33.0-37.0) g/dL RDW 22.2 H (11.5-14.5) % Plt Count 29 L* D (130-400) K/uL MPV 8.7 (7.2-11.7) fL Neut % (Auto) 90.1 H (50.0-75.0) % Lymph % (Auto) 2.8 L (20.0-40.0) % Childress % (Auto) 5.6 (0.0-10.0) % Eos % (Auto) 1.4 (0.0-4.0) % Baso % (Auto) 0.1 (0.0-2.0) % Neut # (Auto) 15.9 H (1.8-7.0) K/uL Lymph # (Auto) 0.5 L (1.0-4.3) K/uL Childress # (Auto) 1.0 H (0.0-0.8) K/uL Eos # (Auto) 0.2 (0.0-0.7) K/uL Baso # (Auto) 0.0 (0.0-0.2) K/uL Neutrophils % (Manual) 93 H (50-75) % Band Neutrophils % 1 (0-2) % Lymphocytes % (Manual) 1 L (20-40) % Monocytes % (Manual) 4 (0-10) % Myelocytes % 1 H (0-0) % Nucleated RBC % 2 H (0-0) % Platelet Estimate Markedly decreased L (NORMAL) Hypochromasia (manual) Moderate Poikilocytosis (manual Slight Anisocytosis (manual) Slight Target Cells Slight Tear Drop Cells Slight PT (9.7-12.2) SECONDS INR APTT (21-34) SECONDS Fibrinogen (200-400) mg/dL Fibrin Degrad Products (NEGATIVE) Fibrin Degrad Prod, Qt (<10) ug/mL D-Dimer, Quantitative (0-243) ng/mlDDU Puncture Site pCO2 (35-45) mm/Hg pO2 (80-100) mm/Hg HCO3 (21-28) mmol/L ABG pH (7.35-7.45) ABG Total CO2 (22-28) mmol/L ABG O2 Saturation (95-98) % ABG Base Excess (-2.0-3.0) mmol/L Rashid Test ABG Potassium (3.6-5.2) mmol/L A-a O2 Difference mm/Hg Respiratory Index Glucose (75-110) mg/dl Lactate (0.7-2.1) mmol/L FiO2 % Crit Value Called To Crit Value Called By Crit Value Read Back Blood Gas Notified Time Sodium (132-148) mmol/L Potassium (3.6-5.2) mmol/L Chloride (98-107) mmol/L Carbon Dioxide (22-30) mmol/L Anion Gap (10-20) BUN (9-20) mg/dL Creatinine (0.8-1.5) mg/dL Est GFR ( Amer) Est GFR (Non-Af Amer) POC Glucose (mg/dL) 216 H 110 (65-110) mg/dL Random Glucose (75-110) mg/dL Calcium (8.6-10.4) mg/dl Phosphorus (2.5-4.5) mg/dL Magnesium (1.6-2.3) mg/dL Total Bilirubin (0.2-1.3) mg/dL AST (17-59) U/L ALT (21-72) U/L Alkaline Phosphatase (38-126) U/L Total Protein (6.3-8.3) g/dL Albumin (3.5-5.0) g/dL Globulin (2.2-3.9) gm/dL Albumin/Globulin Ratio (1.0-2.1) Arterial Blood Potassium (3.6-5.2) mmol/L 01/09/18 Range/Units 17:39 WBC (4.8-10.8) K/uL RBC (4.40-5.90) Mil/uL Hgb (12.0-18.0) g/dL Hct (35.0-51.0) % MCV (80.0-94.0) fL MCH (27.0-31.0) pg MCHC (33.0-37.0) g/dL RDW (11.5-14.5) % Plt Count (130-400) K/uL MPV (7.2-11.7) fL Neut % (Auto) (50.0-75.0) % Lymph % (Auto) (20.0-40.0) % Childress % (Auto) (0.0-10.0) % Eos % (Auto) (0.0-4.0) % Baso % (Auto) (0.0-2.0) % Neut # (Auto) (1.8-7.0) K/uL Lymph # (Auto) (1.0-4.3) K/uL Childress # (Auto) (0.0-0.8) K/uL Eos # (Auto) (0.0-0.7) K/uL Baso # (Auto) (0.0-0.2) K/uL Neutrophils % (Manual) (50-75) % Band Neutrophils % (0-2) % Lymphocytes % (Manual) (20-40) % Monocytes % (Manual) (0-10) % Myelocytes % (0-0) % Nucleated RBC % (0-0) % Platelet Estimate (NORMAL) Hypochromasia (manual) Poikilocytosis (manual Anisocytosis (manual) Target Cells Tear Drop Cells PT (9.7-12.2) SECONDS INR APTT (21-34) SECONDS Fibrinogen (200-400) mg/dL Fibrin Degrad Products (NEGATIVE) Fibrin Degrad Prod, Qt (<10) ug/mL D-Dimer, Quantitative (0-243) ng/mlDDU Puncture Site pCO2 (35-45) mm/Hg pO2 (80-100) mm/Hg HCO3 (21-28) mmol/L ABG pH (7.35-7.45) ABG Total CO2 (22-28) mmol/L ABG O2 Saturation (95-98) % ABG Base Excess (-2.0-3.0) mmol/L Rashid Test ABG Potassium (3.6-5.2) mmol/L A-a O2 Difference mm/Hg Respiratory Index Glucose (75-110) mg/dl Lactate (0.7-2.1) mmol/L FiO2 % Crit Value Called To Crit Value Called By Crit Value Read Back Blood Gas Notified Time Sodium (132-148) mmol/L Potassium (3.6-5.2) mmol/L Chloride (98-107) mmol/L Carbon Dioxide (22-30) mmol/L Anion Gap (10-20) BUN (9-20) mg/dL Creatinine (0.8-1.5) mg/dL Est GFR ( Amer) Est GFR (Non-Af Amer) POC Glucose (mg/dL) 88 (65-110) mg/dL Random Glucose (75-110) mg/dL Calcium (8.6-10.4) mg/dl Phosphorus (2.5-4.5) mg/dL Magnesium (1.6-2.3) mg/dL Total Bilirubin (0.2-1.3) mg/dL AST (17-59) U/L ALT (21-72) U/L Alkaline Phosphatase (38-126) U/L Total Protein (6.3-8.3) g/dL Albumin (3.5-5.0) g/dL Globulin (2.2-3.9) gm/dL Albumin/Globulin Ratio (1.0-2.1) Arterial Blood Potassium (3.6-5.2) mmol/L Laboratory Results - last 24 hr 01/09/18 01/10/18 01/10/18 17:39 00:01 05:41 WBC RBC Hgb Hct MCV MCH MCHC RDW Plt Count MPV Neut % (Auto) Lymph % (Auto) Childress % (Auto) Eos % (Auto) Baso % (Auto) Neut # (Auto) Lymph # (Auto) Childress # (Auto) Eos # (Auto) Baso # (Auto) Neutrophils % (Manual) Band Neutrophils % Lymphocytes % (Manual) Monocytes % (Manual) Myelocytes % Nucleated RBC % Platelet Estimate Hypochromasia (manual) Poikilocytosis (manual Anisocytosis (manual) Target Cells Tear Drop Cells PT INR APTT Fibrinogen Fibrin Degrad Products Fibrin Degrad Prod, Qt D-Dimer, Quantitative Puncture Site pCO2 pO2 HCO3 ABG pH ABG Total CO2 ABG O2 Saturation ABG Base Excess Rashid Test ABG Potassium A-a O2 Difference Respiratory Index Glucose Lactate FiO2 Crit Value Called To Crit Value Called By Crit Value Read Back Blood Gas Notified Time Sodium Potassium Chloride Carbon Dioxide Anion Gap BUN Creatinine Est GFR ( Amer) Est GFR (Non-Af Amer) POC Glucose (mg/dL) 88 110 216 H Random Glucose Calcium Phosphorus Magnesium Total Bilirubin AST ALT Alkaline Phosphatase Total Protein Albumin Globulin Albumin/Globulin Ratio Arterial Blood Potassium 01/10/18 01/10/18 01/10/18 06:24 06:24 06:24 WBC 17.6 H RBC 2.72 L Hgb 8.4 L Hct 25.7 L MCV 94.7 H D MCH 30.9 MCHC 32.6 L RDW 22.2 H Plt Count 29 L* D MPV 8.7 Neut % (Auto) 90.1 H Lymph % (Auto) 2.8 L Childress % (Auto) 5.6 Eos % (Auto) 1.4 Baso % (Auto) 0.1 Neut # (Auto) 15.9 H Lymph # (Auto) 0.5 L Childress # (Auto) 1.0 H Eos # (Auto) 0.2 Baso # (Auto) 0.0 Neutrophils % (Manual) 93 H Band Neutrophils % 1 Lymphocytes % (Manual) 1 L Monocytes % (Manual) 4 Myelocytes % 1 H Nucleated RBC % 2 H Platelet Estimate Markedly decreased L Hypochromasia (manual) Moderate Poikilocytosis (manual Slight Anisocytosis (manual) Slight Target Cells Slight Tear Drop Cells Slight PT 21.6 H INR 1.9 APTT 46 H Fibrinogen Fibrin Degrad Products Fibrin Degrad Prod, Qt D-Dimer, Quantitative Puncture Site pCO2 pO2 HCO3 ABG pH ABG Total CO2 ABG O2 Saturation ABG Base Excess Rashid Test ABG Potassium A-a O2 Difference Respiratory Index Glucose Lactate FiO2 Crit Value Called To Crit Value Called By Crit Value Read Back Blood Gas Notified Time Sodium 154 H Potassium 3.2 L Chloride 114 H Carbon Dioxide 28 Anion Gap 16 BUN 26 H Creatinine 2.5 H Est GFR ( Amer) 32 Est GFR (Non-Af Amer) 26 POC Glucose (mg/dL) Random Glucose 108 Calcium 7.4 L Phosphorus 3.2 Magnesium 1.7 Total Bilirubin 6.4 H AST 47 ALT 63 Alkaline Phosphatase 132 H Total Protein 4.5 L Albumin 2.1 L Globulin 2.5 Albumin/Globulin Ratio 0.8 L Arterial Blood Potassium 01/10/18 01/10/18 01/10/18 09:03 11:42 12:35 WBC RBC Hgb Hct MCV MCH MCHC RDW Plt Count MPV Neut % (Auto) Lymph % (Auto) Childress % (Auto) Eos % (Auto) Baso % (Auto) Neut # (Auto) Lymph # (Auto) Childress # (Auto) Eos # (Auto) Baso # (Auto) Neutrophils % (Manual) Band Neutrophils % Lymphocytes % (Manual) Monocytes % (Manual) Myelocytes % Nucleated RBC % Platelet Estimate Hypochromasia (manual) Poikilocytosis (manual Anisocytosis (manual) Target Cells Tear Drop Cells PT INR APTT Fibrinogen 158 L Fibrin Degrad Products Positive H Fibrin Degrad Prod, Qt >40 H D-Dimer, Quantitative 4107 H Puncture Site Lf pCO2 31 L pO2 78 L HCO3 25.2 ABG pH 7.48 H ABG Total CO2 24.1 ABG O2 Saturation 98.3 H ABG Base Excess 0.4 Rashid Test Na ABG Potassium 4.1 A-a O2 Difference 240.0 Respiratory Index 3.1 Glucose 83 Lactate 3.0 H FiO2 50.0 Crit Value Called To Dr martínez Crit Value Called By Evans ricci [facility] Crit Value Read Back Y Blood Gas Notified Time 1250 Sodium 152.0 H Potassium Chloride 122.0 H Carbon Dioxide Anion Gap BUN Creatinine Est GFR ( Amer) Est GFR (Non-Af Amer) POC Glucose (mg/dL) 77 Random Glucose Calcium Phosphorus Magnesium Total Bilirubin AST ALT Alkaline Phosphatase Total Protein Albumin Globulin Albumin/Globulin Ratio Arterial Blood Potassium 4.1 01/10/18 17:13 WBC RBC Hgb Hct MCV MCH MCHC RDW Plt Count MPV Neut % (Auto) Lymph % (Auto) Childress % (Auto) Eos % (Auto) Baso % (Auto) Neut # (Auto) Lymph # (Auto) Childress # (Auto) Eos # (Auto) Baso # (Auto) Neutrophils % (Manual) Band Neutrophils % Lymphocytes % (Manual) Monocytes % (Manual) Myelocytes % Nucleated RBC % Platelet Estimate Hypochromasia (manual) Poikilocytosis (manual Anisocytosis (manual) Target Cells Tear Drop Cells PT INR APTT Fibrinogen Fibrin Degrad Products Fibrin Degrad Prod, Qt D-Dimer, Quantitative Puncture Site pCO2 pO2 HCO3 ABG pH ABG Total CO2 ABG O2 Saturation ABG Base Excess Rashid Test ABG Potassium A-a O2 Difference Respiratory Index Glucose Lactate FiO2 Crit Value Called To Crit Value Called By Crit Value Read Back Blood Gas Notified Time Sodium Potassium Chloride Carbon Dioxide Anion Gap BUN Creatinine Est GFR ( Amer) Est GFR (Non-Af Amer) POC Glucose (mg/dL) 66 Random Glucose Calcium Phosphorus Magnesium Total Bilirubin AST ALT Alkaline Phosphatase Total Protein Albumin Globulin Albumin/Globulin Ratio Arterial Blood Potassium EKG/Cardiology Studies: Cardiology / EKG Studies 01/10/18 09:42 EKG [ELECTROCARDIOGRAM] Stat Comment: Mode Of Transportation: Reason For Exam: tachycardia Fingerstick Blood Sugar Results: 77 Critical Care Progress Note - Nutrition Nutrition: Nutrition Category Date Time Status NPO Diet [DIET] Diets 01/07/18 Dinner Active Assessment/Plan - Assessment and Plan (Free Text) Assessment: Patient is a 62 year old male with 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 When on the floors patient was unresponsive, CPR was initiated with ROSC. Blood sugar was found to be 20. Patient was intubated and brought to the ICU. Patient is currently AAOx3, extubated himself yesterday. Multifocal Pneumonia -Leukocytosis improving 22.2 -> 17.6 -Procalcitonin 7.25 on 01/08 -Antibiotics: Merrem 500mg Q8H IV, Flagyl 250mg Q8H IV -CT chest: Bilateral pleural effusions resulting in compressive atelectasis both lower lobes. Mulitfocal subsegmental infiltrates affecting both upper lobes and the superior segment of the lower lobe -Continue supplemental O2 -ID on consult, help appreciated Tachycardia -Lopressor 5mg IVP STAT given when BPs improved -Lopressor 5mg Q6H prn Hypotension -Levophed was titrated off -Patient hypotensive this morning -NS 250cc bolus x 2 given with improvement in BPs -Midodrine 10mg x 1 dose ordered History of Cholangiocarcinoma on chemotherapy -Patient with moderate amount of ascites on CT abd/pelvis -Abdominal US on 01/03 showing trace fluid -Patient with generalized pain -Dilaudid 1mg Q3H prn -Fentanyl patch Q72H GI bleed/Anasarca/Elevated LFTs -Hgb 8.4, s/p 2 units PRBCs, 2 units FFP -Continue TPN -Patient may need EGD, Will discuss with Dr Newby -AST/ALT improving today -Continue albumin 12.5mg IV Q6H -Upper extremity duplex ordered for swelling to r/o DVT Thrombocytopenia -Platelets dropped to 29 today -Fibrinogen, D dimer, fibrin split products ordered -No active bleeding at this time -Heme/onc on consult, will see patient later today Hypokalemia -Potassium 3.2 today -Kcl 20 meq q2H x 3 doses -Magnesium 1.7, repleted with Mag sulfate 1gm x 2 doses GI/DVT ppx -Continue Pepcid 20mg IVP daily -SCDs -Palliative care on consult to discuss goals of care -Patient and family wish to continue present management and desire aggressive intervention if needed -Will continue to monitor <Sergo Palencia - Last Filed: 01/10/18 18:58> CCU Objective - Vital Signs / Intake & Output Vital Signs (Last 4 hours): Vital Signs Temp Pulse Resp BP Pulse Ox 01/10/18 18:00 93 H 13 01/10/18 17:50 88 11 L 143/88 01/10/18 17:24 99 H 10 L 156/93 H 01/10/18 17:00 102 H 13 01/10/18 16:24 99 H 12 145/86 01/10/18 16:00 98.0 F 98 H 11 L 98 01/10/18 15:24 101 H 12 134/85 01/10/18 15:00 100 H 12 Intake and Output (Last 8hrs): Intake & Output 01/10/18 01/10/18 01/10/18 06:59 14:59 22:59 Intake Total 578 1089.3 252 Output Total 480 220 320 Balance 98 869.3 -68 Weight 144 lb 1.6 oz 144 lb 1.6 oz Intake: IV 5.3 Intake, IV Amount 578 1084 252 Right Distal Port Port-A- 84 Cath Right Port-A-Cath 378 1084 168 right port 200 Oral 0 0 Output: Gastric Amount 200 200 Stomach 200 200 Urine 280 220 120 Urethral (Woods) 280 220 120 - Medications Active Medications: Active Medications Generic Name Dose Route Start Last Admin Trade Name Freq PRN Reason Stop Dose Admin Acetaminophen 650 mg 01/01/18 02:46 Tylenol 325mg Tab PO Q6 PRN Fever >100.4 F Benzocaine/Menthol 1 rosmery 01/03/18 18:10 Cepacol Sore Throat MT Q6H PRN Sore Throat Diphenhydramine HCl 25 mg 01/09/18 10:18 01/10/18 16:59 Benadryl IVP 25 mg Q3H PRN Administration Itching / Pruritus Famotidine 20 mg 01/10/18 10:00 01/10/18 10:08 Pepcid IVP 20 mg DAILY HOLLY Administration Fentanyl 1 patch 01/03/18 20:00 01/09/18 21:03 Duragesic TD 1 patch Q72H HOLLY Administration Hydromorphone HCl 1 mg 01/09/18 09:28 01/10/18 16:58 Dilaudid IVP 1 mg Q3H PRN Administration pain Meropenem 500 mg/ Sodium 100 mls @ 100 mls/hr 01/05/18 22:00 01/10/18 14:06 Chloride IVPB 100 mls/hr Q8 HOLLY Administration Protocol Metronidazole 250 mg in 50 mls @ 100 mls/hr 01/07/18 22:00 01/10/18 13:25 Flagyl IVPB 01/12/18 22:01 100 mls/hr Q8 HOLLY Administration Protocol Norepinephrine Bitartrate 4 mg 254 mls @ 15.24 mls/hr 01/07/18 21:17 13:14 / Dextrose IV 0 mcg/min .[id number] PRN 0 mls/hr TITRATE PER MD ORDER Titration Protocol 4 MCG/MIN Phenylephrine HCl 30 mg/ 253 mls @ 10.12 mls/hr 01/10/18 11:10 01/10/18 12:00 Dextrose IV 0 mcg/min .Q24H PRN 0 mls/hr TITRATE PER MD ORDER Titration Protocol 20 MCG/MIN Potassium Chloride 60 meq/ 1,058.0704 mls @ 42 mls/hr 01/10/18 18:00 17:00 Potassium Phosphate 15 mmole/ IV 01/11/18 17:59 42 mls/hr Magnesium Sulfate 8 meq/ .Q24H ONE Administration Calcium Gluconate 4.65 meq/ Multivitamins/Vitamin C 10 ml/ Chromium/Copper/Manganese/ Seleni/Zn 1 ml/ Insulin Human Regular 10 unit/ Amino Acids Fat Emulsion Intravenous 500 mls @ 42 mls/hr 01/10/18 18:00 01/10/18 17:23 Intralipid 20% IV 01/11/18 05:54 42 mls/hr QOD ONE Administration Metoprolol Tartrate 5 mg 01/10/18 18:00 01/10/18 17:26 Lopressor IVP 5 mg Q6 HOLLY Administration Potassium Chloride 40 meq 01/05/18 10:00 01/05/18 09:16 K-Dur 20 Meq Er Tab PO 40 meq ONCE HOLLY Administration - Patient Studies Lab Studies: Lab Studies 01/10/18 01/10/18 01/10/18 Range/Units 18:01 17:13 12:35 WBC (4.8-10.8) K/uL RBC (4.40-5.90) Mil/uL Hgb (12.0-18.0) g/dL Hct (35.0-51.0) % MCV (80.0-94.0) fL MCH (27.0-31.0) pg MCHC (33.0-37.0) g/dL RDW (11.5-14.5) % Plt Count (130-400) K/uL MPV (7.2-11.7) fL Neut % (Auto) (50.0-75.0) % Lymph % (Auto) (20.0-40.0) % Childress % (Auto) (0.0-10.0) % Eos % (Auto) (0.0-4.0) % Baso % (Auto) (0.0-2.0) % Neut # (Auto) (1.8-7.0) K/uL Lymph # (Auto) (1.0-4.3) K/uL Childress # (Auto) (0.0-0.8) K/uL Eos # (Auto) (0.0-0.7) K/uL Baso # (Auto) (0.0-0.2) K/uL Neutrophils % (Manual) (50-75) % Band Neutrophils % (0-2) % Lymphocytes % (Manual) (20-40) % Monocytes % (Manual) (0-10) % Myelocytes % (0-0) % Nucleated RBC % (0-0) % Platelet Estimate (NORMAL) Hypochromasia (manual) Poikilocytosis (manual Anisocytosis (manual) Target Cells Tear Drop Cells PT (9.7-12.2) SECONDS INR APTT (21-34) SECONDS Fibrinogen (200-400) mg/dL Fibrin Degrad Products (NEGATIVE) Fibrin Degrad Prod, Qt (<10) ug/mL D-Dimer, Quantitative (0-243) ng/mlDDU Puncture Site Lf pCO2 31 L (35-45) mm/Hg pO2 78 L (80-100) mm/Hg HCO3 25.2 (21-28) mmol/L ABG pH 7.48 H (7.35-7.45) ABG Total CO2 24.1 (22-28) mmol/L ABG O2 Saturation 98.3 H (95-98) % ABG Base Excess 0.4 (-2.0-3.0) mmol/L Rashid Test Na ABG Potassium 4.1 (3.6-5.2) mmol/L A-a O2 Difference 240.0 mm/Hg Respiratory Index 3.1 Glucose 83 (75-110) mg/dl Lactate 3.0 H (0.7-2.1) mmol/L FiO2 50.0 % Crit Value Called To Dr martínez Crit Value Called By Evans ricci [facility] Crit Value Read Back Y Blood Gas Notified Time 1250 Sodium 152.0 H (132-148) mmol/L Potassium (3.6-5.2) mmol/L Chloride 122.0 H (98-107) mmol/L Carbon Dioxide (22-30) mmol/L Anion Gap (10-20) BUN (9-20) mg/dL Creatinine (0.8-1.5) mg/dL Est GFR ( Amer) Est GFR (Non-Af Amer) POC Glucose (mg/dL) 75 66 (65-110) mg/dL Random Glucose (75-110) mg/dL Calcium (8.6-10.4) mg/dl Phosphorus (2.5-4.5) mg/dL Magnesium (1.6-2.3) mg/dL Total Bilirubin (0.2-1.3) mg/dL AST (17-59) U/L ALT (21-72) U/L Alkaline Phosphatase (38-126) U/L Total Protein (6.3-8.3) g/dL Albumin (3.5-5.0) g/dL Globulin (2.2-3.9) gm/dL Albumin/Globulin Ratio (1.0-2.1) Arterial Blood Potassium 4.1 (3.6-5.2) mmol/L 01/10/18 01/10/18 01/10/18 Range/Units 11:42 09:03 06:24 WBC (4.8-10.8) K/uL RBC (4.40-5.90) Mil/uL Hgb (12.0-18.0) g/dL Hct (35.0-51.0) % MCV (80.0-94.0) fL MCH (27.0-31.0) pg MCHC (33.0-37.0) g/dL RDW (11.5-14.5) % Plt Count (130-400) K/uL MPV (7.2-11.7) fL Neut % (Auto) (50.0-75.0) % Lymph % (Auto) (20.0-40.0) % Childress % (Auto) (0.0-10.0) % Eos % (Auto) (0.0-4.0) % Baso % (Auto) (0.0-2.0) % Neut # (Auto) (1.8-7.0) K/uL Lymph # (Auto) (1.0-4.3) K/uL Childress # (Auto) (0.0-0.8) K/uL Eos # (Auto) (0.0-0.7) K/uL Baso # (Auto) (0.0-0.2) K/uL Neutrophils % (Manual) (50-75) % Band Neutrophils % (0-2) % Lymphocytes % (Manual) (20-40) % Monocytes % (Manual) (0-10) % Myelocytes % (0-0) % Nucleated RBC % (0-0) % Platelet Estimate (NORMAL) Hypochromasia (manual) Poikilocytosis (manual Anisocytosis (manual) Target Cells Tear Drop Cells PT 21.6 H (9.7-12.2) SECONDS INR 1.9 APTT 46 H (21-34) SECONDS Fibrinogen 158 L (200-400) mg/dL Fibrin Degrad Products Positive H (NEGATIVE) Fibrin Degrad Prod, Qt >40 H (<10) ug/mL D-Dimer, Quantitative 4107 H (0-243) ng/mlDDU Puncture Site pCO2 (35-45) mm/Hg pO2 (80-100) mm/Hg HCO3 (21-28) mmol/L ABG pH (7.35-7.45) ABG Total CO2 (22-28) mmol/L ABG O2 Saturation (95-98) % ABG Base Excess (-2.0-3.0) mmol/L Rashid Test ABG Potassium (3.6-5.2) mmol/L A-a O2 Difference mm/Hg Respiratory Index Glucose (75-110) mg/dl Lactate (0.7-2.1) mmol/L FiO2 % Crit Value Called To Crit Value Called By Crit Value Read Back Blood Gas Notified Time Sodium (132-148) mmol/L Potassium (3.6-5.2) mmol/L Chloride (98-107) mmol/L Carbon Dioxide (22-30) mmol/L Anion Gap (10-20) BUN (9-20) mg/dL Creatinine (0.8-1.5) mg/dL Est GFR ( Amer) Est GFR (Non-Af Amer) POC Glucose (mg/dL) 77 (65-110) mg/dL Random Glucose (75-110) mg/dL Calcium (8.6-10.4) mg/dl Phosphorus (2.5-4.5) mg/dL Magnesium (1.6-2.3) mg/dL Total Bilirubin (0.2-1.3) mg/dL AST (17-59) U/L ALT (21-72) U/L Alkaline Phosphatase (38-126) U/L Total Protein (6.3-8.3) g/dL Albumin (3.5-5.0) g/dL Globulin (2.2-3.9) gm/dL Albumin/Globulin Ratio (1.0-2.1) Arterial Blood Potassium (3.6-5.2) mmol/L 01/10/18 01/10/18 01/10/18 Range/Units 06:24 06:24 05:41 WBC 17.6 H (4.8-10.8) K/uL RBC 2.72 L (4.40-5.90) Mil/uL Hgb 8.4 L (12.0-18.0) g/dL Hct 25.7 L (35.0-51.0) % MCV 94.7 H D (80.0-94.0) fL MCH 30.9 (27.0-31.0) pg MCHC 32.6 L (33.0-37.0) g/dL RDW 22.2 H (11.5-14.5) % Plt Count 29 L* D (130-400) K/uL MPV 8.7 (7.2-11.7) fL Neut % (Auto) 90.1 H (50.0-75.0) % Lymph % (Auto) 2.8 L (20.0-40.0) % Childress % (Auto) 5.6 (0.0-10.0) % Eos % (Auto) 1.4 (0.0-4.0) % Baso % (Auto) 0.1 (0.0-2.0) % Neut # (Auto) 15.9 H (1.8-7.0) K/uL Lymph # (Auto) 0.5 L (1.0-4.3) K/uL Childress # (Auto) 1.0 H (0.0-0.8) K/uL Eos # (Auto) 0.2 (0.0-0.7) K/uL Baso # (Auto) 0.0 (0.0-0.2) K/uL Neutrophils % (Manual) 93 H (50-75) % Band Neutrophils % 1 (0-2) % Lymphocytes % (Manual) 1 L (20-40) % Monocytes % (Manual) 4 (0-10) % Myelocytes % 1 H (0-0) % Nucleated RBC % 2 H (0-0) % Platelet Estimate Markedly decreased L (NORMAL) Hypochromasia (manual) Moderate Poikilocytosis (manual Slight Anisocytosis (manual) Slight Target Cells Slight Tear Drop Cells Slight PT (9.7-12.2) SECONDS INR APTT (21-34) SECONDS Fibrinogen (200-400) mg/dL Fibrin Degrad Products (NEGATIVE) Fibrin Degrad Prod, Qt (<10) ug/mL D-Dimer, Quantitative (0-243) ng/mlDDU Puncture Site pCO2 (35-45) mm/Hg pO2 (80-100) mm/Hg HCO3 (21-28) mmol/L ABG pH (7.35-7.45) ABG Total CO2 (22-28) mmol/L ABG O2 Saturation (95-98) % ABG Base Excess (-2.0-3.0) mmol/L Rashid Test ABG Potassium (3.6-5.2) mmol/L A-a O2 Difference mm/Hg Respiratory Index Glucose (75-110) mg/dl Lactate (0.7-2.1) mmol/L FiO2 % Crit Value Called To Crit Value Called By Crit Value Read Back Blood Gas Notified Time Sodium 154 H (132-148) mmol/L Potassium 3.2 L (3.6-5.2) mmol/L Chloride 114 H (98-107) mmol/L Carbon Dioxide 28 (22-30) mmol/L Anion Gap 16 (10-20) BUN 26 H (9-20) mg/dL Creatinine 2.5 H (0.8-1.5) mg/dL Est GFR ( Amer) 32 Est GFR (Non-Af Amer) 26 POC Glucose (mg/dL) 216 H (65-110) mg/dL Random Glucose 108 (75-110) mg/dL Calcium 7.4 L (8.6-10.4) mg/dl Phosphorus 3.2 (2.5-4.5) mg/dL Magnesium 1.7 (1.6-2.3) mg/dL Total Bilirubin 6.4 H (0.2-1.3) mg/dL AST 47 (17-59) U/L ALT 63 (21-72) U/L Alkaline Phosphatase 132 H (38-126) U/L Total Protein 4.5 L (6.3-8.3) g/dL Albumin 2.1 L (3.5-5.0) g/dL Globulin 2.5 (2.2-3.9) gm/dL Albumin/Globulin Ratio 0.8 L (1.0-2.1) Arterial Blood Potassium (3.6-5.2) mmol/L 01/10/18 Range/Units 00:01 WBC (4.8-10.8) K/uL RBC (4.40-5.90) Mil/uL Hgb (12.0-18.0) g/dL Hct (35.0-51.0) % MCV (80.0-94.0) fL MCH (27.0-31.0) pg MCHC (33.0-37.0) g/dL RDW (11.5-14.5) % Plt Count (130-400) K/uL MPV (7.2-11.7) fL Neut % (Auto) (50.0-75.0) % Lymph % (Auto) (20.0-40.0) % Childress % (Auto) (0.0-10.0) % Eos % (Auto) (0.0-4.0) % Baso % (Auto) (0.0-2.0) % Neut # (Auto) (1.8-7.0) K/uL Lymph # (Auto) (1.0-4.3) K/uL Childress # (Auto) (0.0-0.8) K/uL Eos # (Auto) (0.0-0.7) K/uL Baso # (Auto) (0.0-0.2) K/uL Neutrophils % (Manual) (50-75) % Band Neutrophils % (0-2) % Lymphocytes % (Manual) (20-40) % Monocytes % (Manual) (0-10) % Myelocytes % (0-0) % Nucleated RBC % (0-0) % Platelet Estimate (NORMAL) Hypochromasia (manual) Poikilocytosis (manual Anisocytosis (manual) Target Cells Tear Drop Cells PT (9.7-12.2) SECONDS INR APTT (21-34) SECONDS Fibrinogen (200-400) mg/dL Fibrin Degrad Products (NEGATIVE) Fibrin Degrad Prod, Qt (<10) ug/mL D-Dimer, Quantitative (0-243) ng/mlDDU Puncture Site pCO2 (35-45) mm/Hg pO2 (80-100) mm/Hg HCO3 (21-28) mmol/L ABG pH (7.35-7.45) ABG Total CO2 (22-28) mmol/L ABG O2 Saturation (95-98) % ABG Base Excess (-2.0-3.0) mmol/L Rashid Test ABG Potassium (3.6-5.2) mmol/L A-a O2 Difference mm/Hg Respiratory Index Glucose (75-110) mg/dl Lactate (0.7-2.1) mmol/L FiO2 % Crit Value Called To Crit Value Called By Crit Value Read Back Blood Gas Notified Time Sodium (132-148) mmol/L Potassium (3.6-5.2) mmol/L Chloride (98-107) mmol/L Carbon Dioxide (22-30) mmol/L Anion Gap (10-20) BUN (9-20) mg/dL Creatinine (0.8-1.5) mg/dL Est GFR ( Amer) Est GFR (Non-Af Amer) POC Glucose (mg/dL) 110 (65-110) mg/dL Random Glucose (75-110) mg/dL Calcium (8.6-10.4) mg/dl Phosphorus (2.5-4.5) mg/dL Magnesium (1.6-2.3) mg/dL Total Bilirubin (0.2-1.3) mg/dL AST (17-59) U/L ALT (21-72) U/L Alkaline Phosphatase (38-126) U/L Total Protein (6.3-8.3) g/dL Albumin (3.5-5.0) g/dL Globulin (2.2-3.9) gm/dL Albumin/Globulin Ratio (1.0-2.1) Arterial Blood Potassium (3.6-5.2) mmol/L Laboratory Results - last 24 hr 01/10/18 01/10/18 01/10/18 00:01 05:41 06:24 WBC 17.6 H RBC 2.72 L Hgb 8.4 L Hct 25.7 L MCV 94.7 H D MCH 30.9 MCHC 32.6 L RDW 22.2 H Plt Count 29 L* D MPV 8.7 Neut % (Auto) 90.1 H Lymph % (Auto) 2.8 L Childress % (Auto) 5.6 Eos % (Auto) 1.4 Baso % (Auto) 0.1 Neut # (Auto) 15.9 H Lymph # (Auto) 0.5 L Childress # (Auto) 1.0 H Eos # (Auto) 0.2 Baso # (Auto) 0.0 Neutrophils % (Manual) 93 H Band Neutrophils % 1 Lymphocytes % (Manual) 1 L Monocytes % (Manual) 4 Myelocytes % 1 H Nucleated RBC % 2 H Platelet Estimate Markedly decreased L Hypochromasia (manual) Moderate Poikilocytosis (manual Slight Anisocytosis (manual) Slight Target Cells Slight Tear Drop Cells Slight PT INR APTT Fibrinogen Fibrin Degrad Products Fibrin Degrad Prod, Qt D-Dimer, Quantitative Puncture Site pCO2 pO2 HCO3 ABG pH ABG Total CO2 ABG O2 Saturation ABG Base Excess Rashid Test ABG Potassium A-a O2 Difference Respiratory Index Glucose Lactate FiO2 Crit Value Called To Crit Value Called By Crit Value Read Back Blood Gas Notified Time Sodium Potassium Chloride Carbon Dioxide Anion Gap BUN Creatinine Est GFR ( Amer) Est GFR (Non-Af Amer) POC Glucose (mg/dL) 110 216 H Random Glucose Calcium Phosphorus Magnesium Total Bilirubin AST ALT Alkaline Phosphatase Total Protein Albumin Globulin Albumin/Globulin Ratio Arterial Blood Potassium 01/10/18 01/10/18 01/10/18 06:24 06:24 09:03 WBC RBC Hgb Hct MCV MCH MCHC RDW Plt Count MPV Neut % (Auto) Lymph % (Auto) Childress % (Auto) Eos % (Auto) Baso % (Auto) Neut # (Auto) Lymph # (Auto) Childress # (Auto) Eos # (Auto) Baso # (Auto) Neutrophils % (Manual) Band Neutrophils % Lymphocytes % (Manual) Monocytes % (Manual) Myelocytes % Nucleated RBC % Platelet Estimate Hypochromasia (manual) Poikilocytosis (manual Anisocytosis (manual) Target Cells Tear Drop Cells PT 21.6 H INR 1.9 APTT 46 H Fibrinogen 158 L Fibrin Degrad Products Positive H Fibrin Degrad Prod, Qt >40 H D-Dimer, Quantitative 4107 H Puncture Site pCO2 pO2 HCO3 ABG pH ABG Total CO2 ABG O2 Saturation ABG Base Excess Rashid Test ABG Potassium A-a O2 Difference Respiratory Index Glucose Lactate FiO2 Crit Value Called To Crit Value Called By Crit Value Read Back Blood Gas Notified Time Sodium 154 H Potassium 3.2 L Chloride 114 H Carbon Dioxide 28 Anion Gap 16 BUN 26 H Creatinine 2.5 H Est GFR ( Amer) 32 Est GFR (Non-Af Amer) 26 POC Glucose (mg/dL) Random Glucose 108 Calcium 7.4 L Phosphorus 3.2 Magnesium 1.7 Total Bilirubin 6.4 H AST 47 ALT 63 Alkaline Phosphatase 132 H Total Protein 4.5 L Albumin 2.1 L Globulin 2.5 Albumin/Globulin Ratio 0.8 L Arterial Blood Potassium 01/10/18 01/10/18 01/10/18 11:42 12:35 17:13 WBC RBC Hgb Hct MCV MCH MCHC RDW Plt Count MPV Neut % (Auto) Lymph % (Auto) Childress % (Auto) Eos % (Auto) Baso % (Auto) Neut # (Auto) Lymph # (Auto) Childress # (Auto) Eos # (Auto) Baso # (Auto) Neutrophils % (Manual) Band Neutrophils % Lymphocytes % (Manual) Monocytes % (Manual) Myelocytes % Nucleated RBC % Platelet Estimate Hypochromasia (manual) Poikilocytosis (manual Anisocytosis (manual) Target Cells Tear Drop Cells PT INR APTT Fibrinogen Fibrin Degrad Products Fibrin Degrad Prod, Qt D-Dimer, Quantitative Puncture Site Lf pCO2 31 L pO2 78 L HCO3 25.2 ABG pH 7.48 H ABG Total CO2 24.1 ABG O2 Saturation 98.3 H ABG Base Excess 0.4 Rashid Test Na ABG Potassium 4.1 A-a O2 Difference 240.0 Respiratory Index 3.1 Glucose 83 Lactate 3.0 H FiO2 50.0 Crit Value Called To Dr martínez Crit Value Called By Evans ricci [facility] Crit Value Read Back Y Blood Gas Notified Time 1250 Sodium 152.0 H Potassium Chloride 122.0 H Carbon Dioxide Anion Gap BUN Creatinine Est GFR ( Amer) Est GFR (Non-Af Amer) POC Glucose (mg/dL) 77 66 Random Glucose Calcium Phosphorus Magnesium Total Bilirubin AST ALT Alkaline Phosphatase Total Protein Albumin Globulin Albumin/Globulin Ratio Arterial Blood Potassium 4.1 01/10/18 18:01 WBC RBC Hgb Hct MCV MCH MCHC RDW Plt Count MPV Neut % (Auto) Lymph % (Auto) Childress % (Auto) Eos % (Auto) Baso % (Auto) Neut # (Auto) Lymph # (Auto) Childress # (Auto) Eos # (Auto) Baso # (Auto) Neutrophils % (Manual) Band Neutrophils % Lymphocytes % (Manual) Monocytes % (Manual) Myelocytes % Nucleated RBC % Platelet Estimate Hypochromasia (manual) Poikilocytosis (manual Anisocytosis (manual) Target Cells Tear Drop Cells PT INR APTT Fibrinogen Fibrin Degrad Products Fibrin Degrad Prod, Qt D-Dimer, Quantitative Puncture Site pCO2 pO2 HCO3 ABG pH ABG Total CO2 ABG O2 Saturation ABG Base Excess Rashid Test ABG Potassium A-a O2 Difference Respiratory Index Glucose Lactate FiO2 Crit Value Called To Crit Value Called By Crit Value Read Back Blood Gas Notified Time Sodium Potassium Chloride Carbon Dioxide Anion Gap BUN Creatinine Est GFR ( Amer) Est GFR (Non-Af Amer) POC Glucose (mg/dL) 75 Random Glucose Calcium Phosphorus Magnesium Total Bilirubin AST ALT Alkaline Phosphatase Total Protein Albumin Globulin Albumin/Globulin Ratio Arterial Blood Potassium EKG/Cardiology Studies: Cardiology / EKG Studies 01/10/18 09:42 EKG [ELECTROCARDIOGRAM] Stat Comment: Mode Of Transportation: Reason For Exam: tachycardia Critical Care Progress Note - Nutrition Nutrition: Nutrition Category Date Time Status NPO Diet [DIET] Diets 01/07/18 Dinner Active Attending/Attestation - Attestation I have personally seen and examined this patient.: Yes I have fully participated in the care of the patient.: Yes I have reviewed all pertinent clinical information: Yes Notes (Text): 01/10/18 18:58 Today: December The Patient was seen and examined at the bedside, Medical records reviewed, and management issues were discussed and formulated with the house staff. I have reviewed all the relevant clinical, laboratory, hemodynamic, radiographic data and medications Events reviewed Pain issues, skin care, head of the bed elevation, glycemic control were addressed. Agree with above resident's assessment and treatment plans of care as transcribed in Dr. Montemayor note.
[2018-01-10] MEDS: Metoprolol 1 mg/ml Inj IVP SCH (17:26)
[2018-01-10] MEDS ORDERED: TPN IV ONE (18:00)
[2018-01-10] MEDS ORDERED: Fat Emulsion 20% IV 500 ML IV ONE (18:00)
--- NOTE | 2018-01-10 23:23 | CP.PCM.PN ---
Subjective - Date & Time of Evaluation Date of Evaluation: 01/10/18 Time of Evaluation: 18:00 - Subjective Subjective: Pt seen and evaluated at bedside Objective - Vital Signs/Intake and Output Vital Signs (last 24 hours): Temp Pulse Resp BP Pulse Ox 98.0 F 93 H 13 143/88 98 01/10/18 16:00 01/10/18 18:00 01/10/18 18:00 01/10/18 17:50 01/10/18 16:00 Intake and Output: 01/10/18 01/11/18 18:59 06:59 Intake Total 1341.3 570 Output Total 540 140 Balance 801.3 430 - Medications Medications: Current Medications Acetaminophen (Tylenol 325mg Tab) 650 mg PO Q6 PRN PRN Reason: Fever >100.4 F Benzocaine/Menthol (Cepacol Sore Throat) 1 rosmery MT Q6H PRN PRN Reason: Sore Throat Diphenhydramine HCl (Benadryl) 25 mg IVP Q3H PRN PRN Reason: Itching / Pruritus Last Admin: 01/10/18 16:59 Dose: 25 mg Famotidine (Pepcid) 20 mg IVP DAILY [facility] Last Admin: 01/10/18 10:08 Dose: 20 mg Fentanyl (Duragesic) 1 patch TD Q72H [facility] Last Admin: 01/09/18 21:03 Dose: 1 patch Hydromorphone HCl (Dilaudid) 1 mg IVP Q3H PRN PRN Reason: pain Last Admin: 01/10/18 16:58 Dose: 1 mg Meropenem 500 mg/ Sodium (Chloride) 100 mls @ 100 mls/hr IVPB Q8 HOLLY PRN Reason: Protocol Last Admin: 01/10/18 21:34 Dose: 100 mls/hr Metronidazole (Flagyl) 250 mg in 50 mls @ 100 mls/hr IVPB Q8 HOLLY PRN Reason: Protocol Stop: 01/12/18 22:01 Last Admin: 01/10/18 21:29 Dose: 100 mls/hr Norepinephrine Bitartrate 4 mg (/ Dextrose) 254 mls @ 15.24 mls/hr IV .[id number] PRN; Protocol; 4 MCG/MIN PRN Reason: TITRATE PER MD ORDER Last Titration: 01/08/18 13:14 Dose: 0 mcg/min, 0 mls/hr Phenylephrine HCl 30 mg/ (Dextrose) 253 mls @ 10.12 mls/hr IV .Q24H PRN; Protocol; 20 MCG/MIN PRN Reason: TITRATE PER MD ORDER Last Titration: 01/10/18 12:00 Dose: 0 mcg/min, 0 mls/hr Potassium Chloride 60 meq/Potassium Phosphate 15 mmole/Magnesium Sulfate 8 meq/ Calcium Gluconate 4.65 meq/Multivitamins/Vitamin C 10 ml/Chromium/Copper/ Manganese/Seleni/Zn 1 ml/ Insulin Human Regular 10 unit/ Amino Acids 1, 058.0704 mls @ 42 mls/hr IV .Q24H ONE Stop: 01/11/18 17:59 Last Admin: 01/10/18 17:00 Dose: 42 mls/hr Fat Emulsion Intravenous (Intralipid 20%) 500 mls @ 42 mls/hr IV QOD ONE Stop: 01/11/18 05:54 Last Admin: 01/10/18 17:23 Dose: 42 mls/hr Metoprolol Tartrate (Lopressor) 5 mg IVP Q6 HOLLY Last Admin: 01/10/18 17:26 Dose: 5 mg Potassium Chloride (K-Dur 20 Meq Er Tab) 40 meq PO ONCE HOLLY Last Admin: 01/05/18 09:16 Dose: 40 meq - Labs Labs: 01/10/18 06:24 01/10/18 06:24 PT 21.6 SECONDS (9.7-12.2) H 01/10/18 06:24 INR 1.9 01/10/18 06:24 APTT 46 SECONDS (21-34) H 01/10/18 06:24 Assessment and Plan (1) Abdominal pain Status: Acute (2) Cholangiocarcinoma Status: Chronic (3) Dehydration Status: Acute (4) Hypertension Status: Acute (5) Septicemia Status: Acute
[2018-01-11] MEDS: Metoprolol 1 mg/ml Inj IVP SCH ×3 (00:26→12:00)
[2018-01-11] MEDS: DiphenhydrAMINE 50 mg/ml Inj IVP PRN ×2 (03:10→09:05)
[2018-01-11] MEDS: Meropenem 500 MG in Sodium Chloride 0.9% 100 ML IVPB SCH ×3 (05:29→22:57)
[2018-01-11] MEDS: metroNIDAZOLE IV 250mg/50 ml 250 MG/50 ML BAG IVPB SCH ×3 (05:29→22:57)
[2018-01-11] MEDS: HYDROmorphone 1 mg/ml ISec IVP PRN ×3 (05:52→16:42)
[2018-01-11 06:42] LABS: BASO # 0.2 K/uL (0.0-0.2); BASO % 0.8 % (0.0-2.0); EOS # 0.3 K/uL (0.0-0.7); EOS % 1.4 % (0.0-4.0); HEMOGLOBIN 9.4 g/dL (12.0-18.0); LYMPH # 0.4 K/uL (1.0-4.3); LYMPH % 1.8 % (20.0-40.0); MEAN CELL VOLUME 96.1 fL (80.0-94.0); MEAN CORPUSCULAR HEMOGLOBIN 31.3 pg (27.0-31.0); MEAN CORPUSCULAR HGB CONC 32.5 g/dL (33.0-37.0); MEAN PLATELET VOLUME 9.4 fL (7.2-11.7); MONO # 1.3 K/uL (0.0-0.8); MONO % 5.7 % (0.0-10.0); NEUT % 90.3 % (50.0-75.0); NRBC % 1.2 % (0.0-2.0); RED CELL DISTRIBUTION WIDTH 24.2 % (11.5-14.5); WHITE BLOOD COUNT 23.2 K/uL (4.8-10.8)
--- NOTE | 2018-01-11 06:45 | PN ---
DATE: LOCATION: ICU 11. SUBJECTIVE: This is a 62-year-old male seen and examined in rounds, without significant clinical changes, without reported active bleeding, but with intermittent complaints of severe crampy abdominal pain, responded to Dilaudid IV with Benadryl before. The entire chart is reviewed including but not limited to the most recent lab results, current and the previous medication list, current and the previous medical events. The patient denied any significant complaint of chest pain, palpitations, and no reported chills or fever. Today's lab showed leukocytosis of 17.6, hemoglobin 8.4, hematocrit 25.7, thrombocytopenia of 29, with abnormal fibrinogen and fibrin degraded products. The patient is in the ICU. Sodium 154, potassium 3.2, BUN 26, creatinine 2.5, calcium 7.4, total bilirubin 6.4, albumin 2.1, total protein 4.5. PHYSICAL EXAMINATION GENERAL: A 62-year-old male. VITAL SIGNS: Afebrile, with heart rate of 162, blood pressure of 80/66. HEENT: Showed pale, dry, oral mucous membranes. Bilateral icteric sclerae. LUNGS: Few scattered crepitations. Decreased air entry at bases. HEART: S1 and S2, with mild distention. ABDOMEN: Soft, bowel sounds are present, but hypoactive. No mass or organomegaly. No rebound tenderness or guarding. EXTREMITIES: With edematous changes. No clubbing or cyanosis. NEUROLOGIC: No reported new neurological deficits. The patient is still having NG-tube, awaiting abdominal CAT scan report. IMPRESSION: 1. Cholangiocarcinoma with metastatic lesion. 2. Anemia, most likely secondary to above. 3. Disseminated Intravascular Coagulation with septicemia. 4. Multifocal pneumonia. 5. Ascites with evidence of portal hypertension. 6. Abnormal liver function tests, with jaundice secondary to above. 7. Known history of alcoholism with alcoholic liver disease. 8. Known history of peptic ulcer disease. 9. Hyperlipidemia with hypertension. SUGGESTIONS: 1. Continue supportive treatment. 2. Follow up CAT scan report. 3. Correct any underlying coagulopathy. 4. Further recommendations to follow. Adina Barillas MD [facility] # [id number]
[2018-01-11 06:47] LABS: PLATELET COUNT 26 K/uL (130-400)
[2018-01-11 06:48] LABS: INR 2.4; PROTHROMBIN TIME 28.1 SECONDS (9.7-12.2)
[2018-01-11 07:03] LABS: ALB/GLOB RATIO 0.7 (1.0-2.1); ALBUMIN 1.9 g/dL (3.5-5.0); CALCIUM 7.4 mg/dl (8.6-10.4)
[2018-01-11 08:25] LABS: BANDS 2 % (0-2); LYMPHOCYTE 1 % (20-40); MONOCYTE 3 % (0-10); NEUTROPHIL 94 % (50-75); NUCLEATED RED BLOOD CELL 1 % (0-0); PLATELET ESTIMATE MARKEDLY INCREASED (NORMAL); TOTAL CELLS COUNTED 100
[2018-01-11 08:26] LABS: ANISOCYTOSIS SLIGHT; HYPOCHROMIC SLIGHT; OVALOCYTES SLIGHT; POIKILOCYTOSIS SLIGHT; TARGET CELLS SLIGHT
[2018-01-11 08:27] LABS: SCHISTOCYTES SLIGHT
[2018-01-11 08:28] LABS: TOXIC GRANULATION PRESENT
--- NOTE | 2018-01-11 09:29 | VASCLAB ---
PROCEDURE: Upper Extremity Venous Duplex Exam HISTORY: Upper extremity swelling, r/o DVT PRIORS: None. TECHNIQUE: Bilateral upper extremity, internal jugular, subclavian, axillary, brachial, ulnar, radial, basilic and upper cephalic veins were evaluated. Flow was assessed with color Doppler, compressibility, assessment of phasic flow and augmentation response. Report prepared by Marlo Nice, MARVIN, RVT FINDINGS: RIGHT: 1. Internal Jugular: 1.1. Compressibility - Fully compressible: Thrombus - None : Flow - Phasic: Augmentation -Normal: Reflux - None. 2. Subclavian: 2.1. Compressibility - Fully compressible: Thrombus - None : Flow - Phasic: Augmentation -Normal: Reflux - None. 3. Axillary: 3.1. Compressibility - Fully compressible: Thrombus - None : Flow - Phasic: Augmentation -Normal: Reflux - None. 4. Brachial: 4.1. Compressibility - Fully compressible: Thrombus - None: Flow - Phasic: Augmentation -Normal: Reflux - None. 5. Ulnar: 5.1. Compressibility - Fully compressible: Thrombus - None: Flow - Phasic: Augmentation -Normal: Reflux - None. 6. Radial: 6.1. Compressibility - Fully compressible: Thrombus - None: Flow - Phasic: Augmentation - Normal: Reflux - None. 7. Cephalic: 7.1. Not imaged. 8. Basilic: 8.1. Compressibility - Fully compressible: Thrombus - None: Flow - : Augmentation -: Reflux - . LEFT: 1. Internal Jugular: 1.1. Compressibility - Fully compressible: Thrombus - None : Flow - Phasic: Augmentation -Normal: Reflux - None. 2. Subclavian: 2.1. Compressibility - Fully compressible: Thrombus - None : Flow - Phasic: Augmentation -Normal: Reflux - None. 3. Axillary: 3.1. Compressibility - Fully compressible: Thrombus - None : Flow - Phasic: Augmentation -Normal: Reflux - None. 4. Brachial: 4.1. Compressibility - Fully compressible: Thrombus - None: Flow - Phasic: Augmentation -Normal: Reflux - None. 5. Ulnar: 5.1. Compressibility - Fully compressible: Thrombus - None: Flow - Phasic: Augmentation -Normal: Reflux - None. 6. Radial: 6.1. Compressibility - Fully compressible: Thrombus - None: Flow - Phasic: Augmentation - Normal: Reflux - None. 7. Cephalic: 7.1. Compressibility - Partial: Thrombus - Acute: Flow - Absent : Augmentation -None: Reflux - None. 8. Basilic: 8.1. Compressibility - Fully compressible: Thrombus - None: Flow - Phasic: Augmentation -Normal: Reflux - None. OTHER FINDINGS: Right: None. Left: None. IMPRESSION: Right: No evidence of vein thrombosis of the right upper extremity with excellent venous flow. Normal valve function noted of the right side. Left: Superficial thrombophlebitis of the left cephalic vein with severe reduction of the venous return. No evidence of deep vein thrombosis of the left upper extremity with excellent venous flow. Normal valve function noted of the left side.
--- NOTE | 2018-01-11 12:03 | CP.CCUPN ---
<Valerie Montemayor - Last Filed: 01/11/18 15:28> CCU Subjective - Physician Review Subjective (Free Text): 01/11/18 12:02 Patient seen and examined at bedside. Per nursing no acute events overnight. Platelets dropped to 26 today, will repeat fibrinogen and fibrin split products. Patient is asymptomatic, offering no complaints at this time. No signs of bleeding. CCU Objective - Vital Signs / Intake & Output Vital Signs (Last 4 hours): Vital Signs Pulse Resp BP 01/11/18 10:01 92 H 9 L 136/92 H 01/11/18 10:00 92 H 11 L 01/11/18 09:01 92 H 14 140/92 H 01/11/18 09:00 93 H 11 L Intake and Output (Last 8hrs): Intake & Output 01/10/18 01/11/18 01/11/18 22:59 06:59 14:59 Intake Total 738 780 368 Output Total 440 305 90 Balance 298 475 278 Weight 72.62 kg 72.62 kg Intake: Intake, IV Amount 738 780 368 Right Distal Port Port-A- 252 294 200 Cath Right Port-A-Cath 336 336 168 right port 150 150 Oral 0 Output: Gastric Amount 200 Stomach 200 Urine 240 305 90 Urethral (Woods) 240 305 90 - Medications Active Medications: Active Medications Generic Name Dose Route Start Last Admin Trade Name Freq PRN Reason Stop Dose Admin Acetaminophen 650 mg 01/01/18 02:46 Tylenol 325mg Tab PO Q6 PRN Fever >100.4 F Benzocaine/Menthol 1 rosmery 01/03/18 18:10 Cepacol Sore Throat MT Q6H PRN Sore Throat Diphenhydramine HCl 25 mg 01/09/18 10:18 01/11/18 09:05 Benadryl IVP 25 mg Q3H PRN Administration Itching / Pruritus Famotidine 20 mg 01/10/18 10:00 01/11/18 09:32 Pepcid IVP 20 mg DAILY HOLLY Administration Fentanyl 1 patch 01/03/18 20:00 01/09/18 21:03 Duragesic TD 1 patch Q72H HOLLY Administration Hydromorphone HCl 1 mg 01/09/18 09:28 01/11/18 09:05 Dilaudid IVP 1 mg Q3H PRN Administration pain Meropenem 500 mg/ Sodium 100 mls @ 100 mls/hr 01/05/18 22:00 01/11/18 05:29 Chloride IVPB 100 mls/hr Q8 HOLLY Administration Protocol Metronidazole 250 mg in 50 mls @ 100 mls/hr 01/07/18 22:00 01/11/18 05:29 Flagyl IVPB 01/12/18 22:01 100 mls/hr Q8 HOLLY Administration Protocol Norepinephrine Bitartrate 4 mg 254 mls @ 15.24 mls/hr 01/07/18 21:17 13:14 / Dextrose IV 0 mcg/min .[id number] PRN 0 mls/hr TITRATE PER MD ORDER Titration Protocol 4 MCG/MIN Phenylephrine HCl 30 mg/ 253 mls @ 10.12 mls/hr 01/10/18 11:10 01/10/18 12:00 Dextrose IV 0 mcg/min .Q24H PRN 0 mls/hr TITRATE PER MD ORDER Titration Protocol 20 MCG/MIN Potassium Chloride 60 meq/ 1,058.0704 mls @ 42 mls/hr 01/10/18 18:00 17:00 Potassium Phosphate 15 mmole/ IV 01/11/18 17:59 42 mls/hr Magnesium Sulfate 8 meq/ .Q24H ONE Administration Calcium Gluconate 4.65 meq/ Multivitamins/Vitamin C 10 ml/ Chromium/Copper/Manganese/ Seleni/Zn 1 ml/ Insulin Human Regular 10 unit/ Amino Acids Potassium Chloride 20 meq in 100 mls @ 50 mls/hr 01/11/18 08:00 01/11/18 08: 36 Potassium Chloride 20 Meq/100 Ml IVPB 01/11/18 13:59 50 mls/hr Q2H HOLLY Administration Metoprolol Tartrate 5 mg 01/10/18 18:00 01/11/18 05:33 Lopressor IVP 5 mg Q6 HOLLY Administration Potassium Chloride 40 meq 01/05/18 10:00 01/05/18 09:16 K-Dur 20 Meq Er Tab PO 40 meq ONCE HOLLY Administration - Patient Studies Lab Studies: Microbiology Studies 01/10/18 Unknown Gram Stain - Final Sputum Sputum Culture - Preliminary NORMAL ORAL RENA Lab Studies 01/11/18 01/11/18 01/11/18 Range/Units 11:42 06:34 06:34 WBC (4.8-10.8) K/uL RBC (4.40-5.90) Mil/uL Hgb (12.0-18.0) g/dL Hct (35.0-51.0) % MCV (80.0-94.0) fL MCH (27.0-31.0) pg MCHC (33.0-37.0) g/dL RDW (11.5-14.5) % Plt Count (130-400) K/uL MPV (7.2-11.7) fL Neut % (Auto) (50.0-75.0) % Lymph % (Auto) (20.0-40.0) % Bartholomew % (Auto) (0.0-10.0) % Eos % (Auto) (0.0-4.0) % Baso % (Auto) (0.0-2.0) % Neut # (Auto) (1.8-7.0) K/uL Lymph # (Auto) (1.0-4.3) K/uL Bartholomew # (Auto) (0.0-0.8) K/uL Eos # (Auto) (0.0-0.7) K/uL Baso # (Auto) (0.0-0.2) K/uL Neutrophils % (Manual) (50-75) % Band Neutrophils % (0-2) % Lymphocytes % (Manual) (20-40) % Monocytes % (Manual) (0-10) % Nucleated RBC % (0-0) % Toxic Granulation Platelet Estimate (NORMAL) Hypochromasia (manual) Poikilocytosis (manual Anisocytosis (manual) Target Cells Ovalocytes Schistocytes PT 28.1 H D (9.7-12.2) SECONDS INR 2.4 D APTT 46 H (21-34) SECONDS Puncture Site pCO2 (35-45) mm/Hg pO2 (80-100) mm/Hg HCO3 (21-28) mmol/L ABG pH (7.35-7.45) ABG Total CO2 (22-28) mmol/L ABG O2 Saturation (95-98) % ABG Base Excess (-2.0-3.0) mmol/L Rashid Test ABG Potassium (3.6-5.2) mmol/L A-a O2 Difference mm/Hg Respiratory Index Sodium 153 H (132-148) mmol/l Chloride 118 H (98-107) mmol/L Glucose (75-110) mg/dl Lactate (0.7-2.1) mmol/L FiO2 % Crit Value Called To Crit Value Called By Crit Value Read Back Blood Gas Notified Time Potassium 3.5 L (3.6-5.2) mmol/L Carbon Dioxide 25 (22-30) mmol/L Anion Gap 14 (10-20) BUN 28 H (9-20) mg/dL Creatinine 2.2 H (0.8-1.5) mg/dL Est GFR ( Amer) 37 Est GFR (Non-Af Amer) 31 POC Glucose (mg/dL) 104 (65-110) mg/dL Random Glucose 108 (75-110) mg/dL Calcium 7.4 L (8.6-10.4) mg/dl Phosphorus 2.5 (2.5-4.5) mg/dL Magnesium 1.9 (1.6-2.3) mg/dL Total Bilirubin 6.3 H (0.2-1.3) mg/dL AST 48 (17-59) U/L ALT 45 (21-72) U/L Alkaline Phosphatase 163 H D (38-126) U/L Total Protein 4.6 L (6.3-8.3) g/dL Albumin 1.9 L (3.5-5.0) g/dL Globulin 2.7 (2.2-3.9) gm/dL Albumin/Globulin Ratio 0.7 L (1.0-2.1) Arterial Blood Potassium (3.6-5.2) mmol/L 01/11/18 01/11/18 01/11/18 Range/Units 06:34 06:11 00:00 WBC 23.2 H (4.8-10.8) K/uL RBC 3.00 L (4.40-5.90) Mil/uL Hgb 9.4 L (12.0-18.0) g/dL Hct 28.8 L (35.0-51.0) % MCV 96.1 H (80.0-94.0) fL MCH 31.3 H (27.0-31.0) pg MCHC 32.5 L (33.0-37.0) g/dL RDW 24.2 H (11.5-14.5) % Plt Count 26 L* (130-400) K/uL MPV 9.4 (7.2-11.7) fL Neut % (Auto) 90.3 H (50.0-75.0) % Lymph % (Auto) 1.8 L (20.0-40.0) % Bartholomew % (Auto) 5.7 (0.0-10.0) % Eos % (Auto) 1.4 (0.0-4.0) % Baso % (Auto) 0.8 (0.0-2.0) % Neut # (Auto) 21.0 H (1.8-7.0) K/uL Lymph # (Auto) 0.4 L (1.0-4.3) K/uL Bartholomew # (Auto) 1.3 H (0.0-0.8) K/uL Eos # (Auto) 0.3 (0.0-0.7) K/uL Baso # (Auto) 0.2 (0.0-0.2) K/uL Neutrophils % (Manual) 94 H (50-75) % Band Neutrophils % 2 (0-2) % Lymphocytes % (Manual) 1 L (20-40) % Monocytes % (Manual) 3 (0-10) % Nucleated RBC % 1 H (0-0) % Toxic Granulation Present Platelet Estimate Markedly increased H (NORMAL) Hypochromasia (manual) Slight Poikilocytosis (manual Slight Anisocytosis (manual) Slight Target Cells Slight Ovalocytes Slight Schistocytes Slight PT (9.7-12.2) SECONDS INR APTT (21-34) SECONDS Puncture Site pCO2 (35-45) mm/Hg pO2 (80-100) mm/Hg HCO3 (21-28) mmol/L ABG pH (7.35-7.45) ABG Total CO2 (22-28) mmol/L ABG O2 Saturation (95-98) % ABG Base Excess (-2.0-3.0) mmol/L Rashid Test ABG Potassium (3.6-5.2) mmol/L A-a O2 Difference mm/Hg Respiratory Index Sodium (132-148) mmol/l Chloride (98-107) mmol/L Glucose (75-110) mg/dl Lactate (0.7-2.1) mmol/L FiO2 % Crit Value Called To Crit Value Called By Crit Value Read Back Blood Gas Notified Time Potassium (3.6-5.2) mmol/L Carbon Dioxide (22-30) mmol/L Anion Gap (10-20) BUN (9-20) mg/dL Creatinine (0.8-1.5) mg/dL Est GFR ( Amer) Est GFR (Non-Af Amer) POC Glucose (mg/dL) 126 H 112 H (65-110) mg/dL Random Glucose (75-110) mg/dL Calcium (8.6-10.4) mg/dl Phosphorus (2.5-4.5) mg/dL Magnesium (1.6-2.3) mg/dL Total Bilirubin (0.2-1.3) mg/dL AST (17-59) U/L ALT (21-72) U/L Alkaline Phosphatase (38-126) U/L Total Protein (6.3-8.3) g/dL Albumin (3.5-5.0) g/dL Globulin (2.2-3.9) gm/dL Albumin/Globulin Ratio (1.0-2.1) Arterial Blood Potassium (3.6-5.2) mmol/L 01/10/18 01/10/18 01/10/18 Range/Units 18:01 17:13 12:35 WBC (4.8-10.8) K/uL RBC (4.40-5.90) Mil/uL Hgb (12.0-18.0) g/dL Hct (35.0-51.0) % MCV (80.0-94.0) fL MCH (27.0-31.0) pg MCHC (33.0-37.0) g/dL RDW (11.5-14.5) % Plt Count (130-400) K/uL MPV (7.2-11.7) fL Neut % (Auto) (50.0-75.0) % Lymph % (Auto) (20.0-40.0) % Bartholomew % (Auto) (0.0-10.0) % Eos % (Auto) (0.0-4.0) % Baso % (Auto) (0.0-2.0) % Neut # (Auto) (1.8-7.0) K/uL Lymph # (Auto) (1.0-4.3) K/uL Bartholomew # (Auto) (0.0-0.8) K/uL Eos # (Auto) (0.0-0.7) K/uL Baso # (Auto) (0.0-0.2) K/uL Neutrophils % (Manual) (50-75) % Band Neutrophils % (0-2) % Lymphocytes % (Manual) (20-40) % Monocytes % (Manual) (0-10) % Nucleated RBC % (0-0) % Toxic Granulation Platelet Estimate (NORMAL) Hypochromasia (manual) Poikilocytosis (manual Anisocytosis (manual) Target Cells Ovalocytes Schistocytes PT (9.7-12.2) SECONDS INR APTT (21-34) SECONDS Puncture Site Lf pCO2 31 L (35-45) mm/Hg pO2 78 L (80-100) mm/Hg HCO3 25.2 (21-28) mmol/L ABG pH 7.48 H (7.35-7.45) ABG Total CO2 24.1 (22-28) mmol/L ABG O2 Saturation 98.3 H (95-98) % ABG Base Excess 0.4 (-2.0-3.0) mmol/L Rashid Test Na ABG Potassium 4.1 (3.6-5.2) mmol/L A-a O2 Difference 240.0 mm/Hg Respiratory Index 3.1 Sodium 152.0 H (132-148) mmol/l Chloride 122.0 H (98-107) mmol/L Glucose 83 (75-110) mg/dl Lactate 3.0 H (0.7-2.1) mmol/L FiO2 50.0 % Crit Value Called To Dr martínez Crit Value Called By Evans ricci [facility] Crit Value Read Back Y Blood Gas Notified Time 1250 Potassium (3.6-5.2) mmol/L Carbon Dioxide (22-30) mmol/L Anion Gap (10-20) BUN (9-20) mg/dL Creatinine (0.8-1.5) mg/dL Est GFR ( Amer) Est GFR (Non-Af Amer) POC Glucose (mg/dL) 75 66 (65-110) mg/dL Random Glucose (75-110) mg/dL Calcium (8.6-10.4) mg/dl Phosphorus (2.5-4.5) mg/dL Magnesium (1.6-2.3) mg/dL Total Bilirubin (0.2-1.3) mg/dL AST (17-59) U/L ALT (21-72) U/L Alkaline Phosphatase (38-126) U/L Total Protein (6.3-8.3) g/dL Albumin (3.5-5.0) g/dL Globulin (2.2-3.9) gm/dL Albumin/Globulin Ratio (1.0-2.1) Arterial Blood Potassium 4.1 (3.6-5.2) mmol/L Laboratory Results - last 24 hr 01/10/18 01/10/18 01/10/18 12:35 17:13 18:01 WBC RBC Hgb Hct MCV MCH MCHC RDW Plt Count MPV Neut % (Auto) Lymph % (Auto) Bartholomew % (Auto) Eos % (Auto) Baso % (Auto) Neut # (Auto) Lymph # (Auto) Bartholomew # (Auto) Eos # (Auto) Baso # (Auto) Neutrophils % (Manual) Band Neutrophils % Lymphocytes % (Manual) Monocytes % (Manual) Nucleated RBC % Toxic Granulation Platelet Estimate Hypochromasia (manual) Poikilocytosis (manual Anisocytosis (manual) Target Cells Ovalocytes Schistocytes PT INR APTT Puncture Site Lf pCO2 31 L pO2 78 L HCO3 25.2 ABG pH 7.48 H ABG Total CO2 24.1 ABG O2 Saturation 98.3 H ABG Base Excess 0.4 Rashid Test Na ABG Potassium 4.1 A-a O2 Difference 240.0 Respiratory Index 3.1 Sodium 152.0 H Chloride 122.0 H Glucose 83 Lactate 3.0 H FiO2 50.0 Crit Value Called To Dr martínez Crit Value Called By Evans ricci [facility] Crit Value Read Back Y Blood Gas Notified Time 1250 Potassium Carbon Dioxide Anion Gap BUN Creatinine Est GFR ( Amer) Est GFR (Non-Af Amer) POC Glucose (mg/dL) 66 75 Random Glucose Calcium Phosphorus Magnesium Total Bilirubin AST ALT Alkaline Phosphatase Total Protein Albumin Globulin Albumin/Globulin Ratio Arterial Blood Potassium 4.1 01/11/18 01/11/18 01/11/18 00:00 06:11 06:34 WBC 23.2 H RBC 3.00 L Hgb 9.4 L Hct 28.8 L MCV 96.1 H MCH 31.3 H MCHC 32.5 L RDW 24.2 H Plt Count 26 L* MPV 9.4 Neut % (Auto) 90.3 H Lymph % (Auto) 1.8 L Bartholomew % (Auto) 5.7 Eos % (Auto) 1.4 Baso % (Auto) 0.8 Neut # (Auto) 21.0 H Lymph # (Auto) 0.4 L Bartholomew # (Auto) 1.3 H Eos # (Auto) 0.3 Baso # (Auto) 0.2 Neutrophils % (Manual) 94 H Band Neutrophils % 2 Lymphocytes % (Manual) 1 L Monocytes % (Manual) 3 Nucleated RBC % 1 H Toxic Granulation Present Platelet Estimate Markedly increased H Hypochromasia (manual) Slight Poikilocytosis (manual Slight Anisocytosis (manual) Slight Target Cells Slight Ovalocytes Slight Schistocytes Slight PT INR APTT Puncture Site pCO2 pO2 HCO3 ABG pH ABG Total CO2 ABG O2 Saturation ABG Base Excess Rashid Test ABG Potassium A-a O2 Difference Respiratory Index Sodium Chloride Glucose Lactate FiO2 Crit Value Called To Crit Value Called By Crit Value Read Back Blood Gas Notified Time Potassium Carbon Dioxide Anion Gap BUN Creatinine Est GFR ( Amer) Est GFR (Non-Af Amer) POC Glucose (mg/dL) 112 H 126 H Random Glucose Calcium Phosphorus Magnesium Total Bilirubin AST ALT Alkaline Phosphatase Total Protein Albumin Globulin Albumin/Globulin Ratio Arterial Blood Potassium 01/11/18 01/11/18 01/11/18 06:34 06:34 11:42 WBC RBC Hgb Hct MCV MCH MCHC RDW Plt Count MPV Neut % (Auto) Lymph % (Auto) Bartholomew % (Auto) Eos % (Auto) Baso % (Auto) Neut # (Auto) Lymph # (Auto) Bartholomew # (Auto) Eos # (Auto) Baso # (Auto) Neutrophils % (Manual) Band Neutrophils % Lymphocytes % (Manual) Monocytes % (Manual) Nucleated RBC % Toxic Granulation Platelet Estimate Hypochromasia (manual) Poikilocytosis (manual Anisocytosis (manual) Target Cells Ovalocytes Schistocytes PT 28.1 H D INR 2.4 D APTT 46 H Puncture Site pCO2 pO2 HCO3 ABG pH ABG Total CO2 ABG O2 Saturation ABG Base Excess Rashid Test ABG Potassium A-a O2 Difference Respiratory Index Sodium 153 H Chloride 118 H Glucose Lactate FiO2 Crit Value Called To Crit Value Called By Crit Value Read Back Blood Gas Notified Time Potassium 3.5 L Carbon Dioxide 25 Anion Gap 14 BUN 28 H Creatinine 2.2 H Est GFR ( Amer) 37 Est GFR (Non-Af Amer) 31 POC Glucose (mg/dL) 104 Random Glucose 108 Calcium 7.4 L Phosphorus 2.5 Magnesium 1.9 Total Bilirubin 6.3 H AST 48 ALT 45 Alkaline Phosphatase 163 H D Total Protein 4.6 L Albumin 1.9 L Globulin 2.7 Albumin/Globulin Ratio 0.7 L Arterial Blood Potassium Fingerstick Blood Sugar Results: 126 Critical Care Progress Note - Nutrition Nutrition: Nutrition Category Date Time Status NPO Diet [DIET] Diets 01/07/18 Dinner Active Assessment/Plan - Assessment and Plan (Free Text) Assessment: Patient is a 62 year old male with 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 When on the floors patient was unresponsive, CPR was initiated with ROSC. Blood sugar was found to be 20. Patient was intubated and brought to the ICU. Patient is currently AAOx3, extubated himself yesterday. Multifocal Pneumonia -Leukocytosis worsening 17.6 -> 23.2 -Procalcitonin 7.25 on 01/08 -Antibiotics: Merrem 500mg Q8H IV, Flagyl 250mg Q8H IV -CT chest: Bilateral pleural effusions resulting in compressive atelectasis both lower lobes. Multifocal subsegmental infiltrates affecting both upper lobes and the superior segment of the lower lobe -Continue supplemental O2 -ID on consult, help appreciated Tachycardia -Lopressor 5mg IVP STAT given when BPs improved -Lopressor 5mg Q6H prn -Resolved Hypotension -Levophed was titrated off -BPs stable History of Cholangiocarcinoma on chemotherapy -Patient with moderate amount of ascites on CT abd/pelvis -Abdominal US on 01/03 showing trace fluid -Patient with generalized abdominal pain -Dilaudid 1mg Q3H prn -Fentanyl patch Q72H -Palliative care on consult to discuss goals of care -Patient and family wish to continue present management and desire aggressive intervention if needed GI bleed/Anasarca/Elevated LFTs -Hgb 9.4, s/p 2 units PRBCs, 2 units FFP -Continue TPN -AST/ALT improved -Continue albumin 12.5mg IV Q6H -Patient with DVT in left upper arm, official report pending Thrombocytopenia -Platelets dropped to 26 today -As patient was on Heparin earlier in the hospital course, HIT antibody and serotonin release assay sent -Yesterday Fibrinogen low, fibrin split products positive, D-dimer 4000, will repeat today -No active bleeding at this time -Patient likely with DIC, presumed source is uncorrectable -Discussed with Heme/Onc Dr Hollingsworth - If platelets <20, transfuse. If Fibrinogen <100, transfuse cryoprecipitate. -Heme/onc on consult, help appreciated Renal failure -Patient with acute kidney injury -Was on vancomycin earlier in hospital course but was discontinued -BUN/Cr stable at 28/2.2 -Please renally dose all medications, avoid nephrotoxic agents Hypokalemia -Potassium 3.5 today -Kcl 20 meq q2H x 3 doses ordered -Magnesium 1.9, continue to moniotr GI/DVT ppx -Continue Pepcid 20mg IVP daily -SCDs Mr Talbot is a high risk patient. The prognosis is guarded. Patient has an uncorrectable source of DIC. If platelets <20, transfuse. If Fibrinogen <100, transfuse cryoprecipitate. Will downgrade patient to medical/surgical today. Plan discussed with Dr Penny. <Adriel Penny - Last Filed: 01/11/18 16:04> CCU Objective - Vital Signs / Intake & Output Vital Signs (Last 4 hours): Vital Signs Temp Pulse Resp BP Pulse Ox 01/11/18 15:00 108 H 21 01/11/18 14:01 91 H 11 L 139/90 01/11/18 14:00 92 H 11 L 01/11/18 13:01 91 H 12 138/89 01/11/18 13:00 91 H 11 L 01/11/18 12:01 91 H 14 139/95 H 01/11/18 12:00 97.8 F 90 11 L 139/95 H 100 Intake and Output (Last 8hrs): Intake & Output 01/11/18 01/11/18 01/11/18 06:59 14:59 22:59 Intake Total 780 494 42 Output Total 305 190 Balance 475 304 42 Weight 160 lb 1.6 oz 160 lb 1.6 oz Intake: Intake, IV Amount 780 494 42 Right Distal Port Port-A- 294 200 Cath Right Port-A-Cath 336 294 42 right port 150 Oral 0 Output: Urine 305 190 Urethral (Woods) 305 190 - Medications Active Medications: Active Medications Generic Name Dose Route Start Last Admin Trade Name Freq PRN Reason Stop Dose Admin Acetaminophen 650 mg 01/01/18 02:46 Tylenol 325mg Tab PO Q6 PRN Fever >100.4 F Benzocaine/Menthol 1 rosmery 01/03/18 18:10 Cepacol Sore Throat MT Q6H PRN Sore Throat Diphenhydramine HCl 25 mg 01/09/18 10:18 01/11/18 09:05 Benadryl IVP 25 mg Q3H PRN Administration Itching / Pruritus Famotidine 20 mg 01/10/18 10:00 01/11/18 09:32 Pepcid IVP 20 mg DAILY HOLLY Administration Fentanyl 1 patch 01/03/18 20:00 01/09/18 21:03 Duragesic TD 1 patch Q72H HOLLY Administration Hydromorphone HCl 1 mg 01/09/18 09:28 01/11/18 09:05 Dilaudid IVP 1 mg Q3H PRN Administration pain Meropenem 500 mg/ Sodium 100 mls @ 100 mls/hr 01/05/18 22:00 01/11/18 05:29 Chloride IVPB 100 mls/hr Q8 HOLLY Administration Protocol Metronidazole 250 mg in 50 mls @ 100 mls/hr 01/07/18 22:00 01/11/18 13:00 Flagyl IVPB 01/12/18 22:01 100 mls/hr Q8 HOLLY Administration Protocol Potassium Chloride 50 meq/ 1,056.3037 mls @ 42 mls/hr 01/11/18 18:00 Potassium Phosphate 25 mmole/ IV 01/12/18 17:59 Magnesium Sulfate 8 meq/ .Q24H ONE Calcium Gluconate 4.65 meq/ Multivitamins/Vitamin C 10 ml/ Chromium/Copper/Manganese/ Zinc 1 ml/ Amino Acids Metoprolol Tartrate 5 mg 01/10/18 18:00 01/11/18 12:00 Lopressor IVP Not Given Q6 HOLLY Potassium Chloride 40 meq 01/05/18 10:00 01/05/18 09:16 K-Dur 20 Meq Er Tab PO 40 meq ONCE HOLLY Administration - Patient Studies Lab Studies: Microbiology Studies 01/10/18 Unknown Gram Stain - Final Sputum Sputum Culture - Preliminary NORMAL ORAL RENA Lab Studies 01/11/18 01/11/18 01/11/18 Range/Units 13:25 11:42 06:34 WBC (4.8-10.8) K/uL RBC (4.40-5.90) Mil/uL Hgb (12.0-18.0) g/dL Hct (35.0-51.0) % MCV (80.0-94.0) fL MCH (27.0-31.0) pg MCHC (33.0-37.0) g/dL RDW (11.5-14.5) % Plt Count (130-400) K/uL MPV (7.2-11.7) fL Neut % (Auto) (50.0-75.0) % Lymph % (Auto) (20.0-40.0) % Bartholomew % (Auto) (0.0-10.0) % Eos % (Auto) (0.0-4.0) % Baso % (Auto) (0.0-2.0) % Neut # (Auto) (1.8-7.0) K/uL Lymph # (Auto) (1.0-4.3) K/uL Bartholomew # (Auto) (0.0-0.8) K/uL Eos # (Auto) (0.0-0.7) K/uL Baso # (Auto) (0.0-0.2) K/uL Neutrophils % (Manual) (50-75) % Band Neutrophils % (0-2) % Lymphocytes % (Manual) (20-40) % Monocytes % (Manual) (0-10) % Nucleated RBC % (0-0) % Toxic Granulation Platelet Estimate (NORMAL) Hypochromasia (manual) Poikilocytosis (manual Anisocytosis (manual) Target Cells Ovalocytes Schistocytes PT 28.1 H D (9.7-12.2) SECONDS INR 2.4 D APTT 46 H (21-34) SECONDS Fibrinogen 164 L (200-400) mg/dL Fibrin Degrad Products Positive H (NEGATIVE) Fibrin Degrad Prod, Qt >40 H (<10) ug/mL Sodium (132-148) mmol/L Potassium (3.6-5.2) mmol/L Chloride (98-107) mmol/L Carbon Dioxide (22-30) mmol/L Anion Gap (10-20) BUN (9-20) mg/dL Creatinine (0.8-1.5) mg/dL Est GFR ( Amer) Est GFR (Non-Af Amer) POC Glucose (mg/dL) 104 (65-110) mg/dL Random Glucose (75-110) mg/dL Calcium (8.6-10.4) mg/dl Phosphorus (2.5-4.5) mg/dL Magnesium (1.6-2.3) mg/dL Total Bilirubin (0.2-1.3) mg/dL AST (17-59) U/L ALT (21-72) U/L Alkaline Phosphatase (38-126) U/L Total Protein (6.3-8.3) g/dL Albumin (3.5-5.0) g/dL Globulin (2.2-3.9) gm/dL Albumin/Globulin Ratio (1.0-2.1) 01/11/18 01/11/18 01/11/18 Range/Units 06:34 06:34 06:11 WBC 23.2 H (4.8-10.8) K/uL RBC 3.00 L (4.40-5.90) Mil/uL Hgb 9.4 L (12.0-18.0) g/dL Hct 28.8 L (35.0-51.0) % MCV 96.1 H (80.0-94.0) fL MCH 31.3 H (27.0-31.0) pg MCHC 32.5 L (33.0-37.0) g/dL RDW 24.2 H (11.5-14.5) % Plt Count 26 L* (130-400) K/uL MPV 9.4 (7.2-11.7) fL Neut % (Auto) 90.3 H (50.0-75.0) % Lymph % (Auto) 1.8 L (20.0-40.0) % Bartholomew % (Auto) 5.7 (0.0-10.0) % Eos % (Auto) 1.4 (0.0-4.0) % Baso % (Auto) 0.8 (0.0-2.0) % Neut # (Auto) 21.0 H (1.8-7.0) K/uL Lymph # (Auto) 0.4 L (1.0-4.3) K/uL Bartholomew # (Auto) 1.3 H (0.0-0.8) K/uL Eos # (Auto) 0.3 (0.0-0.7) K/uL Baso # (Auto) 0.2 (0.0-0.2) K/uL Neutrophils % (Manual) 94 H (50-75) % Band Neutrophils % 2 (0-2) % Lymphocytes % (Manual) 1 L (20-40) % Monocytes % (Manual) 3 (0-10) % Nucleated RBC % 1 H (0-0) % Toxic Granulation Present Platelet Estimate Markedly increased H (NORMAL) Hypochromasia (manual) Slight Poikilocytosis (manual Slight Anisocytosis (manual) Slight Target Cells Slight Ovalocytes Slight Schistocytes Slight PT (9.7-12.2) SECONDS INR APTT (21-34) SECONDS Fibrinogen (200-400) mg/dL Fibrin Degrad Products (NEGATIVE) Fibrin Degrad Prod, Qt (<10) ug/mL Sodium 153 H (132-148) mmol/L Potassium 3.5 L (3.6-5.2) mmol/L Chloride 118 H (98-107) mmol/L Carbon Dioxide 25 (22-30) mmol/L Anion Gap 14 (10-20) BUN 28 H (9-20) mg/dL Creatinine 2.2 H (0.8-1.5) mg/dL Est GFR ( Amer) 37 Est GFR (Non-Af Amer) 31 POC Glucose (mg/dL) 126 H (65-110) mg/dL Random Glucose 108 (75-110) mg/dL Calcium 7.4 L (8.6-10.4) mg/dl Phosphorus 2.5 (2.5-4.5) mg/dL Magnesium 1.9 (1.6-2.3) mg/dL Total Bilirubin 6.3 H (0.2-1.3) mg/dL AST 48 (17-59) U/L ALT 45 (21-72) U/L Alkaline Phosphatase 163 H D (38-126) U/L Total Protein 4.6 L (6.3-8.3) g/dL Albumin 1.9 L (3.5-5.0) g/dL Globulin 2.7 (2.2-3.9) gm/dL Albumin/Globulin Ratio 0.7 L (1.0-2.1) 01/11/18 01/10/18 01/10/18 Range/Units 00:00 18:01 17:13 WBC (4.8-10.8) K/uL RBC (4.40-5.90) Mil/uL Hgb (12.0-18.0) g/dL Hct (35.0-51.0) % MCV (80.0-94.0) fL MCH (27.0-31.0) pg MCHC (33.0-37.0) g/dL RDW (11.5-14.5) % Plt Count (130-400) K/uL MPV (7.2-11.7) fL Neut % (Auto) (50.0-75.0) % Lymph % (Auto) (20.0-40.0) % Bartholomew % (Auto) (0.0-10.0) % Eos % (Auto) (0.0-4.0) % Baso % (Auto) (0.0-2.0) % Neut # (Auto) (1.8-7.0) K/uL Lymph # (Auto) (1.0-4.3) K/uL Bartholomew # (Auto) (0.0-0.8) K/uL Eos # (Auto) (0.0-0.7) K/uL Baso # (Auto) (0.0-0.2) K/uL Neutrophils % (Manual) (50-75) % Band Neutrophils % (0-2) % Lymphocytes % (Manual) (20-40) % Monocytes % (Manual) (0-10) % Nucleated RBC % (0-0) % Toxic Granulation Platelet Estimate (NORMAL) Hypochromasia (manual) Poikilocytosis (manual Anisocytosis (manual) Target Cells Ovalocytes Schistocytes PT (9.7-12.2) SECONDS INR APTT (21-34) SECONDS Fibrinogen (200-400) mg/dL Fibrin Degrad Products (NEGATIVE) Fibrin Degrad Prod, Qt (<10) ug/mL Sodium (132-148) mmol/L Potassium (3.6-5.2) mmol/L Chloride (98-107) mmol/L Carbon Dioxide (22-30) mmol/L Anion Gap (10-20) BUN (9-20) mg/dL Creatinine (0.8-1.5) mg/dL Est GFR ( Amer) Est GFR (Non-Af Amer) POC Glucose (mg/dL) 112 H 75 66 (65-110) mg/dL Random Glucose (75-110) mg/dL Calcium (8.6-10.4) mg/dl Phosphorus (2.5-4.5) mg/dL Magnesium (1.6-2.3) mg/dL Total Bilirubin (0.2-1.3) mg/dL AST (17-59) U/L ALT (21-72) U/L Alkaline Phosphatase (38-126) U/L Total Protein (6.3-8.3) g/dL Albumin (3.5-5.0) g/dL Globulin (2.2-3.9) gm/dL Albumin/Globulin Ratio (1.0-2.1) Laboratory Results - last 24 hr 01/10/18 01/10/18 01/11/18 17:13 18:01 00:00 WBC RBC Hgb Hct MCV MCH MCHC RDW Plt Count MPV Neut % (Auto) Lymph % (Auto) Bartholomew % (Auto) Eos % (Auto) Baso % (Auto) Neut # (Auto) Lymph # (Auto) Bartholomew # (Auto) Eos # (Auto) Baso # (Auto) Neutrophils % (Manual) Band Neutrophils % Lymphocytes % (Manual) Monocytes % (Manual) Nucleated RBC % Toxic Granulation Platelet Estimate Hypochromasia (manual) Poikilocytosis (manual Anisocytosis (manual) Target Cells Ovalocytes Schistocytes PT INR APTT Fibrinogen Fibrin Degrad Products Fibrin Degrad Prod, Qt Sodium Potassium Chloride Carbon Dioxide Anion Gap BUN Creatinine Est GFR ( Amer) Est GFR (Non-Af Amer) POC Glucose (mg/dL) 66 75 112 H Random Glucose Calcium Phosphorus Magnesium Total Bilirubin AST ALT Alkaline Phosphatase Total Protein Albumin Globulin Albumin/Globulin Ratio 03/01/11/18 01/11/18 06:11 06:34 06:34 WBC 23.2 H RBC 3.00 L Hgb 9.4 L Hct 28.8 L MCV 96.1 H MCH 31.3 H MCHC 32.5 L RDW 24.2 H Plt Count 26 L* MPV 9.4 Neut % (Auto) 90.3 H Lymph % (Auto) 1.8 L Bartholomew % (Auto) 5.7 Eos % (Auto) 1.4 Baso % (Auto) 0.8 Neut # (Auto) 21.0 H Lymph # (Auto) 0.4 L Bartholomew # (Auto) 1.3 H Eos # (Auto) 0.3 Baso # (Auto) 0.2 Neutrophils % (Manual) 94 H Band Neutrophils % 2 Lymphocytes % (Manual) 1 L Monocytes % (Manual) 3 Nucleated RBC % 1 H Toxic Granulation Present Platelet Estimate Markedly increased H Hypochromasia (manual) Slight Poikilocytosis (manual Slight Anisocytosis (manual) Slight Target Cells Slight Ovalocytes Slight Schistocytes Slight PT INR APTT Fibrinogen Fibrin Degrad Products Fibrin Degrad Prod, Qt Sodium 153 H Potassium 3.5 L Chloride 118 H Carbon Dioxide 25 Anion Gap 14 BUN 28 H Creatinine 2.2 H Est GFR ( Amer) 37 Est GFR (Non-Af Amer) 31 POC Glucose (mg/dL) 126 H Random Glucose 108 Calcium 7.4 L Phosphorus 2.5 Magnesium 1.9 Total Bilirubin 6.3 H AST 48 ALT 45 Alkaline Phosphatase 163 H D Total Protein 4.6 L Albumin 1.9 L Globulin 2.7 Albumin/Globulin Ratio 0.7 L 01/11/18 01/11/18 01/11/18 06:34 11:42 13:25 WBC RBC Hgb Hct MCV MCH MCHC RDW Plt Count MPV Neut % (Auto) Lymph % (Auto) Bartholomew % (Auto) Eos % (Auto) Baso % (Auto) Neut # (Auto) Lymph # (Auto) Bartholomew # (Auto) Eos # (Auto) Baso # (Auto) Neutrophils % (Manual) Band Neutrophils % Lymphocytes % (Manual) Monocytes % (Manual) Nucleated RBC % Toxic Granulation Platelet Estimate Hypochromasia (manual) Poikilocytosis (manual Anisocytosis (manual) Target Cells Ovalocytes Schistocytes PT 28.1 H D INR 2.4 D APTT 46 H Fibrinogen 164 L Fibrin Degrad Products Positive H Fibrin Degrad Prod, Qt >40 H Sodium Potassium Chloride Carbon Dioxide Anion Gap BUN Creatinine Est GFR ( Amer) Est GFR (Non-Af Amer) POC Glucose (mg/dL) 104 Random Glucose Calcium Phosphorus Magnesium Total Bilirubin AST ALT Alkaline Phosphatase Total Protein Albumin Globulin Albumin/Globulin Ratio Critical Care Progress Note - Nutrition Nutrition: Nutrition Category Date Time Status NPO Diet [DIET] Diets 01/07/18 Dinner Active Attending/Attestation - Attestation I have personally seen and examined this patient.: Yes I have fully participated in the care of the patient.: Yes I have reviewed all pertinent clinical information: Yes Notes (Text): 01/11/18 15:54 I have seen and examined the patient. Medical records, lab studies, and imaging were reviewed by me and a management plan was formulated on multidisciplinary rounds with resident Dr. Montemayor. I agree with their documented assessment and plan. 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 Trending fibrinogen. Supportive care. He is at high risk for decompensation. He and his family. is not understanding the level of his prognosis, so he remains full code. Palliative care already had family meeting. His medical issues are untreatable. We can treat his DIC supportively , but we cannot correct the underlying problem. Transfuse if platelets less than 20, transfuse cryoprecipitate if fibrinogen less than 100. Patient also has right upper extremity superficial VTE, treatment with a/c high risk while in DIC currently. Downgrading to floor. Critical Care Time 35 minutes. Multi-disciplinary rounds were performed with house staff, nursing, speech therapy, respiratory therapy, pharmacy and nutrition with integrated input from the primary team/attending and other consulting services. The documented time is cumulative and includes review of patient data/exams/labs/chart review and examination of the patient on rounds and throughout the day; time is exclusive of any procedures or teaching time.
[2018-01-11] MEDS ORDERED: TPN IV ONE (13:00)
--- NOTE | 2018-01-11 13:17 | PN ---
DATE: LOCATION: ICU 11. SUBJECTIVE: This is a 62-year-old male, seen and examined early in rounds, without significant reported clinical changes with periods of reported tachycardia, supraventricular tachycardia, with reported lower extremities deep vein thrombosis. The entire chart is reviewed including, but not limited to the most recent lab and radiology study results, current and the previous medication list, current and the previous medical events. Case discussed with the staff at length. The patient is intubated, with less response to verbal stimuli, sedated. Today's lab showed white blood cells of 23.2, hemoglobin 9.4, hematocrit 28.8, with thrombocytopenia of 26, abnormal ABG, with sodium 153, potassium 3.5, BUN 28, creatinine 2.2, blood glucose 126, calcium 7.4, total bilirubin 6.3, albumin 1.9, total protein 4.6. PHYSICAL EXAMINATION: GENERAL: A 62-year-old male. VITAL SIGNS: Afebrile, with pulse of 92, blood pressure 140/82. HEENT: Showed pale dry oral mucous membranes, with bilateral icteric sclerae. LUNGS: Few scattered crepitations. Decreased air entry at bases. HEART: Positive S1 and S2 with increased rate. ABDOMEN: Soft, with [id number] generalized distention. Positive ascites. EXTREMITIES: With lower extremity edematous changes. No clubbing or cyanosis. NEUROLOGIC: No reported new neurological deficits, sensory or motor. IMPRESSION: 1. Known history of cholangiocarcinoma with metastatic lesions including the liver. 2. Anemia, secondary to above. 3. Evidence of Disseminated Intravascular Coagulation by lab results. 4. Deep venous thrombosis by radiology study results. 5. Ascites with evidence of portal hypertension. 6. Jaundice secondary to above. 7. Known history of alcoholism with alcoholic liver disease. 8. Peptic ulcer disease, hypertension, hyperlipidemia by history. SUGGESTIONS: 1. Continue supportive treatment. 2. Albumin IV. 3. Antireflux measures. 4. Further recommendations to follow. Adina Barillas MD
--- NOTE | 2018-01-11 13:38 | CARD ---
APPROVED REPORT EKG Measurement Heart [id number] <Conclusion> Supraventricular tachycardia Low voltage QRS Septal infarct, age undetermined Abnormal ECG
[2018-01-11 14:00] LABS: FDP INTERPRETATION POSITIVE (NEGATIVE); FDP QUANTITY >40 ug/mL (<10)
[2018-01-11 14:01] LABS: FIBRINOGEN 164 mg/dL (200-400)
[2018-01-11] MEDS ORDERED: TPN#3 IV ONE (18:00)
--- NOTE | 2018-01-11 22:03 | CP.PCM.PN ---
Subjective - Date & Time of Evaluation Date of Evaluation: 01/11/18 Time of Evaluation: 22:02 - Subjective Subjective: AFEBRILE, VSS. AWAKE, WEAK. nO ACTIVE BLEEDING lABS REVIEWED wbc 23.2 PLATELETS DROPPED TO 26K. FDP>40. FDB +VE FIBRINOGEN LOW. ?DIC T.BILI 6.3 INCREASING tRANSAMINASES NORMAL. ALL CULTURES NEGATIVE GROWTH TO DATE. sPUTUM-NORMAL RENA. CXR; 01/10/18. mODERATE TO SEVERE VENOUS CONGESTION. By basilar air space opacities/small bilateral pleural effusions Objective - Vital Signs/Intake and Output Vital Signs (last 24 hours): Temp Pulse Resp BP Pulse Ox 98.5 F 106 H 18 104/79 95 01/11/18 18:10 01/11/18 21:07 01/11/18 18:10 01/11/18 21:07 01/11/18 18:10 Intake and Output: 01/11/18 01/12/18 18:59 06:59 Intake Total 820 Output Total 220 Balance 600 - Medications Medications: Current Medications Acetaminophen (Tylenol 325mg Tab) 650 mg PO Q6 PRN PRN Reason: Fever >100.4 F Benzocaine/Menthol (Cepacol Sore Throat) 1 rosmery MT Q6H PRN PRN Reason: Sore Throat Diphenhydramine HCl (Benadryl) 25 mg IVP Q3H PRN PRN Reason: Itching / Pruritus Last Admin: 01/11/18 09:05 Dose: 25 mg Famotidine (Pepcid) 20 mg IVP DAILY [facility] Last Admin: 01/11/18 09:32 Dose: 20 mg Fentanyl (Duragesic) 1 patch TD Q72H [facility] Last Admin: 01/09/18 21:03 Dose: 1 patch Hydromorphone HCl (Dilaudid) 1 mg IVP Q3H PRN PRN Reason: pain Last Admin: 01/11/18 16:42 Dose: 1 mg Meropenem 500 mg/ Sodium (Chloride) 100 mls @ 100 mls/hr IVPB Q8 [facility] PRN Reason: Protocol Last Admin: 01/11/18 14:00 Dose: 100 mls/hr Metronidazole (Flagyl) 250 mg in 50 mls @ 100 mls/hr IVPB Q8 [facility] PRN Reason: Protocol Stop: 01/12/18 22:01 Last Admin: 01/11/18 13:00 Dose: 100 mls/hr Potassium Chloride 50 meq/Potassium Phosphate 25 mmole/Magnesium Sulfate 8 meq/ Calcium Gluconate 4.65 meq/Multivitamins/Vitamin C 10 ml/Chromium/Copper/ Manganese/Zinc 1 ml/ Amino Acids 1,056.3037 mls @ 42 mls/hr IV .Q24H ONE Stop: 01/12/18 17:59 Last Admin: 01/11/18 17:04 Dose: 42 mls/hr Metoprolol Tartrate (Lopressor) 25 mg PO BID [facility] Potassium Chloride (K-Dur 20 Meq Er Tab) 40 meq PO ONCE [facility] Last Admin: 01/05/18 09:16 Dose: 40 meq - Labs Labs: 01/11/18 06:34 01/11/18 06:34 PT 28.1 SECONDS (9.7-12.2) H D 01/11/18 06:34 INR 2.4 D 01/11/18 06:34 APTT 46 SECONDS (21-34) H 01/11/18 06:34 - Constitutional Appears: No Acute Distress, Chronically Ill - Head Exam Head Exam: NORMAL INSPECTION - Eye Exam Eye Exam: EOMI, PERRL, Scleral icterus - ENT Exam ENT Exam: Mucous Membranes Dry - Neck Exam Neck Exam: Normal Inspection - Respiratory Exam Respiratory Exam: Rhonchi (BY BASILAR RHONCHI) - Cardiovascular Exam Cardiovascular Exam: Tachycardia, REGULAR RHYTHM, +S1, +S2 - GI/Abdominal Exam GI & Abdominal Exam: Soft, Tenderness (GENERALIZED), Hernia, Hypoactive Bowel Sounds - Extremities Exam Extremities Exam: Pedal Edema (BILATERAL vENODYNE). absent: Calf Tenderness - Neurological Exam Neurological Exam: Awake, CN II-XII Intact - Psychiatric Exam Psychiatric exam: Normal Affect - Skin Skin Exam: Normal Color, Warm Assessment and Plan (1) Sepsis Status: Acute (2) Abdominal pain Status: Acute (3) Ascites, malignant Status: Acute (4) Cholangiocarcinoma Status: Chronic (5) Hypertension Status: Acute (6) Thrombocytopenia Status: Acute - Assessment and Plan (Free Text) Plan: Asssessment : S/P RESPIRATORY FAILURE, ASPIRATION PNEUMONIA. S/P code blue 01/06/18. SEPSIS/ ? INTRAABDOMINAL R/O SBP VS MALIGNANT ASCITES ABDOMINAL PAIN ? 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 GI BLEEDING CHOLANGIOCARCINOMA /ASCITES ?MALIGNANT. ?METASTATIC DISEASE. SHOCK LIVER MULTIPLE HEPATIC MASSES ? mets HTN ELLYN -secondary to hypotension. GENERALIZED ANASARCA. THROMBOCYTOPENIA/COAGULOPATHY/?DIC Plan: PATIENT ON TPN. on IV MERREM 500MG IVPB Q 8HRLY 01/05/18 FOR PRABABLE COVERAGE FOR +VE ESBL KLEBSIELLA PN. VS E.COLI 01/05/18 CONTINUE fLAGYL 250 iv PIGGYBACK EVERY 8 HOURLY FOR ANAEROBIC COVERAGE. . F/U CBC/PLATELETS. F/U SPUTUM CULTURE/FUNGAL CULTURE. PROGNOSIS GUARDED.
--- NOTE | 2018-01-11 23:11 | CP.PCM.PN ---
Subjective - Date & Time of Evaluation Date of Evaluation: 01/11/18 Time of Evaluation: 16:40 - Subjective Subjective: Pt was seen and evaluated at bedside Objective - Vital Signs/Intake and Output Vital Signs (last 24 hours): Temp Pulse Resp BP Pulse Ox 98.5 F 106 H 18 104/79 95 01/11/18 18:10 01/11/18 21:07 01/11/18 18:10 01/11/18 21:07 01/11/18 18:10 Intake and Output: 01/11/18 01/12/18 18:59 06:59 Intake Total 820 336 Output Total 220 Balance 600 336 - Medications Medications: Current Medications Acetaminophen (Tylenol 325mg Tab) 650 mg PO Q6 PRN PRN Reason: Fever >100.4 F Benzocaine/Menthol (Cepacol Sore Throat) 1 rosmery MT Q6H PRN PRN Reason: Sore Throat Diphenhydramine HCl (Benadryl) 25 mg IVP Q3H PRN PRN Reason: Itching / Pruritus Last Admin: 01/11/18 09:05 Dose: 25 mg Famotidine (Pepcid) 20 mg IVP DAILY [facility] Last Admin: 01/11/18 09:32 Dose: 20 mg Fentanyl (Duragesic) 1 patch TD Q72H [facility] Last Admin: 01/09/18 21:03 Dose: 1 patch Hydromorphone HCl (Dilaudid) 1 mg IVP Q3H PRN PRN Reason: pain Last Admin: 01/11/18 16:42 Dose: 1 mg Meropenem 500 mg/ Sodium (Chloride) 100 mls @ 100 mls/hr IVPB Q8 [facility] PRN Reason: Protocol Last Admin: 01/11/18 22:57 Dose: 100 mls/hr Metronidazole (Flagyl) 250 mg in 50 mls @ 100 mls/hr IVPB Q8 [facility] PRN Reason: Protocol Stop: 01/12/18 22:01 Last Admin: 01/11/18 22:57 Dose: 100 mls/hr Potassium Chloride 50 meq/Potassium Phosphate 25 mmole/Magnesium Sulfate 8 meq/ Calcium Gluconate 4.65 meq/Multivitamins/Vitamin C 10 ml/Chromium/Copper/ Manganese/Zinc 1 ml/ Amino Acids 1,056.3037 mls @ 42 mls/hr IV .Q24H ONE Stop: 01/12/18 17:59 Last Admin: 01/11/18 17:04 Dose: 42 mls/hr Metoprolol Tartrate (Lopressor) 25 mg PO BID [facility] Potassium Chloride (K-Dur 20 Meq Er Tab) 40 meq PO ONCE [facility] Last Admin: 01/05/18 09:16 Dose: 40 meq - Labs Labs: 01/11/18 06:34 01/11/18 06:34 PT 28.1 SECONDS (9.7-12.2) H D 01/11/18 06:34 INR 2.4 D 01/11/18 06:34 APTT 46 SECONDS (21-34) H 01/11/18 06:34 Assessment and Plan (1) Abdominal pain Status: Acute (2) Cholangiocarcinoma Status: Chronic (3) Dehydration Status: Acute (4) Hypertension Status: Acute (5) Septicemia Status: Acute
[2018-01-12] MEDS: HYDROmorphone 1 mg/ml ISec IVP PRN ×4 (00:50→22:10)
[2018-01-12] MEDS: Meropenem 500 MG in Sodium Chloride 0.9% 100 ML IVPB SCH ×3 (05:15→21:31)
[2018-01-12] MEDS: metroNIDAZOLE IV 250mg/50 ml 250 MG/50 ML BAG IVPB SCH ×3 (06:15→21:25)
[2018-01-12 06:46] LABS: BASO # 0.1 K/uL (0.0-0.2); BASO % 0.6 % (0.0-2.0); EOS # 0.1 K/uL (0.0-0.7); EOS % 0.5 % (0.0-4.0); HEMOGLOBIN 8.9 g/dL (12.0-18.0); LYMPH # 0.7 K/uL (1.0-4.3); LYMPH % 4.4 % (20.0-40.0); MEAN CELL VOLUME 98.3 fL (80.0-94.0); MEAN CORPUSCULAR HEMOGLOBIN 32.3 pg (27.0-31.0); MEAN CORPUSCULAR HGB CONC 32.9 g/dL (33.0-37.0); MEAN PLATELET VOLUME 9.9 fL (7.2-11.7); MONO # 1.5 K/uL (0.0-0.8); MONO % 9.1 % (0.0-10.0); NEUT # 14.1 K/uL (1.8-7.0); NEUT % 85.4 % (50.0-75.0); NRBC % 0.3 % (0.0-2.0); RBC 2.76 Mil/uL (4.40-5.90); RED CELL DISTRIBUTION WIDTH 24.6 % (11.5-14.5)
[2018-01-12 06:53] LABS: WHITE BLOOD COUNT 16.5 K/uL (4.8-10.8)
[2018-01-12 06:54] LABS: PLATELET COUNT 18 K/uL (130-400)
[2018-01-12 06:56] LABS: INR 2.1; PROTHROMBIN TIME 23.7 SECONDS (9.7-12.2)
[2018-01-12 07:44] LABS: ALB/GLOB RATIO 0.6 (1.0-2.1); ALBUMIN 1.7 g/dL (3.5-5.0); CALCIUM 7.7 mg/dl (8.6-10.4)
[2018-01-12 08:26] LABS: BANDS 1 % (0-2); LYMPHOCYTE 4 % (20-40); MONOCYTE 7 % (0-10); NEUTROPHIL 88 % (50-75); PLATELET ESTIMATE MARKEDLY DECREASED (NORMAL); TOTAL CELLS COUNTED 100
[2018-01-12 08:32] LABS: ANISOCYTOSIS MARKED
[2018-01-12 08:36] LABS: GIANT PLATELETS PRESENT; POIKILOCYTOSIS SLIGHT; SCHISTOCYTES SLIGHT
[2018-01-12 08:49] LABS: HYPOCHROMIC SLIGHT; OVALOCYTES SLIGHT; POLYCHROMIC SLIGHT
[2018-01-12 08:50] LABS: TARGET CELLS MODERATE
[2018-01-12 10:17] LABS: FDP INTERPRETATION POSITIVE (NEGATIVE); FDP QUANTITY >40 ug/mL (<10)
[2018-01-12] MEDS: DiphenhydrAMINE 50 mg/ml Inj IVP PRN ×3 (10:27→22:10)
--- NOTE | 2018-01-12 13:02 | PN ---
DATE: LOCATION: [facility], bed B. SUBJECTIVE: This is a 62-year-old male seen in rounds out of the Intensive Care Unit, appeared to be somewhat more alert without reported active bleeding, chest pain, palpitation, or significant change of mental status, but with subsequent drop of platelet count. No new complaint this morning. Most recent lab results, current and the previous medication list, current and the previous medical events is seen and today's lab showed leukocytosis of 16.5, hemoglobin 8.9, hematocrit 27.1, with platelet count dropped again to 18 with PT 23, PTT 45, fibrinogen 193, still low. Sodium 153, BUN 3, creatinine 2.2, glucose 120, calcium 7.7, total bilirubin 7.1, low albumin of 1.7. PHYSICAL EXAMINATION GENERAL: A 62-year-old male. VITAL SIGNS: Afebrile, with pulse of 106, respiratory rate 20 to 22, blood pressure 104/64. HEENT: Pale, dry oral mucous membranes. Nonicteric sclerae. LUNGS: Scattered crepitations. Decreased air entry at bases. HEART: Positive S1 and S2 with increased rate. ABDOMEN: Soft, with slight distention, and mild generalized tenderness. No mass or organomegaly. Bowel sounds are present, but hypoactive with small amount of ascites. EXTREMITIES: With lower extremities edematous changes. No clubbing or cyanosis. NEUROLOGIC: No new reported focal deficits. No new reported motor or sensory deficits. Peripheral pulses are present bilaterally, but weak. IMPRESSION: 1. Known history of cholangiocarcinoma with metastasis including the liver. 2. Evidence of early disseminated intravascular coagulation. 3. Reported deep venous thrombosis. 4. Evidence of portal hypertension with ascites, most likely secondary to alcoholic liver disease. 5. Septicemia with leukocytosis. 6. Evidence of peptic ulcer disease. 7. Hyperlipidemia with history of hypertension. 8. Anemia secondary to above. SUGGESTION: 1. Continue current management. 2. Due to the patient hypoalbuminemia, hypoproteinemia, and malnutrition, peripheral hyperalimentation to be provided. 3. Calorie counting. 4. Consider PEG insertion only if the patient's oral intake is inadequate, otherwise continue current management. Adina Barillas MD
[2018-01-12] MEDS ORDERED: TPN#4 IV ONE (18:00)
[2018-01-12] MEDS ORDERED: Fat Emulsion 20% IV 500 ML IV ONE (18:00)
--- NOTE | 2018-01-12 22:48 | CP.PCM.PN ---
Subjective - Date & Time of Evaluation Date of Evaluation: 01/12/18 Time of Evaluation: 14:40 - Subjective Subjective: Pt is c/o pain, he is on TPN, abdomen is distented, no tenderness, he is awake and alert, NAD, he is saying that he feels hungry Objective - Vital Signs/Intake and Output Vital Signs (last 24 hours): Temp Pulse Resp BP Pulse Ox 98 F 110 H 20 98/66 L 98 01/12/18 22:07 01/12/18 22:07 01/12/18 22:07 01/12/18 22:07 01/12/18 22:07 - Medications Medications: Current Medications Acetaminophen (Tylenol 325mg Tab) 650 mg PO Q6 PRN PRN Reason: Fever >100.4 F Benzocaine/Menthol (Cepacol Sore Throat) 1 rosmery MT Q6H PRN PRN Reason: Sore Throat Diphenhydramine HCl (Benadryl) 25 mg IVP Q3H PRN PRN Reason: Itching / Pruritus Last Admin: 01/12/18 22:10 Dose: 25 mg Famotidine (Pepcid) 20 mg IVP DAILY [facility] Last Admin: 01/12/18 10:31 Dose: 20 mg Fentanyl (Duragesic) 1 patch TD Q72H [facility] Last Admin: 01/12/18 21:25 Dose: 1 patch Hydromorphone HCl (Dilaudid) 1 mg IVP Q3H PRN PRN Reason: pain Last Admin: 01/12/18 22:10 Dose: 1 mg Meropenem 500 mg/ Sodium (Chloride) 100 mls @ 100 mls/hr IVPB Q8 [facility] PRN Reason: Protocol Last Admin: 01/12/18 21:31 Dose: 100 mls/hr Potassium Phosphate 15 mmole/Magnesium Sulfate 8 meq/Calcium Gluconate 4.65 meq/ Multivitamins/Vitamin C 10 ml/Chromium/Copper/Manganese/Zinc 1 ml/ Insulin Human Regular 10 unit/ Amino Acids 1,028.0704 mls @ 42 mls/hr IV .Q24H ONE Stop: 01/13/18 17:59 Last Admin: 01/12/18 18:01 Dose: 42 mls/hr Fat Emulsion Intravenous (Intralipid 20%) 500 mls @ 42 mls/hr IV QOD ONE Stop: 01/13/18 05:54 Last Admin: 01/12/18 18:00 Dose: 42 mls/hr Metoprolol Tartrate (Lopressor) 25 mg PO BID [facility] Last Admin: 01/12/18 18:00 Dose: 25 mg Potassium Chloride (K-Dur 20 Meq Er Tab) 40 meq PO ONCE [facility] Last Admin: 01/05/18 09:16 Dose: 40 meq - Labs Labs: 01/12/18 06:41 01/12/18 06:41 PT 23.7 SECONDS (9.7-12.2) H 01/12/18 06:41 INR 2.1 01/12/18 06:41 APTT 45 SECONDS (21-34) H 01/12/18 06:41 - Constitutional Appears: No Acute Distress, Chronically Ill - Head Exam Head Exam: ATRAUMATIC, NORMAL INSPECTION, NORMOCEPHALIC - Eye Exam Eye Exam: EOMI, Normal appearance, PERRL Pupil Exam: NORMAL ACCOMODATION, PERRL - Respiratory Exam Respiratory Exam: Decreased Breath Sounds, Rales, Rhonchi - Cardiovascular Exam Cardiovascular Exam: REGULAR RHYTHM, +S1, +S2 - GI/Abdominal Exam GI & Abdominal Exam: Distended, Normal Bowel Sounds - Rectal Exam Rectal Exam: Deferred Assessment and Plan (1) Abdominal pain Status: Acute (2) Cholangiocarcinoma Status: Chronic (3) Dehydration Status: Acute (4) Hypertension Status: Acute (5) Septicemia Status: Acute
--- NOTE | 2018-01-12 23:57 | CP.PCM.PN ---
Subjective - Date & Time of Evaluation Date of Evaluation: 01/12/18 Time of Evaluation: 23:57 - Subjective Subjective: Subjective: SEEN ON MEDICAL FLOOR. AFEBRILE, VSS. AWAKE, WEAK. ICTERIC GENERALIZED ANASARCA. C/O ABDOMINAL PAIN STARTED ON CLEAR LIQUIDS ALL CULTURES NEGATIVE GROWTH TO DATE. sPUTUM-NORMAL RENA. CXR; 01/10/18. mODERATE TO SEVERE VENOUS CONGESTION. By basilar air space opacities/small bilateral pleural effusions Objective - Vital Signs/Intake and Output Vital Signs (last 24 hours): Temp Pulse Resp BP Pulse Ox 97.8 F 109 H 20 105/75 95 01/12/18 23:28 01/12/18 23:28 01/12/18 23:28 01/12/18 23:28 01/12/18 23:28 Intake and Output: 01/12/18 01/13/18 18:59 06:59 Intake Total 336 Balance 336 - Medications Medications: Current Medications Acetaminophen (Tylenol 325mg Tab) 650 mg PO Q6 PRN PRN Reason: Fever >100.4 F Benzocaine/Menthol (Cepacol Sore Throat) 1 rosmery MT Q6H PRN PRN Reason: Sore Throat Diphenhydramine HCl (Benadryl) 25 mg IVP Q3H PRN PRN Reason: Itching / Pruritus Last Admin: 01/12/18 22:10 Dose: 25 mg Famotidine (Pepcid) 20 mg IVP DAILY [facility] Last Admin: 01/12/18 10:31 Dose: 20 mg Fentanyl (Duragesic) 1 patch TD Q72H [facility] Last Admin: 01/12/18 21:25 Dose: 1 patch Hydromorphone HCl (Dilaudid) 1 mg IVP Q3H PRN PRN Reason: pain Last Admin: 01/12/18 22:10 Dose: 1 mg Meropenem 500 mg/ Sodium (Chloride) 100 mls @ 100 mls/hr IVPB Q8 [facility] PRN Reason: Protocol Last Admin: 01/12/18 21:31 Dose: 100 mls/hr Potassium Phosphate 15 mmole/Magnesium Sulfate 8 meq/Calcium Gluconate 4.65 meq/ Multivitamins/Vitamin C 10 ml/Chromium/Copper/Manganese/Zinc 1 ml/ Insulin Human Regular 10 unit/ Amino Acids 1,028.0704 mls @ 42 mls/hr IV .Q24H ONE Stop: 01/13/18 17:59 Last Admin: 01/12/18 18:01 Dose: 42 mls/hr Fat Emulsion Intravenous (Intralipid 20%) 500 mls @ 42 mls/hr IV QOD ONE Stop: 01/13/18 05:54 Last Admin: 01/12/18 18:00 Dose: 42 mls/hr Metoprolol Tartrate (Lopressor) 25 mg PO BID [facility] Last Admin: 01/12/18 18:00 Dose: 25 mg Potassium Chloride (K-Dur 20 Meq Er Tab) 40 meq PO ONCE [facility] Last Admin: 01/05/18 09:16 Dose: 40 meq - Labs Labs: 01/12/18 06:41 01/12/18 06:41 PT 23.7 SECONDS (9.7-12.2) H 01/12/18 06:41 INR 2.1 01/12/18 06:41 APTT 45 SECONDS (21-34) H 01/12/18 06:41 - Constitutional Appears: No Acute Distress, Chronically Ill - Eye Exam Eye Exam: EOMI, PERRL, Scleral icterus - ENT Exam ENT Exam: Normal Oropharynx - Neck Exam Neck Exam: Normal Inspection - Respiratory Exam Respiratory Exam: Decreased Breath Sounds - Cardiovascular Exam Cardiovascular Exam: Tachycardia, REGULAR RHYTHM, +S1, +S2 - GI/Abdominal Exam GI & Abdominal Exam: Soft, Normal Bowel Sounds - Extremities Exam Extremities Exam: Pedal Edema. absent: Calf Tenderness - Neurological Exam Neurological Exam: Alert, Awake, CN II-XII Intact, Oriented x3 - Psychiatric Exam Psychiatric exam: Normal Mood - Skin Skin Exam: Warm Assessment and Plan (1) Sepsis Status: Acute (2) Abdominal pain Status: Acute (3) Ascites, malignant Status: Acute (4) Cholangiocarcinoma Status: Chronic (5) Hypertension Status: Acute (6) Thrombocytopenia Status: Acute - Assessment and Plan (Free Text) Plan: On IV MERREM 500MG IVPB Q 8HRLY 01/05/18 FOR PRABABLE COVERAGE FOR +VE ESBL KLEBSIELLA PN. VS E.COLI 01/05/18 CONTINUE fLAGYL 250 iv PIGGYBACK EVERY 8 HOURLY FOR ANAEROBIC COVERAGE. . F/U CBC/PLATELETS. F/U SPUTUM CULTURE/FUNGAL CULTURE. PROGNOSIS GUARDED.
[2018-01-13] MEDS: Meropenem 500 MG in Sodium Chloride 0.9% 100 ML IVPB SCH ×3 (05:00→21:51)
[2018-01-13 08:24] LABS: BASO # 0.2 K/uL (0.0-0.2); BASO % 0.7 % (0.0-2.0); EOS # 0.2 K/uL (0.0-0.7); HEMOGLOBIN 9.9 g/dL (12.0-18.0); LYMPH # 1.8 K/uL (1.0-4.3); LYMPH % 7.1 % (20.0-40.0); MEAN CELL VOLUME 100.5 fL (80.0-94.0); MEAN CORPUSCULAR HGB CONC 32.9 g/dL (33.0-37.0); MONO # 1.1 K/uL (0.0-0.8); MONO % 4.6 % (0.0-10.0); NEUT # 21.5 K/uL (1.8-7.0); NEUT % 86.6 % (50.0-75.0); NRBC % 2.1 % (0.0-2.0); RBC 2.99 Mil/uL (4.40-5.90); WHITE BLOOD COUNT 24.8 K/uL (4.8-10.8)
[2018-01-13 08:34] LABS: PLATELET COUNT 27 K/uL (130-400)
[2018-01-13 08:59] LABS: ALB/GLOB RATIO 0.6 (1.0-2.1); ALBUMIN 1.8 g/dL (3.5-5.0); CALCIUM 7.6 mg/dl (8.6-10.4)
[2018-01-13 09:33] LABS: BANDS 7 % (0-2); EOSINOPHIL 2 % (0-4); LYMPHOCYTE 3 % (20-40); METAMYELOCYTE 1 % (0-0); MONOCYTE 4 % (0-10); NEUTROPHIL 83 % (50-75); NUCLEATED RED BLOOD CELL 1 % (0-0); TOTAL CELLS COUNTED 100
[2018-01-13 09:34] LABS: ANISOCYTOSIS MODERATE; HYPOCHROMIC SLIGHT; LARGE PLATELETS PRESENT; PLATELET ESTIMATE MARKEDLY DECREASED (NORMAL); POIKILOCYTOSIS SLIGHT; POLYCHROMIC SLIGHT
[2018-01-13 09:35] LABS: TARGET CELLS SLIGHT; TEARDROP CELLS SLIGHT
[2018-01-13 09:36] LABS: SCHISTOCYTES SLIGHT
[2018-01-13 09:53] LABS: PLATELET COUNT MANUAL 21 K/uL (130-400)
[2018-01-13] MEDS: HYDROmorphone 1 mg/ml ISec IVP PRN ×2 (12:45→20:10)
[2018-01-13] MEDS: DiphenhydrAMINE 50 mg/ml Inj IVP PRN ×2 (12:46→20:10)
--- NOTE | 2018-01-13 13:03 | PN ---
DATE: 01/13/2018 LOCATION: 370, Bed B. SUBJECTIVE: This is a 62-year-old male seen and examined in rounds early today without significant clinical changes or reported active bleeding but still with complaint of generalized weakness and malaise. Intermittent periods of severe crampy abdominal pain was reported with mild increase of abdominal gas. The entire chart is reviewed including, but not limited to, the most recent lab and radiology study results, current and previous medication list, current and previous medical events. Case discussed with the staff at length. Today's lab is still pending results, but the patient reported to have leukocytosis, low hemoglobin and hematocrit with very low platelet count, increased sodium, increased BUN and creatinine, elevated blood glucose level with low calcium and total protein of 7.0, low albumin and low total protein. PHYSICAL EXAMINATION: GENERAL: A 62-year-old male. VITAL SIGNS: Afebrile with pulse of 106, respiratory rate of 20 to 22, blood pressure 110/76. HEENT: Showed pale, dry oral mucous membrane. Bilateral icteric sclerae. LUNGS: Few scattered crepitations. Decreased air entry at bases. HEART: Positive S1 and S2. ABDOMEN: Soft with mild distention, positive for ascites with mild generalized tenderness. No mass or organomegaly. No rebound tenderness or guarding. EXTREMITIES: With edematous changes. No clubbing or cyanosis. NEUROLOGIC: No reported new neurological deficits, sensory or motor. IMPRESSION: 1. Known history of cholangiocarcinoma with metastatic lesion to mainly the liver. The patient most likely had peritoneal seeding also. 2. Liver cirrhosis, evidence of portal hypertension, ascites, possibility of malignant ascites was raised strongly. 3. Septicemia with leukocytosis. 4. Known history of hypertension. 5. Thrombocytopenia most likely secondary to above with anemia. 6. Electrolyte imbalance. 7. Known history of hypertension with hyperlipidemia as well as peptic ulcer disease. SUGGESTIONS: 1. Agree with your plan. 2. Abdominal paracentesis. 3. The patient may benefit from Lasix as well as Aldactone in the meantime. 4. Further recommendations to follow and the patient carries a very poor prognosis. MD Adina Woodson MD20:04 [facility] # [id number]
[2018-01-13] MEDS: metroNIDAZOLE IV 500 mg/100 ml 250 MG in Premixed IV 1 EA IVPB SCH ×2 (14:51→21:00)
--- NOTE | 2018-01-13 21:55 | CP.PCM.PN ---
Subjective - Date & Time of Evaluation Date of Evaluation: 01/13/18 Time of Evaluation: 18:15 - Subjective Subjective: Pt is seen and examined today Objective - Vital Signs/Intake and Output Vital Signs (last 24 hours): Temp Pulse Resp BP Pulse Ox 97.7 F 113 H 20 100/71 100 01/13/18 15:15 01/13/18 15:15 01/13/18 15:15 01/13/18 15:15 01/13/18 15:15 Intake and Output: 01/13/18 01/14/18 18:59 06:59 Intake Total 500 Balance 500 - Medications Medications: Current Medications Acetaminophen (Tylenol 325mg Tab) 650 mg PO Q6 PRN PRN Reason: Fever >100.4 F Benzocaine/Menthol (Cepacol Sore Throat) 1 rosmery MT Q6H PRN PRN Reason: Sore Throat Diphenhydramine HCl (Benadryl) 25 mg IVP Q3H PRN PRN Reason: Itching / Pruritus Last Admin: 01/13/18 20:10 Dose: 25 mg Famotidine (Pepcid) 20 mg IVP DAILY [facility] Last Admin: 01/13/18 09:01 Dose: 20 mg Fentanyl (Duragesic) 1 patch TD Q72H [facility] Last Admin: 01/12/18 21:25 Dose: 1 patch Hydromorphone HCl (Dilaudid) 1 mg IVP Q3H PRN PRN Reason: pain Last Admin: 01/13/18 20:10 Dose: 1 mg Meropenem 500 mg/ Sodium (Chloride) 100 mls @ 100 mls/hr IVPB Q8 [facility] PRN Reason: Protocol Last Admin: 01/13/18 21:51 Dose: 100 mls/hr Metronidazole 250 mg/ (Miscellaneous) 50 mls @ 100 mls/hr IVPB Q8 [facility] PRN Reason: Protocol Last Admin: 01/13/18 21:00 Dose: 100 mls/hr Metoprolol Tartrate (Lopressor) 25 mg PO BID [facility] Last Admin: 01/13/18 18:15 Dose: Not Given Potassium Chloride (K-Dur 20 Meq Er Tab) 40 meq PO ONCE [facility] Last Admin: 01/05/18 09:16 Dose: 40 meq - Labs Labs: 01/13/18 07:59 01/13/18 07:59 PT 23.7 SECONDS (9.7-12.2) H 01/12/18 06:41 INR 2.1 01/12/18 06:41 APTT 45 SECONDS (21-34) H 01/12/18 06:41 Assessment and Plan (1) Abdominal pain Status: Acute (2) Cholangiocarcinoma Status: Chronic (3) Dehydration Status: Acute (4) Hypertension Status: Acute (5) Septicemia Status: Acute
[2018-01-13] MEDS ORDERED: metroNIDAZOLE IV 500 mg/100 ml 250 MG in Premixed IV 1 EA IVPB SCH (22:00)
[2018-01-14] MEDS: Meropenem 500 MG in Sodium Chloride 0.9% 100 ML IVPB SCH ×3 (05:05→21:32)
[2018-01-14] MEDS: metroNIDAZOLE IV 500 mg/100 ml 250 MG in Premixed IV 1 EA IVPB SCH ×3 (06:02→21:00)
--- NOTE | 2018-01-14 15:43 | PN ---
DATE: LOCATION: [address] [place] [address] B. SUBJECTIVE: This is a 62-year-old male seen and examined early in rounds today without reported significant clinical changes or reported active bleeding with less oral intake, had been on TPN recently. No chest pain or palpitation, but intermittent periods of shortness of breath in general. Today's lab showed blood glucose level 85. Rest of the lab results still pending. PHYSICAL EXAMINATION GENERAL: A 62-year-old male with generalized jaundice. VITAL SIGNS: Afebrile, heart rate 106, respiratory rate of 20 to 22, blood pressure 108/76. HEENT: Showed pale, dry mucous membranes. Bilateral icteric sclerae. LUNGS: Few scattered crepitations. Decreased air entry at bases. HEART: Positive S1 and S2. ABDOMEN: Soft. Bowel sounds are present with mild distention and mild generalized tenderness. No mass or organomegaly. No rebound tenderness or guarding. EXTREMITIES: Without significant clubbing, cyanosis, or edema. NEUROLOGIC: No reported new neurological deficits, sensory or motor. IMPRESSION: 1. Known history of cholangiocarcinoma with metastatic lesions involving the liver and most likely the peritoneum. 2. Liver cirrhosis, alcoholism, portal hypertension, refractory ascites with possible malignant ascites. 3. Septicemia. 4. Known history of hypertension. 5. Electrolyte imbalance. 6. Known history of hyperlipidemia, peptic ulcer disease. 7. Thrombocytopenia secondary to above. SUGGESTIONS: 1. Continue current management. 2. The patient may need percutaneous endoscopic gastrostomy insertion due to poor oral intake. 3. Continue hyperalimentation and correct any underlying electrolyte imbalance. 4. Further recommendations to follow. Adina Barillas MD
[2018-01-14] MEDS: DiphenhydrAMINE 50 mg/ml Inj IVP PRN ×2 (16:15→20:50)
[2018-01-14] MEDS ORDERED: Fat Emulsion 20% IV 500 ML IV ONE (18:00)
[2018-01-14] MEDS ORDERED: TPN IV ONE (18:00)
--- NOTE | 2018-01-14 21:38 | CP.PCM.PN ---
Subjective - Date & Time of Evaluation Date of Evaluation: 01/14/18 Time of Evaluation: 21:38 - Subjective Subjective: pt seen and examined. offers no new complaints. C/O ABDOMINAL PAINS no active bleeding. +icteric GENERALIZED ANASARCA. LABS REVIEWED. SPUTUM +VE YEAST WBC 24.5 -iNCREASING LOW PLATELETS Objective - Vital Signs/Intake and Output Vital Signs (last 24 hours): Temp Pulse Resp BP Pulse Ox 97.6 F 111 H 20 113/73 100 01/14/18 18:00 01/14/18 18:00 01/14/18 18:00 01/14/18 18:00 01/14/18 18:00 Intake and Output: 01/14/18 01/15/18 18:59 06:59 Intake Total 846 Balance 846 - Medications Medications: Current Medications Acetaminophen (Tylenol 325mg Tab) 650 mg PO Q6 PRN PRN Reason: Fever >100.4 F Benzocaine/Menthol (Cepacol Sore Throat) 1 rosmery MT Q6H PRN PRN Reason: Sore Throat Diphenhydramine HCl (Benadryl) 25 mg IVP Q3H PRN PRN Reason: Itching / Pruritus Last Admin: 01/14/18 20:50 Dose: 25 mg Famotidine (Pepcid) 20 mg IVP DAILY [facility] Last Admin: 01/14/18 10:37 Dose: 20 mg Hydromorphone HCl (Dilaudid) 1 mg IVP Q3H PRN PRN Reason: pain Last Admin: 01/14/18 20:30 Dose: 1 mg Meropenem 500 mg/ Sodium (Chloride) 100 mls @ 100 mls/hr IVPB Q8 [facility] PRN Reason: Protocol Last Admin: 01/14/18 21:32 Dose: 100 mls/hr Metronidazole 250 mg/ (Miscellaneous) 50 mls @ 100 mls/hr IVPB Q8 [facility] PRN Reason: Protocol Last Admin: 01/14/18 21:00 Dose: 100 mls/hr Calcium Gluconate 4.65 meq/Magnesium Sulfate 8 meq/Multivitamins/Vitamin C 10 ml /Amino Acids 1,021.9704 mls @ 42 mls/hr IV .Q24H ONE Stop: 01/15/18 17:59 Last Admin: 01/14/18 17:21 Dose: 42 mls/hr Fat Emulsion Intravenous (Intralipid 20%) 500 mls @ 42 mls/hr IV QOD ONE Stop: 01/15/18 05:54 Last Admin: 01/14/18 17:22 Dose: 42 mls/hr Metoprolol Tartrate (Lopressor) 25 mg PO BID [facility] Last Admin: 01/14/18 17:22 Dose: Not Given Potassium Chloride (K-Dur 20 Meq Er Tab) 40 meq PO ONCE [facility] Last Admin: 01/05/18 09:16 Dose: 40 meq - Labs Labs: 01/13/18 07:59 01/13/18 07:59 PT 23.7 SECONDS (9.7-12.2) H 01/12/18 06:41 INR 2.1 01/12/18 06:41 APTT 45 SECONDS (21-34) H 01/12/18 06:41 - Constitutional Appears: No Acute Distress, Chronically Ill - Eye Exam Eye Exam: EOMI, PERRL, Scleral icterus - ENT Exam ENT Exam: Mucous Membranes Dry - Neck Exam Neck Exam: Normal Inspection - Respiratory Exam Respiratory Exam: Decreased Breath Sounds (BASES.), NORMAL BREATHING PATTERN - Cardiovascular Exam Cardiovascular Exam: Tachycardia, REGULAR RHYTHM, +S1, +S2 - GI/Abdominal Exam GI & Abdominal Exam: Soft, Tenderness (GENERALIZED), Hypoactive Bowel Sounds (+ VE ASCITES) - Extremities Exam Extremities Exam: Pedal Edema. absent: Calf Tenderness - Neurological Exam Neurological Exam: Awake, CN II-XII Intact - Psychiatric Exam Psychiatric exam: Normal Affect - Skin Skin Exam: Pallor, Warm Assessment and Plan (1) Sepsis Status: Acute (2) Abdominal pain Status: Acute (3) Ascites, malignant Status: Acute (4) Cholangiocarcinoma Status: Chronic (5) Hypertension Status: Acute (6) Thrombocytopenia Status: Acute - Assessment and Plan (Free Text) Plan: On IV MERREM 500MG IVPB Q 8HRLY 01/05/18 CONTINUE fLAGYL 250 iv PIGGYBACK EVERY 8 HOURLY FOR ANAEROBIC COVERAGE. . BLOOD CULTURE X1 FUNGUS THEN F/U -- ADD IV MYCAFUNGIN 100MG IV OD DAILY 01/15/18 F/U CBC/PLATELETS. F/U SPUTUM CULTURE/FUNGAL CULTURE. PROGNOSIS GUARDED.
[2018-01-15] MEDS: Micafungin 100 MG in Sodium Chloride 0.9% 100 ML IV SCH (03:25)
[2018-01-15] MEDS: Meropenem 500 MG in Sodium Chloride 0.9% 100 ML IVPB SCH ×3 (05:00→21:40)
[2018-01-15] MEDS: metroNIDAZOLE IV 500 mg/100 ml 250 MG in Premixed IV 1 EA IVPB SCH ×3 (06:00→21:00)
--- NOTE | 2018-01-15 12:01 | CP.PCM.PN ---
Subjective - Date & Time of Evaluation Date of Evaluation: 01/14/18 Time of Evaluation: 18:30 Objective - Vital Signs/Intake and Output Vital Signs (last 24 hours): Temp Pulse Resp BP Pulse Ox 98.1 F 112 H 20 98/66 L 97 01/15/18 07:00 01/15/18 07:00 01/15/18 07:00 01/15/18 10:33 01/15/18 07:00 Intake and Output: 01/15/18 01/15/18 06:59 18:59 Intake Total 1017 Balance 1017 - Medications Medications: Current Medications Acetaminophen (Tylenol 325mg Tab) 650 mg PO Q6 PRN PRN Reason: Fever >100.4 F Benzocaine/Menthol (Cepacol Sore Throat) 1 rosmery MT Q6H PRN PRN Reason: Sore Throat Diphenhydramine HCl (Benadryl) 25 mg IVP Q3H PRN PRN Reason: Itching / Pruritus Last Admin: 01/14/18 20:50 Dose: 25 mg Famotidine (Pepcid) 20 mg IVP DAILY [facility] Last Admin: 01/15/18 10:32 Dose: 20 mg Hydromorphone HCl (Dilaudid) 1 mg IVP Q3H PRN PRN Reason: pain Last Admin: 01/15/18 10:32 Dose: 1 mg Meropenem 500 mg/ Sodium (Chloride) 100 mls @ 100 mls/hr IVPB Q8 [facility] PRN Reason: Protocol Last Admin: 01/15/18 05:00 Dose: 100 mls/hr Metronidazole 250 mg/ (Miscellaneous) 50 mls @ 100 mls/hr IVPB Q8 [facility] PRN Reason: Protocol Last Admin: 01/15/18 06:00 Dose: 100 mls/hr Calcium Gluconate 4.65 meq/Magnesium Sulfate 8 meq/Multivitamins/Vitamin C 10 ml /Amino Acids 1,021.9704 mls @ 42 mls/hr IV .Q24H ONE Stop: 01/15/18 17:59 Last Admin: 01/14/18 17:21 Dose: 42 mls/hr Micafungin Sodium 100 mg/ (Sodium Chloride) 100 mls @ 100 mls/hr IV Q24H [facility] PRN Reason: Protocol Last Admin: 01/15/18 03:25 Dose: 100 mls/hr Metoprolol Tartrate (Lopressor) 25 mg PO BID [facility] Last Admin: 01/15/18 10:33 Dose: Not Given Potassium Chloride (K-Dur 20 Meq Er Tab) 40 meq PO ONCE [facility] Last Admin: 01/05/18 09:16 Dose: 40 meq - Labs Labs: 01/13/18 07:59 01/13/18 07:59 PT 23.7 SECONDS (9.7-12.2) H 01/12/18 06:41 INR 2.1 01/12/18 06:41 APTT 45 SECONDS (21-34) H 01/12/18 06:41 Assessment and Plan (1) Abdominal pain Status: Acute (2) Cholangiocarcinoma Status: Chronic (3) Dehydration Status: Acute (4) Hypertension Status: Acute (5) Septicemia Status: Acute
[2018-01-15 14:31] LABS: BASO # 0.1 K/uL (0.0-0.2); BASO % 0.3 % (0.0-2.0); EOS # 0.1 K/uL (0.0-0.7); EOS % 0.8 % (0.0-4.0); HEMOGLOBIN 8.5 g/dL (12.0-18.0); LYMPH # 0.8 K/uL (1.0-4.3); LYMPH % 4.7 % (20.0-40.0); MEAN CORPUSCULAR HEMOGLOBIN 32.4 pg (27.0-31.0); MEAN CORPUSCULAR HGB CONC 31.5 g/dL (33.0-37.0); MONO # 1.2 K/uL (0.0-0.8); MONO % 7.4 % (0.0-10.0); NEUT # 14.6 K/uL (1.8-7.0); NEUT % 86.8 % (50.0-75.0); NRBC % 1.2 % (0.0-2.0); PLATELET COUNT 40 K/uL (130-400); RBC 2.64 Mil/uL (4.40-5.90); RED CELL DISTRIBUTION WIDTH 26.1 % (11.5-14.5); WHITE BLOOD COUNT 16.8 K/uL (4.8-10.8)
[2018-01-15 14:39] LABS: MEAN CELL VOLUME 102.8 fL (80.0-94.0)
[2018-01-15 14:47] LABS: ALB/GLOB RATIO 0.5 (1.0-2.1); ALBUMIN 1.6 g/dL (3.5-5.0); CALCIUM 7.4 mg/dl (8.6-10.4)
[2018-01-15 14:49] LABS: BANDS 3 % (0-2); LYMPHOCYTE 7 % (20-40); METAMYELOCYTE 1 % (0-0); MONOCYTE 7 % (0-10); NEUTROPHIL 82 % (50-75); NUCLEATED RED BLOOD CELL 1 % (0-0); TOTAL CELLS COUNTED 100
[2018-01-15 14:51] LABS: ANISOCYTOSIS MODERATE; HYPOCHROMIC SLIGHT; PLATELET ESTIMATE DECREASED (NORMAL)
[2018-01-15] MEDS: DiphenhydrAMINE 50 mg/ml Inj IVP PRN ×2 (17:40→23:56)
[2018-01-15] MEDS: HYDROmorphone 1 mg/ml ISec IVP PRN ×2 (17:40→23:56)
[2018-01-15] MEDS ORDERED: TPN IV ONE (18:00)
--- NOTE | 2018-01-15 23:09 | CP.PCM.PN ---
Subjective - Date & Time of Evaluation Date of Evaluation: 01/15/18 Time of Evaluation: 23:09 - Subjective Subjective: pt seen and examined. offers no new complaints. APPETITE IMPROVING. tOLERATING CLEAR LIQUIDS. no active bleeding. +icteric GENERALIZED ANASARCA. LABS REVIEWED; 16.4 IMPROVING pLATELETS 40K LOW cREATININE 2.3/bun 29 LFTS BILI 6.4, AST 78,ALT 44 aLKALINE PHOSPHATASE 240 ALBUMIN TO 1.6 Objective - Vital Signs/Intake and Output Vital Signs (last 24 hours): Temp Pulse Resp BP Pulse Ox 97.7 F 108 H 20 100/60 100 01/15/18 16:00 01/15/18 16:00 01/15/18 16:00 01/15/18 17:48 01/15/18 16:00 Intake and Output: 01/15/18 01/16/18 18:59 06:59 Intake Total 762 Balance 762 - Medications Medications: Current Medications Acetaminophen (Tylenol 325mg Tab) 650 mg PO Q6 PRN PRN Reason: Fever >100.4 F Benzocaine/Menthol (Cepacol Sore Throat) 1 rosmery MT Q6H PRN PRN Reason: Sore Throat Diphenhydramine HCl (Benadryl) 25 mg IVP Q3H PRN PRN Reason: Itching / Pruritus Last Admin: 01/15/18 17:40 Dose: 25 mg Famotidine (Pepcid) 20 mg IVP DAILY [facility] Last Admin: 01/15/18 10:32 Dose: 20 mg Hydromorphone HCl (Dilaudid) 1 mg IVP Q3H PRN PRN Reason: pain Last Admin: 01/15/18 17:40 Dose: 1 mg Meropenem 500 mg/ Sodium (Chloride) 100 mls @ 100 mls/hr IVPB Q8 [facility] PRN Reason: Protocol Last Admin: 01/15/18 21:40 Dose: 100 mls/hr Metronidazole 250 mg/ (Miscellaneous) 50 mls @ 100 mls/hr IVPB Q8 [facility] PRN Reason: Protocol Last Admin: 01/15/18 21:00 Dose: 100 mls/hr Micafungin Sodium 100 mg/ (Sodium Chloride) 100 mls @ 100 mls/hr IV Q24H [facility] PRN Reason: Protocol Last Admin: 01/15/18 03:25 Dose: 100 mls/hr Calcium Gluconate 4.65 meq/Magnesium Sulfate 8 meq/Multivitamins/Vitamin C 10 ml /Amino Acids 1,021.9704 mls @ 42 mls/hr IV .Q24H ONE Stop: 01/16/18 17:59 Last Admin: 01/15/18 17:47 Dose: 42 mls/hr Metoprolol Tartrate (Lopressor) 25 mg PO BID [facility] Last Admin: 01/15/18 17:48 Dose: Not Given Potassium Chloride (K-Dur 20 Meq Er Tab) 40 meq PO ONCE [facility] Last Admin: 01/05/18 09:16 Dose: 40 meq - Labs Labs: 01/15/18 14:21 01/15/18 14:21 PT 23.7 SECONDS (9.7-12.2) H 01/12/18 06:41 INR 2.1 01/12/18 06:41 APTT 45 SECONDS (21-34) H 01/12/18 06:41 - Constitutional Appears: No Acute Distress, Chronically Ill - Head Exam Head Exam: NORMAL INSPECTION - Eye Exam Eye Exam: EOMI, PERRL, Scleral icterus - ENT Exam ENT Exam: Normal Oropharynx - Neck Exam Neck Exam: Normal Inspection - Respiratory Exam Respiratory Exam: Decreased Breath Sounds - Cardiovascular Exam Cardiovascular Exam: REGULAR RHYTHM, +S1, +S2 - GI/Abdominal Exam GI & Abdominal Exam: Soft, Tenderness (mILD TENDERNESS DIFFUSE. pOSITIVE ASCITES.), Normal Bowel Sounds (POSITIVE ASCITES.) - Extremities Exam Extremities Exam: Pedal Edema. absent: Calf Tenderness - Neurological Exam Neurological Exam: Awake, CN II-XII Intact, Oriented x3 - Psychiatric Exam Psychiatric exam: Normal Mood - Skin Skin Exam: Warm Assessment and Plan (1) Sepsis Status: Acute (2) Abdominal pain Status: Acute (3) Ascites, malignant Status: Acute (4) Cholangiocarcinoma Status: Chronic (5) Hypertension Status: Acute (6) Thrombocytopenia Status: Acute - Assessment and Plan (Free Text) Plan: On IV MERREM 500MG IVPB Q 8HRLY 01/05/18 CONTINUE fLAGYL 250 iv PIGGYBACK EVERY 8 HOURLY FOR ANAEROBIC COVERAGE. . BLOOD CULTURE X1 FUNGUS THEN F/U --01/14/18 ON IV MYCAFUNGIN 100MG IV OD DAILY 01/15/18 F/U CBC/PLATELETS. F/U SPUTUM CULTURE/FUNGAL CULTURE. PROGNOSIS GUARDED.
[2018-01-16] MEDS: Micafungin 100 MG in Sodium Chloride 0.9% 100 ML IV SCH (02:20)
[2018-01-16] MEDS: DiphenhydrAMINE 50 mg/ml Inj IVP PRN ×4 (04:28→19:45)
[2018-01-16] MEDS: HYDROmorphone 1 mg/ml ISec IVP PRN ×4 (04:28→19:45)
[2018-01-16] MEDS: metroNIDAZOLE IV 500 mg/100 ml 250 MG in Premixed IV 1 EA IVPB SCH ×3 (05:26→21:34)
[2018-01-16] MEDS: Meropenem 500 MG in Sodium Chloride 0.9% 100 ML IVPB SCH ×3 (05:31→21:32)
--- NOTE | 2018-01-16 16:49 | PN ---
DATE: LOCATION: [facility], bed B. SUBJECTIVE: This is a 62-year-old male seen and examined in rounds without significant clinical changes or reported active bleeding with generalized weakness and malaise and mild abdominal distention. The entire chart is reviewed including, but not limited to the most recent lab and radiology study results, current and the previous medication list, current and the previous medical events. Today's lab showed blood glucose level of 120. PHYSICAL EXAMINATION GENERAL: A 62-year-old male. VITAL SIGNS: Afebrile, with pulse of 106, respiratory rate of 20 to 22, blood pressure 108/72. HEENT: Showed pale dry oral mucous membranes, bilateral icteric sclerae. LUNGS: Scattered crepitations. Decreased air entry at bases. HEART: Positive S1 and S2. ABDOMEN: Soft with mild distention. Small amount of ascites with generalized weakness and malaise, with generalized mild tenderness. EXTREMITIES: Lower extremities with edematous changes. No clubbing or cyanosis. NEUROLOGIC: No reported new neurological deficits, sensory or motor. IMPRESSION: 1. Known history of cholangiocarcinoma with metastatic lesions mainly to the liver. 2. Ascites, most likely malignant. 3. Septicemia. 4. Electrolyte imbalance. 5. Thrombocytopenia secondary to above with anemia. 6. Known history of peptic ulcer disease, hypertension, with hyperlipidemia. 7. Evidence of liver cirrhosis, most likely secondary to alcoholism with portal hypertension and refractory ascites. SUGGESTIONS: 1. Continue conservative treatment. 2. Oncology/Hematology followup. 3. Further recommendations to follow and no need for aggressive GI workup in the meantime. Adina Barlilas MD
[2018-01-16] MEDS ORDERED: TPN IV ONE (18:00)
[2018-01-16] MEDS ORDERED: Fat Emulsion 20% IV 500 ML IV SCH (18:00)
--- NOTE | 2018-01-16 18:15 | CP.PCM.PN ---
Subjective - Date & Time of Evaluation Date of Evaluation: 01/16/18 Time of Evaluation: 18:15 - Subjective Subjective: pt seen and examined. offers no new complaints. APPETITE IMPROVING. tOLERATING CLEAR LIQUIDS. LABS; SPUTUM +VE FUNGUS Objective - Vital Signs/Intake and Output Vital Signs (last 24 hours): Temp Pulse Resp BP Pulse Ox 98.1 F 110 H 20 110/79 97 01/16/18 16:00 01/16/18 16:00 01/16/18 16:00 01/16/18 16:00 01/16/18 16:00 Intake and Output: 01/16/18 01/16/18 06:59 18:59 Intake Total 1346 Balance 1346 - Medications Medications: Current Medications Acetaminophen (Tylenol 325mg Tab) 650 mg PO Q6 PRN PRN Reason: Fever >100.4 F Benzocaine/Menthol (Cepacol Sore Throat) 1 rosmery MT Q6H PRN PRN Reason: Sore Throat Diphenhydramine HCl (Benadryl) 25 mg IVP Q3H PRN PRN Reason: Itching / Pruritus Last Admin: 01/16/18 13:02 Dose: 25 mg Famotidine (Pepcid) 20 mg IVP DAILY [facility] Last Admin: 01/16/18 10:08 Dose: 20 mg Hydromorphone HCl (Dilaudid) 1 mg IVP Q3H PRN PRN Reason: pain Last Admin: 01/16/18 13:03 Dose: 1 mg Meropenem 500 mg/ Sodium (Chloride) 100 mls @ 100 mls/hr IVPB Q8 [facility] PRN Reason: Protocol Last Admin: 01/16/18 13:22 Dose: 100 mls/hr Metronidazole 250 mg/ (Miscellaneous) 50 mls @ 100 mls/hr IVPB Q8 [facility] PRN Reason: Protocol Last Admin: 01/16/18 13:21 Dose: 100 mls/hr Micafungin Sodium 100 mg/ (Sodium Chloride) 100 mls @ 100 mls/hr IV Q24H [facility] PRN Reason: Protocol Last Admin: 01/16/18 02:20 Dose: 100 mls/hr Calcium Gluconate 4.65 meq/Magnesium Sulfate 8 meq/Multivitamins/Vitamin C 10 ml /Amino Acids 1,021.9704 mls @ 42 mls/hr IV .Q24H ONE Stop: 01/17/18 17:59 Last Admin: 01/16/18 18:07 Dose: 42 mls/hr Fat Emulsion Intravenous (Intralipid 20%) 500 mls @ 42 mls/hr IV MWF@1800 [facility] Stop: 01/17/18 05:55 Last Admin: 01/16/18 18:07 Dose: 42 mls/hr Metoprolol Tartrate (Lopressor) 25 mg PO BID [facility] Last Admin: 01/16/18 10:06 Dose: Not Given Potassium Chloride (K-Dur 20 Meq Er Tab) 40 meq PO ONCE [facility] Last Admin: 01/05/18 09:16 Dose: 40 meq - Labs Labs: 01/15/18 14:21 01/15/18 14:21 PT 23.7 SECONDS (9.7-12.2) H 01/12/18 06:41 INR 2.1 01/12/18 06:41 APTT 45 SECONDS (21-34) H 01/12/18 06:41 - Constitutional Appears: No Acute Distress, Chronically Ill - Eye Exam Eye Exam: EOMI, PERRL, Scleral icterus - ENT Exam ENT Exam: Mucous Membranes Moist - Neck Exam Neck Exam: Normal Inspection - Respiratory Exam Respiratory Exam: Decreased Breath Sounds, NORMAL BREATHING PATTERN - Cardiovascular Exam Cardiovascular Exam: Tachycardia, REGULAR RHYTHM, +S1, +S2 - GI/Abdominal Exam GI & Abdominal Exam: Soft, Tenderness (GENERALIZED.), Normal Bowel Sounds (+VE ASCITES) - Extremities Exam Extremities Exam: Pedal Edema. absent: Calf Tenderness - Neurological Exam Neurological Exam: Awake, CN II-XII Intact, Oriented x3 - Psychiatric Exam Psychiatric exam: Normal Mood - Skin Skin Exam: Warm Assessment and Plan (1) Sepsis Status: Acute (2) Abdominal pain Status: Acute (3) Ascites, malignant Status: Acute (4) Cholangiocarcinoma Status: Chronic (5) Hypertension Status: Acute (6) Thrombocytopenia Status: Acute - Assessment and Plan (Free Text) Plan: On IV MERREM 500 MG IVPB Q 8 HRLY 01/05/18 CONTINUE fLAGYL 250 iv PIGGYBACK EVERY 8 HOURLY FOR ANAEROBIC COVERAGE. . BLOOD CULTURE X1 FUNGUS THEN F/U --P ON IV MYCAFUNGIN 100MG IV OD DAILY 01/15/18 F/U CBC/PLATELETS. PROGNOSIS GUARDED.
--- NOTE | 2018-01-16 23:15 | CP.PCM.PN ---
Subjective - Date & Time of Evaluation Date of Evaluation: 01/16/18 Time of Evaluation: 17:30 - Subjective Subjective: Pt seen and examined today Objective - Vital Signs/Intake and Output Vital Signs (last 24 hours): Temp Pulse Resp BP Pulse Ox 98.1 F 110 H 20 100/59 L 97 01/16/18 16:00 01/16/18 16:00 01/16/18 16:00 01/16/18 20:33 01/16/18 16:00 Intake and Output: 01/16/18 01/17/18 18:59 06:59 Intake Total 1346 Balance 1346 - Medications Medications: Current Medications Acetaminophen (Tylenol 325mg Tab) 650 mg PO Q6 PRN PRN Reason: Fever >100.4 F Benzocaine/Menthol (Cepacol Sore Throat) 1 rosmery MT Q6H PRN PRN Reason: Sore Throat Diphenhydramine HCl (Benadryl) 25 mg IVP Q3H PRN PRN Reason: Itching / Pruritus Last Admin: 01/16/18 19:45 Dose: 25 mg Famotidine (Pepcid) 20 mg IVP DAILY [facility] Last Admin: 01/16/18 10:08 Dose: 20 mg Hydromorphone HCl (Dilaudid) 1 mg IVP Q3H PRN PRN Reason: pain Last Admin: 01/16/18 19:45 Dose: 1 mg Meropenem 500 mg/ Sodium (Chloride) 100 mls @ 100 mls/hr IVPB Q8 [facility] PRN Reason: Protocol Last Admin: 01/16/18 21:32 Dose: 100 mls/hr Metronidazole 250 mg/ (Miscellaneous) 50 mls @ 100 mls/hr IVPB Q8 [facility] PRN Reason: Protocol Last Admin: 01/16/18 21:34 Dose: 100 mls/hr Micafungin Sodium 100 mg/ (Sodium Chloride) 100 mls @ 100 mls/hr IV Q24H [facility] PRN Reason: Protocol Last Admin: 01/16/18 02:20 Dose: 100 mls/hr Calcium Gluconate 4.65 meq/Magnesium Sulfate 8 meq/Multivitamins/Vitamin C 10 ml /Amino Acids 1,021.9704 mls @ 42 mls/hr IV .Q24H ONE Stop: 01/17/18 17:59 Last Admin: 01/16/18 18:07 Dose: 42 mls/hr Fat Emulsion Intravenous (Intralipid 20%) 500 mls @ 42 mls/hr IV MWF@1800 [facility] Stop: 01/17/18 05:55 Last Admin: 01/16/18 18:07 Dose: 42 mls/hr Metoprolol Tartrate (Lopressor) 25 mg PO BID [facility] Last Admin: 01/16/18 20:33 Dose: Not Given Potassium Chloride (K-Dur 20 Meq Er Tab) 40 meq PO ONCE [facility] Last Admin: 01/05/18 09:16 Dose: 40 meq - Labs Labs: 01/15/18 14:21 01/15/18 14:21 PT 23.7 SECONDS (9.7-12.2) H 01/12/18 06:41 INR 2.1 01/12/18 06:41 APTT 45 SECONDS (21-34) H 01/12/18 06:41 Assessment and Plan (1) Abdominal pain Status: Acute (2) Cholangiocarcinoma Status: Chronic (3) Dehydration Status: Acute (4) Hypertension Status: Acute (5) Septicemia Status: Acute
[2018-01-17] MEDS: HYDROmorphone 1 mg/ml ISec IVP PRN ×5 (00:28→22:55)
[2018-01-17] MEDS: DiphenhydrAMINE 50 mg/ml Inj IVP PRN ×2 (00:29→05:18)
[2018-01-17] MEDS: Micafungin 100 MG in Sodium Chloride 0.9% 100 ML IV SCH (02:38)
[2018-01-17] MEDS: metroNIDAZOLE IV 500 mg/100 ml 250 MG in Premixed IV 1 EA IVPB SCH ×3 (05:55→21:25)
--- NOTE | 2018-01-17 13:25 | PN ---
DATE: LOCATION: [facility], bed B. SUBJECTIVE: This is a 62-year-old male seen and examined in rounds, with recurrent episodes of nausea, but vomited large amounts of dark brownish bile contents most likely with intermittent periods of abdominal pain, with reported fecal incontinence of mucous bowel movement. The entire chart is reviewed including, but not limited to the most recent lab and radiology study results, current and the previous medication list, current and the previous medical events. Case discussed with the staff at length. Today's lab results showed blood glucose level of 127. Rest of the lab results still pending and the patient recently reported to have leukocytosis with low hemoglobin and hematocrit as well as thrombocytopenia of 40, with increased sodium, BUN and creatinine, low calcium, with elevated AST as well as total bilirubin, with very low albumin and total protein. PHYSICAL EXAMINATION GENERAL: A 62-year-old male. Awake, alert, with generalized jaundice. VITAL SIGNS: Afebrile, with heart rate of 104, respiratory rate of 20 to 22, blood pressure of 120/82. HEENT: Showed pale, dry, oral mucous membranes. Bilaterally icteric sclerae. LUNGS: Scattered crepitations. Decreased air entry at bases. HEART: Positive S1 and S2, with increased rate. ABDOMEN: With [id number] distention, positive for ascites. No other mass or organomegaly. No rebound tenderness or guarding. EXTREMITIES: Without significant cyanosis or clubbing, but edematous changes mildly. Peripheral pulses are decreased bilaterally. NEUROLOGIC: No new reported neurological deficits, sensory or motor. IMPRESSION: 1. Malnutrition, hypoalbuminemia, and hypoproteinemia, patient, however, is able to keep clear liquid diet so far with re-exacerbation of nausea and vomiting, with peptic ulcer disease. 2. Known history of cholangiocarcinoma with metastatic lesion to the liver. 3. Liver cirrhosis with abnormal liver function tests and jaundice secondary to above. 4. Thrombocytopenia secondary to above. 5. Anemia secondary to above. 6. Evidence of portal hypertension with ascites, most likely malignant refractory ascites. 7. Septicemia, on antibiotics. 8. Electrolyte imbalance secondary to above. 9. Known history of hypertension. SUGGESTIONS: 1. Agree with your plan. 2. Again, the patient will need Oncology/Hematology followup. 3. The patient may need endoscopic evaluation of upper GI tract when he is more stable clinically. 4. Further recommendations to follow. Adina Barillas MD [facility] # [id number]
[2018-01-17] MEDS: Meropenem 500 MG in Sodium Chloride 0.9% 100 ML IVPB SCH ×3 (14:59→22:04)
[2018-01-17 15:19] LABS: EOS # 0.1 K/uL (0.0-0.7); EOS % 0.7 % (0.0-4.0); HEMOGLOBIN 8.4 g/dL (12.0-18.0); MEAN CORPUSCULAR HEMOGLOBIN 32.4 pg (27.0-31.0); RBC 2.61 Mil/uL (4.40-5.90)
[2018-01-17 15:24] LABS: BASO % 0.3 % (0.0-2.0); LYMPH # 1.1 K/uL (1.0-4.3); LYMPH % 6.4 % (20.0-40.0); MEAN CELL VOLUME 104.2 fL (80.0-94.0); MEAN CORPUSCULAR HGB CONC 31.1 g/dL (33.0-37.0); MEAN PLATELET VOLUME 12.4 fL (7.2-11.7); MONO # 1.7 K/uL (0.0-0.8); MONO % 10.1 % (0.0-10.0); NEUT # 13.6 K/uL (1.8-7.0); NEUT % 82.5 % (50.0-75.0); NRBC % 0.7 % (0.0-2.0); PLATELET COUNT 45 K/uL (130-400); RED CELL DISTRIBUTION WIDTH 25.5 % (11.5-14.5); WHITE BLOOD COUNT 16.5 K/uL (4.8-10.8)
[2018-01-17 15:34] LABS: LYMPHOCYTE 9 % (20-40); MONOCYTE 9 % (0-10); NEUTROPHIL 82 % (50-75); PLATELET ESTIMATE DECREASED (NORMAL); TOTAL CELLS COUNTED 100
[2018-01-17 15:35] LABS: ANISOCYTOSIS SLIGHT; HYPOCHROMIC SLIGHT; LARGE PLATELETS PRESENT; POIKILOCYTOSIS SLIGHT; TEARDROP CELLS SLIGHT
[2018-01-17 15:41] LABS: ALB/GLOB RATIO 0.5 (1.0-2.1); ALBUMIN 1.5 g/dL (3.5-5.0); CALCIUM 7.3 mg/dl (8.6-10.4)
[2018-01-17] MEDS ORDERED: Potassium Chloride 20 mEq ER Tab PO ONE (16:05)
[2018-01-17] MEDS ORDERED: Dextrose 50% SYRINGE Inj (50 ml) IV STA ×2 (16:33→16:34)
[2018-01-17] MEDS ORDERED: Dextrose 50% SYRINGE Inj (50 ml) ONE (16:39)
[2018-01-17] MEDS ORDERED: TPN IV ONE (18:00)
--- NOTE | 2018-01-17 23:01 | CP.PCM.PN ---
Subjective - Date & Time of Evaluation Date of Evaluation: 01/17/18 Time of Evaluation: 18:30 - Subjective Subjective: Pt seen and evaluated at bedside Objective - Vital Signs/Intake and Output Vital Signs (last 24 hours): Temp Pulse Resp BP Pulse Ox 98 F 112 H 18 97/73 L 100 01/17/18 15:47 01/17/18 15:47 01/17/18 15:47 01/17/18 18:58 01/17/18 15:47 Intake and Output: 01/17/18 01/18/18 18:59 06:59 Intake Total 564 Balance 564 - Medications Medications: Current Medications Acetaminophen (Tylenol 325mg Tab) 650 mg PO Q6 PRN PRN Reason: Fever >100.4 F Benzocaine/Menthol (Cepacol Sore Throat) 1 rosmery MT Q6H PRN PRN Reason: Sore Throat Diphenhydramine HCl (Benadryl) 25 mg IVP Q3H PRN PRN Reason: Itching / Pruritus Last Admin: 01/17/18 05:18 Dose: 25 mg Famotidine (Pepcid) 20 mg IVP DAILY [facility] Last Admin: 01/17/18 10:23 Dose: 20 mg Hydromorphone HCl (Dilaudid) 1 mg IVP Q3H PRN PRN Reason: pain Last Admin: 01/17/18 22:55 Dose: 1 mg Meropenem 500 mg/ Sodium (Chloride) 100 mls @ 100 mls/hr IVPB Q8 [facility] PRN Reason: Protocol Last Admin: 01/17/18 22:04 Dose: 100 mls/hr Metronidazole 250 mg/ (Miscellaneous) 50 mls @ 100 mls/hr IVPB Q8 [facility] PRN Reason: Protocol Last Admin: 01/17/18 21:25 Dose: 100 mls/hr Micafungin Sodium 100 mg/ (Sodium Chloride) 100 mls @ 100 mls/hr IV Q24H [facility] PRN Reason: Protocol Last Admin: 01/17/18 02:38 Dose: 100 mls/hr Calcium Gluconate 4.65 meq/Magnesium Sulfate 8 meq/Multivitamins/Vitamin C 10 ml /Chromium/Copper/Manganese/Zinc 1 ml/ Amino Acids 1,022.9704 mls @ 42 mls/hr IV .Q24H ONE Stop: 01/18/18 17:59 Last Admin: 01/17/18 18:10 Dose: 42 mls/hr Metoprolol Tartrate (Lopressor) 25 mg PO BID [facility] Last Admin: 01/17/18 18:58 Dose: Not Given Potassium Chloride (K-Dur 20 Meq Er Tab) 40 meq PO ONCE [facility] Last Admin: 01/05/18 09:16 Dose: 40 meq - Labs Labs: 01/17/18 15:15 01/17/18 15:15 PT 23.7 SECONDS (9.7-12.2) H 01/12/18 06:41 INR 2.1 01/12/18 06:41 APTT 45 SECONDS (21-34) H 01/12/18 06:41 Assessment and Plan (1) Abdominal pain Status: Acute (2) Cholangiocarcinoma Status: Chronic (3) Dehydration Status: Acute (4) Hypertension Status: Acute (5) Septicemia Status: Acute
--- NOTE | 2018-01-17 23:10 | CP.PCM.PN ---
Subjective - Date & Time of Evaluation Date of Evaluation: 01/17/18 Time of Evaluation: 23:10 - Subjective Subjective: pt seen and examined. offers no new complaints. APPEARS COMFORTABLE . [employer] STATES APPETITE BETTER. STILL WITH SOME ABDOMINAL PAIN. dENIES NAUSEA OR VOMITING. Objective - Vital Signs/Intake and Output Vital Signs (last 24 hours): Temp Pulse Resp BP Pulse Ox 98 F 112 H 18 97/73 L 100 01/17/18 15:47 01/17/18 15:47 01/17/18 15:47 01/17/18 18:58 01/17/18 15:47 Intake and Output: 01/17/18 01/18/18 18:59 06:59 Intake Total 564 Balance 564 - Medications Medications: Current Medications Acetaminophen (Tylenol 325mg Tab) 650 mg PO Q6 PRN PRN Reason: Fever >100.4 F Benzocaine/Menthol (Cepacol Sore Throat) 1 rosmery MT Q6H PRN PRN Reason: Sore Throat Diphenhydramine HCl (Benadryl) 25 mg IVP Q3H PRN PRN Reason: Itching / Pruritus Last Admin: 01/17/18 05:18 Dose: 25 mg Famotidine (Pepcid) 20 mg IVP DAILY [facility] Last Admin: 01/17/18 10:23 Dose: 20 mg Hydromorphone HCl (Dilaudid) 1 mg IVP Q3H PRN PRN Reason: pain Last Admin: 01/17/18 22:55 Dose: 1 mg Meropenem 500 mg/ Sodium (Chloride) 100 mls @ 100 mls/hr IVPB Q8 [facility] PRN Reason: Protocol Last Admin: 01/17/18 22:04 Dose: 100 mls/hr Metronidazole 250 mg/ (Miscellaneous) 50 mls @ 100 mls/hr IVPB Q8 [facility] PRN Reason: Protocol Last Admin: 01/17/18 21:25 Dose: 100 mls/hr Micafungin Sodium 100 mg/ (Sodium Chloride) 100 mls @ 100 mls/hr IV Q24H [facility] PRN Reason: Protocol Last Admin: 01/17/18 02:38 Dose: 100 mls/hr Calcium Gluconate 4.65 meq/Magnesium Sulfate 8 meq/Multivitamins/Vitamin C 10 ml /Chromium/Copper/Manganese/Zinc 1 ml/ Amino Acids 1,022.9704 mls @ 42 mls/hr IV .Q24H ONE Stop: 01/18/18 17:59 Last Admin: 01/17/18 18:10 Dose: 42 mls/hr Metoprolol Tartrate (Lopressor) 25 mg PO BID [facility] LICENSE OF [facility] Last Admin: 01/17/18 18:58 Dose: Not Given Potassium Chloride (K-Dur 20 Meq Er Tab) 40 meq PO ONCE ON [facility] OF [facility] Last Admin: 01/05/18 09:16 Dose: 40 meq - Labs Labs: 01/17/18 15:15 01/17/18 15:15 PT 23.7 SECONDS (9.7-12.2) H 01/12/18 06:41 INR 2.1 01/12/18 06:41 APTT 45 SECONDS (21-34) H 01/12/18 06:41 - Constitutional Appears: No Acute Distress, Chronically Ill - Head Exam Head Exam: NORMAL INSPECTION - Eye Exam Eye Exam: PERRL, Scleral icterus - ENT Exam ENT Exam: Mucous Membranes Moist - Neck Exam Neck Exam: Normal Inspection - Respiratory Exam Respiratory Exam: Decreased Breath Sounds - GI/Abdominal Exam GI & Abdominal Exam: Soft, Tenderness, Normal Bowel Sounds. absent: Distended ( POSITIVE ASCITES.) - Extremities Exam Extremities Exam: Pedal Edema. absent: Calf Tenderness - Neurological Exam Neurological Exam: Awake, CN II-XII Intact, Oriented x3 - Psychiatric Exam Psychiatric exam: Normal Mood - Skin Skin Exam: Normal Color, Warm Assessment and Plan (1) Sepsis Status: Acute (2) Abdominal pain Status: Acute (3) Ascites, malignant Status: Acute (4) Cholangiocarcinoma Status: Chronic (5) Hypertension Status: Acute (6) Thrombocytopenia Status: Acute - Assessment and Plan (Free Text) Assessment: On IV MERREM 500 MG IVPB Q 8 HRLY 01/05/18 CONTINUE fLAGYL 250 iv PIGGYBACK EVERY 8 HOURLY FOR ANAEROBIC COVERAGE. . BLOOD CULTURE X1 FUNGUS THEN F/U --P ON IV MYCAFUNGIN 100MG IV OD DAILY 01/15/18 F/U CBC/PLATELETS. PROGNOSIS GUARDED.
[2018-01-18 01:37] VITALS: RESP 20
[2018-01-18] MEDS: Micafungin 100 MG in Sodium Chloride 0.9% 100 ML IV SCH (02:49)
[2018-01-18] MEDS: DiphenhydrAMINE 50 mg/ml Inj IVP PRN ×5 (03:50→21:49)
[2018-01-18] MEDS: HYDROmorphone 1 mg/ml ISec IVP PRN ×4 (03:50→17:00)
[2018-01-18] MEDS: metroNIDAZOLE IV 500 mg/100 ml 250 MG in Premixed IV 1 EA IVPB SCH ×3 (05:01→21:00)
[2018-01-18] MEDS: Meropenem 500 MG in Sodium Chloride 0.9% 100 ML IVPB SCH ×3 (06:14→22:04)
--- NOTE | 2018-01-18 06:36 | CP.PCM.PN ---
Subjective - Date & Time of Evaluation Date of Evaluation: 01/18/18 Time of Evaluation: 06:32 - Subjective Subjective: Patient seen. clinically improving. No bleeding ..On antifungal and flagyl Objective - Vital Signs/Intake and Output Vital Signs (last 24 hours): Temp Pulse Resp BP Pulse Ox 97.8 F 112 H 20 97/73 L 100 01/18/18 00:00 01/18/18 00:00 01/18/18 00:00 01/17/18 18:58 01/18/18 00:00 Intake and Output: 01/17/18 01/18/18 18:59 06:59 Intake Total 564 664 Balance 564 664 - Medications Medications: Current Medications Acetaminophen (Tylenol 325mg Tab) 650 mg PO Q6 PRN PRN Reason: Fever >100.4 F Benzocaine/Menthol (Cepacol Sore Throat) 1 rosmery MT Q6H PRN PRN Reason: Sore Throat Diphenhydramine HCl (Benadryl) 25 mg IVP Q3H PRN PRN Reason: Itching / Pruritus Last Admin: 01/18/18 03:50 Dose: 25 mg Famotidine (Pepcid) 20 mg IVP DAILY [facility] Last Admin: 01/17/18 10:23 Dose: 20 mg Hydromorphone HCl (Dilaudid) 1 mg IVP Q3H PRN PRN Reason: pain Last Admin: 01/18/18 03:50 Dose: 1 mg Meropenem 500 mg/ Sodium (Chloride) 100 mls @ 100 mls/hr IVPB Q8 [facility] PRN Reason: Protocol Last Admin: 01/18/18 06:14 Dose: 100 mls/hr Metronidazole 250 mg/ (Miscellaneous) 50 mls @ 100 mls/hr IVPB Q8 [facility] PRN Reason: Protocol Last Admin: 01/18/18 05:01 Dose: 100 mls/hr Micafungin Sodium 100 mg/ (Sodium Chloride) 100 mls @ 100 mls/hr IV Q24H [facility] PRN Reason: Protocol Last Admin: 01/18/18 02:49 Dose: 100 mls/hr Calcium Gluconate 4.65 meq/Magnesium Sulfate 8 meq/Multivitamins/Vitamin C 10 ml /Chromium/Copper/Manganese/Zinc 1 ml/ Amino Acids 1,022.9704 mls @ 42 mls/hr IV .Q24H ONE Stop: 01/18/18 17:59 Last Admin: 01/17/18 18:10 Dose: 42 mls/hr Metoprolol Tartrate (Lopressor) 25 mg PO BID [facility] Last Admin: 01/17/18 18:58 Dose: Not Given Potassium Chloride (K-Dur 20 Meq Er Tab) 40 meq PO ONCE [facility] Last Admin: 01/05/18 09:16 Dose: 40 meq - Labs Labs: 01/17/18 15:15 01/17/18 15:15 PT 23.7 SECONDS (9.7-12.2) H 01/12/18 06:41 INR 2.1 01/12/18 06:41 APTT 45 SECONDS (21-34) H 01/12/18 06:41 - Constitutional Appears: Older Than Stated Age, Chronically Ill - Head Exam Head Exam: ATRAUMATIC - Eye Exam Pupil Exam: PERRL - Neck Exam Neck Exam: Full ROM - Respiratory Exam Respiratory Exam: NORMAL BREATHING PATTERN - Cardiovascular Exam Cardiovascular Exam: REGULAR RHYTHM - GI/Abdominal Exam GI & Abdominal Exam: Normal Bowel Sounds Assessment and Plan (1) Thrombocytopenia Assessment & Plan: 2* to DIC. NO bleeding will follow... Status: Acute (2) Cholangiocarcinoma Assessment & Plan: Stage 4 ...Progressive disease.. overall poor prognosis.. Comfort care only vs Palliative chemo ..will follow as an outpatient.. Status: Chronic
[2018-01-18 07:28] LABS: ALB/GLOB RATIO 0.5 (1.0-2.1); ALBUMIN 1.5 g/dL (3.5-5.0); CALCIUM 7.4 mg/dl (8.6-10.4)
[2018-01-18 07:31] LABS: BASO # 0.1 K/uL (0.0-0.2); BASO % 0.4 % (0.0-2.0); EOS # 0.2 K/uL (0.0-0.7); EOS % 1.1 % (0.0-4.0); HEMOGLOBIN 7.9 g/dL (12.0-18.0); LYMPH # 0.9 K/uL (1.0-4.3); LYMPH % 6.2 % (20.0-40.0); MEAN CELL VOLUME 105.4 fL (80.0-94.0); MEAN CORPUSCULAR HEMOGLOBIN 33.4 pg (27.0-31.0); MEAN CORPUSCULAR HGB CONC 31.7 g/dL (33.0-37.0); MEAN PLATELET VOLUME 12.1 fL (7.2-11.7); MONO # 1.1 K/uL (0.0-0.8); MONO % 8.1 % (0.0-10.0); NEUT # 11.5 K/uL (1.8-7.0); NEUT % 84.2 % (50.0-75.0); NRBC % 0.5 % (0.0-2.0); PLATELET COUNT 43 K/uL (130-400); RBC 2.38 Mil/uL (4.40-5.90); RED CELL DISTRIBUTION WIDTH 24.9 % (11.5-14.5); WHITE BLOOD COUNT 13.7 K/uL (4.8-10.8)
[2018-01-18 07:39] VITALS: PULSE 112; TEMP 97.6; O2SAT 99
[2018-01-18 08:33] LABS: BANDS 4 % (0-2); EOSINOPHIL 1 % (0-4); LYMPHOCYTE 4 % (20-40); MONOCYTE 5 % (0-10); NEUTROPHIL 86 % (50-75); TOTAL CELLS COUNTED 100
[2018-01-18 08:34] LABS: ANISOCYTOSIS MARKED; HYPOCHROMIC SLIGHT; PLATELET ESTIMATE DECREASED (NORMAL); POLYCHROMIC SLIGHT; TOXIC GRANULATION PRESENT
[2018-01-18 08:35] LABS: GIANT PLATELETS PRESENT; LARGE PLATELETS PRESENT; OVALOCYTES SLIGHT; POIKILOCYTOSIS SLIGHT
[2018-01-18 08:36] LABS: SCHISTOCYTES SLIGHT; TARGET CELLS SLIGHT
--- NOTE | 2018-01-18 14:01 | PN ---
DATE: LOCATION: [facility], bed B. SUBJECTIVE: This is a 62-year-old male seen and examined in rounds, without significant clinical changes or reported active bleeding with generalized jaundice. No reported actual shortness of breath, chest pain, or palpitation. The entire chart is reviewed including, but not limited to the most recent lab and radiology study results, current and the previous medication list, current and the previous medical events. Case discussed with the staff at length. Today's lab showed leukocytosis of 13.7, hemoglobin 7.9, hematocrit 25.1, with thrombocytopenia of 43. Sodium 150, potassium 3.5, BUN 41, creatinine 1.8, glucose 143, with calcium 7.4, total bilirubin 7.2, AST 96, low albumin 1.5, low total protein 4.8. PHYSICAL EXAMINATION GENERAL: A 62-year-old male, appeared to be mildly lethargic. VITAL SIGNS: Afebrile, with pulse of 108, respiratory rate of 20 to 22, blood pressure of 94/68. HEENT: Showed pale, dry oral mucous membranes. Nonicteric sclerae. LUNGS: Few scattered crepitations. Decreased air entry at bases. HEART: Positive S1 and S2. ABDOMEN: Soft, with mild generalized tenderness. No mass or organomegaly. No rebound tenderness or guarding. EXTREMITIES: With lower extremity edematous changes. No clubbing or cyanosis. NEUROLOGIC: No reported new neurological deficits, sensory or motor. IMPRESSION: 1. Cholangiocarcinoma with metastatic lesion to the liver. 2. Malnutrition with severe hypoalbuminemia, hypoproteinemia. 3. Thrombocytopenia secondary to above. 4. Liver cirrhosis, abnormal liver function tests and jaundice secondary to above. 5. Known history of portal hypertension with ascites, most likely malignant ascites, mildly improved. 6. Septicemia, on antibiotics. 7. Known history of hypertension. 8. Electrolyte imbalance secondary to above, with renal insufficiency. SUGGESTIONS: 1. Continue current management again. 2. No aggressive GI workup in the meantime as the patient is still unstable clinically for any aggressive GI workup. 3. Further recommendations to follow. Adina Barillas MD
[2018-01-18] MEDS ORDERED: Potassium Chloride 20 mEq ER Tab PO ONE ×2 (16:00→18:02)
[2018-01-18 17:23] VITALS: BP 92/56
--- NOTE | 2018-01-18 17:59 | CP.PCM.PN ---
Subjective - Date & Time of Evaluation Date of Evaluation: 01/18/18 Time of Evaluation: 17:58 - Subjective Subjective: pt seen and examined. offers no new complaints. APPEARS COMFORTABLE SEEN BY ONCOLOGIST. LABS REVIEWED. WBC -13.3 IMPROVING MEDS RENEWED. Objective - Vital Signs/Intake and Output Vital Signs (last 24 hours): Temp Pulse Resp BP Pulse Ox 97.6 F 112 H 20 92/56 L 99 01/18/18 07:38 01/18/18 07:38 01/18/18 07:38 01/18/18 17:22 01/18/18 07:38 Intake and Output: 01/18/18 01/18/18 06:59 18:59 Intake Total 1250 536 Balance 1250 536 - Medications Medications: Current Medications Acetaminophen (Tylenol 325mg Tab) 650 mg PO Q6 PRN PRN Reason: Fever >100.4 F Benzocaine/Menthol (Cepacol Sore Throat) 1 rosmery MT Q6H PRN PRN Reason: Sore Throat Diphenhydramine HCl (Benadryl) 25 mg IVP Q3H PRN PRN Reason: Itching / Pruritus Last Admin: 01/18/18 17:18 Dose: 25 mg Famotidine (Pepcid) 20 mg IVP DAILY [facility] Last Admin: 01/18/18 11:25 Dose: 20 mg Hydromorphone HCl (Dilaudid) 1 mg IVP Q3H PRN PRN Reason: pain Last Admin: 01/18/18 17:00 Dose: 1 mg Meropenem 500 mg/ Sodium (Chloride) 100 mls @ 100 mls/hr IVPB Q8 [facility] PRN Reason: Protocol Last Admin: 01/18/18 13:33 Dose: 100 mls/hr Metronidazole 250 mg/ (Miscellaneous) 50 mls @ 100 mls/hr IVPB Q8 [facility] PRN Reason: Protocol Last Admin: 01/18/18 13:32 Dose: 100 mls/hr Micafungin Sodium 100 mg/ (Sodium Chloride) 100 mls @ 100 mls/hr IV Q24H [facility] PRN Reason: Protocol Last Admin: 01/18/18 02:49 Dose: 100 mls/hr Calcium Gluconate 4.65 meq/Magnesium Sulfate 8 meq/Multivitamins/Vitamin C 10 ml /Chromium/Copper/Manganese/Zinc 1 ml/ Amino Acids 1,022.9704 mls @ 42 mls/hr IV .Q24H ONE Stop: 01/19/18 17:59 Last Admin: 01/18/18 17:41 Dose: 42 mls/hr Fat Emulsion Intravenous (Intralipid 20%) 500 mls @ 42 mls/hr IV MWF@1800 ONE Stop: 01/19/18 05:54 Last Admin: 01/18/18 17:42 Dose: 42 mls/hr Metoprolol Tartrate (Lopressor) 25 mg PO BID [facility] Last Admin: 01/18/18 17:22 Dose: Not Given Potassium Chloride (K-Dur 20 Meq Er Tab) 40 meq PO ONCE [facility] Last Admin: 01/05/18 09:16 Dose: 40 meq - Labs Labs: 01/18/18 06:52 01/18/18 06:52 PT 23.7 SECONDS (9.7-12.2) H 01/12/18 06:41 INR 2.1 01/12/18 06:41 APTT 45 SECONDS (21-34) H 01/12/18 06:41 - Constitutional Appears: No Acute Distress, Chronically Ill - Eye Exam Eye Exam: EOMI, PERRL, Scleral icterus - ENT Exam ENT Exam: Mucous Membranes Moist, Normal Oropharynx - Neck Exam Neck Exam: Normal Inspection - Respiratory Exam Respiratory Exam: Decreased Breath Sounds - Cardiovascular Exam Cardiovascular Exam: REGULAR RHYTHM, +S1, +S2 - GI/Abdominal Exam GI & Abdominal Exam: Soft, Tenderness (GENERALISED.), Hypoactive Bowel Sounds - Extremities Exam Extremities Exam: Pedal Edema. absent: Calf Tenderness - Neurological Exam Neurological Exam: Awake, CN II-XII Intact, Oriented x3 - Skin Skin Exam: Normal Color, Warm Assessment and Plan (1) Sepsis Status: Acute (2) Abdominal pain Status: Acute (3) Ascites, malignant Status: Acute (4) Cholangiocarcinoma Status: Chronic (5) Hypertension Status: Acute (6) Thrombocytopenia Status: Acute - Assessment and Plan (Free Text) Plan: On IV MERREM 500 MG IVPB Q 8 HRLY 01/05/18 CONTINUE fLAGYL 250 iv PIGGYBACK EVERY 8 HOURLY FOR ANAEROBIC COVERAGE. . BLOOD CULTURE X1 FUNGUS THEN F/U --NOT DONE NOTED ON IV MYCAFUNGIN 100MG IV OD DAILY 01/15/18 F/U CBC/PLATELETS. PROGNOSIS GUARDED.
[2018-01-18] MEDS ORDERED: Fat Emulsion 20% IV 500 ML IV ONE (18:00)
[2018-01-18] MEDS ORDERED: TPN IV ONE (18:00)
[2018-01-18] MEDS ORDERED: HYDROmorphone 1 mg/ml ISec IVP PRN (21:19)
--- NOTE | 2018-01-18 23:10 | CP.PCM.PN ---
Subjective - Date & Time of Evaluation Date of Evaluation: 01/18/18 Time of Evaluation: 17:40 - Subjective Subjective: Patient seen. clinically improving. No bleeding ..On antifungal and flagyl Objective - Vital Signs/Intake and Output Vital Signs (last 24 hours): Temp Pulse Resp BP Pulse Ox 97.6 F 112 H 20 92/56 L 99 01/18/18 07:38 01/18/18 07:38 01/18/18 07:38 01/18/18 17:22 01/18/18 07:38 Intake and Output: 01/18/18 01/19/18 18:59 06:59 Intake Total 536 Balance 536 - Medications Medications: Current Medications Acetaminophen (Tylenol 325mg Tab) 650 mg PO Q6 PRN PRN Reason: Fever >100.4 F Diphenhydramine HCl (Benadryl) 25 mg IVP Q3H PRN PRN Reason: Itching / Pruritus Last Admin: 01/18/18 21:49 Dose: 25 mg Famotidine (Pepcid) 20 mg IVP DAILY [facility] Last Admin: 01/18/18 11:25 Dose: 20 mg Hydromorphone HCl (Dilaudid) 1 mg IVP Q3H PRN PRN Reason: Pain, moderate (4-7) Last Admin: 01/18/18 21:50 Dose: 1 mg Meropenem 500 mg/ Sodium (Chloride) 100 mls @ 100 mls/hr IVPB Q8 [facility] PRN Reason: Protocol Last Admin: 01/18/18 22:04 Dose: 100 mls/hr Metronidazole 250 mg/ (Miscellaneous) 50 mls @ 100 mls/hr IVPB Q8 [facility] PRN Reason: Protocol Last Admin: 01/18/18 21:00 Dose: 100 mls/hr Micafungin Sodium 100 mg/ (Sodium Chloride) 100 mls @ 100 mls/hr IV Q24H [facility] PRN Reason: Protocol Last Admin: 01/18/18 02:49 Dose: 100 mls/hr Calcium Gluconate 4.65 meq/Magnesium Sulfate 8 meq/Multivitamins/Vitamin C 10 ml /Chromium/Copper/Manganese/Zinc 1 ml/ Amino Acids 1,022.9704 mls @ 42 mls/hr IV .Q24H ONE Stop: 01/19/18 17:59 Last Admin: 01/18/18 17:41 Dose: 42 mls/hr Fat Emulsion Intravenous (Intralipid 20%) 500 mls @ 42 mls/hr IV MWF@1800 ONE Stop: 01/19/18 05:54 Last Admin: 01/18/18 17:42 Dose: 42 mls/hr Metoprolol Tartrate (Lopressor) 25 mg PO BID [facility] Last Admin: 01/18/18 17:22 Dose: Not Given - Labs Labs: 01/18/18 06:52 01/18/18 06:52 PT 23.7 SECONDS (9.7-12.2) H 01/12/18 06:41 INR 2.1 01/12/18 06:41 APTT 45 SECONDS (21-34) H 01/12/18 06:41 Assessment and Plan (1) Abdominal pain Status: Acute (2) Cholangiocarcinoma Status: Chronic (3) Dehydration Status: Acute (4) Hypertension Status: Acute (5) Septicemia Status: Acute
[2018-01-19] MEDS ORDERED: Dextrose 50% SYRINGE Inj (50 ml) ONE ×3 (00:37→01:10)
[2018-01-19] MEDS ORDERED: Sodium Bicarbonate (8.4%) 50 Meq Syringe ONE (00:55)
[2018-01-19 01:12] LABS: ARTERIAL BLOOD GAS HCO3 12.1 mmol/L (21-28); ARTERIAL BLOOD GAS PCO2 61 mm/Hg (35-45); ARTERIAL BLOOD GAS PH 7.06 (7.35-7.45); ARTERIAL BLOOD GAS PO2 18 mm/Hg (80-100); ARTERIAL BLOOD GAS TCO2 19.2 mmol/L (22-28)
--- NOTE | 2018-01-19 01:36 | CP.PCM.PRO ---
Pronouncement of Note - Clinical Findings Physical Exam: No Response Verbal/Painful Stimuli, Absent Peripheral Pulses{ Carotid & Femoral}, Absent Heart & Breath Sounds, Pupils Fixed & Dilated - Pronouncement Time Time of Pronouncement of : 01:10 - Notifications Pronouncement Notifications: Family Notified, Atending Notified (message was left) Fx Artist Notified: No - Autopsy Autopsy Requested: No [place] [id number]
--- NOTE | 2018-01-19 01:40 | CP.PCM.PN ---
Subjective - Date & Time of Evaluation Date of Evaluation: 01/19/18 Time of Evaluation: 01:28 - Subjective Subjective: Responded to [employer]PORATE ASSOCIATE converted into code blue, patient was unresponsive, no pulse, CPR started with ACLS protocol, patient had black vomit/blood in his mouth, nose , rectal, glucose was <20mg/dl. Patient intubated orally despite blood in mouth able to intubate successfully, with color change in the Co2 detector, placement also confirmed by anesthesia using mac 4 blade, copious amount of black fluid suctioned out from mouth and airway. CPR conducted from 12:39am to 1:10 am, during this time patient had weak slow pulse for 10-20 seconds, then pea, and didn't regain pulse. Patient history reviewed, has been seen in past by me during prior similar cardiac arrest which he survived, had h/o advanced colangiocarcinoma, thrombocytopenia, anasarca, anemia, gi bleeding, chronic pain , and only palliative/comfort care recommended by his primary team. Patient pronounced at 1:10 am, registered in EDRS, ERIC WATERS called on phone, who also asked me to call Marlen Klein sister of ERIC, who was also informed by me, and will come to hospital. PMD being reached by nursing. Pronouncement note with EDRS number will also be inserted. Objective - Vital Signs/Intake and Output Vital Signs (last 24 hours): Temp Pulse Resp BP Pulse Ox 97.6 F 112 H 20 92/56 L 99 01/18/18 07:38 01/18/18 07:38 01/18/18 07:38 01/18/18 17:22 01/18/18 07:38 Intake and Output: 01/18/18 01/19/18 18:59 06:59 Intake Total 536 Balance 536 - Medications Medications: Current Medications Acetaminophen (Tylenol 325mg Tab) 650 mg PO Q6 PRN PRN Reason: Fever >100.4 F Diphenhydramine HCl (Benadryl) 25 mg IVP Q3H PRN PRN Reason: Itching / Pruritus Last Admin: 01/18/18 21:49 Dose: 25 mg Famotidine (Pepcid) 20 mg IVP DAILY [facility] Last Admin: 01/18/18 11:25 Dose: 20 mg Hydromorphone HCl (Dilaudid) 1 mg IVP Q3H PRN PRN Reason: Pain, moderate (4-7) Last Admin: 01/18/18 21:50 Dose: 1 mg Meropenem 500 mg/ Sodium (Chloride) 100 mls @ 100 mls/hr IVPB Q8 [facility] PRN Reason: Protocol Last Admin: 01/18/18 22:04 Dose: 100 mls/hr Metronidazole 250 mg/ (Miscellaneous) 50 mls @ 100 mls/hr IVPB Q8 [facility] PRN Reason: Protocol Last Admin: 01/18/18 21:00 Dose: 100 mls/hr Micafungin Sodium 100 mg/ (Sodium Chloride) 100 mls @ 100 mls/hr IV Q24H [facility] PRN Reason: Protocol Last Admin: 01/18/18 02:49 Dose: 100 mls/hr Calcium Gluconate 4.65 meq/Magnesium Sulfate 8 meq/Multivitamins/Vitamin C 10 ml /Chromium/Copper/Manganese/Zinc 1 ml/ Amino Acids 1,022.9704 mls @ 42 mls/hr IV .Q24H ONE Stop: 01/19/18 17:59 Last Admin: 01/18/18 17:41 Dose: 42 mls/hr Fat Emulsion Intravenous (Intralipid 20%) 500 mls @ 42 mls/hr IV MWF@1800 ONE Stop: 01/19/18 05:54 Last Admin: 01/18/18 17:42 Dose: 42 mls/hr Metoprolol Tartrate (Lopressor) 25 mg PO BID [facility] Last Admin: 01/18/18 17:22 Dose: Not Given - Labs Labs: 01/18/18 06:52 01/18/18 06:52 PT 23.7 SECONDS (9.7-12.2) H 01/12/18 06:41 INR 2.1 01/12/18 06:41 APTT 45 SECONDS (21-34) H 01/12/18 06:41
--- NOTE | 2018-01-19 07:13 | PCM.PROC ---
Procedures Attestation:: I certify that I have explained the specified Operation(s) or Procedure(s), risks, benefits and reasonable alternatives to the Patient and/or other person responsible. The opportunity was given to ask questions and all questions answered - Intubation Time Out Performed: Yes Sedative: None Laryngoscope: Beronica (4) Assist Device Used: Other (none) ET Tube Size: 8.0 ET Tube Uncuffed: No ET Tube Secured at Depth: 24 ET Tube Secured Locarion: Teeth ET Tube Placement Confirmation: Breath Sounds Equal Bilaterally, No Breath Sounds Over Epigastrum, Confirmation w/Capnometry (Because of shaila in mouth and airway, could no be seen passing through the cords, but onec intubated, post sucction placment confirmed by anatomy, by me and asnethesia corporate communications intern) Patient Tolerated Procedure: Other Procedure Immediate Complications: None Additional comments: Patient intubated during code blue, with shaila in mouth, airway. See note related to cpr as well.
--- NOTE | 2018-01-19 23:32 | CP.PCM.DIS ---
Provider - Provider Date of Admission: 01/01/18 02:38 Attending physician: Bo Kramer MD Time Spent in preparation of Discharge (in minutes): 22 Diagnosis - Discharge Diagnosis (1) Abdominal pain Status: Acute (2) Cholangiocarcinoma Status: Chronic Priority: High (3) Dehydration Status: Acute Priority: High (4) Hypertension Status: Acute (5) Septicemia Status: Acute Hospital Course - Lab Results Lab Results: Micro Results 01/04/18 07:38 Other: Please Indicate Blood Fungal Culture - Preliminary 01/10/18 Unknown Sputum Fungal Culture - Final Cassia Albicans 01/11/18 Unknown Naris MRSA Culture - Final MRSA NOT DETECTED 01/10/18 Unknown Sputum Gram Stain - Final 01/10/18 Unknown Sputum Sputum Culture - Final Yeast Species 01/03/18 06:00 Blood-Thru Central Line Blood Culture - Final NO GROWTH AFTER 5 DAYS 01/04/18 06:29 Blood-Thru Central Line Blood Culture - Final NO GROWTH AFTER 5 DAYS 01/04/18 06:29 Blood-Thru Central Line Gram Stain - Final TEST NOT PERFORMED 01/07/18 09:12 Nose MRSA Culture (Admit) - Final MRSA NOT DETECTED 01/02/18 14:00 Blood-Thru Central Line Blood Culture - Final NO GROWTH AFTER 5 DAYS 01/02/18 14:00 Blood-Thru Central Line Gram Stain - Final TEST NOT PERFORMED 01/02/18 14:30 Blood-Thru Central Line Blood Culture - Final NO GROWTH AFTER 5 DAYS 01/04/18 06:00 Throat Group A Strep Throat Culture - Final NO BETA STREP GROUP A ISOLATED. 01/02/18 08:00 Urine,Random Urine Culture - Final No Growth (<1,000 CFU/ML) Most Recent Lab Values WBC 13.7 K/uL (4.8-10.8) H 01/18/18 06:52 RBC 2.38 Mil/uL (4.40-5.90) L 01/18/18 06:52 Hgb 7.9 g/dL (12.0-18.0) L 01/18/18 06:52 Hct 25.1 % (35.0-51.0) L 01/18/18 06:52 MCV 105.4 fL (80.0-94.0) H 01/18/18 06:52 MCH 33.4 pg (27.0-31.0) H 01/18/18 06:52 MCHC 31.7 g/dL (33.0-37.0) L 01/18/18 06:52 RDW 24.9 % (11.5-14.5) H 01/18/18 06:52 Plt Count 43 K/uL (130-400) L 01/18/18 06:52 Manual Plt Count 21 K/uL (130-400) L* 01/13/18 07:59 MPV 12.1 fL (7.2-11.7) H 01/18/18 06:52 Neut % (Auto) 84.2 % (50.0-75.0) H 01/18/18 06:52 Lymph % (Auto) 6.2 % (20.0-40.0) L 01/18/18 06:52 Jennings % (Auto) 8.1 % (0.0-10.0) 01/18/18 06:52 Eos % (Auto) 1.1 % (0.0-4.0) 01/18/18 06:52 Baso % (Auto) 0.4 % (0.0-2.0) 01/18/18 06:52 Neut # (Auto) 11.5 K/uL (1.8-7.0) H 01/18/18 06:52 Lymph # (Auto) 0.9 K/uL (1.0-4.3) L 01/18/18 06:52 Jennings # (Auto) 1.1 K/uL (0.0-0.8) H 01/18/18 06:52 Eos # (Auto) 0.2 K/uL (0.0-0.7) 01/18/18 06:52 Baso # (Auto) 0.1 K/uL (0.0-0.2) 01/18/18 06:52 Total Counted Cancelled 01/04/18 06:29 Neutrophils % (Manual) 86 % (50-75) H 01/18/18 06:52 Band Neutrophils % 4 % (0-2) H 01/18/18 06:52 Lymphocytes % (Manual) 4 % (20-40) L 01/18/18 06:52 Reactive Lymphs % 1 % (0-0) H 01/06/18 08:17 Monocytes % (Manual) 5 % (0-10) 01/18/18 06:52 Eosinophils % (Manual) 1 % (0-4) 01/18/18 06:52 Basophils % (Manual) Cancelled 01/04/18 06:29 Metamyelocytes % 1 % (0-0) H 01/15/18 14:21 Myelocytes % 1 % (0-0) H 01/10/18 06:24 Promyelocytes % Cancelled 01/04/18 06:29 Blast Cells % Cancelled 01/04/18 06:29 Plasma Cell % (Manual) Cancelled 01/04/18 06:29 Nucleated RBC % 1 % (0-0) H 01/15/18 14:21 Differential Comment 01/01/18 14:04 Hypersegmented Polys Cancelled 01/04/18 06:29 Smudge Cells Cancelled 01/04/18 06:29 Toxic Granulation Present 01/18/18 06:52 Dohle Bodies Cancelled 01/04/18 06:29 Jeremy Rods Cancelled 01/04/18 06:29 Platelet Estimate Decreased (NORMAL) L 01/18/18 06:52 Plt Clumps, EDTA Cancelled 01/04/18 06:29 Large Platelets Present 01/18/18 06:52 Giant Platelets Present 01/18/18 06:52 RBC Morphology Cancelled 01/04/18 06:29 Polychromasia Slight 01/18/18 06:52 Hypochromasia (manual) Slight 01/18/18 06:52 Poikilocytosis (manual Slight 01/18/18 06:52 Basophilic Stippling Slight 01/15/18 14:21 Anisocytosis (manual) Marked 01/18/18 06:52 Microcytosis (manual) Slight 01/09/18 06:19 Macrocytosis (manual) Moderate 01/18/18 06:52 Spherocytes Cancelled 01/04/18 06:29 Sickle Cells Cancelled 01/04/18 06:29 Target Cells Slight 01/18/18 06:52 Tear Drop Cells Slight 01/17/18 15:15 Ovalocytes Slight 01/18/18 06:52 Stomatocytes Cancelled 01/04/18 06:29 Helmet Cells Cancelled 01/04/18 06:29 Mack-Penitas Bodies Cancelled 01/04/18 06:29 Chani Cells Slight 01/07/18 13:33 Acanthocytes (Spur) Cancelled 01/04/18 06:29 Rouleaux Cancelled 01/04/18 06:29 Schistocytes Slight 01/18/18 06:52 PT 23.7 SECONDS (9.7-12.2) H 01/12/18 06:41 INR 2.1 01/12/18 06:41 APTT 45 SECONDS (21-34) H 01/12/18 06:41 Fibrinogen 193 mg/dL (200-400) L 01/12/18 06:41 Fibrin Degrad Products Positive (NEGATIVE) H 01/12/18 09:55 Fibrin Degrad Prod, Qt >40 ug/mL (<10) H 01/12/18 09:55 D-Dimer, Quantitative 4107 ng/mlDDU (0-243) H 01/10/18 09:03 Puncture Site Lfem 01/19/18 01:05 pCO2 61 mm/Hg (35-45) H 01/19/18 01:05 pO2 18 mm/Hg (80-100) L* 01/19/18 01:05 HCO3 12.1 mmol/L (21-28) L 01/19/18 01:05 ABG pH 7.06 (7.35-7.45) L* 01/19/18 01:05 ABG Total CO2 19.2 mmol/L (22-28) L 01/19/18 01:05 ABG O2 Saturation 98.3 % (95-98) H 01/10/18 12:35 ABG Base Excess -13.5 mmol/L (-2.0-3.0) L 01/19/18 01:05 Rashid Test Na 01/19/18 01:05 ABG Potassium 4.7 mmol/L (3.6-5.2) 01/19/18 01:05 A-a O2 Difference 619.0 mm/Hg 01/19/18 01:05 Respiratory Index 34.4 01/19/18 01:05 Sodium 148.0 mmol/l (132-148) 01/19/18 01:05 Chloride 114.0 mmol/L (98-107) H 01/19/18 01:05 Glucose 724 mg/dl (75-110) H* D 01/19/18 01:05 Lactate 12.5 mmol/L (0.7-2.1) H* 01/19/18 01:05 Mechanical Rate 14 01/07/18 08:53 FiO2 100.0 % 01/19/18 01:05 Tidal Volume 450 01/07/18 08:53 PEEP 5 01/07/18 08:53 Crit Value Called To Dr thrasher/christina gonzalez 01/19/18 01:05 Crit Value Called By Nitin cook 01/19/18 01:05 Crit Value Read Back Y 01/19/18 01:05 Blood Gas Notified Time 115 01/19/18 01:05 Sodium 150 mmol/L (132-148) H 01/18/18 06:52 Potassium 3.5 mmol/L (3.6-5.2) L 01/18/18 06:52 Chloride 119 mmol/L (98-107) H 01/18/18 06:52 Carbon Dioxide 22 mmol/L (22-30) 01/18/18 06:52 Anion Gap 12 (10-20) 01/18/18 06:52 BUN 41 mg/dL (9-20) H 01/18/18 06:52 Creatinine 1.8 mg/dL (0.8-1.5) H 01/18/18 06:52 Est GFR ( Amer) 47 01/18/18 06:52 Est GFR (Non-Af Amer) 39 01/18/18 06:52 POC Glucose (mg/dL) < 20 mg/dL (65-110) L* 01/19/18 01:05 Random Glucose 101 mg/dL (75-110) 01/18/18 06:52 Lactic Acid 5.6 mmol/L (0.7-2.1) H* 01/07/18 07:13 Calcium 7.4 mg/dl (8.6-10.4) L 01/18/18 06:52 Phosphorus 2.8 mg/dL (2.5-4.5) 01/12/18 06:41 Magnesium 2.0 mg/dL (1.6-2.3) 01/12/18 06:41 Total Bilirubin 7.2 mg/dL (0.2-1.3) H 01/18/18 06:52 Direct Bilirubin 3.9 mg/dL (0.0-0.4) H 01/09/18 06:19 AST 96 U/L (17-59) H 01/18/18 06:52 ALT 63 U/L (21-72) 01/18/18 06:52 Alkaline Phosphatase 167 U/L (38-126) H D 01/18/18 06:52 Ammonia 21 umol/L (9-33) 01/01/18 00:16 Total Protein 4.8 g/dL (6.3-8.3) L 01/18/18 06:52 Albumin 1.5 g/dL (3.5-5.0) L 01/18/18 06:52 Globulin 3.2 gm/dL (2.2-3.9) 01/18/18 06:52 Albumin/Globulin Ratio 0.5 (1.0-2.1) L 01/18/18 06:52 Lipase < 10 U/L (23-300) L 01/01/18 00:16 Alpha Fetoprotein 4.9 ng/mL (0.0-7.5) 01/01/18 14:04 Carcinoembryonic Ag 18.6 ng/mL (0-3.0) H 01/01/18 14:04 CA 19-9 Antigen > 5000 U/mL (0-37) H 01/01/18 14:04 UF Heparin Interp Negative (Negative) 01/11/18 13:25 Procalcitonin 7.25 NG/ML (0.19-0.49) H 01/08/18 11:16 Arterial Blood Potassium 4.7 mmol/L (3.6-5.2) 01/19/18 01:05 Urine Color Dilia (YELLOW) 01/07/18 19:40 Urine Clarity Turbid (Clear) 01/07/18 19:40 Urine pH 5.0 (5.0-8.0) 01/07/18 19:40 Ur Specific [place] 1.033 (1.003-1.030) H 01/07/18 19:40 Urine Protein 2+ mg/dL (NEGATIVE) H 01/07/18 19:40 Urine Glucose (UA) 1+ mg/dL (Normal) H 01/07/18 19:40 Urine Ketones Negative mg/dL (NEGATIVE) 01/07/18 19:40 Urine Blood 1+ (NEGATIVE) H 01/07/18 19:40 Urine Nitrate Negative (NEGATIVE) 01/07/18 19:40 Urine Bilirubin 1+ (NEGATIVE) H 01/07/18 19:40 Urine Urobilinogen Normal mg/dL (0.2-1.0) 01/07/18 19:40 Ur Leukocyte Esterase Neg Frederick/uL (Negative) 01/07/18 19:40 Urine WBC (Auto) 21 /hpf (0-5) H 01/07/18 19:40 Urine RBC (Auto) 13 /hpf (0-3) H 01/07/18 19:40 Urine WBC Clumps (Auto) Few /hpf (NONE) H 01/07/18 19:40 Ur Squamous Epith Cells 1 /hpf (0-5) 01/02/18 20:20 Amorphous Sediment Rare /ul (<OCC) H 01/07/18 19:40 Urine Bacteria Occ (<OCC) H 01/07/18 19:40 Urine Yeast (Budding) Few /hpf (NEGATIVE) H 01/02/18 20:20 Random Vancomycin 43.61 ug/mL 01/08/18 06:21 Heparin-induced Plt Ab Negative (Negative) 01/11/18 13:25 GERARD UFH Low Dose 0.1 1 % Release 01/11/18 13:25 GERARD UFH Low Dose 0.5 2 % Release 01/11/18 13:25 G[facility]ARD UFH High Dose 100 1 % Release 01/11/18 13:25 C. difficile Ag & Toxin Negative (NEGATIVE) 01/06/18 00:55 Blood Type O NEGATIVE 01/07/18 11:49 Antibody Screen Negative 01/07/18 11:49 - Hospital Course Hospital Course: Responded to [employer] converted into code blue, patient was unresponsive, no pulse, CPR started with ACLS protocol, patient had black vomit/blood in his mouth, nose , rectal, glucose was <20mg/dl. Patient intubated orally despite blood in mouth able to intubate successfully, with color change in the Co2 detector, placement also confirmed by anesthesia using mac 4 blade, copious amount of black fluid suctioned out from mouth and airway. CPR conducted from 12:39am to 1:10 am, during this time patient had weak slow pulse for 10-20 seconds, then pea, and didn't regain pulse. Patient history reviewed, has been seen in past by me during prior similar cardiac arrest which he survived, had h/o advanced colangiocarcinoma, thrombocytopenia, anasarca, anemia, gi bleeding, chronic pain , and only palliative/comfort care recommended by his primary team. Patient pronounced at 1:10 am, registered in [facility], ERIC WATERS called on phone, who also asked me to call Marlen Klein sister of VANESATruman, who was also informed by me, and will come to hospital. PMD being reached by nursing. Pronouncement note with [employer] number will also be inserted. Discharge Exam - Head Exam Head Exam: ATRAUMATIC Discharge Plan - Follow Up Plan Condition: GOOD Disposition: WITH WITHOUT AUTOPSY
== END 2018-01-19 04:20 | DRG 871 ==
LOC: C.ER 23:15 → C.3T 01-01 02:38 → C.9I 01-07 06:33 → C.3T 01-11 17:02
PROVIDERS: ADMIT Internal Medicine; ATTEND Internal Medicine
PROC: 0BH17EZ Insertion of Endotracheal Airway into Trachea, Via Natural or Artificial Opening (ICD-10-PCS; 2018-01-07)
PROC: 5A1935Z Respiratory Ventilation, Less than 24 Consecutive Hours (ICD-10-PCS; 2018-01-07)
PROC: 5A12012 Performance of Cardiac Output, Single, Manual (ICD-10-PCS; principal; 2018-01-19)
PROC: 0BH17EZ Insertion of Endotracheal Airway into Trachea, Via Natural or Artificial Opening (ICD-10-PCS; 2018-01-19)
PROC: 5A1935Z Respiratory Ventilation, Less than 24 Consecutive Hours (ICD-10-PCS; 2018-01-19)
DX: A41.9 Sepsis, unspecified organism (principal); D65 Disseminated intravascular coagulation [defibrination syndrome]; E43 Unspecified severe protein-calorie malnutrition; J69.0 Pneumonitis due to inhalation of food and vomit; R65.21 Severe sepsis with septic shock; J96.90 Respiratory failure, unspecified, unspecified whether with hypoxia or hypercapnia; C22.1 Intrahepatic bile duct carcinoma; D62 Acute posthemorrhagic anemia; J90 Pleural effusion, not elsewhere classified; R18.0 Malignant ascites; N17.9 Acute kidney failure, unspecified; K76.6 Portal hypertension; K63.2 Fistula of intestine; D63.8 Anemia in other chronic diseases classified elsewhere; E16.2 Hypoglycemia, unspecified; E77.8 Other disorders of glycoprotein metabolism; E78.5 Hyperlipidemia, unspecified; E83.51 Hypocalcemia; E86.0 Dehydration; E87.6 Hypokalemia; F10.20 Alcohol dependence, uncomplicated; G89.29 Other chronic pain; I10 Essential (primary) hypertension; I46.9 Cardiac arrest, cause unspecified; J44.9 Chronic obstructive pulmonary disease, unspecified; Z92.3 Personal history of irradiation; Z92.21 Personal history of antineoplastic chemotherapy; Z90.49 Acquired absence of other specified parts of digestive tract; Z87.891 Personal history of nicotine dependence; Z51.5 Encounter for palliative care; K70.9 Alcoholic liver disease, unspecified; K27.9 Peptic ulcer, site unspecified, unspecified as acute or chronic, without hemorrhage or perforation; K52.9 Noninfective gastroenteritis and colitis, unspecified